=== PATIENT | male | born 1940 | race Caucasian/White ===

== ENCOUNTER → 2016-08-16 | Outpatient (CLI) | payer MEDICARE, BC | END | disposition home or self-care (01) | LOC: LABPAT 13:44 | PROVIDERS: ATTEND Surgery | DX: Z01.812 Encounter for preprocedural laboratory examination (principal) | CPT/HCPCS: 87070 ==

== ENCOUNTER 2016-12-08 15:38 | Inpatient (IN) | payer MEDICARE, BC, MEDICAID ==
[2016-12-08] MEDS ORDERED: ACETAMINOPHEN TAB 325 MG TAB PO PRN (18:05)
[2016-12-08] MEDS: LORazepam 0.5 MG TAB PO SCH ×2 (18:48→20:25)
[2016-12-08] MEDS: TOPIRAMATE 25 MG TAB PO SCH (20:24)
[2016-12-08] MEDS: MELATONIN 5 MG TABLET PO SCH (20:24)
[2016-12-08] MEDS: ATORVASTATIN 20 MG TAB PO SCH (20:24)
[2016-12-08] MEDS: amLODIPine 10 MG TAB PO SCH (20:24)
[2016-12-08] MEDS: HYDROCORTISONE 1% CREAM 30 GM TUBE TOPICAL SCH (20:24)
[2016-12-08] MEDS: POLYETHYLENE GLYCOL 3350 17 GM POWD.PACK PO SCH (20:24)
[2016-12-08] MEDS: hydrALAZINE HCL 25 MG TAB PO SCH (20:25)
[2016-12-09] MEDS: HYDROcodone/APAP 5-325MG 1 EACH TAB PO PRN ×2 (03:42→12:14)
[2016-12-09] MEDS: GABAPENTIN 100 MG CAP PO SCH (08:45)
[2016-12-09] MEDS: ESCITALOPRAM 20 MG TAB PO SCH (08:45)
[2016-12-09] MEDS: ASCORBIC ACID 500 MG TAB PO SCH (08:45)
[2016-12-09] MEDS: PANTOPRAZOLE 40 MG TABLET PO SCH (08:45)
[2016-12-09] MEDS: hydrALAZINE HCL 25 MG TAB PO SCH (08:46)
[2016-12-09] MEDS: SPIRONOLACTONE 25 MG TAB PO SCH (08:46)
[2016-12-09] MEDS: TOPIRAMATE 25 MG TAB PO SCH ×2 (08:46→20:42)
[2016-12-09] MEDS: LORazepam 0.5 MG TAB PO SCH (08:46)
[2016-12-09] MEDS: LISINOPRIL 20 MG TAB PO SCH (08:46)
[2016-12-09] MEDS: POLYETHYLENE GLYCOL 3350 17 GM POWD.PACK PO SCH ×3 (08:50→20:43)
[2016-12-09] MEDS ORDERED: buPROPion XL 300 MG TAB.ER.24H PO SCH (09:00)
[2016-12-09] MEDS ORDERED: FUROSEMIDE 20 MG TAB PO SCH (09:00)
[2016-12-09] MEDS ORDERED: LORazepam 0.5 MG TAB PO PRN (09:26)
--- NOTE | 2016-12-09 09:36 | P.HP ---
Psychiatric H&P - . History & Physical: Allergies Allergy/AdvReac Type Severity Reaction Status Date / Time No Known Allergies Allergy Unverified 12/08/16 18:37 Vital Signs Temp 97.7 F 12/09/16 03:47 Pulse 96 12/09/16 08:51 Resp 18 12/09/16 08:51 BP 174/77 12/09/16 08:51 Pulse Ox 96 12/08/16 18:26 Intake & Output 12/08/16 12/09/16 12/09/16 18:59 06:59 18:59 Weight 84 kg 12/09/16 09:27 IDENTIFYING DATA: This patient is a 76-year-old male who was admitted to the mental health unit from [facility] as he presented with suicidal ideation. HPI: The patient is well-known to my outpatient service. He has a history of major depressive disorder generalized anxiety disorder history of alcohol use disorder in remission. He states that's there was a lapse in him getting his Ativan and he was off of the medication for 2 days. He started to feel physically ill and this sent him into crisis. He reports he called 911 and was brought to [facility] for evaluation. He apparently made statements referring to suicidal ideation and was transferred to this mental health unit. The patient has been previously managed with Lexapro and Ativan. He was last seen in the office 11/29/2016. He reports feeling safe here on the mental health unit. He still feels hopeless and overwhelmed. He is reporting no symptoms of psychosis no hypomanic or manic symptoms. He feels his anxiety is controlled by medications currently being prescribed. PAST PSYCHIATRIC HISTORY: The patient has had numerous inpatient hospitalizations in the past it has been approximately 2 years since his last admission to this unit. No history of suicide attempts. Most recently he has been on Lexapro 20 mg daily Ativan 1 mg 3 times daily. We had recently tried to augment with Wellbutrin but that had him feeling more anxious and it was discontinued. We tried to utilize BuSpar at a separate time but he felt tired with it and it caused loose stools. In the past he has been on Effexor XR Librium trazodone Abilify. We did recently learned that his primary care physician was giving him Celexa on top of are Lexapro we contacted their office to discontinue the Celexa. PMH: History of congestive heart failure, migraines, hyperlipidemia, COPD ALLERGIES: NO KNOWN DRUG ALLERGIES MEDICATIONS: Refer to MAR CHEMICAL DEPENDENCY HISTORY: History of alcohol use disorder which has been in remission for several years, he was in residential treatment for chemical dependency treatment several times in the past FAMILY PSYCHIATRIC HISTORY: Unknown FAMILY CHEMICAL DEPENDENCY HISTORY: Unknown SOCIAL HISTORY: The patient is 76 years old he is he lives alone in his own rented apartment. 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 He has one child a daughter whom he sees weekly. No history of service. No legal history , no abuse history. MENTAL STATUS EXAM: The patient is an overweight male appearing his stated age. He is alert he is dressed in hospital gowns and is wearing to blankets. He reports his mood is depressed he feels hopeless and continues to have suicidal thoughts. Speech is fluent spontaneous nonpressured. No reported homicidal ideation. He is experiencing no auditory or visual hallucinations no specific delusions. No evidence of hypomanic or manic symptoms. He does have significant hearing loss and his hearing aids are not present. Insight and judgment limited. He is oriented to person place and date. He is able to name the days of the week backwards. He demonstrates no verbal or physical aggressiveness. STRENGTHS/WEAKNESSES: Strengths: Income, housing, family support weaknesses: Current symptoms of depression INTELLECTUAL FUNCTIONING: Above average IMPRESSIONS: [] 1. Major depressive disorder recurrent, generalized anxiety disorder, alcohol use disorder in remission 2. Cluster B traits 3. Congestive heart failure, COPD, hyperlipidemia, migraines, hypertension PLAN: The patient has been admitted to the mental health unit voluntarily. We reviewed medication options. We will continue his Lexapro 20 mg daily, discontinue the Wellbutrin that was restarted. Discontinue scheduled Ativan and switch to Klonopin 0.5 mg twice daily. Vital signs reviewed blood pressure is elevated he is not tachycardic. When necessary Ativan is available if needed. The patient will be seen by the product/industry consultant for routine history and physical exam. Social work will meet with the patient to complete a psychosocial assessment and begin discharge planning. We will involve family in treatment and discharge planning as he will allow area
[2016-12-09] MEDS: HYDROCORTISONE 1% CREAM 30 GM TUBE TOPICAL SCH ×2 (10:19→20:44)
[2016-12-09 11:17] LABS: Basophils % (A) 0 %; CH 33.4; Eosinophils # (A) 0.1 k/uL (0-0.7); Eosinophils % (A) 1 %; HCT 38.9 % (39.0-53.0); HDW 2.13; HGB 12.9 gm/dL (13.0-17.5); Luc # (Auto) 0.07; Luc % (Auto) 1; Lymphocytes # (A) 0.6 k/uL (1.0-4.8); Lymphocytes % (A) 9 %; MCH 33.6 pg (25.0-35.0); MCHC 33.1 g/dL (31.0-37.0); MCV 101.7 fL (80.0-100.0); Mean Platelet Volume 9.7; Monocytes # (A) 0.4 k/uL (0-1.0); Monocytes % (A) 5 %; Neutrophils # (A) 5.7 k/uL (1.3-7.7); Neutrophils % (A) 83 %; RBC 3.82 m/uL (4.30-5.90); RDW 12.3 % (11.5-15.5); WBC 6.8 k/uL (3.8-10.6); WBC (Perox) 6.64
[2016-12-09 11:38] LABS: ALT 34 U/L (21-72); AST 27 U/L (17-59); Alkaline Phosphatase 75 U/L (38-126); Anion Gap 13 mmol/L; Blood Urea Nitrogen 16 mg/dL (9-20); Calcium 9.6 mg/dL (8.4-10.2); Carbon Dioxide 17 mmol/L (22-30); Chloride 104 mmol/L (98-107); Glucose 155 mg/dL (74-99); Non-African American GFR(MDRD) >60 (>60 ml/min/1.73 sqM); Potassium 4.2 mmol/L (3.5-5.1); Sodium 134 mmol/L (137-145); Total Bilirubin 0.5 mg/dL (0.2-1.3); Total Protein 6.8 g/dL (6.3-8.2)
[2016-12-09] MEDS: MULTIVITAMINS, THERA 1 EACH TAB PO SCH (12:14)
[2016-12-09] MEDS ORDERED: FUROSEMIDE 20 MG TAB PO ONE (12:45)
[2016-12-09] MEDS: hydrALAZINE HCL 50 MG TAB PO SCH ×3 (13:31→20:42)
[2016-12-09 15:54] LABS: Appearance,Urine Cloudy (Clear); Bilirubin,Urine Negative (Negative); Glucose,Urine (UA) Negative (Negative); Ketones,Urine Negative (Negative); Leukocyte Esterase,Urine Negative (Negative); Mucus,Urine Rare /hpf; Nitrite,Urine Negative (Negative); PH, Urine 5.5 (5.0-8.0); Particle Count 4093; Protein,Urine Negative (Negative); RBC,Urine 10 /hpf (0-5); Specific Gravity,Urine 1.006 (1.001-1.035); UA Billing (MACRO vs. MICRO) MICRO; Urobilinogen,Urine <2.0 mg/dL (<2.0); WBC,Urine 3 /hpf (0-5)
[2016-12-09] MEDS: MELATONIN 5 MG TABLET PO SCH (20:42)
[2016-12-09] MEDS: ATORVASTATIN 20 MG TAB PO SCH (20:42)
[2016-12-09] MEDS: amLODIPine 10 MG TAB PO SCH (20:43)
[2016-12-09] MEDS: clonazePAM 0.5 MG TAB PO SCH (20:43)
[2016-12-09] MEDS ORDERED: HYDROcodone/APAP 5-325MG 1 EACH TAB ONE (23:57)
--- NOTE | 2016-12-10 08:36 | P.PN ---
Progress Note - Text Interval history: The patient is found in the hallway he follows me to an interview room. He reports that his mood is a little better today as he was able to sleep last night. He attended 1 group yesterday he is encouraged to attend more. He feels the Klonopin is helpful. He shares that he recently suffered the loss of a close friend just prior to this admission. He also shares that he had to give his dog up which he had just recently gotten. He states he was not able to sufficiently trained the dog and it was becoming too difficult to manage. He states "I feel like a failure". Mental status exam: The patient is alert he is dressed in hospital gowns eye contact is appropriate. He ambulates slowly but without ataxia. He is in no acute distress as he is seated in the chair. He does have exaggerated exhalation which is chronic for him. He reports his mood is a little better but states "I'm not ready to go home". He continues to struggle with grief reaction related to the stressors noted above. He is endorsing no auditory or visual hallucinations or specific delusions there is no evidence of psychosis he does not appear hypomanic or manic. He has a little spontaneous speech but mainly answers questions asked of him. He continues to be oriented to person place and date. There is no verbal or physical aggressiveness. Plan: The patient will continue on his current medications he is encouraged to participate more in the milieu. Vital signs reviewed. We will continue to monitor him for safety.
[2016-12-10] MEDS: PANTOPRAZOLE 40 MG TABLET PO SCH (08:43)
[2016-12-10] MEDS: TOPIRAMATE 25 MG TAB PO SCH ×2 (08:43→20:44)
[2016-12-10] MEDS: hydrALAZINE HCL 50 MG TAB PO SCH ×3 (08:43→20:44)
[2016-12-10] MEDS: HYDROCORTISONE 1% CREAM 30 GM TUBE TOPICAL SCH ×2 (08:43→20:45)
[2016-12-10] MEDS: ASCORBIC ACID 500 MG TAB PO SCH (08:43)
[2016-12-10] MEDS: FUROSEMIDE 40 MG TAB PO SCH (08:43)
[2016-12-10] MEDS: GABAPENTIN 100 MG CAP PO SCH (08:43)
[2016-12-10] MEDS: LISINOPRIL 20 MG TAB PO SCH (08:43)
[2016-12-10] MEDS: clonazePAM 0.5 MG TAB PO SCH ×2 (08:43→20:44)
[2016-12-10] MEDS: SPIRONOLACTONE 25 MG TAB PO SCH (08:43)
[2016-12-10] MEDS: ESCITALOPRAM 20 MG TAB PO SCH (08:43)
[2016-12-10] MEDS: POLYETHYLENE GLYCOL 3350 17 GM POWD.PACK PO SCH ×2 (08:44→20:45)
--- NOTE | 2016-12-10 10:35 | CONS ---
DATE OF CONSULTATION: He is a full code and he is a 76-year-old white male. New data: Height is 5 feet, 8 inches. Weight 84 kg. BSA 1.98 sq m. BMI 28.2 kg/sq m. Allergy is unknown. The consult is requested for underlying history and physical and medical management. The patient admitted through the emergency room by Dr. Bowers with the impression that he is a 76-year-old white male admitted with mental health presented at that time with suicide ideation at [facility]. They sent him to [place]. HISTORY OF PRESENT ILLNESS: The patient is well known to Dr. Bowers, as outpatient he is seeing him for depressive disorder and generalized anxiety disorder, history of alcohol use and he is in remission. He stated that the patient had a friend . Subsequently he quit eating and quit medication and he did not take medication for 2 to 3 days and then subsequently he started to feel more depressed. At that time he called 911 and they brought to [facility] and subsequently transferred to [place] psychiatric mental unit. The patient was in the past on Ativan and Lexapro. He stated today on interview that he has depression with worsening and he at that time called to be checked. The past history, the patient has a previous admission hospitalization and he has not been in the hospital in the last 2 years. The patient has been taking Lexapro 20 mg daily, Ativan 1 mg 3 times a day. He also tried Wellbutrin with the augmentation of the effect, more anxious. Had tried to use Buspar several times but he felt tired and caused lose bowel. He has been on Effexor, Librium, trazodone and Abilify. The patient was seen in the office. He did not elucidate on his psychiatric problem and he did not bring medication of the psychiatry with him and for the purpose of depression, patient started on Celexa as he denied that he takes any other antidepressant medication. PAST MEDICAL HISTORY: Congestive heart failure, migraine, hyperlipidemia, chronic obstructive pulmonary disease, and he has also lymphedema bilaterally. ALLERGIES: Unknown. He is very secretive and he does not reveal much about his family history. He is . 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 He has one child daughter who he sees weekly. No legal history. No history of abuse. No history of service. He had underlying history of hypertension. On review of system he denies any complaint. No chest pain, no shortness of breath. No cough, no expectoration. No gastrointestinal symptoms. No symptoms. No musculoskeletal symptoms. Rest of the review of systems was negative, 14 point. PHYSICAL EXAMINATION: At the time of the evaluation the patient is ambulatory, conscious, alert, oriented. His vital signs at the time of the admission temperature 97.7, pulse 96, respiratory rate 18, blood pressure was 174/77 with the underlying hypertension, uncontrolled. Current physical finding is today on 12/09/16 his temperature was 97.7 orally, pulse 75, respiratory rate 16, his blood pressure 145/80 and he is on room air. HEENT: Head was normocephalic and atraumatic. Pupils equal, reactive. Conjunctivae was pink. Sclerae anicteric. Extraocular muscle movement is intact. Oropharynx negative. Uvula midline. Natural teeth with caps. The hearing is very concerning with deficit and neurosensory hearing deficit. Nose, no rhinitis Neck was supple. No JVD. No thyromegaly. No lymphadenopathy. Trachea midline. The chest was clear to auscultation and percussion. HEART: PMI in the fifth intercostal space outside midclavicular line with soft murmur on the apex grade 2/6. ABDOMEN: Abdomen was soft. Positive bowel sounds. No tenderness in 4 quadrant. EXTREMITIES: No edema. Positive pulses bilateral. Neuro examination was essentially cranial nerves II through XII intact. No ataxia. No tremors. Moving 4 extremities. No lateralizing sign. His laboratory that was done on the today and white count was 6.8 with hemoglobin 12.9, hematocrit 38.9 with MCV 101.7. His platelet count is normal 207. His chemistry indicating sodium 134, potassium 4.2, chloride 104. His carbon dioxide on the lower side, 17 with the anion gap normal, 13. BUN is 16, creatinine 1.10. Estimated glomerular filtration rate more than 60 for non-. Glucose 155, which this blood is not fasting and calcium is 9.6, total bilirubin 0.5, AST 27, ALT 34, all normal and also alkaline phosphatase is normal. TSH 1.570 normal and total protein is 6.8 with albumin is 4. Currently today his blood pressure last reading 140/74 after we had mild changes on the antihypertensive medication. ASSESSMENT: Underlying depression and major depression disorder, recurrent, with generalized anxiety disorder. He has a history of alcohol use disorder, he is in remission. He has underlying chronic obstructive pulmonary disease, hyperlipidemia, migraines and hypertension in the past. Currently in the laboratories he had mild decrease in carbon dioxide which could be corrected in the hospital and with the mild acidotic, however, the anion gap is normal. His renal function is normal as well and currently no evidence of congestive heart failure. History of lymph edema in the past, which has been treated. The current adjustment of medication is the plan, otherwise no added treatment. Will be interested to see how his BMP after next week before he goes home preferably next Sunday. He may need to have CBC with differential as well as BMP. The patient currently stable general condition. No further treatment will be done. Thank you. Please let me know if you need any further questions.
[2016-12-10] MEDS: HYDROcodone/APAP 5-325MG 1 EACH TAB PO PRN (11:57)
[2016-12-10] MEDS: MULTIVITAMINS, THERA 1 EACH TAB PO SCH (11:57)
[2016-12-10] MEDS: MAGNESIUM HYDROXIDE 2,400 MG/10 ML CUP PO PRN (13:54)
[2016-12-10] MEDS: MAG HYDROX/AL HYDROX/SIMETH 30 ML CUP PO PRN (16:41)
[2016-12-10] MEDS: MELATONIN 5 MG TABLET PO SCH (20:44)
[2016-12-10] MEDS: amLODIPine 10 MG TAB PO SCH (20:44)
[2016-12-10] MEDS: ATORVASTATIN 20 MG TAB PO SCH (20:44)
[2016-12-11] MEDS: HYDROcodone/APAP 5-325MG 1 EACH TAB PO PRN ×2 (00:37→12:24)
[2016-12-11] MEDS: ESCITALOPRAM 20 MG TAB PO SCH (08:33)
[2016-12-11] MEDS: ASCORBIC ACID 500 MG TAB PO SCH (08:33)
[2016-12-11] MEDS: clonazePAM 0.5 MG TAB PO SCH ×2 (08:33→20:57)
[2016-12-11] MEDS: PANTOPRAZOLE 40 MG TABLET PO SCH (08:33)
[2016-12-11] MEDS: FUROSEMIDE 40 MG TAB PO SCH (08:33)
[2016-12-11] MEDS: SPIRONOLACTONE 25 MG TAB PO SCH (08:34)
[2016-12-11] MEDS: hydrALAZINE HCL 50 MG TAB PO SCH ×3 (08:34→20:58)
[2016-12-11] MEDS: TOPIRAMATE 25 MG TAB PO SCH ×2 (08:34→20:58)
[2016-12-11] MEDS: LISINOPRIL 20 MG TAB PO SCH (08:34)
[2016-12-11] MEDS: GABAPENTIN 100 MG CAP PO SCH (08:34)
[2016-12-11] MEDS: MULTIVITAMINS, THERA 1 EACH TAB PO SCH (08:34)
[2016-12-11] MEDS: POLYETHYLENE GLYCOL 3350 17 GM POWD.PACK PO SCH ×2 (09:53→20:58)
[2016-12-11] MEDS: HYDROCORTISONE 1% CREAM 30 GM TUBE TOPICAL SCH ×2 (09:53→20:57)
--- NOTE | 2016-12-11 10:00 | P.PN ---
Progress Note - Text Interval history: The patient is found in his room he follows me to an interview room. He reports that his mood is "bad". He states that he feels very depressed. He is sleeping adequately appetite is decreased due to some nausea. He states he continues to read in his room to distract himself from depressive thoughts. The patient has been on numerous psychotropics in the past. We reviewed options. He has been compliant with his medications. Mental status exam: The patient is a male appearing his stated age. He ambulates slowly but without ataxia. He is dressed in hospital gowns. Speech is fluent and spontaneous. He is irritable and becomes briefly agitated when he feels his needs are not being met. He endorses a depressed mood with hopelessness thinking. He reports having some suicidal thoughts with no plan of acting on it here in the hospital. He is endorsing no auditory or visual hallucinations. He endorses no specific delusions. Insight and judgment limited. He is oriented to person place and date. Plan: The patient will continue on the Lexapro and Klonopin as written. I will add Remeron 7.5 mg at bedtime. We will continue to monitor him for safety and encourage his participation in the milieu. Vital signs reviewed his blood pressure is within normal limits.
[2016-12-11] MEDS: MAGNESIUM HYDROXIDE 2,400 MG/10 ML CUP PO PRN (12:14)
[2016-12-11] MEDS: amLODIPine 10 MG TAB PO SCH (20:56)
[2016-12-11] MEDS: ATORVASTATIN 20 MG TAB PO SCH (20:57)
[2016-12-11] MEDS: MELATONIN 5 MG TABLET PO SCH (20:57)
[2016-12-11] MEDS: MIRTAZAPINE 15 MG TAB PO SCH (20:58)
[2016-12-12] MEDS ORDERED: HYDROcodone/APAP 5-325MG 1 EACH TAB ONE (04:26)
--- NOTE | 2016-12-12 09:26 | P.PN ---
Progress Note - Text Interval history: The patient is found at the front end technician he follows me to an interview room. He reports that his mood is "bad". He feels depressed he continues to have hopelessness thinking. He states he's been isolating in his room and reading. He did go down to meals. We discussed the importance of engaging in treatment and he is encouraged to attend groups. He was able to reach his daughter yesterday. He is disappointed that she did not bring more clothing up and that she stated she would likely not be able to visit tomorrow evening. The patient has no questions or concerns regarding medication. Mental status exam: The patient is alert he is dressed in his own clothing wearing pajamas. Hygiene grooming adequate. Eye contact is poor he has no spontaneous speech he answers questions briefly. He reports ongoing feelings of depression hopeless thoughts. No homicidal ideation no report or evidence of psychosis. He does not appear hypomanic or manic. Insight and judgment limited at this time. He demonstrates no verbal or physical aggressiveness. He is observed ambulating slowly without ataxia. He continues to have exaggerated exhalation as part of his COPD this appears stable with no acute exacerbation. Plan: The patient will continue on his current medication we will monitor him for safety and encourage his participation in the milieu. Vital signs reviewed. He has been evaluated by his primary care physician while on the mental health unit during this admission.
[2016-12-12] MEDS: LISINOPRIL 20 MG TAB PO SCH (09:30)
[2016-12-12] MEDS: hydrALAZINE HCL 50 MG TAB PO SCH ×3 (09:30→21:57)
[2016-12-12] MEDS: FUROSEMIDE 40 MG TAB PO SCH (09:31)
[2016-12-12] MEDS: HYDROCORTISONE 1% CREAM 30 GM TUBE TOPICAL SCH ×2 (09:31→21:57)
[2016-12-12] MEDS: ASCORBIC ACID 500 MG TAB PO SCH (09:31)
[2016-12-12] MEDS: GABAPENTIN 100 MG CAP PO SCH (09:34)
[2016-12-12] MEDS: clonazePAM 0.5 MG TAB PO SCH ×2 (09:34→20:33)
[2016-12-12] MEDS: POLYETHYLENE GLYCOL 3350 17 GM POWD.PACK PO SCH ×2 (09:34→21:58)
[2016-12-12] MEDS: ESCITALOPRAM 20 MG TAB PO SCH (09:34)
[2016-12-12] MEDS: PANTOPRAZOLE 40 MG TABLET PO SCH (09:34)
[2016-12-12] MEDS: SPIRONOLACTONE 25 MG TAB PO SCH (09:34)
[2016-12-12] MEDS: TOPIRAMATE 25 MG TAB PO SCH ×2 (09:35→20:32)
[2016-12-12 10:28] LABS: Anion Gap 14 mmol/L; Blood Urea Nitrogen 25 mg/dL (9-20); Calcium 9.4 mg/dL (8.4-10.2); Carbon Dioxide 18 mmol/L (22-30); Chloride 98 mmol/L (98-107); Glucose 139 mg/dL (74-99); Non-African American GFR(MDRD) 55 (>60 ml/min/1.73 sqM); Potassium 4.3 mmol/L (3.5-5.1); Sodium 130 mmol/L (137-145)
[2016-12-12] MEDS: MULTIVITAMINS, THERA 1 EACH TAB PO SCH (13:08)
[2016-12-12] MEDS: MAG HYDROX/AL HYDROX/SIMETH 30 ML CUP PO PRN (14:07)
[2016-12-12] MEDS: MAGNESIUM HYDROXIDE 2,400 MG/10 ML CUP PO PRN (18:34)
[2016-12-12] MEDS: ATORVASTATIN 20 MG TAB PO SCH (20:28)
[2016-12-12] MEDS: amLODIPine 10 MG TAB PO SCH (20:28)
[2016-12-12] MEDS: HYDROcodone/APAP 5-325MG 1 EACH TAB PO PRN (20:29)
[2016-12-12] MEDS: MIRTAZAPINE 15 MG TAB PO SCH (20:32)
[2016-12-12] MEDS: MELATONIN 5 MG TABLET PO SCH (21:57)
[2016-12-13 01:48] LABS: Appearance,Urine Clear (Clear); Bacteria,Urine Rare /hpf; Bilirubin,Urine Negative (Negative); Glucose,Urine (UA) Negative (Negative); Ketones,Urine Negative (Negative); Leukocyte Esterase,Urine Small (Negative); Mucus,Urine Rare /hpf; Nitrite,Urine Negative (Negative); PH, Urine 6.5 (5.0-8.0); Particle Count 984; Protein,Urine Negative (Negative); RBC,Urine 1 /hpf (0-5); Specific Gravity,Urine 1.011 (1.001-1.035); Squamous Epithelial Cell,Urine <1 /hpf (0-4); UA Billing (MACRO vs. MICRO) MICRO; Urobilinogen,Urine <2.0 mg/dL (<2.0); WBC,Urine 6 /hpf (0-5)
--- NOTE | 2016-12-13 08:48 | P.PN ---
Progress Note - Text Interval history: The patient is found in the hallway he follows me to an interview room. He reports that his mood is a little better meaning less depressed. He did sleep last night he complained of some abdominal pain but that seems to have resolved. Recent labs revealed a lower sodium and elevated BUN/creatinine creatinine with a mildly suspicious urinalysis for UTI urine culture has been ordered. We will repeat a CMP today. Vital signs reviewed they're within normal limits. Mental status exam: The patient is alert he is ambulating in the hallway slowly without ataxia. He is reporting no dizziness or pain at this time he is in no acute distress. Chronically he has exaggerated exhalation due to COPD there is no acute exacerbation. He reports his mood is a little better. He maintains a constricted affect. He has little spontaneous speech but does answer questions briefly. He seated calmly in his chair he demonstrates no verbal or physical aggressiveness. He is reporting no auditory or visual hallucinations no specific delusions. He is endorsing no acute suicidal ideation intent or plan. Insight and judgment limited. He is oriented to person place and date. Plan: The patient will continue on his current psychotropic medications. We have reordered a CMP and we will await those results. He is encouraged to hydrate himself. He is encouraged to continue participating in groups he did follow that direction yesterday. We will monitor him for safety.
[2016-12-13] MEDS: clonazePAM 0.5 MG TAB PO SCH ×2 (08:54→20:08)
[2016-12-13] MEDS: GABAPENTIN 100 MG CAP PO SCH (08:54)
[2016-12-13] MEDS: ASCORBIC ACID 500 MG TAB PO SCH (08:54)
[2016-12-13] MEDS: ESCITALOPRAM 20 MG TAB PO SCH (08:54)
[2016-12-13] MEDS: PANTOPRAZOLE 40 MG TABLET PO SCH (08:54)
[2016-12-13] MEDS: LISINOPRIL 20 MG TAB PO SCH (08:55)
[2016-12-13] MEDS: SPIRONOLACTONE 25 MG TAB PO SCH (08:55)
[2016-12-13] MEDS: FUROSEMIDE 40 MG TAB PO SCH (08:55)
[2016-12-13] MEDS: hydrALAZINE HCL 50 MG TAB PO SCH ×3 (08:55→22:05)
[2016-12-13] MEDS: POLYETHYLENE GLYCOL 3350 17 GM POWD.PACK PO SCH ×3 (08:56→20:09)
[2016-12-13] MEDS: TOPIRAMATE 25 MG TAB PO SCH ×2 (08:57→20:10)
[2016-12-13] MEDS: MAGNESIUM HYDROXIDE 2,400 MG/10 ML CUP PO PRN (08:57)
[2016-12-13] MEDS: HYDROCORTISONE 1% CREAM 30 GM TUBE TOPICAL SCH ×2 (09:00→20:08)
[2016-12-13 10:52] LABS: ALT 27 U/L (21-72); AST 23 U/L (17-59); Alkaline Phosphatase 77 U/L (38-126); Anion Gap 13 mmol/L; Blood Urea Nitrogen 31 mg/dL (9-20); Calcium 9.1 mg/dL (8.4-10.2); Carbon Dioxide 21 mmol/L (22-30); Chloride 97 mmol/L (98-107); Glucose 139 mg/dL (74-99); Non-African American GFR(MDRD) 52 (>60 ml/min/1.73 sqM); Sodium 131 mmol/L (137-145); Total Bilirubin 0.4 mg/dL (0.2-1.3); Total Protein 6.7 g/dL (6.3-8.2)
[2016-12-13] MEDS: MULTIVITAMINS, THERA 1 EACH TAB PO SCH (13:12)
[2016-12-13] MEDS: AMOXICILLIN 500 MG CAP PO SCH (16:34)
[2016-12-13] MEDS: MELATONIN 5 MG TABLET PO SCH (20:08)
[2016-12-13] MEDS: amLODIPine 10 MG TAB PO SCH (20:08)
[2016-12-13] MEDS: ATORVASTATIN 20 MG TAB PO SCH (20:08)
[2016-12-13] MEDS: MIRTAZAPINE 15 MG TAB PO SCH (20:09)
[2016-12-13] MEDS: HYDROcodone/APAP 5-325MG 1 EACH TAB PO PRN (20:12)
[2016-12-14] MEDS: MAGNESIUM HYDROXIDE 2,400 MG/10 ML CUP PO PRN ×2 (08:17→21:01)
[2016-12-14] MEDS: PANTOPRAZOLE 40 MG TABLET PO SCH (08:17)
[2016-12-14] MEDS: AMOXICILLIN 500 MG CAP PO SCH ×4 (08:17→20:58)
[2016-12-14] MEDS: ESCITALOPRAM 20 MG TAB PO SCH (09:21)
[2016-12-14] MEDS: HYDROCORTISONE 1% CREAM 30 GM TUBE TOPICAL SCH ×2 (09:21→21:10)
[2016-12-14] MEDS: SPIRONOLACTONE 25 MG TAB PO SCH (09:21)
[2016-12-14] MEDS: POLYETHYLENE GLYCOL 3350 17 GM POWD.PACK PO SCH ×2 (09:21→20:59)
[2016-12-14] MEDS: GABAPENTIN 100 MG CAP PO SCH (09:21)
[2016-12-14] MEDS: LISINOPRIL 20 MG TAB PO SCH (09:21)
[2016-12-14] MEDS: FUROSEMIDE 40 MG TAB PO SCH (09:22)
[2016-12-14] MEDS: TOPIRAMATE 25 MG TAB PO SCH ×2 (09:22→21:01)
[2016-12-14] MEDS: hydrALAZINE HCL 50 MG TAB PO SCH ×3 (09:22→20:58)
[2016-12-14] MEDS: ASCORBIC ACID 500 MG TAB PO SCH (09:23)
[2016-12-14] MEDS: clonazePAM 0.5 MG TAB PO SCH ×2 (09:23→21:01)
--- NOTE | 2016-12-14 10:57 | P.PN ---
Progress Note - Text Interval history: The patient is found in his room he refuses to follow me to an interview room and wishes to speak in his room. He reports his mood as "bad ". He states his mood is very depressed he feels hopeless. He states he cannot function at home in his current state. He has selectively been attending groups. He has been eating meals. He is diagnosed with a presumed urinary tract infection and has been placed on amoxicillin. He reports having lower abdominal discomfort due to the bladder infection. Mental status exam: The patient is alert he is lying in bed, eye contact is appropriate. Affect is blunted. He reports hopelessness thinking he reports feeling safe here in the hospital. No homicidal ideation. There is no evidence of psychosis he does not appear hypomanic or manic. He demonstrates some psychomotor slowing. He demonstrates no verbal or physical aggressiveness. Insight and judgment limited. He is oriented to person place month and year but not date or day of the week. He has a disheveled appearance hygiene is fair. Plan: The patient will continue on his current medication we will continue to monitor him for safety. He continues to have significant symptoms of depression that he feels impacts his daily function. The patient is typically higher functioning at home. The presumed urinary tract infection could be complicating his presentation at this time. We will continue the antibiotic therapy. We will monitor him for safety and encourage his participation in the milieu. He requires continued hospitalization for safety. He would reasonably be expected to decompensate if we discharged him at this time. He requires further stabilization.
[2016-12-14] MEDS: MULTIVITAMINS, THERA 1 EACH TAB PO SCH (13:01)
--- NOTE | 2016-12-14 16:39 | US ---
EXAMINATION TYPE: US abd limited kidneys/bladder DATE OF EXAM: 12/14/2016 3:09 PM COMPARISON: CT 06/26/2016 CLINICAL HISTORY: 76-year-old male with obstructive uropathy, chronic kidney disease stage. Bladder i nfection. TECHNIQUE: Multiple sonographic images of the kidneys and bladder were obtained. FINDINGS: Liver Length: 16.5 cm Gallbladder Wall: 0.3 cm CBD: 6.7 mm Right Kidney: 9.5 x 4.8 x 4.8 cm cm Left Kidney: 8.6 x 4.4 x 5.3 cm Pancreas: Obscured by bowel gas Liver: Overall homogeneous echotexture without focal lesion. Gallbladder: No abnormal gallbladder distention, wall thickening, pericholecystic fluid, or shadowin g calculi. CBD: Mildly dilated but within normal limits for patient's age. Right Kidney: No hydronephrosis. Left Kidney: No hydronephrosis. A couple cysts are present, largest measuring 1.8 cm in the upper to mid pole. Bladder: Mild to moderate circumferential wall thickening. Under distention limits the evaluation. Ne ither ureteral jet is seen during the course of the exam. IMPRESSION: 1. No hydronephrosis. 2. Circumferential bladder wall thickening could reflect cystitis or chronic bladder wall hypertrophy .
[2016-12-14] MEDS: ATORVASTATIN 20 MG TAB PO SCH (20:59)
[2016-12-14] MEDS: amLODIPine 10 MG TAB PO SCH (20:59)
[2016-12-14] MEDS: HYDROcodone/APAP 5-325MG 1 EACH TAB PO PRN (21:01)
[2016-12-14] MEDS: MIRTAZAPINE 15 MG TAB PO SCH (21:02)
[2016-12-14] MEDS: MELATONIN 5 MG TABLET PO SCH (21:37)
[2016-12-15] MEDS: AMOXICILLIN 500 MG CAP PO SCH ×3 (06:26→20:51)
[2016-12-15] MEDS: PANTOPRAZOLE 40 MG TABLET PO SCH (08:53)
[2016-12-15] MEDS: ASCORBIC ACID 500 MG TAB PO SCH (08:54)
[2016-12-15] MEDS: hydrALAZINE HCL 50 MG TAB PO SCH ×3 (08:54→20:50)
[2016-12-15] MEDS: ESCITALOPRAM 20 MG TAB PO SCH (08:54)
[2016-12-15] MEDS: GABAPENTIN 100 MG CAP PO SCH (08:54)
[2016-12-15] MEDS: FUROSEMIDE 40 MG TAB PO SCH (08:54)
[2016-12-15] MEDS: clonazePAM 0.5 MG TAB PO SCH ×2 (08:54→20:55)
[2016-12-15] MEDS: SPIRONOLACTONE 25 MG TAB PO SCH (08:55)
[2016-12-15] MEDS: LISINOPRIL 20 MG TAB PO SCH (08:55)
[2016-12-15] MEDS: HYDROCORTISONE 1% CREAM 30 GM TUBE TOPICAL SCH ×2 (08:55→21:40)
[2016-12-15] MEDS: TOPIRAMATE 25 MG TAB PO SCH ×2 (08:55→21:40)
[2016-12-15] MEDS: POLYETHYLENE GLYCOL 3350 17 GM POWD.PACK PO SCH ×2 (08:55→20:55)
[2016-12-15] MEDS: HYDROcodone/APAP 5-325MG 1 EACH TAB PO PRN ×2 (08:56→20:55)
[2016-12-15] MEDS: MAGNESIUM HYDROXIDE 2,400 MG/10 ML CUP PO PRN (08:56)
--- NOTE | 2016-12-15 09:30 | P.PN ---
Progress Note - Text Interval history: The patient is found in his room. He reports that his mood is slowly improving. He continues to complain of symptoms related to his urinary tract infection. He reports he did get up for breakfast. He states he attended some groups yesterday. He agrees to attend today. He states he slept well last evening. He remains compliant with his medication. He has no questions regarding his psychotropic medication. He has not had any further contact with his daughter and states she gets upset with him when he gets hospitalized psychiatrically. He states "she likes to think of me as whole" Mental status exam: The patient is alert he is lying in bed eye contact is good speech is fluent spontaneous nonpressured. He reports his mood is depressed but improving. He feels safe in the hospital. He reports no homicidal thoughts. No evidence or report of psychosis no evidence of hypomanic or manic symptoms. Thought process is linear he demonstrates no tangential thinking loose associations or flight of ideas. Hygiene is adequate he is dressed in hospital attire and covered with a blanket. He remains oriented to person place and date. He demonstrates no verbal or physical aggressiveness. Plan: The patient appears to be slowly improving. We will continue his psychotropic medications as written. I would anticipate he would be appropriate psychiatrically speaking for discharge as soon as Sunday if he demonstrates sufficient clinical improvement. His BUN and creatinine have elevated his sodium level remains low. We will monitor his by mouth hydration and may need to contact his ultrasound tech for further recommendations. Vital signs reviewed they're within normal limits.
[2016-12-15] MEDS: MULTIVITAMINS, THERA 1 EACH TAB PO SCH (13:54)
[2016-12-15] MEDS: amLODIPine 10 MG TAB PO SCH (20:50)
[2016-12-15] MEDS: ATORVASTATIN 20 MG TAB PO SCH (20:50)
[2016-12-15] MEDS: MELATONIN 5 MG TABLET PO SCH (20:51)
[2016-12-15] MEDS: MIRTAZAPINE 15 MG TAB PO SCH (20:54)
[2016-12-16] MEDS: HYDROcodone/APAP 5-325MG 1 EACH TAB ONE ×2 (00:55→01:07)
[2016-12-16] MEDS: AMOXICILLIN 500 MG CAP PO SCH (06:08)
[2016-12-16] MEDS: ASCORBIC ACID 500 MG TAB PO SCH (09:35)
[2016-12-16] MEDS: PANTOPRAZOLE 40 MG TABLET PO SCH (09:35)
[2016-12-16] MEDS: ESCITALOPRAM 20 MG TAB PO SCH (09:35)
[2016-12-16] MEDS: clonazePAM 0.5 MG TAB PO SCH ×2 (09:35→20:44)
[2016-12-16] MEDS: GABAPENTIN 100 MG CAP PO SCH (09:35)
[2016-12-16] MEDS: FUROSEMIDE 40 MG TAB PO SCH (09:35)
[2016-12-16] MEDS: SPIRONOLACTONE 25 MG TAB PO SCH (09:36)
[2016-12-16] MEDS: HYDROCORTISONE 1% CREAM 30 GM TUBE TOPICAL SCH ×2 (09:36→20:47)
[2016-12-16] MEDS: TOPIRAMATE 25 MG TAB PO SCH ×2 (09:36→20:46)
[2016-12-16] MEDS: hydrALAZINE HCL 50 MG TAB PO SCH ×3 (09:36→20:44)
[2016-12-16] MEDS: LISINOPRIL 20 MG TAB PO SCH (09:36)
[2016-12-16] MEDS: POLYETHYLENE GLYCOL 3350 17 GM POWD.PACK PO SCH ×2 (09:36→20:47)
[2016-12-16] MEDS: HYDROcodone/APAP 5-325MG 1 EACH TAB PO PRN ×2 (09:38→21:40)
[2016-12-16] MEDS: MAGNESIUM HYDROXIDE 2,400 MG/10 ML CUP PO PRN (11:35)
[2016-12-16] MEDS: MULTIVITAMINS, THERA 1 EACH TAB PO SCH (12:48)
--- NOTE | 2016-12-16 13:16 | P.PN ---
Subjective This dictation on the progress note date of service 12/16/2016. Dictating follow-up by Dr. Peewee Rdz [facility]. Patient seen [id number] today discussed with him the current finding and the plan. His urine analysis indicating Klebsiella pneumonia sensitive to Augmentin will be changing his amoxicillin to Augmentin prescription given for the discharge for 7 days treatment. I did discuss with him the ultrasound of the kidney bladder and ureter and advised him with the result, he had a chronic kidney disease, he had increase in thickness of the bladder, patient has been doing self customization for retention of the urine. Advised that he should see Dr. Fernando urologist which she has been following with them in the past for for further treatment and advice. On this admission found that he has a slight elevation of the creatinine, also his hyponatremia which is chronic associated with antidepressants and antipsychotic medication which is chronically he uses. Patient is ambulatory, conscious alert oriented 3 no acute infection at this time and he was treated with amoxicillin on admission. His vital sign 98.7 orally temperature pulse 92 respiratory rate 20 regular and blood pressure was fluctuating however currently 148/70. His pulse ox on room air 95%. Patient has history of COPD and he has wheezes will be starting him on DuoNeb nebulizer 4 times a day. HEENT negative neck supple and no JVD, no thyromegaly no lymphadenopathy. Next The chest occasional wheezes normal variation of the lung. Heart regular sinus rhythm Abdomen is soft positive bowel sounds next Extremities he had a trace edema. Left kidney smaller 8.6. He had [id number] circumferential thickening of the wall of the bladder. Last laboratory: Indicating on 12/13/2016 his sodium 131 potassium 4 chloride 97 carbon dioxide 21 and his creatinine 1.3 to and the BUN 31 Assessment: Hypertension with hypertensive heart disease currently controlled with multiple antihypertensive medication. #2 hyponatremia secondary to antidepressives and Lantus psychotic medication. #3 chronic kidney disease and increased thickening of the bladder with the self catheterization for urinary incontinent treated in the past by Dr. Patton patient will be following when he discharge was Dr. Vila. #4 patient complaining of could not do his ADL at home and living alone and requesting to be in the long term will communicate with the nursing staff at the mental health unit for the social work assistant and case planner arrangement. #4 will start fluid restriction mild to 1500 mL per day total with the dietitian help. #5 inhalation nebulizer with the underlying history of COPD. Plan: #1 change the antibiotic to Augmentin according to culture and sensitivity of the urine analysis which was found to be Klebsiella pneumonia urinary tract infection. #2 hyponatremia secondary to antidepressives antipsychotic medication we will be continuing that because it is essential for his well-being. #3 start mild fluid restriction 1500 mL to 1200 mL per day total. #4 will continue care at long term when he discharged with the probability of discharged on Sunday, I left a prescription for the antibiotic on the chart as well for 7 days of Augmentin 875 mg twice a day. #5 inhalation nebulizer during his presence in the hospital, he has outpatient inhaler HFA puffer he can use it as outpatient. #6 follow-up in the office after discharge, if he going to the long term we will be following up in the long term if he is in [facility] or medical [place] only. Objective - Vital Signs Vital signs: Vital Signs Temp 98.7 F 12/16/16 09:49 Pulse 92 12/16/16 09:49 Resp 20 12/16/16 09:49 BP 148/70 12/16/16 09:49 Pulse Ox 95 12/16/16 09:49 Intake & Output 12/15/16 12/16/16 12/16/16 18:59 06:59 18:59 Intake Total 712 360 476 Output Total 1225 Balance 712 360 -749 Intake: Oral 712 360 476 Output: Urine 1225 Other: # Voids 1 - Labs CBC & Chem 7: 12/09/16 10:53 12/13/16 09:32 Labs: Microbiology - Last 24 Hours (Table) 12/12/16 22:40 Urine Culture - Final Urine,Catheterized Klebsiella pneumoniae
[2016-12-16 15:02] LABS: Anion Gap 13 mmol/L; Blood Urea Nitrogen 26 mg/dL (9-20); Calcium 9.1 mg/dL (8.4-10.2); Carbon Dioxide 18 mmol/L (22-30); Chloride 96 mmol/L (98-107); Glucose 122 mg/dL (74-99); Non-African American GFR(MDRD) 58 (>60 ml/min/1.73 sqM); Potassium 4.7 mmol/L (3.5-5.1); Sodium 127 mmol/L (137-145)
--- NOTE | 2016-12-16 15:27 | P.PN ---
Progress Note - Text SUBJECTIVE: I reviewed the medical record and interviewed Mr. Tejeda. He is a 76-year-old male who presented to unit with a major depressive disorder. He complained of constipation not relieved by the milk of magnesia and MiraLAX. He feels that his depression is lifting. He welcomed Dr. Vides's recommendation for snf placement. He stated that he is unable to take care of himself anymore. He denied thoughts of or suicide. OBJECTIVE: He presented as a frail elderly male who was pleasant on approach. He made eye contact and attended to the interview. He had a depressed facial expression. He showed psychomotor retardation but no abnormal involuntary movements. His gait was slow but steady. His speech was spontaneous with decreased rate, rhythm and volume. His affect was depressed and not reactive. He denied suicidal ideation or wishes. He denied homicidal ideation. He expressed feelings of helplessness but denied worthlessness or hopelessness. He ruminated on his physical disability. He did not express ideas reference or paranoid ideation. His thinking was concrete and associations were coherent and logical. He denied hallucinations and did not appear to be responding to internal stimuli. ASSESSMENT: He reports subjective improvement in depression but continues to show signs and symptoms of depression. Constipation. PLAN: Continue inpatient hospitalization. Continue suicide precautions with 15 minute checks. Continue current psychotropic medications including clonazepam 0.5 mg twice a day, Lexapro 20 mg daily, gabapentin 100 mg daily, lorazepam 0.5 mg twice a day, melatonin 10 mg at bedtime and mirtazapine 7.5 mg at bedtime. Continue other medications as recommended by the medical records manager. Trial of Colace 100 mg daily for treatment constipation. Encourage participation in therapeutic groups and activities. Evaluate clinical status response to treatment on a daily basis.
[2016-12-16] MEDS ORDERED: IPRATROPIUM-ALBUTEROL 3 ML NEB INHALATION SCH (16:00)
[2016-12-16] MEDS: DOCUSATE 100 MG CAP PO SCH (16:39)
[2016-12-16] MEDS: MIRTAZAPINE 15 MG TAB PO SCH (20:44)
[2016-12-16] MEDS: amLODIPine 10 MG TAB PO SCH (20:44)
[2016-12-16] MEDS: ATORVASTATIN 20 MG TAB PO SCH (20:44)
[2016-12-16] MEDS: MELATONIN 5 MG TABLET PO SCH (20:44)
[2016-12-16] MEDS: AMOXIC-POT CLAV 875-125MG 1 EACH TAB PO SCH (20:46)
[2016-12-16] MEDS: MAG HYDROX/AL HYDROX/SIMETH 30 ML CUP PO PRN (21:40)
[2016-12-16] MEDS: IPRATROPIUM-ALBUTEROL 3 ML NEB INHALATION SCH (22:39)
[2016-12-17] MEDS: MAGNESIUM HYDROXIDE 2,400 MG/10 ML CUP PO PRN (03:34)
[2016-12-17] MEDS: PANTOPRAZOLE 40 MG TABLET PO SCH (09:16)
[2016-12-17] MEDS: AMOXIC-POT CLAV 875-125MG 1 EACH TAB PO SCH ×2 (09:17→21:01)
[2016-12-17] MEDS: clonazePAM 0.5 MG TAB PO SCH ×2 (09:17→20:58)
[2016-12-17] MEDS: ASCORBIC ACID 500 MG TAB PO SCH (09:17)
[2016-12-17] MEDS: ESCITALOPRAM 20 MG TAB PO SCH (09:17)
[2016-12-17] MEDS: HYDROCORTISONE 1% CREAM 30 GM TUBE TOPICAL SCH ×2 (09:18→23:30)
[2016-12-17] MEDS: hydrALAZINE HCL 50 MG TAB PO SCH ×3 (09:18→20:58)
[2016-12-17] MEDS: LISINOPRIL 20 MG TAB PO SCH (09:18)
[2016-12-17] MEDS: GABAPENTIN 100 MG CAP PO SCH (09:18)
[2016-12-17] MEDS: FUROSEMIDE 40 MG TAB PO SCH (09:18)
[2016-12-17] MEDS: MAG HYDROX/AL HYDROX/SIMETH 30 ML CUP PO PRN ×3 (09:19→18:53)
[2016-12-17] MEDS: TOPIRAMATE 25 MG TAB PO SCH ×2 (09:19→20:57)
[2016-12-17] MEDS: SPIRONOLACTONE 25 MG TAB PO SCH (09:19)
[2016-12-17] MEDS: HYDROcodone/APAP 5-325MG 1 EACH TAB PO PRN ×2 (09:21→21:44)
[2016-12-17] MEDS: DOCUSATE 100 MG CAP PO SCH (09:22)
[2016-12-17] MEDS: POLYETHYLENE GLYCOL 3350 17 GM POWD.PACK PO SCH ×2 (09:23→20:58)
[2016-12-17] MEDS: IPRATROPIUM-ALBUTEROL 3 ML NEB INHALATION SCH ×4 (09:37→21:34)
--- NOTE | 2016-12-17 10:00 | P.PN ---
Progress Note - Text SUBJECTIVE: I reviewed the medical record and interviewed Mr. Tejeda. He is a 76-year-old male who presented to unit with a major depressive disorder. He complained of abdominal cramping and diarrhea since he started Augmentin. He spoke with his daughter yesterday and she suggested a shelter resident of detention. I explained that the group homes are private pay and usually costed the range of $1400-$1500 per month. He responded that his social security would not cover that cost and his family would not be able to supplement. He asked if I could talk to the social media campaign manager about assistance with payment for the shelter. OBJECTIVE: He presented as a frail elderly male who was pleasant on approach. Happy was sitting comfortably on his out of his bed and reading a novel. He made eye contact and attended to the interview. He had a depressed facial expression. He showed psychomotor retardation but no abnormal involuntary movements. His gait was slow but steady. His speech was spontaneous with decreased rate, rhythm and volume. His affect was depressed and not reactive. He denied suicidal ideation or wishes. He denied homicidal ideation. He expressed feelings of helplessness but denied worthlessness or hopelessness. He ruminated on his physical disability. He did not express ideas reference or paranoid ideation. His thinking was concrete and associations were coherent and logical. He denied hallucinations and did not appear to be responding to internal stimuli. ASSESSMENT: He reports subjective improvement in depression but continues to show signs and symptoms of depression. The diarrhea possibly related to current antibiotic. PLAN: Continue inpatient hospitalization. Continue suicide precautions with 15 minute checks. Continue current psychotropic medications including clonazepam 0.5 mg twice a day, Lexapro 20 mg daily, gabapentin 100 mg daily, lorazepam 0.5 mg twice a day, melatonin 10 mg at bedtime and mirtazapine 7.5 mg at bedtime. Continue other medications as recommended by the medical affairs director. Hold Colace 100 mg daily until his diarrhea results. Social work to assist with placement. Encourage participation in therapeutic groups and activities. Evaluate clinical status response to treatment on a daily basis.
[2016-12-17] MEDS: MULTIVITAMINS, THERA 1 EACH TAB PO SCH (14:47)
[2016-12-17 17:05] LABS: Potassium,Urine Random 20.2 mmol/L
[2016-12-17] MEDS: MELATONIN 5 MG TABLET PO SCH (20:57)
[2016-12-17] MEDS: amLODIPine 10 MG TAB PO SCH (20:58)
[2016-12-17] MEDS: ATORVASTATIN 20 MG TAB PO SCH (20:58)
[2016-12-17] MEDS: MIRTAZAPINE 15 MG TAB PO SCH (20:58)
[2016-12-18] MEDS: ESCITALOPRAM 20 MG TAB PO SCH (09:09)
[2016-12-18] MEDS: POLYETHYLENE GLYCOL 3350 17 GM POWD.PACK PO SCH ×2 (09:09→20:11)
[2016-12-18] MEDS: hydrALAZINE HCL 50 MG TAB PO SCH ×3 (09:09→20:12)
[2016-12-18] MEDS: ASCORBIC ACID 500 MG TAB PO SCH (09:09)
[2016-12-18] MEDS: clonazePAM 0.5 MG TAB PO SCH ×2 (09:09→20:13)
[2016-12-18] MEDS: LISINOPRIL 20 MG TAB PO SCH (09:10)
[2016-12-18] MEDS: FUROSEMIDE 40 MG TAB PO SCH (09:10)
[2016-12-18] MEDS: PANTOPRAZOLE 40 MG TABLET PO SCH (09:10)
[2016-12-18] MEDS: AMOXIC-POT CLAV 875-125MG 1 EACH TAB PO SCH ×2 (09:10→20:12)
[2016-12-18] MEDS: HYDROcodone/APAP 5-325MG 1 EACH TAB PO PRN (09:11)
[2016-12-18] MEDS: GABAPENTIN 100 MG CAP PO SCH (09:11)
[2016-12-18] MEDS: TOPIRAMATE 25 MG TAB PO SCH ×2 (09:11→20:13)
[2016-12-18] MEDS: SPIRONOLACTONE 25 MG TAB PO SCH (09:11)
[2016-12-18] MEDS: MAG HYDROX/AL HYDROX/SIMETH 30 ML CUP PO PRN ×3 (09:12→17:42)
[2016-12-18] MEDS: HYDROCORTISONE 1% CREAM 30 GM TUBE TOPICAL SCH ×2 (09:13→21:15)
[2016-12-18] MEDS: IPRATROPIUM-ALBUTEROL 3 ML NEB INHALATION SCH ×4 (10:41→20:19)
[2016-12-18] MEDS: MULTIVITAMINS, THERA 1 EACH TAB PO SCH (12:42)
--- NOTE | 2016-12-18 13:52 | P.DS ---
Providers Date of admission: 12/08/16 16:12 Attending physician: Hossein Bowers Consults: 12/08/16 18:05 Consult Physician Routine Consulting Provider: Salvador Vides Consult Reason/Comments: follow up h & P Do you want consulting provider notified?: Yes Primary care physician: Stated None - Discharge Diagnosis(es) (1) Major depressive disorder, recurrent episode with anxious distress Current Visit: Yes Status: Chronic Priority: High (2) Alcohol use disorder, severe, in sustained remission Current Visit: Yes Status: Chronic Priority: Low (3) Cluster B personality disorder Current Visit: Yes Status: Chronic Priority: Medium Hospital Course: Mr. Tejeda is 76-year-old male transferred from [facility] with complaints of depression and suicidal ideation. He is well known to our outpatient service. He has history of major depressive disorder, alcohol use disorder and a unspecified personality disorder. He alleged that there was a lapse in him obtaining a prescription for Ativan he was off the medication for 2 days. He started to feel physically ill and this sentiment of a crisis. He made statements about suicidal ideation or [facility] resulted in a referral to this unit. He had no symptoms of psychosis, jovanny or hypomania. Please see admission assessment dated 12/09/2016. We admitted him to the psychiatric unit under care of Dr. Bowers. We provided a biopsychosocial assessment. The internet marketing consultant project drilling engineer completed the initial physical exam and medical history and diagnosed COPD, hyperlipidemia, migraines and hypertension. Dr. Candelario continued his preadmission dose of Lexapro and Klonopin. He added Remeron 7.5 mg at bedtime for the treatment of complaints of insomnia and depression. He had multiple somatic complaints. We reconsulted medicine the diagnosis with a urinary tract infection indicating Klebsiella pneumonia sensitive to Augmentin. In addition the internet marketing consultant diagnosed hyponatremia was likely secondary to the antidepressant or antipsychotic medicatio and recommended inhalation nebulizer during his presence in hospital. He expressed the inability to live independently and inquired referral to a group home or a [facility]cc. He is an eligible for a group home because of his level of functioning and does not have the finances to pay for a mcc. At the time of discharge he denied thoughts of or suicide. He is scheduled for continued treatment to the [facility] outpatient mental health clinic. Patient Condition at Discharge: Stable Plan - Discharge Summary New Discharge Prescriptions: Amoxic-Pot Clav 875-125Mg [Augmentin 875-125] 1 each PO Q12HR #10 tab Furosemide [Lasix] 40 mg PO DAILY #30 tab Melatonin 10 mg PO HS #30 tab Mirtazapine [Remeron] 7.5 mg PO HS #30 tab Pantoprazole [Protonix] 40 mg PO AC-BRKFST #30 tab Discharge Medication List Ascorbic Acid [Vitamin C] 500 mg PO DAILY 12/08/16 [History] Atorvastatin Calcium [Lipitor] 20 mg PO HS 12/08/16 [History] Benazepril [Lotensin] 10 mg PO BID 12/08/16 [History] Citalopram Hydrobromide [CeleXA] 20 mg PO DAILY 12/08/16 [History] Escitalopram [Lexapro] 20 mg PO DAILY 12/08/16 [History] Furosemide [Lasix] 20 mg PO DAILY 12/08/16 [History] Gabapentin [Neurontin] 100 mg PO DAILY 12/08/16 [History] LORazepam [Ativan] 1 mg PO TID 12/08/16 [History] Metoprolol Tartrate [Lopressor] 25 mg PO DAILY 12/08/16 [History] Multivitamins, Thera [Multivitamin (formulary)] 1 tab PO DAILY 12/08/16 [History ] Polyethylene Glycol 3350 [Miralax] 17 gm PO BID 12/08/16 [History] Spironolactone [Aldactone] 25 mg PO DAILY 12/08/16 [History] Topiramate [Topamax] 25 mg PO BID 12/08/16 [History] Topiramate [Topamax] 50 mg PO BID 12/08/16 [History] amLODIPine [Norvasc] 10 mg PO HS 12/08/16 [History] busPIRone HCL 5 mg PO BID 12/08/16 [History] hydrALAZINE HCL [Apresoline] 25 mg PO TID 12/08/16 [History] Amoxic-Pot Clav 875-125Mg [Augmentin 875-125] 1 each PO Q12HR #10 tab 12/18/16 [ Rx] Furosemide [Lasix] 40 mg PO DAILY #30 tab 12/18/16 [Rx] Melatonin 10 mg PO HS #30 tab 12/18/16 [Rx] Mirtazapine [Remeron] 7.5 mg PO HS #30 tab 12/18/16 [Rx] Pantoprazole [Protonix] 40 mg PO AC-BRKFST #30 tab 12/18/16 [Rx] hydrALAZINE HCL [Apresoline] 50 mg PO TID tab 12/18/16 [Rx] Follow up Appointment(s)/Referral(s): Hossein Bowers [Other] - 12/22/16 2:00 pm (Dr Bowers ) Salvador Vides MD [STAFF PHYSICIAN] - As Needed Patient Instructions/Handouts: Depression (DC), Suicide Prevention for Adults ( [place]) Discharge Disposition: HOME SELF-CARE
[2016-12-18] MEDS: amLODIPine 10 MG TAB PO SCH (20:12)
[2016-12-18] MEDS: ATORVASTATIN 20 MG TAB PO SCH (20:12)
[2016-12-18] MEDS: MIRTAZAPINE 15 MG TAB PO SCH (20:15)
[2016-12-18] MEDS: MAGNESIUM HYDROXIDE 2,400 MG/10 ML CUP PO PRN (20:21)
[2016-12-18] MEDS: MELATONIN 5 MG TABLET PO SCH (21:15)
[2016-12-19 06:53] VITALS: BP 126/60; RESP 16; TEMP 98.2
[2016-12-19] MEDS: PANTOPRAZOLE 40 MG TABLET PO SCH (08:34)
[2016-12-19] MEDS: clonazePAM 0.5 MG TAB PO SCH (08:35)
[2016-12-19] MEDS: AMOXIC-POT CLAV 875-125MG 1 EACH TAB PO SCH (08:35)
[2016-12-19] MEDS: ASCORBIC ACID 500 MG TAB PO SCH (08:35)
[2016-12-19] MEDS: ESCITALOPRAM 20 MG TAB PO SCH (08:35)
[2016-12-19] MEDS: DOCUSATE 100 MG CAP PO SCH (08:35)
[2016-12-19] MEDS: GABAPENTIN 100 MG CAP PO SCH (08:36)
[2016-12-19] MEDS: hydrALAZINE HCL 50 MG TAB PO SCH (08:36)
[2016-12-19] MEDS: FUROSEMIDE 40 MG TAB PO SCH (08:36)
[2016-12-19] MEDS: POLYETHYLENE GLYCOL 3350 17 GM POWD.PACK PO SCH (08:37)
[2016-12-19] MEDS: TOPIRAMATE 25 MG TAB PO SCH (08:37)
[2016-12-19] MEDS: SPIRONOLACTONE 25 MG TAB PO SCH (08:37)
[2016-12-19] MEDS: HYDROCORTISONE 1% CREAM 30 GM TUBE TOPICAL SCH (08:37)
[2016-12-19] MEDS: LISINOPRIL 20 MG TAB PO SCH (08:37)
[2016-12-19] MEDS: MAG HYDROX/AL HYDROX/SIMETH 30 ML CUP PO PRN (08:39)
[2016-12-19] MEDS: HYDROcodone/APAP 5-325MG 1 EACH TAB PO PRN (08:39)
[2016-12-19] MEDS: IPRATROPIUM-ALBUTEROL 3 ML NEB INHALATION SCH (08:57)
[2016-12-19 09:14] VITALS: PULSE 88
[2016-12-19] MEDS: MULTIVITAMINS, THERA 1 EACH TAB PO SCH (12:42)
== END 2016-12-19 12:55 | disposition home or self-care (01) | DRG 885 ==
LOC: 3MHU 16:12
PROVIDERS: ADMIT Psychiatry & Neurology Psychiatry; ATTEND Psychiatry & Neurology Psychiatry
DX: F33.9 Major depressive disorder, recurrent, unspecified (principal); E87.1 Hypo-osmolality and hyponatremia; I13.0 Hypertensive heart and chronic kidney disease with heart failure and stage 1 through stage 4 chronic kidney disease, or unspecified chronic kidney disease; N39.0 Urinary tract infection, site not specified; R45.851 Suicidal ideations; I50.9 Heart failure, unspecified; J44.9 Chronic obstructive pulmonary disease, unspecified; E78.5 Hyperlipidemia, unspecified; F10.21 Alcohol dependence, in remission; F41.1 Generalized anxiety disorder; F60.89 Other specific personality disorders; G43.909 Migraine, unspecified, not intractable, without status migrainosus; G47.00 Insomnia, unspecified; K59.00 Constipation, unspecified; N18.9 Chronic kidney disease, unspecified; I89.0 Lymphedema, not elsewhere classified; R19.7 Diarrhea, unspecified; E66.3 Overweight; B96.1 Klebsiella pneumoniae [K. pneumoniae] as the cause of diseases classified elsewhere; T43.205A Adverse effect of unspecified antidepressants, initial encounter; T43.505A Adverse effect of unspecified antipsychotics and neuroleptics, initial encounter; T36.95XA Adverse effect of unspecified systemic antibiotic, initial encounter; Z68.28 Body mass index [BMI] 28.0-28.9, adult; Z79.899 Other long term (current) drug therapy; Y92.9 Unspecified place or not applicable
CPT/HCPCS: 76705; 76770; 80048; 80053; 81001; 83930; 83935; 84133; 84300; 84443; 85025; 87077; 87086; 87186; 94640

== ENCOUNTER 2017-04-01 10:19 | Inpatient (IN) | payer MEDICARE, BC, MEDICAID ==
--- NOTE | 2017-04-01 11:08 | ED ---
General Adult HPI - General Chief complaint: Psychiatric Symptoms Stated complaint: Mental Health Time Seen by Provider: 04/01/17 10:42 Source: patient, RN notes reviewed Mode of arrival: EMS Limitations: no limitations - History of Present Illness Initial comments: Patient is 76-year-old male who presents emergency room today by EMS, with a chief complaint of feeling hopeless. He does admit that he believes he is addicted to Ativan. He states he ran out of his Ativan couple weeks ago. He states that today his daughter thought that maybe he could try some marijuana which would help relax him. He states he states he did try this did not like how it made him feel. He states he feels very hopeless depressed and is having thoughts of hurting himself. He denies any specific plan of suicide. Patient denies any other complaints at this time. Patient denies any recent fever, chills, shortness of breath, chest pain, back pain, abdominal pain, nausea or vomiting, numbness or tingling, dysuria or hematuria, constipation or diarrhea, headaches or visual changes, or any other complaints. - Related Data Home Medications Medication Instructions Recorded Confirmed Atorvastatin Calcium [Lipitor] 20 mg PO HS 12/08/16 04/01/17 Escitalopram [Lexapro] 20 mg PO DAILY 12/08/16 04/01/17 Gabapentin [Neurontin] 100 mg PO DAILY 12/08/16 04/01/17 Spironolactone [Aldactone] 25 mg PO DAILY 12/08/16 04/01/17 Topiramate [Topamax] 25 mg PO BID 12/08/16 04/01/17 Topiramate [Topamax] 50 mg PO BID 12/08/16 04/01/17 hydrALAZINE HCL [Apresoline] 25 mg PO TID 12/08/16 04/01/17 Benazepril [Lotensin] 10 mg PO BID 04/01/17 04/01/17 Fluticasone Nasal [place] [Flonase 2 spr EA NOSTRIL DAILY PRN 04/01/17 04/01/17 Nasal [place]] LORazepam [Ativan] 1 mg PO TID 04/01/17 04/01/17 Lactulose 10 gm PO BID PRN 04/01/17 04/01/17 Metoprolol Tartrate [Lopressor] 25 mg PO DAILY 04/01/17 04/01/17 Mirtazapine [Remeron] 15 mg PO HS 04/01/17 04/01/17 Ondansetron HCl [Zofran] 4 mg PO Q12H PRN 04/01/17 04/01/17 amLODIPine [Norvasc] 5 mg PO DAILY 04/01/17 04/01/17 Previous Rx's Medication Instructions Recorded Furosemide [Lasix] 40 mg PO DAILY #30 tab 12/18/16 Allergies Allergy/AdvReac Type Severity Reaction Status Date / Time No Known Allergies Allergy Verified 04/01/17 11:37 Review of Systems ROS Statement: Those systems with pertinent positive or pertinent negative responses have been documented in the HPI. ROS Other: All systems not noted in ROS Statement are negative. Past Medical History Past Medical History: Asthma, Hypertension Additional Past Medical History / Comment(s): Urinary blockage uses self cath History of Any Multi-Drug Resistant Organisms: None Reported Past Surgical History: No Surgical Hx Reported Smoking Status: Never smoker General Exam - General Exam Comments Initial Comments: General: The patient is awake and alert, in no distress, and does not appear acutely ill. Eye: Pupils are equal, round and reactive to light, extra-ocular movements are intact. No nystagmus. There is normal conjunctiva bilaterally. No signs of icterus. Ears, nose, mouth and throat: There are moist mucous membranes and no oral lesions. Neck: The neck is supple, there is no tenderness or JVD. Cardiovascular: There is a regular rate and rhythm. No murmur, rub or gallop is appreciated. Respiratory: Lungs are clear to auscultation, respirations are non-labored, breath sounds are equal. No wheezes, stridor, rales, or rhonchi. Gastrointestinal: Soft, non-distended, non-tender abdomen without masses or organomegaly noted. There is no rebound or guarding present. No CVA tenderness. Bowel sounds are unremarkable. Musculoskeletal: Normal ROM, no tenderness. Strength 5/5. Sensation intact. Pulses equal bilaterally 2+. Neurological: A&O x 3. CN II-XII intact, There are no obvious motor or sensory deficits. Coordination appears grossly intact. Speech is normal. Skin: Skin is warm and dry and no rashes or lesions are noted. Psychiatric: Cooperative, appropriate mood & affect, normal judgment. Limitations: no limitations Course Vital Signs 04/01/17 04/01/17 10:23 14:53 Temperature 97.9 F 98.9 F Pulse Rate 67 66 Respiratory 16 18 Rate Blood Pressure 148/83 155/70 O2 Sat by Pulse 95 99 Oximetry Medical Decision Making - Medical Decision Making Patient has been seen here by [facility]. Have recommended admission to the hospital. Patient's labs been reviewed. His urinalysis does show 21 white cells will be covered with Cipro. Culture pending. - Lab Data Result diagrams: 04/01/17 11:56 04/01/17 11:56 Lab Results 04/01/17 04/01/17 04/01/17 Range/Units 11:37 11:56 11:56 WBC 7.1 (3.8-10.6) k/uL RBC 3.95 L (4.30-5.90) m/uL Hgb 13.1 (13.0-17.5) gm/dL Hct 39.1 (39.0-53.0) % MCV 98.9 (80.0-100.0) fL MCH 33.0 (25.0-35.0) pg MCHC 33.4 (31.0-37.0) g/dL RDW 12.3 (11.5-15.5) % Plt Count 240 (150-450) k/uL Neutrophils % 81 % Lymphocytes % 11 % Monocytes % 6 % Eosinophils % 1 % Basophils % 0 % Neutrophils # 5.7 (1.3-7.7) k/uL Lymphocytes # 0.8 L (1.0-4.8) k/uL Monocytes # 0.4 (0-1.0) k/uL Eosinophils # 0.0 (0-0.7) k/uL Basophils # 0.0 (0-0.2) k/uL Sodium 133 L (137-145) mmol/L Potassium 4.5 (3.5-5.1) mmol/L Chloride 103 (98-107) mmol/L Carbon Dioxide 18 L (22-30) mmol/L Anion Gap 12 mmol/L BUN 15 (9-20) mg/dL Creatinine 1.10 (0.66-1.25) mg/dL Est GFR (MDRD) Af Amer >60 (>60 ml/min/1.73 sqM) Est GFR (MDRD) Non-Af >60 (>60 ml/min/1.73 sqM) Glucose 110 H (74-99) mg/dL Calcium 9.3 (8.4-10.2) mg/dL Total Bilirubin 0.6 (0.2-1.3) mg/dL AST 23 (17-59) U/L ALT 36 (21-72) U/L Alkaline Phosphatase 97 (38-126) U/L Total Protein 6.8 (6.3-8.2) g/dL Albumin 4.1 (3.5-5.0) g/dL TSH 0.532 (0.465-4.680) mIU/L Urine Color Yellow Urine Appearance Clear (Clear) Urine pH 6.0 (5.0-8.0) Ur Specific [place] 1.014 (1.001-1.035) Urine Protein Trace H (Negative) Urine Glucose (UA) Negative (Negative) Urine Ketones 2+ H (Negative) Urine Blood Trace H (Negative) Urine Nitrite Negative (Negative) Urine Bilirubin Negative (Negative) Urine Urobilinogen <2.0 (<2.0) mg/dL Ur Leukocyte Esterase Moderate H (Negative) Urine RBC 2 (0-5) /hpf Urine WBC 21 H (0-5) /hpf Ur Squamous Epith Cells 1 (0-4) /hpf Urine Bacteria Rare H (None) /hpf Urine Mucus Rare H (None) /hpf Urine Opiates Screen Not Detected (NotDetected) Ur Oxycodone Screen Not Detected (NotDetected) Urine Methadone Screen Not Detected (NotDetected) Ur Propoxyphene Screen Not Detected (NotDetected) Ur Barbiturates Screen Not Detected (NotDetected) U Tricyclic Antidepress Not Detected (NotDetected) Ur Phencyclidine Scrn Not Detected (NotDetected) Ur Amphetamines Screen Not Detected (NotDetected) U Methamphetamines Scrn Not Detected (NotDetected) U Benzodiazepines Scrn Detected H (NotDetected) Urine Cocaine Screen Not Detected (NotDetected) U Marijuana (THC) Screen Detected H (NotDetected) Disposition Clinical Impression: UTI (urinary tract infection), Suicidal ideation Disposition: ADMITTED IP TO THIS HOSP Condition: Stable Time of Disposition: 15:04
[2017-04-01 11:52] LABS: Appearance,Urine Clear (Clear); Bacteria,Urine Rare /hpf; Bilirubin,Urine Negative (Negative); Glucose,Urine (UA) Negative (Negative); Ketones,Urine 2+ (Negative); Leukocyte Esterase,Urine Moderate (Negative); Mucus,Urine Rare /hpf; Nitrite,Urine Negative (Negative); Particle Count 2951; Protein,Urine Trace (Negative); RBC,Urine 2 /hpf (0-5); Specific Gravity,Urine 1.014 (1.001-1.035); Squamous Epithelial Cell,Urine 1 /hpf (0-4); UA Billing (MACRO vs. MICRO) MICRO; Urobilinogen,Urine <2.0 mg/dL (<2.0); WBC,Urine 21 /hpf (0-5)
[2017-04-01 12:41] LABS: Basophils % (A) 0 %; CH 32.5; Eosinophils % (A) 1 %; HCT 39.1 % (39.0-53.0); HDW 2.23; HGB 13.1 gm/dL (13.0-17.5); Luc # (Auto) 0.11; Luc % (Auto) 2; Lymphocytes # (A) 0.8 k/uL (1.0-4.8); Lymphocytes % (A) 11 %; MCHC 33.4 g/dL (31.0-37.0); MCV 98.9 fL (80.0-100.0); Mean Platelet Volume 10.3; Monocytes # (A) 0.4 k/uL (0-1.0); Monocytes % (A) 6 %; Neutrophils # (A) 5.7 k/uL (1.3-7.7); Neutrophils % (A) 81 %; RBC 3.95 m/uL (4.30-5.90); RDW 12.3 % (11.5-15.5); WBC 7.1 k/uL (3.8-10.6); WBC (Perox) 7.46
[2017-04-01 12:45] LABS: ALT 36 U/L (21-72); AST 23 U/L (17-59); Alkaline Phosphatase 97 U/L (38-126); Anion Gap 12 mmol/L; Blood Urea Nitrogen 15 mg/dL (9-20); Calcium 9.3 mg/dL (8.4-10.2); Carbon Dioxide 18 mmol/L (22-30); Chloride 103 mmol/L (98-107); Glucose 110 mg/dL (74-99); Non-African American GFR(MDRD) >60 (>60 ml/min/1.73 sqM); Potassium 4.5 mmol/L (3.5-5.1); Sodium 133 mmol/L (137-145); Total Bilirubin 0.6 mg/dL (0.2-1.3); Total Protein 6.8 g/dL (6.3-8.2)
[2017-04-01] MEDS ORDERED: ONDANSETRON ODT 4 MG TAB PO STA (13:13)
[2017-04-01] MEDS ORDERED: MAG HYDROX/AL HYDROX/SIMETH 30 ML CUP PO PRN (16:28)
[2017-04-01] MEDS ORDERED: MAGNESIUM HYDROXIDE 2,400 MG/10 ML CUP PO PRN (16:28)
[2017-04-01] MEDS ORDERED: LORazepam 0.5 MG TAB PO STA (20:04)
[2017-04-01] MEDS: CIPROFLOXACIN HCL 500 MG TAB PO SCH (20:20)
[2017-04-01] MEDS: LORazepam 0.5 MG TAB PO SCH (20:20)
[2017-04-01] MEDS: MELATONIN 3 MG TABLET PO SCH (20:51)
[2017-04-02] MEDS: LORazepam 0.5 MG TAB PO SCH ×2 (08:38→20:06)
[2017-04-02] MEDS: CIPROFLOXACIN HCL 500 MG TAB PO SCH ×2 (08:39→20:07)
[2017-04-02 08:40] LABS: Basophils % (A) 0 %; CH 34.1; CHCM 34.7; Eosinophils # (A) 0.1 k/uL (0-0.7); Eosinophils % (A) 2 %; HCT 39.9 % (39.0-53.0); HDW 2.27; HGB 13.4 gm/dL (13.0-17.5); Luc # (Auto) 0.16; Luc % (Auto) 2; Lymphocytes # (A) 1.2 k/uL (1.0-4.8); Lymphocytes % (A) 17 %; MCH 33.3 pg (25.0-35.0); MCHC 33.7 g/dL (31.0-37.0); MCV 98.7 fL (80.0-100.0); Mean Platelet Volume 10.5; Monocytes # (A) 0.4 k/uL (0-1.0); Monocytes % (A) 7 %; Neutrophils # (A) 4.8 k/uL (1.3-7.7); Neutrophils % (A) 71 %; RBC 4.04 m/uL (4.30-5.90); RDW 12.9 % (11.5-15.5); WBC 6.8 k/uL (3.8-10.6); WBC (Perox) 6.89
[2017-04-02 08:57] LABS: ALT 39 U/L (21-72); AST 24 U/L (17-59); Alkaline Phosphatase 96 U/L (38-126); Anion Gap 12 mmol/L; Bilirubin, Delta 0.2 mg/dL (0.0-0.2); Blood Urea Nitrogen 18 mg/dL (9-20); Calcium 9.4 mg/dL (8.4-10.2); Carbon Dioxide 18 mmol/L (22-30); Chloride 103 mmol/L (98-107); Glucose 116 mg/dL (74-99); Non-African American GFR(MDRD) 59 (>60 ml/min/1.73 sqM); Potassium 4.3 mmol/L (3.5-5.1); Sodium 133 mmol/L (137-145); Total Bilirubin 0.5 mg/dL (0.2-1.3); Total Protein 6.9 g/dL (6.3-8.2)
[2017-04-02] MEDS ORDERED: ESCITALOPRAM 10 MG TAB PO SCH (10:00)
--- NOTE | 2017-04-02 15:41 | P.CONS ---
History of Present Illness - Chief Complaint Hopeless , depressed, - History of Present Illness This is dictation of medical consult to the psych floor. Patient seen and evaluated today on 04/02/2017 and discussed with the patient. Chief complaint of being forgetfulness, depressed, hopeless, and confused. History of present illness: Mr. Tejeda who is a 76 years old white male has been current visit to the emergency room at [facility] as well as to the office within the every day concentric conflicting complaint, in the last week prior to he came to the office almost every other day with different complain contradicting each other i.e. he came complaining of diarrhea getting medication for it, next day he went to the emergency room denied any nausea or vomiting or diarrhea or constipation the following day of the ER visit he called the office and requesting a visit at that time he complained of constipation subsequently as I did place him with these finding he stated that he never came in the day before he forgot completely that he was in the office and he had different complaint, subsequently I did ask him permission to talk to his family and the daughter, patient become very angry and stated that this is only once incidence and despite that has been recurrent and he refuses to give us his daughter phone number or permission to discuss it with the family. As patient admitted to the hospital psych floor, mental health nursing staff did call me because he has a problem with the urination and he is self catheterization however wasn't able to do so, the nurse stopped that if she called her family they may bring the catheters that he uses at home, his daughter stated he has pain in the neck and we are not going to approach him overdoing things for him. Her his nurse that she called me for advice, subsequently I did advise her to consult the neurology associated, with the patient's history of self-catheterization and he had an enlarged prostate. Patient seen today and evaluated and he has Leggett catheter able to be placed through and Dr. Catalan the urologist will be able to see him tonight. His urine analysis in the emergency room found that has a high leukocytosis in the urine and they started on treatment with Cipro uncontrolled the culture is available. Patient has been on different benzodiazepine and has been urine toxicology was indicating detection of marijuana which he denied that he use as well as detection of benzodiazepine diascopy. On review the laboratory his white count 6.8 with hemoglobin 13.4 normal his sodium is 133 below the normal range however patient on antidepressant therapy and antipsychotic therapy which will known to cause mild hyponatremia. Patient also has low carbon dioxide 18 which could be related to also the underlying psychiatric medication, his thyroid function is normal and the liver function is normal his albumin and protein was also normal. His temperature is 99.8 his pulse rate 66 and the blood pressure 155/70 on the right arm 144/75 saturation 99%. Physical exam: Head was normocephalic and atraumatic with normal general condition and ambulatory moving 4 extremities carrying his Leggett catheter with the bag in his hand with the good drainage. Neck was supple no JVD no thyromegaly no lymphadenopathy trachea midline Chest was clear to auscultation and percussion no wheezes no rhonchi's. Heart was regular sinus rhythm no dysrhythmia. Abdomen he had bilateral upper abdominal incisional hernia has been chronically present with week anterior abdominal wall after her current surgery. He was seen recently by Dr. Jean the gastro enterology who advised them to see Dr. Gan if he has any farther surgical treatment. Extremities he had good perfusion with good pulses 2+ bilateral and symmetrical , he has history of lower extremities edema has been resolved after referrals for lymphedema specialist who did work with him and recommended also a compression stocking , currently no edema. Patient has significant psychiatric development and I did advise him lost week when we saw see him in the office to seek psychiatric evaluation by Dr. Wade his psychiatric state and a possible adjustment of medication. There is also was questionable with the depression and dementia. Assessment #1 anxiety, depression, hopeless, forgetfulness with the possible dementia and previous computed tomography scan of the brain was negative. #2 urinary tract infection treated with Cipro empirically uncontrolled the culture result available through the ER. #3 bilateral upper abdominal incision incisional hernia. #4 today he was complaining of constipation and he is requesting medication for constipation. #5 hypertension not well controlled. #6 low-grade temperature probably associated with a UTI. #6 metabolic acidosis mild. Plan: #1 start MiraLAX 17 g dissolved in water daily. #2 Senokot-S tablet twice a day. #3 sodium bicarb 650 twice a day with a repeat of the BMP after 3 days to adjusted the dose. #4 continue the antibiotic for the UTI. #5 continue monitoring the blood pressure as well as probably using a half amlodipine 2.5 mg daily at bedtime and to be adjusted the dose according to his blood pressure. Past Medical History Past Medical History: Asthma, Hypertension Additional Past Medical History / Comment(s): Urinary blockage uses self cath History of Any Multi-Drug Resistant Organisms: None Reported Past Surgical History: No Surgical Hx Reported Smoking Status: Never smoker Medications and Allergies Home Medications Medication Instructions Recorded Confirmed Type Atorvastatin Calcium [Lipitor] 20 mg PO HS 12/08/16 04/01/17 History Escitalopram [Lexapro] 20 mg PO DAILY 12/08/16 04/01/17 History Gabapentin [Neurontin] 100 mg PO DAILY 12/08/16 04/01/17 History Spironolactone [Aldactone] 25 mg PO DAILY 12/08/16 04/01/17 History Topiramate [Topamax] 25 mg PO BID 12/08/16 04/01/17 History Topiramate [Topamax] 50 mg PO BID 12/08/16 04/01/17 History hydrALAZINE HCL [Apresoline] 25 mg PO TID 12/08/16 04/01/17 History Furosemide [Lasix] 40 mg PO DAILY #30 tab 12/18/16 04/01/17 Rx Benazepril [Lotensin] 10 mg PO BID 04/01/17 04/01/17 History Fluticasone Nasal Sol[place] [Flonase 2 spr EA NOSTRIL DAILY PRN 04/01/17 04/01/17 History Nasal Solon] LORazepam [Ativan] 1 mg PO TID 04/01/17 04/01/17 History Lactulose 10 gm PO BID PRN 04/01/17 04/01/17 History Metoprolol Tartrate [Lopressor] 25 mg PO DAILY 04/01/17 04/01/17 History Mirtazapine [Remeron] 15 mg PO HS 04/01/17 04/01/17 History Ondansetron HCl [Zofran] 4 mg PO Q12H PRN 04/01/17 04/01/17 History amLODIPine [Norvasc] 5 mg PO DAILY 04/01/17 04/01/17 History Allergies Allergy/AdvReac Type Severity Reaction Status Date / Time No Known Allergies Allergy Verified 04/01/17 16:03 Physical Exam Vitals: Vital Signs Temp Pulse Resp BP 04/02/17 06:45 67 16 144/75 04/01/17 16:32 99.8 F H 81 16 144/84 Intake and Output 04/02/17 04/02/17 04/02/17 06:59 14:59 22:59 Output Total 200 Balance -200 Output: Urine 200 Results CBC & Chem 7: 04/02/17 08:15 04/02/17 08:15 Labs: Abnormal Lab Results - Last 24 Hours (Table) 04/02/17 04/02/17 Range/Units 08:15 08:15 RBC 4.04 L (4.30-5.90) m/uL Sodium 133 L (137-145) mmol/L Carbon Dioxide 18 L (22-30) mmol/L Glucose 116 H (74-99) mg/dL Microbiology - Last 24 Hours (Table) 04/01/17 11:37 Urine Culture - Final Urine,Clean Catch
[2017-04-02] MEDS ORDERED: FLUTICASONE 50MCG/SPRAY NASAL 16GM EA NOSTRIL PRN (15:45)
--- NOTE | 2017-04-02 16:01 | HP ---
HISTORY AND PHYSICAL DATE OF SERVICE: 04/02/2017 IDENTIFYING DATA: This patient is a 76-year-old, male, who was admitted to the mental health unit through the emergency room for suicidal ideation. HISTORY OF PRESENT ILLNESS: This patient is known to my outpatient practice. He has been admitted to the mental health unit several times over the last several years. He was most recently on this mental health unit in November of this year. He presented with suicidal thoughts and hopeless thinking. He is normally prescribed Ativan on an outpatient basis. He admits that he overused it and ran out 2 weeks ago. He states that his daughter instructed him to start using marijuana to calm his anxiety. He reports he did use that for 2 to 3 days but did not find it effective. He finds himself overwhelms with recent bankruptcy proceedings. He reports he feels nauseated, he has not been eating as well, his sleep has been impaired, and he feels anxious. He is endorsing no hypomanic or manic symptoms. He is endorsing no symptoms of psychosis. PAST PSYCHIATRIC HISTORY: The patient has had numerous hospitalizations on the mental health unit. He was here in November 2016. No history of suicide attempts. As an outpatient, he had been on Lexapro 20 mg daily, Ativan 0.5 mg 3 times a day, Remeron 15 mg at bedtime. We have also tried him on Wellbutrin, Effexor XR, trazodone, Abilify, Celexa. He had also tried BuSpar but it caused intolerable GI side effect. PAST MEDICAL HISTORY: History of congestive heart failure, hypertension, migraines, hyperlipidemia, COPD. ALLERGIES: No known drug allergies. MEDICATIONS: Refer to MAR. CHEMICAL DEPENDENCY HISTORY: History of alcohol use disorder which has been in remission for several years. In the remote past he had been in residential treatment for chemical dependency several times. FAMILY HISTORY: Unknown, no suicides in the family; however family chemical dependency history unknown. SOCIAL HISTORY: The patient is 76 years old. He is . He lives alone in his own apartment. 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 He has 1 child, a daughter, whom he will see approximately weekly. No history of service. No legal history. No abuse history. MENTAL STATUS EXAM: The patient is an overweight male, appearing his stated age. He is alert. He is dressed in his own clothing. Eye contact is appropriate. Speech is fluent, spontaneous, nonpressured. He typically has some exaggerated exhalation which is noted. He reports depressed mood, with hopeless thinking and suicidal thoughts. He reports no homicidal ideation, intent or plan. He is endorsing no auditory or visual hallucinations. No specific delusions. There was no evidence of hypomanic or manic symptoms. He does have some hearing loss. Insight and judgment limited. He is oriented to person, place, and date. He is able to spell world forwards and backwards. He demonstrates no verbal or physical aggressiveness. There is no evidence of tremulous activity. STRENGTHS: Income, housing, limited support from daughter. WEAKNESSES: Recent misuse of Ativan, personality disorder traits, intellectual functioning above- average. IMPRESSION: 1. Major depressive disorder, recurrent, generalized anxiety disorder, alcohol use disorder in remission, recent overuse of Ativan. 2. Borderline personality disorder traits, other cluster B traits. 3. Recent urinary tract infection, congestive heart failure, chronic obstructive pulmonary disease, hyperlipidemia, migraines, and hypertension. PLAN: The patient has been admitted to the mental health unit voluntarily. We will restart his Lexapro at 10 mg daily and Remeron 15 mg at bedtime. Ativan has already been restarted at 0.5 mg 3 times a day, I will reduce this to twice daily. We will monitor his vitals. He will be seen by internal medicine for routine history and physical exam. He does straight catheterize himself, which is the likely source of the urinary tract infection. poultry offal worker will meet with the patient to complete a psychosocial assessment and begin discharge planning. We will involve his daughter in his treatment and discharge planning as he will allow. We will monitor him for safety and encourage participation in milieu. MMODL / IJN: [id number] /
[2017-04-02] MEDS: POLYETHYLENE GLYCOL 3350 17 GM POWD.PACK PO SCH (16:39)
[2017-04-02] MEDS: SENNOSIDES-DOCUSATE SODIUM 1 EACH TAB PO SCH (16:40)
[2017-04-02] MEDS: hydrALAZINE HCL 25 MG TAB PO SCH ×2 (16:40→21:47)
[2017-04-02] MEDS: MELATONIN 3 MG TABLET PO SCH (20:06)
[2017-04-02] MEDS: SODIUM BICARBONATE TAB 650 MG TAB PO SCH (20:07)
[2017-04-02] MEDS: MIRTAZAPINE 15 MG TAB PO SCH (20:07)
[2017-04-02] MEDS: ATORVASTATIN 20 MG TAB PO SCH (20:07)
[2017-04-03] MEDS: ESCITALOPRAM 20 MG TAB PO SCH (08:19)
[2017-04-03] MEDS: CIPROFLOXACIN HCL 500 MG TAB PO SCH (08:19)
[2017-04-03] MEDS: GABAPENTIN 100 MG CAP PO SCH (08:19)
[2017-04-03] MEDS: FUROSEMIDE 40 MG TAB PO SCH (08:19)
[2017-04-03] MEDS: METOPROLOL TARTRATE 25 MG TAB PO SCH (08:20)
[2017-04-03] MEDS: LISINOPRIL 20 MG TAB PO SCH (08:20)
[2017-04-03] MEDS: hydrALAZINE HCL 25 MG TAB PO SCH ×3 (08:20→21:16)
[2017-04-03] MEDS: SENNOSIDES-DOCUSATE SODIUM 1 EACH TAB PO SCH (08:20)
[2017-04-03] MEDS: POLYETHYLENE GLYCOL 3350 17 GM POWD.PACK PO SCH (08:20)
[2017-04-03] MEDS: LORazepam 0.5 MG TAB PO SCH ×2 (08:20→20:23)
[2017-04-03] MEDS: SODIUM BICARBONATE TAB 650 MG TAB PO SCH ×2 (08:21→20:23)
--- NOTE | 2017-04-03 09:41 | CONS ---
CONSULTATION I was asked to see Mr. Tejeda because of the catheter problems by Dr. Vides. The patient is in the Mental Health Unit with stress and anxiety. The patient is a patient of Dr. Velazco and is on chronic intermittent catheterization. Apparently, he has been having difficulty with the catheterization. The nursing staff called me and explained the situation. I recommended an indwelling catheter. I came to see the patient this afternoon but the mental staff unit must be very busy as I attempted several times to access the unit with no response. Unfortunately, I cannot see him unless I am reconsulted emergently other than leaving the catheter in which should stay in until the patient has stabilized mentally and can resume his intermittent catheterization. I have nothing further to add urologically. MMODL / IJN: [id number] /
--- NOTE | 2017-04-03 10:24 | P.PN ---
Progress Note - Text Interval history: The patient is found in the hallway he follows me to an interview room. He reports he was able to sleep better last night it is documented he slept 7 hours. His nausea is reduced he is able to tolerate food better. Subsequently he feels his mood is slightly improved. He is compliant with medications he has no questions or concerns regarding his medications. He currently has an indwelling Leggett. He did present to the hospital with a urinary tract infection that is being treated with Cipro. Mental status exam: The patient is dressed in hospital gowns and wearing a bathrobe. He is carrying his Leggett bag. Eye contact is appropriate he is wearing eyeglasses. Speech is fluent spontaneous nonpressured. He endorses a depressed mood. He does feel safe here in the hospital in terms of suicidal ideation. He reports no homicidal ideation. He endorses no auditory or visual hallucinations or any specific delusions. He does not appear hypomanic or manic. He is oriented to person place and date. He demonstrates no verbal or physical aggressiveness. Plan: The patient will continue on his current medication he has been seen by his primary care physician. Blood pressure reading is elevated we will monitor that further. We will continue to monitor for safety and encourage his full participation in the milieu. We will anticipate a discharge towards the end of the week.
[2017-04-03 16:39] VITALS: RESP 18
[2017-04-03 18:05] LABS: WBC 11.3 k/uL (3.8-10.6); WBC (Perox) 11.72
[2017-04-03 18:06] LABS: Basophils # (A) 0.1 k/uL (0-0.2); Basophils % (A) 1 %; CH 33.9; Eosinophils # (A) 0.2 k/uL (0-0.7); Eosinophils % (A) 1 %; HDW 2.25; Luc % (Auto) 3; Lymphocytes # (A) 1.6 k/uL (1.0-4.8); Lymphocytes % (A) 15 %; MCH 33.3 pg (25.0-35.0); MCHC 33.3 g/dL (31.0-37.0); Mean Platelet Volume 8.9; Monocytes # (A) 0.9 k/uL (0-1.0); Monocytes % (A) 8 %; Neutrophils # (A) 8.2 k/uL (1.3-7.7); Neutrophils % (A) 73 %; RDW 12.9 % (11.5-15.5)
[2017-04-03] MEDS: MELATONIN 3 MG TABLET PO SCH (20:22)
[2017-04-03] MEDS: ACETAMINOPHEN TAB 325 MG TAB PO PRN (20:23)
[2017-04-03] MEDS: ATORVASTATIN 20 MG TAB PO SCH (20:23)
[2017-04-03] MEDS: MIRTAZAPINE 15 MG TAB PO SCH (20:23)
[2017-04-04] MEDS: ONDANSETRON 4 MG TAB PO PRN (07:28)
[2017-04-04] MEDS: LORazepam 0.5 MG TAB PO SCH ×2 (08:10→20:26)
[2017-04-04] MEDS: GABAPENTIN 100 MG CAP PO SCH (08:10)
[2017-04-04] MEDS: SODIUM BICARBONATE TAB 650 MG TAB PO SCH ×2 (08:10→20:25)
[2017-04-04] MEDS: FUROSEMIDE 40 MG TAB PO SCH (08:10)
[2017-04-04] MEDS: ESCITALOPRAM 20 MG TAB PO SCH (08:10)
[2017-04-04] MEDS: hydrALAZINE HCL 25 MG TAB PO SCH (08:10)
[2017-04-04] MEDS: LISINOPRIL 20 MG TAB PO SCH (08:10)
[2017-04-04] MEDS: SENNOSIDES-DOCUSATE SODIUM 1 EACH TAB PO SCH (08:11)
[2017-04-04] MEDS: POLYETHYLENE GLYCOL 3350 17 GM POWD.PACK PO SCH (08:15)
[2017-04-04] MEDS: METOPROLOL TARTRATE 25 MG TAB PO SCH ×2 (08:15→20:25)
[2017-04-04] MEDS: ACETAMINOPHEN TAB 325 MG TAB PO PRN ×3 (09:08→16:46)
--- NOTE | 2017-04-04 09:50 | P.PN ---
Progress Note - Text Interval history: The patient is found in the [facility] she follows me to an interview room. He reports that his mood is slowly improving. He slept approximate 6 hours last evening appetite is stable he continues to make an effort to attend group. He feels the psychotropic medication is effective and has no questions or concerns regarding them. He is agreeable to returning back to his residence once clinically stable. We discussed having home care follow him after discharge and he is agreeable. His primary care physician continues to follow him while medically admitted. In reviewing labs the white count is increased 11.3 it appears he is no longer on an antibiotic. He continues to have an indwelling Leggett catheter. Mental status exam: The patient is alert he is ambulating slowly without ataxia. He is dressed in his own clothes and hospital attire. Eye contact is appropriate speech is fluent there is some spontaneous speech. He endorses a depressed mood but feels it is improving. He feels safe in the hospital he is endorsing no acute suicidal ideation intent or plan. No homicidal ideation intent or plan. He demonstrates no tangential thinking loose associations or flight of ideas. He does have some chronic history of memory loss. He demonstrates no verbal or physical aggressiveness. Affect is appropriately expressive including appropriate smiling. No homicidal ideation intent or plan. Plan: The patient will continue on his current psychotropic medications. The Leggett catheter will be removed prior to discharge. We anticipate discharge tomorrow. We will confer with his primary care physician regarding need for continued use of antibiotics. Vital signs reviewed. We will plan to psychiatric homecare nursing follow him after discharge.
[2017-04-04] MEDS ORDERED: IPRATROPIUM-ALBUTEROL 3 ML NEB INHALATION PRN (14:34)
--- NOTE | 2017-04-04 14:34 | P.PN ---
Subjective Dictation on progress note follow-up. Patient in the mental health unit 309 bed 1 lost name Ileana 76 years old white male admitted to the mental health unit because of his progressive psychiatric disorder with the underlying depression and anxiety and aggression verbal. Nursing staff. Also called me today to see him and follow him up with the attention that the patient will be discharged home tomorrow. On review the records Dr. Card urology team last evening to see the patient however they did not open the door for him to evaluate the patient, he still dictated the note and he stated that he continue with the Leggett catheter until seen as outpatient by . Currently patient with closed bag system with a large bag and he could not put his pants on and I did discuss it with 70 his nurse that the patient should be on leg bag when he goes home. Other problem is hypertension with agitation and still hypertensive heart disease and not completely resolved but is associated with age aggression and agitation. We addressed today increase his beta wellington metoprolol tartrate to 25 mg twice a day added to his current list of medication. He did not complain of his bowel movement today and he is not complaining of is associated symptoms. His urine analysis done in the ER showed WBC with the UTI and subsequently the patient was receiving antibiotic before the culture and the culture came back negative with the underlying still diagnoses of UTI patient was treated with Bactrim and through the emergency room and subsequently he complained of sore throat with the possibility of adverse effect. Nursing staff called me and I did advise to stop the Bactrim and start Cipro twice a day on total we have the culture results which wasn't available and the when the culture was obtained patient found to be negative and that they discontinue the Cipro. On examination today his oropharynx was negative no erythema or postnasal discharge but he had white count on 95 yesterday 2017 11.3 WBC with no anemia. Etiology of increase WBC is unknown however he had 1 elevated temperature on 09/2016. It could be from the UTI however also could be from the psychiatric medication. At this point patient not on any antibiotic and he has no physical finding and we will be waiting for the culture of the throat otherwise no treatment with the current season for ALLERGY which is ragweed. We'll be starting him on Claritin. On the On examination today: The able to ambulate and he getting his urinary bag with them which will be changed to leg bag he has no complain and he stated that he going home tomorrow. I did discuss with him the opinion of Dr. Royce Bajwa the urologist and he should see Dr. Montana as outpatient and the Leggett catheter will stay until he did see Dr. Montana as the 3 frequent straight cast has been temporary stopped on total the evaluation by the urology with the underlying large prostate with benign prostatic hypertrophy. The HEENT was negative oropharynx was normal. Neck was supple no JVD no thyromegaly no lymphadenopathy trachea midline. The The chest is clear to auscultation and percussion and no wheezes or rhonchi's however he has COPD and he felt that intermittently he gets short of breath and we will start him on the inhalation therapy as when necessary. The heart was regular sinus rhythm Abdomen is soft positive bowel sounds there is no tenderness on the upper incisional hernia. Extremities no edema. Pulses ambulatory. Assessment: #1 acute psychiatric disorder with major depression and anxiety and also questionable of dementia versus aggressive behavior. #2 urinary tract infection #3 leukocytosis unclear etiology. #4 benign prostatic hypertrophy with difficulty with the use of a straight cath currently on Leggett catheter which will be changed to leg bag with the underlying obstructive uropathy. The Plan: Patient is cleared for discharge with the Leggett catheter and leg bag. Number # 2 follow-up in the office in one week. #3 follow-up with Dr. Alanna Salinas urologist next week #4 continue psychiatric evaluation and treatment. #5 inhalation therapy with updraft on when necessary basis with a history of COPD. Objective - Vital Signs Vital signs: Vital Signs Temp 97.7 F 04/04/17 07:20 Pulse 59 L 04/04/17 07:20 Resp 18 04/04/17 07:20 BP 178/71 04/04/17 07:20 Pulse Ox 97 04/03/17 16:37 Intake & Output 04/03/17 04/04/17 04/04/17 18:59 06:59 18:59 Intake Total 1120 880 Output Total 860 1100 1675 Balance 260 -1100 -795 Intake: Oral 1120 880 Output: Urine 860 1100 1675 - Labs CBC & Chem 7: 04/03/17 17:39 04/02/17 08:15 Labs: Abnormal Lab Results - Last 24 Hours (Table) 04/03/17 Range/Units 17:39 WBC 11.3 H (3.8-10.6) k/uL RBC 4.20 L (4.30-5.90) m/uL Neutrophils # 8.2 H (1.3-7.7) k/uL Microbiology - Last 24 Hours (Table) 04/03/17 17:07 Throat Culture - Preliminary Throat 04/02/17 13:38 Urine Culture - Final Urine,Catheterized
[2017-04-04] MEDS: hydrALAZINE HCL 50 MG TAB PO SCH ×2 (16:45→21:34)
[2017-04-04] MEDS: ATORVASTATIN 20 MG TAB PO SCH (20:25)
[2017-04-04] MEDS: MIRTAZAPINE 15 MG TAB PO SCH (20:26)
[2017-04-04] MEDS: MELATONIN 3 MG TABLET PO SCH (20:26)
[2017-04-04] MEDS ORDERED: amLODIPine 5 MG TAB PO SCH (21:00)
[2017-04-05 07:01] VITALS: BP 174/81; PULSE 84; TEMP 98.2
[2017-04-05] MEDS: hydrALAZINE HCL 50 MG TAB PO SCH (07:50)
[2017-04-05] MEDS: ESCITALOPRAM 20 MG TAB PO SCH (07:50)
[2017-04-05] MEDS: METOPROLOL TARTRATE 25 MG TAB PO SCH (07:51)
[2017-04-05] MEDS: LISINOPRIL 20 MG TAB PO SCH (07:51)
[2017-04-05] MEDS: POLYETHYLENE GLYCOL 3350 17 GM POWD.PACK PO SCH ×2 (07:51→08:05)
[2017-04-05] MEDS: GABAPENTIN 100 MG CAP PO SCH (07:51)
[2017-04-05] MEDS: LORazepam 0.5 MG TAB PO SCH (07:51)
[2017-04-05] MEDS: SENNOSIDES-DOCUSATE SODIUM 1 EACH TAB PO SCH (07:51)
[2017-04-05] MEDS: SODIUM BICARBONATE TAB 650 MG TAB PO SCH (07:51)
[2017-04-05] MEDS: FUROSEMIDE 40 MG TAB PO SCH (07:51)
[2017-04-05] MEDS: ONDANSETRON 4 MG TAB PO PRN (08:03)
--- NOTE | 2017-04-05 08:58 | P.DS ---
Providers Date of admission: 04/01/17 14:58 Expected date of discharge: 04/05/17 Attending physician: Hossein Bowers Consults: 04/01/17 16:28 Consult Physician Routine Consulting Provider: Salvador Vides Consult Reason/Comments: H & P and medical care Do you want consulting provider notified?: Yes 04/02/17 10:18 Consult Physician Routine Consulting Provider: Lance Vila Consult Reason/Comments: pt. self cath's & is unable to use any of the 3 that the hospital has/BPH Do you want consulting provider notified?: Yes Primary care physician: Salvador Vides - Discharge Diagnosis(es) (1) Major depressive disorder, recurrent severe without psychotic features Current Visit: Yes Status: Acute Priority: High (2) Generalized anxiety disorder Current Visit: Yes Status: Acute Priority: Medium (3) Alcohol use disorder, mild, in sustained remission Current Visit: Yes Status: Acute Priority: Low Hospital Course: Brief summary of admission note: This patient is a 76-year-old male who was admitted to the mental health unit through the emergency room for suicidal ideation. The patient had presented feeling overwhelmed. He admitted to recently overusing his Ativan due to increased anxiety. He used marijuana for approximately 2 days at the advice of his daughter but he felt it did not provide any benefit. He is overwhelmed with bankruptcy proceedings and continues to feel lonely. He reported not eating well feeling nausea and sleep had been impaired. For full details please refer to my psychiatric evaluation note dated 04/02/2017. Summary of hospital course: The patient was admitted to the mental health unit he signed in voluntarily. We reviewed his presenting symptoms and medication options. He had gone off of his medications briefly including the Lexapro and Remeron those medications were restarted. We had a long discussion regarding the appropriate use of Ativan. The Ativan was reduced to 0.5 mg twice daily. He was seen by his permit care physician at least twice during the visit. The patient has a long-standing history of obstructive uropathy. A Leggett catheter needed to be inserted and he maintained that for the duration of the hospitalization. The patient did participate in meals and groups. He noted a progressive improvement of symptoms while here. We discussed having psychiatric homecare visit him upon discharge and he is agreeable. This will assist him in managing his medications. The patient demonstrated no agitated behavior. Mental status exam: The patient is a male appearing his stated age. He is dressed in his own clothing. He ambulates slowly without ataxia. He continues to have an indwelling Leggett catheter. Speech is fluent and spontaneous nonpressured. He reports his mood is "good" affect is congruent and appears euthymic. He denies feeling hopeless he has no suicidal or homicidal ideation intent or plan. He is endorsing no auditory or visual hallucinations or any specific delusions. There is no overt evidence of psychosis. Thought process is linear he demonstrates no tangential thinking loose associations or flight of ideas he does not appear hypomanic or manic. He demonstrates no verbal or physical aggressiveness. Hygiene and grooming are adequate. Impressions 1. Major depressive disorder recurrent severe without psychosis, generalized anxiety disorder, alcohol use disorder in remission 2. COPD, hypertension, migraines, hyperlipidemia, obstructive uropathy Plan: The patient will continue on Remeron 15 mg at bedtime Lexapro 20 mg daily Ativan 0.5 mg twice daily. We discussed that he cannot use the Ativan more than prescribed or we will discontinue that medication completely. We have tried several alternatives to reduce anxiety in the past with limited effect. The patient's daughter was contacted she is not interested in participating in a family meeting. The patient is amenable to having a psychiatric nurse visit him upon discharge. He will follow with me in the outpatient setting in approximately one week. Social work will confirm that appointment. There is no imminent safety risk is appropriate for transition outpatient care. He is aware that he may return to the hospital if any acute safety concerns. He will continue following with his primary care physician and with urology upon discharge. Patient Condition at Discharge: Stable Plan - Discharge Summary New Discharge Prescriptions: New hydrALAZINE HCL [Apresoline] 50 mg PO TID #90 tab LORazepam [Ativan] 0.5 mg PO BID #60 tab Metoprolol Tartrate [Lopressor] 25 mg PO BID #60 tab Polyethylene Glycol 3350 [Miralax] 17 gm PO DAILY #30 pack Sennosides-Docusate Sodium [Senokot-S] 1 each PO DAILY #30 tab Sodium Bicarbonate Tab 650 mg PO BID #60 tab Continue Gabapentin [Neurontin] 100 mg PO DAILY Atorvastatin Calcium [Lipitor] 20 mg PO HS Topiramate [Topamax] 25 mg PO BID Furosemide [Lasix] 40 mg PO DAILY #30 tab amLODIPine [Norvasc] 5 mg PO DAILY Ondansetron HCl [Zofran] 4 mg PO Q12H PRN PRN Reason: Nausea Fluticasone Nasal [place] [Flonase Nasal [place]] 2 spr EA NOSTRIL DAILY PRN PRN Reason: Allergy Symptoms Benazepril [Lotensin] 10 mg PO BID Escitalopram [Lexapro] 20 mg PO DAILY #30 Mirtazapine [Remeron] 15 mg PO HS #30 Discontinued Topiramate [Topamax] 50 mg PO BID Spironolactone [Aldactone] 25 mg PO DAILY hydrALAZINE HCL [Apresoline] 25 mg PO TID LORazepam [Ativan] 1 mg PO TID Metoprolol Tartrate [Lopressor] 25 mg PO DAILY Lactulose 10 gm PO BID PRN PRN Reason: Constipation Discharge Medication List Atorvastatin Calcium [Lipitor] 20 mg PO HS 12/08/16 [History] Gabapentin [Neurontin] 100 mg PO DAILY 12/08/16 [History] Topiramate [Topamax] 25 mg PO BID 12/08/16 [History] Furosemide [Lasix] 40 mg PO DAILY #30 tab 12/18/16 [Rx] Benazepril [Lotensin] 10 mg PO BID 04/01/17 [History] Fluticasone Nasal [place] [Flonase Nasal [place]] 2 spr EA NOSTRIL DAILY PRN [History] Ondansetron HCl [Zofran] 4 mg PO Q12H PRN 04/01/17 [History] amLODIPine [Norvasc] 5 mg PO DAILY 04/01/17 [History] Escitalopram [Lexapro] 20 mg PO DAILY #30 04/05/17 [Rx] LORazepam [Ativan] 0.5 mg PO BID #60 tab 04/05/17 [Rx] Metoprolol Tartrate [Lopressor] 25 mg PO BID #60 tab 04/05/17 [Rx] Mirtazapine [Remeron] 15 mg PO HS #30 04/05/17 [Rx] Polyethylene Glycol 3350 [Miralax] 17 gm PO DAILY #30 pack 04/05/17 [Rx] Sennosides-Docusate Sodium [Senokot-S] 1 each PO DAILY #30 tab 04/05/17 [Rx] Sodium Bicarbonate Tab 650 mg PO BID #60 tab 04/05/17 [Rx] hydrALAZINE HCL [Apresoline] 50 mg PO TID #90 tab 04/05/17 [Rx] Follow up Appointment(s)/Referral(s): Salvador Vides MD [Primary Care Provider] - 1-2 days Patient Instructions/Handouts: Depression (GEN), Suicide Prevention for Adults (GEN)
[2017-04-05 10:11] LABS: Anion Gap 11 mmol/L; Blood Urea Nitrogen 21 mg/dL (9-20); Carbon Dioxide 20 mmol/L (22-30); Chloride 103 mmol/L (98-107); Glucose 147 mg/dL (74-99); Non-African American GFR(MDRD) 57 (>60 ml/min/1.73 sqM); Potassium 4.5 mmol/L (3.5-5.1); Sodium 134 mmol/L (137-145)
[2017-04-05 14:45] LABS: Basophils % (A) 0 %; CHCM 33.3; Eosinophils # (A) 0.1 k/uL (0-0.7); Eosinophils % (A) 0 %; HDW 2.23; HGB 13.6 gm/dL (13.0-17.5); Luc # (Auto) 0.17; Luc % (Auto) 2; Lymphocytes % (A) 9 %; MCHC 33.2 g/dL (31.0-37.0); MCV 99.3 fL (80.0-100.0); Mean Platelet Volume 12.1; Monocytes # (A) 0.6 k/uL (0-1.0); Monocytes % (A) 6 %; Neutrophils # (A) 9.1 k/uL (1.3-7.7); Neutrophils % (A) 83 %; RBC 4.13 m/uL (4.30-5.90); RDW 12.4 % (11.5-15.5); WBC (Perox) 11.52
== END 2017-04-05 13:40 | disposition home or self-care (01) | DRG 885 ==
LOC: EC 10:19 → 3MHU 14:58
PROVIDERS: ADMIT Internal Medicine; ATTEND Psychiatry & Neurology Psychiatry
DX: F33.2 Major depressive disorder, recurrent severe without psychotic features (principal); E87.2 Acidosis; E87.1 Hypo-osmolality and hyponatremia; I50.9 Heart failure, unspecified; I11.0 Hypertensive heart disease with heart failure; J44.9 Chronic obstructive pulmonary disease, unspecified; N13.8 Other obstructive and reflux uropathy; T83.518A Infection and inflammatory reaction due to other urinary catheter, initial encounter; E78.5 Hyperlipidemia, unspecified; F41.1 Generalized anxiety disorder; F60.3 Borderline personality disorder; G43.909 Migraine, unspecified, not intractable, without status migrainosus; K43.2 Incisional hernia without obstruction or gangrene; K59.00 Constipation, unspecified; N40.1 Benign prostatic hyperplasia with lower urinary tract symptoms; F10.21 Alcohol dependence, in remission
CPT/HCPCS: 36415; 80048; 80053; 80306; 81001; 82248; 84443; 85025; 87070; 87086; 99285

== ENCOUNTER 2017-04-21 15:56 | Inpatient (IN) | payer MEDICARE, BC, MEDICAID ==
[2017-04-21] MEDS ORDERED: TOPICAL SKIN ADHESIVE 1 EACH AMP TOPICAL STA (16:23)
[2017-04-21] MEDS ORDERED: DIPH,PERTUS(ACELL)TETVAC-LF 0.5 ML VIAL IM ONE (16:23)
--- NOTE | 2017-04-21 16:26 | ED ---
General Adult HPI - General Source: patient, EMS, RN notes reviewed Mode of arrival: EMS Limitations: no limitations <Layton Bar - Last Filed: 04/21/17 17:10> <Scott Henriquez - Last Filed: 04/21/17 23:03> - General Chief complaint: Psychiatric Symptoms Stated complaint: suicidal Time Seen by Provider: 04/21/17 16:06 - History of Present Illness Initial comments: Patient is a pleasant 76-year-old male presenting to the emergency Department with depression and suicidal thoughts. Patient states he cannot handle the day today pressure. No history of previous suicide attempt. Patient admits to cutting his wrist with his pocket knife. Unclear last tetanus immunization. No homicidal thoughts. No hallucinations. No physical complaints. No alcohol or street drug use. (Layton Bar) - Related Data Home Medications Medication Instructions Recorded Confirmed Atorvastatin Calcium [Lipitor] 20 mg PO HS 12/08/16 04/21/17 Gabapentin [Neurontin] 100 mg PO DAILY 12/08/16 04/21/17 Topiramate [Topamax] 25 mg PO BID 12/08/16 04/21/17 Benazepril [Lotensin] 10 mg PO BID 04/01/17 04/21/17 Fluticasone Nasal [place] [Flonase 2 spr EA NOSTRIL DAILY PRN 04/01/17 04/21/17 Nasal [place]] Ondansetron HCl [Zofran] 4 mg PO Q12H PRN 04/01/17 04/21/17 amLODIPine [Norvasc] 5 mg PO DAILY 04/01/17 04/21/17 Sennosides-Docusate Sodium 1 tab PO DAILY 04/21/17 04/21/17 [Senokot-S] Previous Rx's Medication Instructions Recorded Furosemide [Lasix] 40 mg PO DAILY #30 tab 12/18/16 Escitalopram [Lexapro] 20 mg PO DAILY #30 04/05/17 LORazepam [Ativan] 0.5 mg PO BID #60 tab 04/05/17 Metoprolol Tartrate [Lopressor] 25 mg PO BID #60 tab 04/05/17 Mirtazapine [Remeron] 15 mg PO HS #30 04/05/17 Polyethylene Glycol 3350 [Miralax] 17 gm PO DAILY #30 pack 04/05/17 Sodium Bicarbonate Tab 650 mg PO BID #60 tab 04/05/17 hydrALAZINE HCL [Apresoline] 50 mg PO TID #90 tab 04/05/17 Allergies Allergy/AdvReac Type Severity Reaction Status Date / Time No Known Allergies Allergy Verified 04/21/17 16:17 Review of Systems ROS Other: All systems not noted in ROS Statement are negative. Constitutional: Denies: fever Eyes: Denies: eye pain ENT: Denies: ear pain Respiratory: Denies: cough Cardiovascular: Denies: chest pain Endocrine: Denies: fatigue Gastrointestinal: Denies: abdominal pain Genitourinary: Denies: dysuria Musculoskeletal: Denies: back pain Skin: Denies: rash Neurological: Denies: weakness Psychiatric: Reports: depression, suicidal thoughts <Layton Bar - Last Filed: 04/21/17 17:10> ROS Other: All systems not noted in ROS Statement are negative. <Scott Henriquez - Last Filed: 04/21/17 23:03> ROS Statement: Those systems with pertinent positive or pertinent negative responses have been documented in the HPI. Past Medical History Past Medical History: Asthma, Hypertension Additional Past Medical History / Comment(s): Urinary blockage uses self cath History of Any Multi-Drug Resistant Organisms: None Reported Past Surgical History: Hernia Repair Additional Past Surgical History / Comment(s): hernia repair 03/2017 Past Psychological History: Anxiety, Depression Smoking Status: Never smoker <Layton Bar - Last Filed: 04/21/17 17:10> General Exam Limitations: no limitations General appearance: alert, in no apparent distress Head exam: Present: atraumatic Eye exam: Present: normal appearance, PERRL ENT exam: Present: normal oropharynx Neck exam: Present: normal inspection Respiratory exam: Present: normal lung sounds bilaterally Cardiovascular Exam: Present: regular rate, normal rhythm GI/Abdominal exam: Present: soft. Absent: tenderness Extremities exam: Present: other (Bilateral wrist lacerations) Neurological exam: Present: alert. Absent: motor sensory deficit Psychiatric exam: Present: depressed Skin exam: Present: other (2 left wrist lacerations. Right laceration of the wrist 1.) <Layton Bar - Last Filed: 04/21/17 17:10> Course <Layton Bar - Last Filed: 04/21/17 17:10> <Scott Henriquez - Last Filed: 04/21/17 23:03> Vital Signs 04/21/17 04/21/17 04/21/17 16:03 19:13 22:56 Temperature 99.2 F 98.9 F 99.1 F Pulse Rate 90 70 76 Respiratory 18 16 18 Rate Blood Pressure 142/61 144/66 160/76 O2 Sat by Pulse 97 97 97 Oximetry - Reevaluation(s) Reevaluation #1: 04/21/17 17:10 Patient states urine shows possible urinary tract infection. Urine culture has been ordered. Recommend at this time to provide Bactrim twice daily for the next week pending urine culture results. Patient does not need medical admission for questionable urinary tract infection. (Layton Bar) EKG Findings - EKG Comments: EKG Findings:: Normal sinus rhythm 76. TX 178. QRS 78. QT 422. QTC 474. Left axis. Normal QRS. No acute ST change. <Layton Bar - Last Filed: 04/21/17 17:10> Procedures - Laceration Laceration #1 Consent Obtained: verbal consent Time Out Performed: Yes Indication: laceration Site: upper extremity (Left wrist, 2 lacerations) Size (cm): 6 Description: linear Depth: simple, single layer Pre-repair: wound explored, irrigated extensively Type of Sutures: other (Closed with Dermabond) Patient Tolerated Procedure: well, no complications Laceration #2 Consent Obtained: verbal consent Time Out Performed: Yes Indication: laceration Site: upper extremity (Right wrist) Size (cm): 3 Description: linear Depth: simple, single layer Pre-repair: wound explored, irrigated extensively Size of Sutures: other (Closed with Dermabond) Patient Tolerated Procedure: well, no complications <Layton Bar - Last Filed: 04/21/17 17:10> Medical Decision Making - Lab Data Result diagrams: 04/21/17 16:30 <Layton Bar - Last Filed: 04/21/17 17:10> - Lab Data Result diagrams: 04/21/17 16:30 04/21/17 16:30 <Scott Henriquez - Last Filed: 04/21/17 23:03> - Lab Data Lab Results 04/21/17 04/21/17 04/21/17 Range/Units 16:30 16:30 16:30 WBC 10.3 (3.8-10.6) k/uL RBC 3.51 L (4.30-5.90) m/uL Hgb 11.6 L (13.0-17.5) gm/dL Hct 34.9 L (39.0-53.0) % MCV 99.6 (80.0-100.0) fL MCH 33.2 (25.0-35.0) pg MCHC 33.3 (31.0-37.0) g/dL RDW 12.4 (11.5-15.5) % Plt Count 213 (150-450) k/uL Neutrophils % 76 % Lymphocytes % 14 % Monocytes % 6 % Eosinophils % 2 % Basophils % 0 % Neutrophils # 7.8 H (1.3-7.7) k/uL Lymphocytes # 1.4 (1.0-4.8) k/uL Monocytes # 0.6 (0-1.0) k/uL Eosinophils # 0.2 (0-0.7) k/uL Basophils # 0.0 (0-0.2) k/uL Sodium 129 L (137-145) mmol/L Potassium 3.8 (3.5-5.1) mmol/L Chloride 99 (98-107) mmol/L Carbon Dioxide 17 L (22-30) mmol/L Anion Gap 13 mmol/L BUN 27 H (9-20) mg/dL Creatinine 1.50 H (0.66-1.25) mg/dL Est GFR (MDRD) Af Amer 55 (>60 ml/min/1.73 sqM) Est GFR (MDRD) Non-Af 45 (>60 ml/min/1.73 sqM) Glucose 90 (74-99) mg/dL Calcium 8.4 (8.4-10.2) mg/dL Urine Color Yellow Urine Appearance Cloudy (Clear) Urine pH 5.5 (5.0-8.0) Ur Specific Miles 1.010 (1.001-1.035) Urine Protein Negative (Negative) Urine Glucose (UA) Negative (Negative) Urine Ketones 2+ H (Negative) Urine Blood Small H (Negative) Urine Nitrite Negative (Negative) Urine Bilirubin Negative (Negative) Urine Urobilinogen <2.0 (<2.0) mg/dL Ur Leukocyte Esterase Large H (Negative) Urine RBC 1 (0-5) /hpf Urine WBC 38 H (0-5) /hpf Urine WBC Clumps Few H (None) /hpf Ur Squamous Epith Cells <1 (0-4) /hpf Urine Bacteria Rare H (None) /hpf Urine Mucus Rare H (None) /hpf Urine Opiates Screen Not Detected (NotDetected) Ur Oxycodone Screen Not Detected (NotDetected) Urine Methadone Screen Not Detected (NotDetected) Ur Propoxyphene Screen Not Detected (NotDetected) Ur Barbiturates Screen Not Detected (NotDetected) U Tricyclic Antidepress Not Detected (NotDetected) Ur Phencyclidine Scrn Not Detected (NotDetected) Ur Amphetamines Screen Not Detected (NotDetected) U Methamphetamines Scrn Not Detected (NotDetected) U Benzodiazepines Scrn Detected H (NotDetected) Urine Cocaine Screen Not Detected (NotDetected) U Marijuana (THC) Screen Not Detected (NotDetected) Serum Alcohol <10 mg/dL Disposition <Layton Bar - Last Filed: 04/21/17 17:10> <Scott Henriquez - Last Filed: 04/21/17 23:03> Clinical Impression: Suicidal ideation, Mood disorder Disposition: ADMITTED IP TO THIS HOSP Condition: Fair Referrals: Charo Collado MD [Primary Care Provider] - 1-2 days
[2017-04-21 16:51] LABS: CHCM 33.2; HCT 34.9 % (39.0-53.0); HDW 2.17; HGB 11.6 gm/dL (13.0-17.5); MCH 33.2 pg (25.0-35.0); MCHC 33.3 g/dL (31.0-37.0); MCV 99.6 fL (80.0-100.0); Mean Platelet Volume 8.7; RBC 3.51 m/uL (4.30-5.90); RDW 12.4 % (11.5-15.5); WBC 10.3 k/uL (3.8-10.6); WBC (Perox) 10.75
[2017-04-21 16:52] LABS: Basophils % (A) 0 %; Eosinophils # (A) 0.2 k/uL (0-0.7); Eosinophils % (A) 2 %; Luc % (Auto) 2; Lymphocytes # (A) 1.4 k/uL (1.0-4.8); Lymphocytes % (A) 14 %; Monocytes # (A) 0.6 k/uL (0-1.0); Monocytes % (A) 6 %; Neutrophils # (A) 7.8 k/uL (1.3-7.7); Neutrophils % (A) 76 %
[2017-04-21 16:54] LABS: Appearance,Urine Cloudy (Clear); Bacteria,Urine Rare /hpf; Bilirubin,Urine Negative (Negative); Glucose,Urine (UA) Negative (Negative); Ketones,Urine 2+ (Negative); Leukocyte Esterase,Urine Large (Negative); Mucus,Urine Rare /hpf; Nitrite,Urine Negative (Negative); PH, Urine 5.5 (5.0-8.0); Particle Count 1905; Protein,Urine Negative (Negative); RBC,Urine 1 /hpf (0-5); Squamous Epithelial Cell,Urine <1 /hpf (0-4); UA Billing (MACRO vs. MICRO) MICRO; Urobilinogen,Urine <2.0 mg/dL (<2.0); WBC,Urine 38 /hpf (0-5)
[2017-04-21] MEDS ORDERED: SULFAMETHOX-TMP 800-160MG 1 EACH TAB PO STA (17:11)
[2017-04-21 17:12] LABS: Alcohol <10 mg/dL; Anion Gap 13 mmol/L; Blood Urea Nitrogen 27 mg/dL (9-20); Calcium 8.4 mg/dL (8.4-10.2); Carbon Dioxide 17 mmol/L (22-30); Chloride 99 mmol/L (98-107); Glucose 90 mg/dL (74-99); Non-African American GFR(MDRD) 45 (>60 ml/min/1.73 sqM); Potassium 3.8 mmol/L (3.5-5.1); Sodium 129 mmol/L (137-145)
[2017-04-21] MEDS ORDERED: SODIUM CHLORIDE 0.9% 500 ML IV STA (17:49)
[2017-04-21] MEDS ORDERED: SODIUM CHLORIDE 0.9% 1,000 ML IV STA (17:49)
[2017-04-21] MEDS ORDERED: SULFAMETHOX-TMP 800-160MG 1 EACH TAB PO SCH (21:00)
[2017-04-22] MEDS ORDERED: MAGNESIUM HYDROXIDE 2,400 MG/10 ML CUP PO PRN (00:41)
[2017-04-22] MEDS ORDERED: FLUTICASONE 50MCG/SPRAY NASAL 16GM EA NOSTRIL PRN (00:52)
[2017-04-22] MEDS: MIRTAZAPINE 15 MG TAB PO SCH ×2 (02:12→20:41)
[2017-04-22] MEDS: LORazepam 0.5 MG TAB PO PRN ×2 (03:18→15:54)
[2017-04-22] MEDS: POLYETHYLENE GLYCOL 3350 17 GM POWD.PACK PO SCH (08:19)
[2017-04-22] MEDS: amLODIPine 5 MG TAB PO SCH (08:20)
[2017-04-22] MEDS: hydrALAZINE HCL 50 MG TAB PO SCH ×3 (08:20→21:50)
[2017-04-22] MEDS: SENNOSIDES-DOCUSATE SODIUM 1 EACH TAB PO SCH (08:20)
[2017-04-22] MEDS: LISINOPRIL 20 MG TAB PO SCH (08:20)
[2017-04-22] MEDS: SODIUM BICARBONATE TAB 650 MG TAB PO SCH ×2 (08:20→20:41)
[2017-04-22] MEDS: GABAPENTIN 100 MG CAP PO SCH (08:20)
[2017-04-22] MEDS: SULFAMETHOX-TMP 800-160MG 1 EACH TAB PO SCH ×2 (08:20→20:41)
[2017-04-22] MEDS: FUROSEMIDE 40 MG TAB PO SCH (08:20)
[2017-04-22] MEDS: ESCITALOPRAM 20 MG TAB PO SCH (08:21)
[2017-04-22] MEDS: METOPROLOL TARTRATE 25 MG TAB PO SCH ×2 (08:21→20:41)
[2017-04-22] MEDS: TOPIRAMATE 25 MG TAB PO SCH ×2 (08:22→20:42)
[2017-04-22 10:10] LABS: Basophils % (A) 1 %; CH 33.8; CHCM 33.5; Eosinophils # (A) 0.2 k/uL (0-0.7); Eosinophils % (A) 3 %; HCT 35.6 % (39.0-53.0); HDW 2.11; HGB 11.7 gm/dL (13.0-17.5); Luc # (Auto) 0.08; Luc % (Auto) 1; Lymphocytes # (A) 0.8 k/uL (1.0-4.8); Lymphocytes % (A) 9 %; MCH 33.3 pg (25.0-35.0); MCHC 32.8 g/dL (31.0-37.0); MCV 101.4 fL (80.0-100.0); Mean Platelet Volume 9.8; Monocytes # (A) 0.7 k/uL (0-1.0); Monocytes % (A) 8 %; Neutrophils % (A) 79 %; RBC 3.51 m/uL (4.30-5.90); RDW 13.1 % (11.5-15.5); WBC 8.8 k/uL (3.8-10.6)
[2017-04-22 10:21] LABS: Calcium 8.7 mg/dL (8.4-10.2); Potassium 3.6 mmol/L (3.5-5.1); Total Bilirubin 0.5 mg/dL (0.2-1.3); Total Protein 6.1 g/dL (6.3-8.2)
--- NOTE | 2017-04-22 17:12 | P.HPIM ---
History of Present Illness H&P Date: 04/22/17 Patient is a pleasant 76-year-old male presenting to the emergency Department with depression and suicidal thoughts. Patient states he cannot handle the day today pressure. No history of previous suicide attempt. Patient admits to cutting his wrist with his pocket knife. Unclear last tetanus immunization. No homicidal thoughts. No hallucinations. He denies any alcohol or street drug use. On review of systems There is no fever or chills no headache no dizziness No chest pain no palpitation no shortness of breath no cough No nausea or vomiting no abdominal pain no diarrhea or constipation No burning was urination no frequency or urgency and no hematuria Patient states that he had inguinal hernia surgery at the [facility] recently by Dr. Gan His still has joshua in his groin, will place a consult for Dr. Gan for follow-up Past Medical History Past Medical History: Asthma, Hypertension Additional Past Medical History / Comment(s): Urinary blockage uses self cath History of Any Multi-Drug Resistant Organisms: None Reported Past Surgical History: Hernia Repair Additional Past Surgical History / Comment(s): hernia repair 03/2017 Past Psychological History: Anxiety, Depression Smoking Status: Never smoker Medications and Allergies Home Medications Medication Instructions Recorded Confirmed Type Atorvastatin Calcium [Lipitor] 20 mg PO HS 12/08/16 04/21/17 History Gabapentin [Neurontin] 100 mg PO DAILY 12/08/16 04/21/17 History Topiramate [Topamax] 25 mg PO BID 12/08/16 04/21/17 History Furosemide [Lasix] 40 mg PO DAILY #30 tab 12/18/16 04/21/17 Rx Benazepril [Lotensin] 10 mg PO BID 04/01/17 04/21/17 History Fluticasone Nasal [place] [Flonase 2 spr EA NOSTRIL DAILY PRN 04/01/17 04/21/17 History Nasal [place]] Ondansetron HCl [Zofran] 4 mg PO Q12H PRN 04/01/17 04/21/17 History amLODIPine [Norvasc] 5 mg PO DAILY 04/01/17 04/21/17 History Escitalopram [Lexapro] 20 mg PO DAILY #30 04/05/17 04/21/17 Rx LORazepam [Ativan] 0.5 mg PO BID #60 tab 04/05/17 04/21/17 Rx Metoprolol Tartrate [Lopressor] 25 mg PO BID #60 tab 04/05/17 04/21/17 Rx Mirtazapine [Remeron] 15 mg PO HS #30 04/05/17 04/21/17 Rx Polyethylene Glycol 3350 [Miralax] 17 gm PO DAILY #30 pack 04/05/17 04/21/17 Rx Sodium Bicarbonate Tab 650 mg PO BID #60 tab 04/05/17 04/21/17 Rx hydrALAZINE HCL [Apresoline] 50 mg PO TID #90 tab 04/05/17 04/21/17 Rx Sennosides-Docusate Sodium 1 tab PO DAILY 04/21/17 04/21/17 History [Senokot-S] Allergies Allergy/AdvReac Type Severity Reaction Status Date / Time No Known Allergies Allergy Verified 04/22/17 02:30 Physical Exam Vitals: Vital Signs Temp Pulse Pulse Pulse Resp BP BP 04/22/17 15:55 75 18 04/22/17 10:12 98.3 F 04/22/17 08:25 100 18 04/22/17 02:26 99.3 F 74 18 145/85 04/22/17 00:24 99.3 F 71 16 164/77 04/21/17 22:56 99.1 F 76 18 160/76 04/21/17 19:13 98.9 F 70 16 144/66 BP Pulse Ox 04/22/17 15:55 157/72 04/22/17 10:12 04/22/17 08:25 177/80 04/22/17 02:26 97 04/22/17 00:24 95 04/21/17 22:56 97 04/21/17 19:13 97 Intake and Output 04/22/17 04/22/17 04/22/17 06:59 14:59 22:59 Output Total 450 Balance -450 Output: Urine 450 Other: Weight 83.1 kg 83.4 kg Patient Weight 04/23/17 06:59 Weight 83.4 kg In general patient is alert and oriented in no apparent distress HEENT head normocephalic and atraumatic Neck is supple no JVD no goiter no lymphadenopathy Chest exam is clear to auscultation no crackles no wheezing Cardiac exam reveals regular heart sounds S1 and S2 no gallops no murmurs Abdomen is soft nontender no organomegaly with normal bowel sounds Extremity exam reveals no edema no cyanosis or clubbing Results CBC & Chem 7: 04/22/17 09:49 04/22/17 09:49 Labs: Abnormal Lab Results - Last 24 Hours (Table) 04/21/17 04/21/17 04/22/17 Range/Units 16:30 16:30 09:49 RBC 3.51 L (4.30-5.90) m/uL Hgb 11.7 L (13.0-17.5) gm/dL Hct 35.6 L (39.0-53.0) % MCV 101.4 H (80.0-100.0) fL Lymphocytes # 0.8 L (1.0-4.8) k/uL Sodium 129 L (137-145) mmol/L Carbon Dioxide 17 L (22-30) mmol/L BUN 27 H (9-20) mg/dL Creatinine 1.50 H (0.66-1.25) mg/dL Glucose (74-99) mg/dL Total Protein (6.3-8.2) g/dL Urine Ketones 2+ H (Negative) 04/22/17 Range/Units 09:49 RBC (4.30-5.90) m/uL Hgb (13.0-17.5) gm/dL Hct (39.0-53.0) % MCV (80.0-100.0) fL Lymphocytes # (1.0-4.8) k/uL Sodium 131 L (137-145) mmol/L Carbon Dioxide 20 L (22-30) mmol/L BUN 22 H (9-20) mg/dL Creatinine 1.50 H (0.66-1.25) mg/dL Glucose 153 H (74-99) mg/dL Total Protein 6.1 L (6.3-8.2) g/dL Urine Ketones (Negative) Microbiology - Last 24 Hours (Table) 04/21/17 16:30 Urine Culture - Preliminary Urine,Voided Assessment and Plan Plan: #1 depression with suicidal thoughts #2 underlying history of hypertension maintained on lisinopril hydralazine amlodipine and Lasix #3 recent inguinal hernia repair #4 underlying history of hyperlipidemia maintained on Lipitor Medication and labs were reviewed continue was current management place a consult for Dr. Gan for surgery follow-up Will follow as needed for medical management
[2017-04-22] MEDS: ATORVASTATIN 20 MG TAB PO SCH (20:41)
[2017-04-22] MEDS ORDERED: MIRTAZAPINE 15 MG TAB PO SCH (21:00)
[2017-04-23] MEDS: POLYETHYLENE GLYCOL 3350 17 GM POWD.PACK PO SCH (08:22)
[2017-04-23] MEDS: SODIUM BICARBONATE TAB 650 MG TAB PO SCH ×2 (08:23→20:29)
[2017-04-23] MEDS: hydrALAZINE HCL 50 MG TAB PO SCH ×3 (08:23→20:28)
[2017-04-23] MEDS: amLODIPine 5 MG TAB PO SCH (08:23)
[2017-04-23] MEDS: SENNOSIDES-DOCUSATE SODIUM 1 EACH TAB PO SCH (08:23)
[2017-04-23] MEDS: ESCITALOPRAM 20 MG TAB PO SCH (08:24)
[2017-04-23] MEDS: GABAPENTIN 100 MG CAP PO SCH (08:24)
[2017-04-23] MEDS: TOPIRAMATE 25 MG TAB PO SCH ×2 (08:24→20:28)
[2017-04-23] MEDS: LISINOPRIL 20 MG TAB PO SCH (08:24)
[2017-04-23] MEDS: METOPROLOL TARTRATE 25 MG TAB PO SCH ×2 (08:24→20:28)
[2017-04-23] MEDS: FUROSEMIDE 40 MG TAB PO SCH (08:24)
[2017-04-23] MEDS: SULFAMETHOX-TMP 800-160MG 1 EACH TAB PO SCH ×2 (08:24→20:28)
--- NOTE | 2017-04-23 10:29 | P.HP ---
Psychiatric H&P - . H&P Date: 04/23/17 History & Physical: Allergies Allergy/AdvReac Type Severity Reaction Status Date / Time No Known Allergies Allergy Verified 04/22/17 02:30 Vital Signs Temp 98.2 F 04/23/17 06:42 Pulse 67 04/23/17 06:42 Resp 16 04/23/17 06:42 BP 147/70 04/23/17 06:42 Pulse Ox 97 04/22/17 02:26 Intake & Output 04/22/17 04/23/17 04/23/17 18:59 06:59 18:59 Weight 83.4 kg Laboratory Last Values WBC 8.8 k/uL (3.8-10.6) 04/22/17 09:49 RBC 3.51 m/uL (4.30-5.90) L 04/22/17 09:49 Hgb 11.7 gm/dL (13.0-17.5) L 04/22/17 09:49 Hct 35.6 % (39.0-53.0) L 04/22/17 09:49 MCV 101.4 fL (80.0-100.0) H 04/22/17 09:49 MCH 33.3 pg (25.0-35.0) 04/22/17 09:49 MCHC 32.8 g/dL (31.0-37.0) 04/22/17 09:49 RDW 13.1 % (11.5-15.5) 04/22/17 09:49 Plt Count 200 k/uL (150-450) 04/22/17 09:49 Neutrophils % 79 % 04/22/17 09:49 Lymphocytes % 9 % 04/22/17 09:49 Monocytes % 8 % 04/22/17 09:49 Eosinophils % 3 % 04/22/17 09:49 Basophils % 1 % 04/22/17 09:49 Neutrophils # 7.0 k/uL (1.3-7.7) 04/22/17 09:49 Lymphocytes # 0.8 k/uL (1.0-4.8) L 04/22/17 09:49 Monocytes # 0.7 k/uL (0-1.0) 04/22/17 09:49 Eosinophils # 0.2 k/uL (0-0.7) 04/22/17 09:49 Basophils # 0.0 k/uL (0-0.2) 04/22/17 09:49 Sodium 131 mmol/L (137-145) L 04/22/17 09:49 Potassium 3.6 mmol/L (3.5-5.1) 04/22/17 09:49 Chloride 102 mmol/L (98-107) 04/22/17 09:49 Carbon Dioxide 20 mmol/L (22-30) L 04/22/17 09:49 Anion Gap 9 mmol/L 04/22/17 09:49 BUN 22 mg/dL (9-20) H 04/22/17 09:49 Creatinine 1.50 mg/dL (0.66-1.25) H 04/22/17 09:49 Est GFR (MDRD) Af Amer 55 (>60 ml/min/1.73 sqM) 04/22/17 09:49 Est GFR (MDRD) Non-Af 45 (>60 ml/min/1.73 sqM) 04/22/17 09:49 Glucose 153 mg/dL (74-99) H 04/22/17 09:49 Calcium 8.7 mg/dL (8.4-10.2) 04/22/17 09:49 Total Bilirubin 0.5 mg/dL (0.2-1.3) 04/22/17 09:49 AST 22 U/L (17-59) 04/22/17 09:49 ALT 38 U/L (21-72) 04/22/17 09:49 Alkaline Phosphatase 82 U/L (38-126) 04/22/17 09:49 Total Protein 6.1 g/dL (6.3-8.2) L 04/22/17 09:49 Albumin 3.6 g/dL (3.5-5.0) 04/22/17 09:49 TSH 0.950 mIU/L (0.465-4.680) 04/22/17 09:49 Urine Color Yellow 04/21/17 16:30 Urine Appearance Cloudy (Clear) 04/21/17 16:30 Urine pH 5.5 (5.0-8.0) 04/21/17 16:30 Ur Specific [place] 1.010 (1.001-1.035) 04/21/17 16:30 Urine Protein Negative (Negative) 04/21/17 16:30 Urine Glucose (UA) Negative (Negative) 04/21/17 16:30 Urine Ketones 2+ (Negative) H 04/21/17 16:30 Urine Blood Small (Negative) H 04/21/17 16:30 Urine Nitrite Negative (Negative) 04/21/17 16:30 Urine Bilirubin Negative (Negative) 04/21/17 16:30 Urine Urobilinogen <2.0 mg/dL (<2.0) 04/21/17 16:30 Ur Leukocyte Esterase Large (Negative) H 04/21/17 16:30 Urine RBC 1 /hpf (0-5) 04/21/17 16:30 Urine WBC 38 /hpf (0-5) H 04/21/17 16:30 Urine WBC Clumps Few /hpf (None) H 04/21/17 16:30 Ur Squamous Epith Cells <1 /hpf (0-4) 04/21/17 16:30 Urine Bacteria Rare /hpf (None) H 04/21/17 16:30 Urine Mucus Rare /hpf (None) H 04/21/17 16:30 Urine Opiates Screen Not Detected (NotDetected) 04/21/17 16:30 Ur Oxycodone Screen Not Detected (NotDetected) 04/21/17 16:30 Urine Methadone Screen Not Detected (NotDetected) 04/21/17 16:30 Ur Propoxyphene Screen Not Detected (NotDetected) 04/21/17 16:30 Ur Barbiturates Screen Not Detected (NotDetected) 04/21/17 16:30 U Tricyclic Antidepress Not Detected (NotDetected) 04/21/17 16:30 Ur Phencyclidine Scrn Not Detected (NotDetected) 04/21/17 16:30 Ur Amphetamines Screen Not Detected (NotDetected) 04/21/17 16:30 U Methamphetamines Scrn Not Detected (NotDetected) 04/21/17 16:30 U Benzodiazepines Scrn Detected (NotDetected) H 04/21/17 16:30 Urine Cocaine Screen Not Detected (NotDetected) 04/21/17 16:30 U Marijuana (THC) Screen Not Detected (NotDetected) 04/21/17 16:30 Serum Alcohol <10 mg/dL 04/21/17 16:30 04/23/17 10:11 IDENTIFYING DATA: This patient is a 76-year-old male who was admitted to the mental health unit for suicidal ideation, status post self-induced lacerations to his wrists. HPI: The patient reports that Sunday morning he cut his wrists with a pocket knife as an attempt to kill himself. He states that on the realm they stop bleeding he tried to get them to bleed more but was unsuccessful that he discontinued the attempt after that. The next day he called EMS and he was brought to the hospital. He reports feeling overwhelmed by stressors of "day to day life". Predominantly he states he feels lonely. He states "my daughter needs to understand she has to help me" he states children need to help her parents when they are older. Over the last 2 admissions his daughter has not participated in care other than responding to a phone call from social work. During his last admission we continued to address his feelings of loneliness and discussed options. He did not engage in any volunteer work. He did not seek out any companionship with neighbors. He describes himself as feeling depressed because he is lonely. He reports being compliant with his medications for depression. We did have home care visit him after his last discharge but he states they only came out once. He is endorsing no hypomanic or manic symptoms he is endorsing no symptoms of psychosis. He reports no homicidal ideation. He feels safe here in the hospital and states he would not harm himself here. He reports he would not attempt suicide again because it is "just too much mess". PAST PSYCHIATRIC HISTORY: The patient has had numerous psychiatric hospitalizations. He was here in November of this year earlier and earlier this month. This is his first suicide attempt. He does work with me as an outpatient. We have continued Remeron 15 mg at bedtime Lexapro 20 mg daily Ativan 0.5 mg up to twice a day as needed. In the past he has been on Wellbutrin Effexor XR trazodone Abilify Celexa and BuSpar. He does not work with an individual therapist by choice. PMH: Reported history of congestive heart failure, COPD, hypertension, migraines , hyperlipidemia, urinary retention. He chronically has urinary tract infections. The patient has recently had surgery to correct an inguinal hernia. ALLERGIES: NO KNOWN DRUG ALLERGIES MEDICATIONS: Refer to [facility] CHEMICAL DEPENDENCY HISTORY: The patient has a history of alcohol use disorder which has been in remission for several years. He has been in inpatient chemical dependency treatment several times in the remote past. No other use of illicit drugs. Prior to his last admission he had used marijuana at his daughter's urging but he felt it did not address any symptoms and he felt worse with it. FAMILY PSYCHIATRIC HISTORY: No detail provided, no suicides in the family FAMILY CHEMICAL DEPENDENCY HISTORY: Unknown SOCIAL HISTORY: The patient is 76 years old, he is , he lives alone in his own apartment. 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 He has a daughter whom he has infrequent contact with. No history of service, no legal history, no abuse history. He has very limited socialization other than doctor's appointments. Typically he will stay at home and read all day. MENTAL STATUS EXAM: The patient is a male appearing his stated age he ambulates slowly but without ataxia. He is dressed in hospital gowns. He is alert. He is seated calmly in his chair he complains of feeling cold. Speech is not spontaneous but he provides sufficient responses to questions asked. He endorses a depressed mood he states he feels lonely. He reports he no longer feels suicidal as he is safe here in the hospital. No report of homicidal ideation intent or plan. He endorses no racing thoughts there is no pressured speech there is no evidence of hypomanic or manic symptoms. His affect is blunted. He is oriented to person place and date. He reports no auditory or visual hallucinations he endorses no specific delusions, there is no evidence of observable psychosis. He demonstrates no psychomotor agitation there is mild psychomotor slowing. He is able to spell world forwards and backwards. STRENGTHS/WEAKNESSES: Strengths, housing, income, willingness to receive treatment weaknesses: Reluctance to change, limited socialization, strained relationship with daughter INTELLECTUAL FUNCTIONING: Above average IMPRESSIONS: [] 1. Major depressive disorder recurrent, generalized anxiety disorder, alcohol use disorder in remission 2. Cluster B traits including borderline personality disorder 3. Recent superficial self-induced lacerations to wrists, chronic history of COPD, urinary retention, congestive heart failure, hypertension, migraines, hyperlipidemia 4. Very limited support strained relationship with daughter PLAN: The patient has been admitted to the mental health unit he is here voluntarily. We reviewed his presenting symptoms and medication options. He will continue on Lexapro 20 mg daily Remeron 15 mg at bedtime Ativan 0.5 mg up to twice daily as needed. He has been seen by Dr. Brooks for routine history and physical exam. The patient is on Bactrim DS for his urinary tract infection. A consult was placed with general surgery for staple removal regarding his recent inguinal surgery. Social work will meet with the patient to complete a psychosocial assessment and begin discharge planning. At length we discussed the need for the patient to make changes to improve his support system. He is hoping his daughter will provide more support however this seems less likely due to her lack of involvement during other admissions. We will monitor him for safety and encourage his participation in the milieu. We will continue to review options regarding medication.
[2017-04-23] MEDS: ATORVASTATIN 20 MG TAB PO SCH (20:28)
[2017-04-23] MEDS: MIRTAZAPINE 15 MG TAB PO SCH (20:29)
--- NOTE | 2017-04-24 08:29 | P.CON ---
Consult Note - . Consult date: 04/24/17 Assessment/Plan:: Thank you for asking to see Mr. Tejeda. He is well-known to me. He underwent ventral incisional hernia repair almost 2 weeks ago. He had the removal of half of his joshua last week. Has no drainage since he was seen in the office last week. He is tolerating a diet. Minimal abdominal discomfort. On examination he is afebrile. His abdomen is soft. Incision looks nicely healed. No evidence of infection or any complication. Impression progressive improvement status post ventral incisional hernia repair. Recommendation. DC remaining joshua. We'll see him back in the office next week after his discharge.
[2017-04-24] MEDS: POLYETHYLENE GLYCOL 3350 17 GM POWD.PACK PO SCH (08:40)
[2017-04-24] MEDS: TOPIRAMATE 25 MG TAB PO SCH ×2 (08:40→20:09)
[2017-04-24] MEDS: SULFAMETHOX-TMP 800-160MG 1 EACH TAB PO SCH ×2 (08:40→20:08)
[2017-04-24] MEDS: SODIUM BICARBONATE TAB 650 MG TAB PO SCH ×2 (08:40→20:08)
[2017-04-24] MEDS: SENNOSIDES-DOCUSATE SODIUM 1 EACH TAB PO SCH (08:40)
[2017-04-24] MEDS: hydrALAZINE HCL 50 MG TAB PO SCH ×3 (08:40→20:09)
[2017-04-24] MEDS: FUROSEMIDE 40 MG TAB PO SCH (08:40)
[2017-04-24] MEDS: METOPROLOL TARTRATE 25 MG TAB PO SCH ×2 (08:40→20:09)
[2017-04-24] MEDS: ESCITALOPRAM 20 MG TAB PO SCH (08:40)
[2017-04-24] MEDS: GABAPENTIN 100 MG CAP PO SCH (08:40)
[2017-04-24] MEDS: LISINOPRIL 20 MG TAB PO SCH (08:41)
[2017-04-24] MEDS: amLODIPine 5 MG TAB PO SCH (08:41)
--- NOTE | 2017-04-24 09:40 | P.PN ---
Progress Note - Text Interval history: The patient is found at the associate creative director he follows me to an interview room. He reports he was able to sleep last night and he continues to find the Remeron helpful. Appetite stable. He reports feeling depressed and hopeless. He states "I can't live alone anymore". He states "where my going after this". We discussed placement options and his monthly income. We will need social work to assist further. The patient has no questions or concerns regarding his psychotropic medication. Mental status exam: The patient is alert he is a mildly disheveled appearance he is dressed in hospital attire. He is observed ambulating in the hallway slowly without ataxia. He reports his mood is depressed he feels hopeless. His affect is blunted. He initiates little spontaneous speech and mainly answers questions asked of him. He reports feeling safe in the hospital he endorses no homicidal ideation. He is reporting no auditory or visual hallucinations or specific delusions. He demonstrates no verbal or physical aggressiveness. When he has not been asked questions he sits in his chair with his arms crossed looking downward. Insight and judgment limited. He is oriented to person place and date. Plan: Major depressive disorder, generalized anxiety disorder, the patient will continue on his current antidepressant medication. We will continue to discuss medication options. Again we will discuss placement options with social work. Vital signs reviewed. We will continue to monitor him for safety. He is instructed to attend groups.
[2017-04-24] MEDS: LORazepam 0.5 MG TAB PO PRN (15:58)
[2017-04-24] MEDS: ATORVASTATIN 20 MG TAB PO SCH (20:09)
[2017-04-24] MEDS: MIRTAZAPINE 15 MG TAB PO SCH (20:09)
[2017-04-25] MEDS: LORazepam 0.5 MG TAB PO PRN ×2 (04:25→15:49)
[2017-04-25] MEDS: SODIUM BICARBONATE TAB 650 MG TAB PO SCH ×2 (08:41→20:50)
[2017-04-25] MEDS: LISINOPRIL 20 MG TAB PO SCH (08:42)
[2017-04-25] MEDS: SULFAMETHOX-TMP 800-160MG 1 EACH TAB PO SCH ×2 (08:42→20:50)
[2017-04-25] MEDS: POLYETHYLENE GLYCOL 3350 17 GM POWD.PACK PO SCH (08:42)
[2017-04-25] MEDS: METOPROLOL TARTRATE 25 MG TAB PO SCH ×2 (08:42→20:50)
[2017-04-25] MEDS: hydrALAZINE HCL 50 MG TAB PO SCH ×3 (08:42→20:52)
[2017-04-25] MEDS: SENNOSIDES-DOCUSATE SODIUM 1 EACH TAB PO SCH (08:42)
[2017-04-25] MEDS: amLODIPine 5 MG TAB PO SCH (08:43)
[2017-04-25] MEDS: FUROSEMIDE 40 MG TAB PO SCH (08:43)
[2017-04-25] MEDS: TOPIRAMATE 25 MG TAB PO SCH ×2 (08:43→20:50)
[2017-04-25] MEDS: GABAPENTIN 100 MG CAP PO SCH (08:43)
[2017-04-25] MEDS: ESCITALOPRAM 20 MG TAB PO SCH (08:43)
--- NOTE | 2017-04-25 09:49 | P.PN ---
Progress Note - Text Interval history: The patient is found in his room he follows me to an interview room. He states his mood is still hopeless. He feels overwhelmed with decisions he needs to make. He has indicated that he does not want to return back to his own apartment yesterday as he feels lonely and can't live like that any longer. Social work has been investigating appropriate placements for him. He expresses a concern of his rent exceeding his income and that is being taken into consideration. He reported having difficulty sleeping last night. He states that he has been attending groups. He reports eating breakfast this morning. Mental status exam: The patient is a male appearing his stated age he is dressed in hospital gowns. He is observed ambulating in the hallway slowly but without ataxia. He seated calmly in the chair. He reports a depressed mood with hopelessness thoughts he has a dysphoric affect but is not tearful. He demonstrates some spontaneous speech but mainly response to questions asked. He reports no homicidal ideation he endorses no auditory or visual hallucinations or specific delusions. There is no evidence of psychosis. Insight and judgment limited. He is oriented to person place and date. He demonstrates no verbal or physical aggressiveness. Plan: Major depressive disorder, generalized anxiety disorder, the patient will continue on his current psychotropic medications. Melatonin will be added at night for sleep. We will discuss his care and treatment plan during team meeting this morning. Vital signs reviewed. We will continue to monitor him for safety and encourage his full participation in the milieu.
[2017-04-25] MEDS: LORATADINE 10 MG TAB PO SCH (11:02)
[2017-04-25] MEDS: ATORVASTATIN 20 MG TAB PO SCH (20:50)
[2017-04-25] MEDS: MIRTAZAPINE 15 MG TAB PO SCH (20:50)
[2017-04-25] MEDS ORDERED: MELATONIN 3 MG TABLET PO SCH (21:00)
[2017-04-25] MEDS ORDERED: DOXEPIN 25 MG CAP PO STA (22:00)
[2017-04-26] MEDS: LORazepam 0.5 MG TAB PO PRN ×2 (06:11→15:35)
[2017-04-26] MEDS: hydrALAZINE HCL 50 MG TAB PO SCH ×3 (08:16→21:35)
[2017-04-26] MEDS: GABAPENTIN 100 MG CAP PO SCH (08:16)
[2017-04-26] MEDS: ESCITALOPRAM 20 MG TAB PO SCH (08:16)
[2017-04-26] MEDS: TOPIRAMATE 25 MG TAB PO SCH ×2 (08:16→20:26)
[2017-04-26] MEDS: POLYETHYLENE GLYCOL 3350 17 GM POWD.PACK PO SCH (08:16)
[2017-04-26] MEDS: SULFAMETHOX-TMP 800-160MG 1 EACH TAB PO SCH ×2 (08:17→20:26)
[2017-04-26] MEDS: METOPROLOL TARTRATE 25 MG TAB PO SCH ×2 (08:17→20:26)
[2017-04-26] MEDS: SENNOSIDES-DOCUSATE SODIUM 1 EACH TAB PO SCH (08:17)
[2017-04-26] MEDS: LORATADINE 10 MG TAB PO SCH (08:17)
[2017-04-26] MEDS: FUROSEMIDE 40 MG TAB PO SCH (08:17)
[2017-04-26] MEDS: amLODIPine 5 MG TAB PO SCH (08:18)
[2017-04-26] MEDS: SODIUM BICARBONATE TAB 650 MG TAB PO SCH ×2 (08:18→20:25)
[2017-04-26] MEDS: LISINOPRIL 20 MG TAB PO SCH (08:24)
--- NOTE | 2017-04-26 09:26 | P.PN ---
Progress Note - Text Interval history: The patient is found in his room reading in bed. He follows me to an interview room. We discussed his potential placement at [facility]. He is concerned about his financial situation and how he would afford it. He states he would be agreeable to going there and would look forward to socializing with peers. He has no questions regarding his medications. He did not find the melatonin effective the covering psychiatrist prescribed doxepin and he felt that was effective. He asks for the doxepin to be continued tonight. Mental status exam: The patient is a male appearing his stated age he is dressed in hospital gowns, he has bandages over his self-inflicted wrist wounds. He is wearing his eyeglasses. Eye contact is intermittent. He reports feeling overwhelmed which leads to him feeling hopeless. He is endorsing no homicidal ideation he endorses no auditory or visual hallucinations or specific delusions. There is no observed evidence of psychosis. He reports no racing thoughts he demonstrates no pressured speech. He does not appear hypomanic or manic. He has a dysphoric affect although he is not tearful today. Speech again remains mostly reactive to questions asked. He demonstrates no verbal or physical aggressiveness. He is oriented to person place and date. Plan: Major depressive disorder, generalized anxiety disorder, the patient will continue on his current psychotropic medications. Melatonin will be discontinued doxepin 10 mg at bedtime will be scheduled. We will continue the conversation with social work regarding making arrangements potentially for him moving to [facility] and looking at his income and expenses. He requests that we try to involve his daughter however she has recently expressed the preference of not participating in his care.
[2017-04-26] MEDS: ACETAMINOPHEN TAB 325 MG TAB PO PRN (16:35)
[2017-04-26] MEDS: MAG HYDROX/AL HYDROX/SIMETH 30 ML CUP PO PRN (16:35)
[2017-04-26 20:16] LABS: Basophils # (A) 0.1 k/uL (0-0.2); Basophils % (A) 1 %; CH 34.2; CHCM 33.6; Eosinophils # (A) 0.3 k/uL (0-0.7); Eosinophils % (A) 3 %; HCT 35.3 % (39.0-53.0); HGB 11.5 gm/dL (13.0-17.5); Luc # (Auto) 0.16; Luc % (Auto) 2; Lymphocytes # (A) 1.8 k/uL (1.0-4.8); Lymphocytes % (A) 19 %; MCH 33.1 pg (25.0-35.0); MCHC 32.4 g/dL (31.0-37.0); MCV 102.2 fL (80.0-100.0); Macrocytosis Slight; Monocytes # (A) 0.6 k/uL (0-1.0); Monocytes % (A) 6 %; Neutrophils # (A) 6.5 k/uL (1.3-7.7); Neutrophils % (A) 69 %; RBC 3.46 m/uL (4.30-5.90); RDW 13.1 % (11.5-15.5); WBC 9.4 k/uL (3.8-10.6); WBC (Perox) 10.04
[2017-04-26] MEDS: DOXEPIN 10 MG CAP PO SCH (20:25)
[2017-04-26] MEDS: ATORVASTATIN 20 MG TAB PO SCH (20:26)
[2017-04-26] MEDS: MIRTAZAPINE 15 MG TAB PO SCH (20:26)
[2017-04-26 20:33] LABS: Calcium 9.2 mg/dL (8.4-10.2); Potassium 3.9 mmol/L (3.5-5.1)
[2017-04-27] MEDS: LORazepam 0.5 MG TAB PO PRN (04:51)
[2017-04-27] MEDS: MAG HYDROX/AL HYDROX/SIMETH 30 ML CUP PO PRN ×3 (04:51→14:44)
[2017-04-27] MEDS: GABAPENTIN 100 MG CAP PO SCH (08:00)
[2017-04-27] MEDS: SENNOSIDES-DOCUSATE SODIUM 1 EACH TAB PO SCH (08:00)
[2017-04-27] MEDS: LORATADINE 10 MG TAB PO SCH (08:00)
[2017-04-27] MEDS: SODIUM BICARBONATE TAB 650 MG TAB PO SCH ×3 (08:00→20:14)
[2017-04-27] MEDS: FUROSEMIDE 40 MG TAB PO SCH (08:00)
[2017-04-27] MEDS: hydrALAZINE HCL 50 MG TAB PO SCH ×3 (08:00→20:15)
[2017-04-27] MEDS: SULFAMETHOX-TMP 800-160MG 1 EACH TAB PO SCH (08:00)
[2017-04-27] MEDS: TOPIRAMATE 25 MG TAB PO SCH ×2 (08:00→20:15)
[2017-04-27] MEDS: amLODIPine 5 MG TAB PO SCH (08:00)
[2017-04-27] MEDS: POLYETHYLENE GLYCOL 3350 17 GM POWD.PACK PO SCH (08:00)
[2017-04-27] MEDS: METOPROLOL TARTRATE 25 MG TAB PO SCH ×2 (08:00→20:14)
[2017-04-27] MEDS: LISINOPRIL 20 MG TAB PO SCH (08:00)
--- NOTE | 2017-04-27 09:22 | P.PN ---
Progress Note - Text Interval history: The patient is found in the hallway he follows me to an interview room. He reports having some stomach upset and had no episode of diarrhea last evening. He still has some nausea but was able to eat some of his breakfast this morning. Electrolytes were drawn his sodium level still remains low his BUN and creatinine are elevated. The Lexapro was held and we will go ahead and discontinue that in case it is contributing to hyponatremia. He was able to sleep last night. He has been attending groups and feels safe here on the mental health unit. Social work was able to reach the patient's daughter and she is scheduled to participate in a family meeting Sunday. Mental status exam: The patient is alert he is dressed in hospital gowns. He is observed ambulating slowly in the hallway but without ataxia. He is in no acute distress. Eye contact is appropriate. He reports continued feelings of depression and feeling hopeless regarding his recent circumstances. He reports feeling safe in the hospital. He endorses no thoughts of harming others. He endorses no auditory or visual hallucinations or specific delusions, there is no evidence of psychosis. He does not appear hypomanic or manic. He remains oriented to person place and date. He demonstrates no verbal or physical aggressiveness. Plan: Major depressive disorder, generalized anxiety disorder, we will discontinue the Lexapro in case it is contributing to hyponatremia. Continue Remeron and doxepin at bedtime. He is encouraged to continue participating in the milieu. We will continue monitor him for safety. He is not appropriate for discharge at this time as he would decompensate further if discharged. We anticipate a family meeting involving his daughter which is his only local possible support, on Sunday.
[2017-04-27] MEDS: ATORVASTATIN 20 MG TAB PO SCH (20:14)
[2017-04-27] MEDS: DOXEPIN 10 MG CAP PO SCH (20:15)
[2017-04-27] MEDS: MIRTAZAPINE 15 MG TAB PO SCH (20:15)
[2017-04-27] MEDS: DICYCLOMINE 10 MG CAP PO SCH (20:15)
[2017-04-28] MEDS: LORazepam 0.5 MG TAB PO PRN ×2 (03:43→22:28)
[2017-04-28] MEDS: MAG HYDROX/AL HYDROX/SIMETH 30 ML CUP PO PRN ×4 (03:46→18:24)
[2017-04-28] MEDS: LORATADINE 10 MG TAB PO SCH (08:12)
[2017-04-28] MEDS: POLYETHYLENE GLYCOL 3350 17 GM POWD.PACK PO SCH (08:12)
[2017-04-28] MEDS: GABAPENTIN 100 MG CAP PO SCH (08:12)
[2017-04-28] MEDS: TOPIRAMATE 25 MG TAB PO SCH ×2 (08:12→20:28)
[2017-04-28] MEDS: SENNOSIDES-DOCUSATE SODIUM 1 EACH TAB PO SCH (08:13)
[2017-04-28] MEDS: hydrALAZINE HCL 50 MG TAB PO SCH ×3 (08:13→20:27)
[2017-04-28] MEDS: SODIUM BICARBONATE TAB 650 MG TAB PO SCH ×4 (08:13→20:27)
[2017-04-28] MEDS: FUROSEMIDE 40 MG TAB PO SCH (08:14)
[2017-04-28] MEDS: DICYCLOMINE 10 MG CAP PO SCH ×3 (08:14→20:27)
[2017-04-28] MEDS: LISINOPRIL 20 MG TAB PO SCH (08:14)
[2017-04-28] MEDS: METOPROLOL TARTRATE 25 MG TAB PO SCH ×2 (08:14→20:27)
[2017-04-28] MEDS: amLODIPine 10 MG TAB PO SCH (08:15)
--- NOTE | 2017-04-28 14:38 | P.PN ---
Progress Note - Text Interval history: Patient seen in cross coverage today for Dr. Bowers. He reports that his mood overall is doing better but today has been a rough day. He talks about feeling very confused when they were playing a board game this morning but his thoughts have cleared now. He describes that his confusion may have been related to medication. He relates that prior to the hospitalization he had cut on himself which had been his only suicide attempt. He talks about dealing with issues of loneliness. He does relate that he has a family meeting scheduled for his daughter on Sunday. Mental status exam: He is alert and cooperative with the interview. His speech is fluent, not rapid or pressured. Thought processes organized. His mood he described overall is improved but states today is a rough day. He does not verbalize any thoughts of harm to self others no evidence of psychosis or agitation. Plan: Patient be maintained on current psychotropic medication regimen. We will monitor for any medication side effects and monitor for his ongoing response. We'll continue to monitor regarding any suicidal ideation, also monitor for any periods of confusion. We'll continue to cover for Dr. Bowers through the weekend.
[2017-04-28] MEDS: DOXEPIN 10 MG CAP PO SCH (20:27)
[2017-04-28] MEDS: ATORVASTATIN 20 MG TAB PO SCH (20:27)
[2017-04-28] MEDS: MIRTAZAPINE 15 MG TAB PO SCH (20:27)
[2017-04-29] MEDS: LORazepam 0.5 MG TAB PO PRN ×2 (03:03→21:33)
[2017-04-29] MEDS: FUROSEMIDE 40 MG TAB PO SCH (08:24)
[2017-04-29] MEDS: SODIUM BICARBONATE TAB 650 MG TAB PO SCH ×4 (08:24→21:11)
[2017-04-29] MEDS: METOPROLOL TARTRATE 25 MG TAB PO SCH ×2 (08:24→21:12)
[2017-04-29] MEDS: GABAPENTIN 100 MG CAP PO SCH (08:24)
[2017-04-29] MEDS: amLODIPine 10 MG TAB PO SCH (08:24)
[2017-04-29] MEDS: LISINOPRIL 20 MG TAB PO SCH (08:24)
[2017-04-29] MEDS: hydrALAZINE HCL 50 MG TAB PO SCH ×3 (08:24→21:11)
[2017-04-29] MEDS: DICYCLOMINE 10 MG CAP PO SCH ×3 (08:25→21:11)
[2017-04-29] MEDS: SENNOSIDES-DOCUSATE SODIUM 1 EACH TAB PO SCH (08:25)
[2017-04-29] MEDS: TOPIRAMATE 25 MG TAB PO SCH ×2 (08:25→21:12)
[2017-04-29] MEDS: LORATADINE 10 MG TAB PO SCH (08:25)
[2017-04-29] MEDS: POLYETHYLENE GLYCOL 3350 17 GM POWD.PACK PO SCH (08:26)
[2017-04-29 09:22] LABS: Basophils % (A) 1 %; CHCM 32.5; Eosinophils # (A) 0.2 k/uL (0-0.7); Eosinophils % (A) 3 %; HGB 12.2 gm/dL (13.0-17.5); Luc # (Auto) 0.19; Luc % (Auto) 3; Lymphocytes # (A) 1.1 k/uL (1.0-4.8); Lymphocytes % (A) 19 %; MCH 33.8 pg (25.0-35.0); MCHC 33.1 g/dL (31.0-37.0); Macrocytosis Slight; Monocytes # (A) 0.5 k/uL (0-1.0); Monocytes % (A) 9 %; Neutrophils # (A) 3.7 k/uL (1.3-7.7); Neutrophils % (A) 65 %; RBC 3.62 m/uL (4.30-5.90); RDW 12.5 % (11.5-15.5); WBC 5.7 k/uL (3.8-10.6); WBC (Perox) 5.79
--- NOTE | 2017-04-29 12:05 | P.PN ---
Progress Note - Text Interval history: Patient is seen in cross coverage today for Dr. Bowers. He reports that last night he slept only about 4 hours, and following his thoughts were racing. He states his mood as not bad today. He has not been experiencing any of the confusion today. He says after he ate breakfast today he did not need need to use Maalox. He does not seem to voice any adverse psychotropic medication side effects. Mental status exam: He is alert and cooperative with the interview. His speech is fluent, not rapid or pressured. His thought processes are organized. His mood is described as "not bad." He denies any thoughts of harm to self or others. No evidence of psychosis or any agitation. Plan: We'll maintain current psychotropic medication regimen we will continue to monitor his mood and monitor how he does tonight with sleep. Dr. Bowers will resume care this patient starting tomorrow.
[2017-04-29 13:23] LABS: Anion Gap 10 mmol/L; Blood Urea Nitrogen 17 mg/dL (9-20); Calcium 9.2 mg/dL (8.4-10.2); Carbon Dioxide 21 mmol/L (22-30); Chloride 96 mmol/L (98-107); Glucose 97 mg/dL (74-99); Non-African American GFR(MDRD) >60 (>60 ml/min/1.73 sqM); Potassium 4.4 mmol/L (3.5-5.1); Sodium 127 mmol/L (137-145)
--- NOTE | 2017-04-29 14:57 | P.PN ---
Subjective This is dictation on the progress note date of service 04/29/[address] LUIGI Rdz [facility] Patient seen today evaluated on the mental health unit, patient was ambulatory, conscious alert oriented 3. Patient was admitted with suicidal attempt with the laceration of the wrist bilaterally with the pocketknife. At that time he stated that he was hopeless. Patient apparently had UTI on admission in the ER and treated with Bactrim, subsequently seen by Dr. rosas. Subsequently the found out that that Dr. rosas is not his doctor and subsequently they called me to consult with the underlying abnormal laboratories and elevated blood pressure for medical management. Today on exam patient was comfortable no specific complaint except to that he could not sleep well and he discussed that with Dr. Dorado the psychiatrist. Vital sign indicating that temperature 98.1 pulse 73 respiratory rate 16 and his blood pressure was 142/68 with a mean 92 and his pulse ox 100% on room air. Laboratory finding indicating white count 5.7 hemoglobin 12.2 hematocrit 37 and MCV 102. Electrolyte indicating sodium 127 with the chloride 96 carbon dioxide 21 and despite of he taken sodium bicarb 4 times a day. His estimated glomerular filtration rate has been corrected and currently is more than 60 and his anion gap is normal 10 BUN of 17 creatinine 1.15 and his calcium is normal 9.2. The culture has been negative and the Bactrim has been discontinued yesterday no chills and no fever. On the exam patient is conscious alert oriented HEENT was negative Neck was supple no JVD no thyromegaly no lymphadenopathy trachea midline. Chest is clear to auscultation and percussion no wheezes or rhonchi's he had history of COPD stable. Heart regular sinus rhythm no dysrhythmia. Abdomen positive bowel sounds no tenderness, he stated that he has still some stitches from status post ventral hernia repair, advised that will be removed as outpatient. Extremities: No edema and positive pulses he had the pigmentation and stasis dermatitis, history of varicose veins and history of lymphedema in the past he used to wear compression stocking currently he is not using it but he is ambulatory and he elevate his legs at night. Neurology: No evidence of cranial nerve deficit and he is ambulatory moving 4 extremities. Genitourinary patient has chronic self catheterization and he is still doing it. Assessment: #1 hyponatremia chronic secondary to Remeron and Topamax. #2 history of UTI resolved with negative urine culture #3 chronic metabolic acidosis secondary to Topamax with the underlying history of chronic kidney disease currently stage II. #4 history of COPD stable no need for treatment. No wheezes nor rhonchi's on the current examination. #5 suicidal attempt and laceration of the hand on the wrest bilaterally healed treated in the emergency room on admission with glue. #6 hypertension fairly controlled with multiple medication. Plan: We will continue the current treatment however it is up to the psychiatry physicians to change his medication Topamax and the Remeron because of the underlying factors As adverse effect of the to medication hyponatremia, metabolic acidosis which occurred with more of Topamax , is provided that patient has low dose. Objective - Vital Signs Vital signs: Vital Signs Temp 98.1 F 04/29/17 03:06 Pulse 71 04/29/17 13:13 Resp 18 04/29/17 13:13 BP 146/72 04/29/17 13:13 Pulse Ox 100 04/29/17 08:36 - Labs CBC & Chem 7: 04/29/17 09:13 04/29/17 12:38 Labs: Abnormal Lab Results - Last 24 Hours (Table) 04/29/17 04/29/17 Range/Units 09:13 12:38 RBC 3.62 L (4.30-5.90) m/uL Hgb 12.2 L (13.0-17.5) gm/dL Hct 37.0 L (39.0-53.0) % MCV 102.0 H (80.0-100.0) fL Sodium 127 L (137-145) mmol/L Chloride 96 L (98-107) mmol/L Carbon Dioxide 21 L (22-30) mmol/L
[2017-04-29] MEDS: MIRTAZAPINE 15 MG TAB PO SCH (21:12)
[2017-04-29] MEDS: DOXEPIN 10 MG CAP PO SCH (21:12)
[2017-04-29] MEDS: ATORVASTATIN 20 MG TAB PO SCH (21:12)
[2017-04-29] MEDS: MAG HYDROX/AL HYDROX/SIMETH 30 ML CUP PO PRN (21:33)
[2017-04-30] MEDS: POLYETHYLENE GLYCOL 3350 17 GM POWD.PACK PO SCH (08:11)
[2017-04-30] MEDS: MAG HYDROX/AL HYDROX/SIMETH 30 ML CUP PO PRN ×2 (08:13→18:36)
[2017-04-30] MEDS: LORazepam 0.5 MG TAB PO PRN ×2 (08:13→20:50)
[2017-04-30] MEDS: LORATADINE 10 MG TAB PO SCH (08:14)
[2017-04-30] MEDS: SODIUM BICARBONATE TAB 650 MG TAB PO SCH ×4 (08:14→21:26)
[2017-04-30] MEDS: TOPIRAMATE 25 MG TAB PO SCH ×2 (08:14→20:49)
[2017-04-30] MEDS: hydrALAZINE HCL 50 MG TAB PO SCH ×3 (08:14→21:31)
[2017-04-30] MEDS: GABAPENTIN 100 MG CAP PO SCH (08:14)
[2017-04-30] MEDS: amLODIPine 10 MG TAB PO SCH (08:14)
[2017-04-30] MEDS: SENNOSIDES-DOCUSATE SODIUM 1 EACH TAB PO SCH (08:14)
[2017-04-30] MEDS: METOPROLOL TARTRATE 25 MG TAB PO SCH ×2 (08:14→20:49)
[2017-04-30] MEDS: LISINOPRIL 20 MG TAB PO SCH (08:15)
[2017-04-30] MEDS: FUROSEMIDE 40 MG TAB PO SCH (08:15)
[2017-04-30] MEDS: DICYCLOMINE 10 MG CAP PO SCH ×3 (08:15→21:26)
--- NOTE | 2017-04-30 11:02 | P.PN ---
Progress Note - Text Interval history: The patient is found in group he follows me to an interview room. He reports feeling anxious due to the family meeting scheduled today. He reports that [facility] is likely not an option due to the cost. He verbalizes a plan of having another patient on the mental health unit reside with them upon discharge. We discussed that this typically is not a good plan. This will be discussed further during the family meeting. He reports having some difficulty sleeping as he was concerned he was can be discharged today. Mental status exam: The patient is alert he is dressed in his own clothing he seated calmly in the chair. Eye contact is appropriate speech is fluent spontaneous. He reports his mood is still down. He does feel safe here in the hospital he is endorsing no homicidal ideation. He endorses no symptoms of psychosis he does not appear hypomanic or manic. Insight and judgment limited. Thought process is linear today he demonstrates no tangential thinking loose associations or flight of ideas. Plan: The patient will continue on his current medication. I have read the note from his primary care physician suggesting we stop the Remeron and Topamax due to the ongoing hyponatremia. It is not reasonable for us to discontinue all antidepressant medication. The Topamax is being used for headaches. That will be discussed further with the patient as he may be willing to discontinue Topamax. The family meeting is scheduled for this morning. We will await the outcome of that meeting in terms of discharge planning
[2017-04-30] MEDS: ACETAMINOPHEN TAB 325 MG TAB PO PRN (15:34)
[2017-04-30] MEDS: ATORVASTATIN 20 MG TAB PO SCH (20:49)
[2017-04-30] MEDS: MIRTAZAPINE 15 MG TAB PO SCH (20:49)
[2017-04-30] MEDS: DOXEPIN 10 MG CAP PO SCH (20:49)
[2017-05-01] MEDS: ACETAMINOPHEN TAB 325 MG TAB PO PRN ×2 (00:15→23:46)
[2017-05-01] MEDS: LORazepam 0.5 MG TAB PO PRN ×2 (05:30→21:29)
[2017-05-01] MEDS: POLYETHYLENE GLYCOL 3350 17 GM POWD.PACK PO SCH (08:41)
[2017-05-01] MEDS: METOPROLOL TARTRATE 25 MG TAB PO SCH ×2 (08:42→21:24)
[2017-05-01] MEDS: LISINOPRIL 20 MG TAB PO SCH (08:42)
[2017-05-01] MEDS: SENNOSIDES-DOCUSATE SODIUM 1 EACH TAB PO SCH (08:42)
[2017-05-01] MEDS: TOPIRAMATE 25 MG TAB PO SCH ×2 (08:42→21:25)
[2017-05-01] MEDS: LORATADINE 10 MG TAB PO SCH (08:42)
[2017-05-01] MEDS: FUROSEMIDE 40 MG TAB PO SCH (08:42)
[2017-05-01] MEDS: DICYCLOMINE 10 MG CAP PO SCH ×3 (08:42→21:24)
[2017-05-01] MEDS: GABAPENTIN 100 MG CAP PO SCH (08:43)
[2017-05-01] MEDS: hydrALAZINE HCL 50 MG TAB PO SCH ×3 (08:43→21:24)
[2017-05-01] MEDS: SODIUM BICARBONATE TAB 650 MG TAB PO SCH ×4 (08:43→21:23)
[2017-05-01] MEDS: amLODIPine 10 MG TAB PO SCH (08:43)
--- NOTE | 2017-05-01 10:26 | P.PN ---
Progress Note - Text Interval history: The patient is found in his room he follows me to an interview room we discussed the family meeting was held yesterday that did not go well. The patient's directs blame for the failed meaning towards his daughter. He states that she was angry and was not telling the truth. He indicates she has been more angry lately because of her weight gain and her is not home often enough. During the meeting yesterday he was dissuaded from having appear from the mental health unit reside with him after discharge. We reviewed his medications. He feels that the Remeron is helpful for depression and sleep he has been using doxepin. We discussed the importance of Topamax. He feels that he needs it to prevent migraines. He is encouraged to discuss the Topamax further with his primary care physician as it is not required for his psychiatric treatment. He reports sleeping last night he is attending meals. Mental status exam: The patient is alert he is dressed in his own clothing eye contact is appropriate. He reports his mood is better today. Affect is constricted. He is reporting no acute suicidal or homicidal ideation intent or plan. There is no report or evidence of psychosis. He does not appear hypomanic or manic. He remains oriented to person place and date. He demonstrates no verbal or physical aggressiveness. Insight and judgment slowly improving. Plan: Major depressive disorder, generalized anxiety disorder. The patient will continue on his current psychotropic medications. He is encouraged to discuss continued use of Topamax with his primary care physician as it is not psychiatrically needed. The Remeron is providing benefit. Doxepin is being used to address sleep as he has chronically reported insomnia symptoms that have been refractory to numerous other agents. His primary care physician is monitoring his hyponatremia. If the patient appears clinically stable and demonstrates continued improvement we will consider discharging him in the next 1-2 days. Vital signs reviewed.
[2017-05-01] MEDS: DOXEPIN 10 MG CAP PO SCH (21:24)
[2017-05-01] MEDS: MIRTAZAPINE 15 MG TAB PO SCH (21:24)
[2017-05-01] MEDS: ATORVASTATIN 20 MG TAB PO SCH (21:25)
[2017-05-02] MEDS: LORazepam 0.5 MG TAB PO PRN (06:32)
[2017-05-02 07:16] VITALS: TEMP 98.5
[2017-05-02] MEDS: POLYETHYLENE GLYCOL 3350 17 GM POWD.PACK PO SCH (08:31)
[2017-05-02] MEDS: LORATADINE 10 MG TAB PO SCH (08:32)
[2017-05-02] MEDS: DICYCLOMINE 10 MG CAP PO SCH (08:32)
[2017-05-02] MEDS: TOPIRAMATE 25 MG TAB PO SCH (08:32)
[2017-05-02] MEDS: FUROSEMIDE 40 MG TAB PO SCH (08:32)
[2017-05-02] MEDS: SODIUM BICARBONATE TAB 650 MG TAB PO SCH ×2 (08:32→13:07)
[2017-05-02] MEDS: SENNOSIDES-DOCUSATE SODIUM 1 EACH TAB PO SCH (08:33)
[2017-05-02] MEDS: amLODIPine 10 MG TAB PO SCH (08:33)
[2017-05-02] MEDS: GABAPENTIN 100 MG CAP PO SCH (08:33)
[2017-05-02] MEDS: METOPROLOL TARTRATE 25 MG TAB PO SCH (08:33)
[2017-05-02] MEDS: LISINOPRIL 20 MG TAB PO SCH (08:33)
[2017-05-02] MEDS: hydrALAZINE HCL 50 MG TAB PO SCH (08:33)
--- NOTE | 2017-05-02 09:34 | P.DS ---
Providers Date of admission: 04/22/17 00:14 Expected date of discharge: 05/02/17 Attending physician: Hossein Bowers Consults: 04/22/17 00:41 Consult Physician Routine Consulting Provider: Salvador Vides Consult Reason/Comments: H&P medical management Do you want consulting provider notified?: Yes, Notify in am 04/22/17 17:12 Consult Physician Routine Consulting Provider: Chauncey Gan Consult Reason/Comments: hernia surgery follow up Do you want consulting provider notified?: Yes 04/26/17 19:29 Consult Physician Routine Consulting Provider: Salvador Vides Consult Reason/Comments: consult for medical management please see in am Do you want consulting provider notified?: Yes Primary care physician: Salvador Vides - Discharge Diagnosis(es) (1) Major depressive disorder, recurrent severe without psychotic features Current Visit: No Status: Acute Priority: High (2) Generalized anxiety disorder Current Visit: No Status: Acute Priority: Medium (3) Alcohol use disorder, severe, in sustained remission Current Visit: Yes Status: Acute Priority: Low Hospital Course: This patient is a 76-year-old male who was admitted to the mental health unit again for suicidal ideation. He had inflicted superficial lacerations to his wrists prior to admission. He stated he felt overwhelmed with loneliness and did not know how to cope. He reported that his daughter needs to understand he needs help. They have not had a close relationship and there has been no regular contact. He is known to this inpatient service and he is known to my outpatient practice. He carries a diagnosis of major depressive disorder generalized anxiety disorder and alcohol use disorder in remission. For full details please refer to my psychiatric evaluation dated . Summary of hospital course: The patient was admitted to the mental health unit he signed in voluntarily. We reviewed his presenting symptoms and medication options. We continued his Remeron 15 mg at bedtime Ativan 0.5 mg twice daily. It was discovered that he has continued hyponatremia the Lexapro was discontinued. Doxepin was started at bedtime for sleep. We discussed different living arrangement specifically a sales representative church furniture from [facility] met with him and he was accepted however he decided not to go due to financial reasons. A family meeting was held with his daughter with myself and elementary school social worker present. That meeting was not productive. The patient plans on returning home. He had discussed having another patient from the mental health unit reside with him. Myself the patient elementary school social worker and his daughter discouraged that decision but he plans to proceed. The patient reports a resolution of any acute suicidal ideation he reports no hopelessness thinking. He is appropriate for transition to outpatient care. He was seen by his primary care physician while in the hospital. It was recommended that he stopped taking antidepressant medication as well as the Topamax. The patient does require antidepressant medication although again we discontinued the Lexapro. Topamax is being used for migraines I do not requires the patient a Medication and this can be discussed further with his primary care physician. Mental status exam: The patient is a male appearing his stated age. He is dressed in his own clothing hygiene grooming adequate. Eye contact is appropriate. He reports his mood is better he is reporting no hopelessness thinking or any suicidal or homicidal ideation intent or plan. He endorses no auditory or visual hallucinations or specific delusions. There is no observed evidence of psychosis. He endorses no racing thoughts he demonstrates no pressured speech. There is no evidence of hypomania or jovanny. Insight and judgment grossly intact. He is oriented to person place and date. He demonstrates no verbal or physical aggressiveness. Affect is appropriately expressive including smiling. Impressions 1. Major depressive disorder recurrent severe without psychosis, generalized anxiety disorder, alcohol use disorder severe in sustained remission 2. 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 Recent superficial lacerations to wrists, COPD, urinary retention/chronic, hypertension, migraines, hyperlipidemia, hyponatremia 4. Limited social support, strained relationship with daughter Plan: The patient will be discharged mental health unit today. He will return to his own apartment. Against our advice he is having another patient from the mental health unit reside with him. The patient will continue on Remeron 15 mg at bedtime doxepin 10 mg at bedtime Ativan 0.5 mg twice daily. He will follow with his primary care physician regarding continued use of Topamax and his hyponatremia. We will have him follow with me as an outpatient for ongoing psychiatric medication management. He is instructed to return to the hospital with any acute safety concerns. Patient Condition at Discharge: Stable Plan - Discharge Summary New Discharge Prescriptions: New amLODIPine [Norvasc] 10 mg PO DAILY #30 tab Dicyclomine [Bentyl] 10 mg PO TID cap Doxepin [SINEquan] 10 mg PO HS #30 cap Loratadine [Claritin] 5 mg PO DAILY #30 tab Continue Gabapentin [Neurontin] 100 mg PO DAILY Atorvastatin Calcium [Lipitor] 20 mg PO HS Topiramate [Topamax] 25 mg PO BID Furosemide [Lasix] 40 mg PO DAILY #30 tab Ondansetron HCl [Zofran] 4 mg PO Q12H PRN PRN Reason: Nausea Fluticasone Nasal [place] [Flonase Nasal [place]] 2 spr EA NOSTRIL DAILY PRN PRN Reason: Allergy Symptoms Benazepril [Lotensin] 10 mg PO BID hydrALAZINE HCL [Apresoline] 50 mg PO TID #90 tab Metoprolol Tartrate [Lopressor] 25 mg PO BID #60 tab Polyethylene Glycol 3350 [Miralax] 17 gm PO DAILY #30 pack Sodium Bicarbonate Tab 650 mg PO BID #60 tab Sennosides-Docusate Sodium [Senokot-S] 1 tab PO DAILY LORazepam [Ativan] 0.5 mg PO BID #60 tab Mirtazapine [Remeron] 15 mg PO HS #30 Discontinued amLODIPine [Norvasc] 5 mg PO DAILY Escitalopram [Lexapro] 20 mg PO DAILY #30 Discharge Medication List Atorvastatin Calcium [Lipitor] 20 mg PO HS 12/08/16 [History] Gabapentin [Neurontin] 100 mg PO DAILY 12/08/16 [History] Topiramate [Topamax] 25 mg PO BID 12/08/16 [History] Furosemide [Lasix] 40 mg PO DAILY #30 tab 12/18/16 [Rx] Benazepril [Lotensin] 10 mg PO BID 04/01/17 [History] Fluticasone Nasal [place] [Flonase Nasal [place]] 2 spr EA NOSTRIL DAILY PRN [History] Ondansetron HCl [Zofran] 4 mg PO Q12H PRN 04/01/17 [History] Metoprolol Tartrate [Lopressor] 25 mg PO BID #60 tab 04/05/17 [Rx] Polyethylene Glycol 3350 [Miralax] 17 gm PO DAILY #30 pack 04/05/17 [Rx] Sodium Bicarbonate Tab 650 mg PO BID #60 tab 04/05/17 [Rx] hydrALAZINE HCL [Apresoline] 50 mg PO TID #90 tab 04/05/17 [Rx] Sennosides-Docusate Sodium [Senokot-S] 1 tab PO DAILY 04/21/17 [History] Dicyclomine [Bentyl] 10 mg PO TID cap 05/02/17 [Rx] Doxepin [SINEquan] 10 mg PO HS #30 cap 05/02/17 [Rx] LORazepam [Ativan] 0.5 mg PO BID #60 tab 05/02/17 [Rx] Loratadine [Claritin] 5 mg PO DAILY #30 tab 05/02/17 [Rx] Mirtazapine [Remeron] 15 mg PO HS #30 05/02/17 [Rx] amLODIPine [Norvasc] 10 mg PO DAILY #30 tab 05/02/17 [Rx] Follow up Appointment(s)/Referral(s): Intake, Intake [Other] - 05/09/17 4:00 pm Charo Collado MD [STAFF PHYSICIAN] - 1-2 days Patient Instructions/Handouts: Depression (GEN), Suicide Prevention for Adults (GEN) Activity/Diet/Wound Care/Special Instructions: Activity and diet as tolerated. Avoid the use of street drugs and alcohol. Take all medications as prescribed. When you are in need of refills on your medications please contact your medical provider and/or outpatient psychiatrist to have this done. Please go to scheduled outpatient appointment for aftercare treatment. If symptoms return or become worse call the crisis line at [phone] and/or go to the nearest emergency room for an evaluation.
[2017-05-02 09:59] VITALS: BP 143/67; PULSE 104; RESP 18
[2017-05-02] MEDS: ACETAMINOPHEN TAB 325 MG TAB PO PRN (11:37)
[2017-05-02] MEDS: MAG HYDROX/AL HYDROX/SIMETH 30 ML CUP PO PRN (11:37)
== END 2017-05-02 14:16 | disposition home or self-care (01) | DRG 885 ==
LOC: EC 15:56 → 3MHU 04-22 00:14
PROVIDERS: ADMIT Psychiatry & Neurology Psychiatry; ATTEND Psychiatry & Neurology Psychiatry
DX: F33.2 Major depressive disorder, recurrent severe without psychotic features (principal); E87.1 Hypo-osmolality and hyponatremia; I13.0 Hypertensive heart and chronic kidney disease with heart failure and stage 1 through stage 4 chronic kidney disease, or unspecified chronic kidney disease; R45.851 Suicidal ideations; J44.9 Chronic obstructive pulmonary disease, unspecified; I50.9 Heart failure, unspecified; N39.0 Urinary tract infection, site not specified; F41.1 Generalized anxiety disorder; F10.21 Alcohol dependence, in remission; E78.5 Hyperlipidemia, unspecified; F60.3 Borderline personality disorder; G43.909 Migraine, unspecified, not intractable, without status migrainosus; N18.2 Chronic kidney disease, stage 2 (mild); I87.2 Venous insufficiency (chronic) (peripheral); S61.511A Laceration without foreign body of right wrist, initial encounter; S61.512A Laceration without foreign body of left wrist, initial encounter; X78.1XXA Intentional self-harm by knife, initial encounter; Z79.899 Other long term (current) drug therapy; Z87.19 Personal history of other diseases of the digestive system; Z91.5 Personal history of self-harm
CPT/HCPCS: 12004; 36415; 80048; 80053; 80306; 80320; 81001; 82075; 82607; 82747; 84443; 85025; 87086; 90471; 90715; 93005; 96360; 96361; 99285

== ENCOUNTER 2017-11-05 15:48 | Inpatient (IN) | payer MEDICARE, MEDICAID ==
[2017-11-05 16:19] LABS: Appearance,Urine Clear (Clear); Bilirubin,Urine Negative (Negative); Blood,Urine Negative (Negative); Color,Urine Colorless; Glucose,Urine (UA) Negative (Negative); Ketones,Urine Negative (Negative); Leukocyte Esterase,Urine Negative (Negative); Nitrite,Urine Negative (Negative); Protein,Urine Negative (Negative); Specific Gravity,Urine 1.004 (1.001-1.035); Urobilinogen,Urine <2.0 mg/dL (<2.0)
[2017-11-05 16:26] LABS: Amphetamine Screen,Urine Not Detected (NotDetected); Barbiturate Screen,Urine Not Detected (NotDetected); Benzodiazepines Screen,Urine Not Detected (NotDetected); Cocaine Screen,Urine Not Detected (NotDetected); Methadone Screen, Urine Not Detected (NotDetected); Opiate Screen,Urine Not Detected (NotDetected); Oxycodone Screen, Urine Not Detected (NotDetected); Phencyclidine Screen,Urine Not Detected (NotDetected); Tricyclic Antidepressant,Urine Not Detected (NotDetected); Urn Cannabinoid Scrn Not Detected (NotDetected)
--- NOTE | 2017-11-05 16:50 | ED ---
Psych HPI - General Chief Complaint: Psychiatric Symptoms Stated Complaint: Depressed Time Seen by Provider: 11/05/17 16:00 Source: patient, EMS, RN notes reviewed Mode of arrival: EMS - History of Present Illness Initial Comments: This is a 76-year-old male history depression and states initially very depressed last 2 days. He denies any suicidal thoughts or ideation but he does complain of profound depression in spite of taking his medication. He states he believes it was exacerbated by flu symptoms he had last week. He has a fevers chills nausea vomiting sweats or other symptoms. No says no other modifying factors. MD Complaint: feels depressed - Related Data Home Medications Medication Instructions Recorded Confirmed Atorvastatin Calcium [Lipitor] 20 mg PO HS 12/08/16 11/05/17 Benazepril [Lotensin] 10 mg PO BID 04/01/17 11/05/17 Sennosides-Docusate Sodium 1 tab PO DAILY 04/21/17 11/05/17 [Senokot-S] Loratadine [Claritin] 10 mg PO DAILY 08/21/17 11/05/17 Montelukast [Singulair] 10 mg PO HS 08/21/17 11/05/17 Polyethylene Glycol 3350 [Miralax] 17 gm PO DAILY PRN 08/21/17 11/05/17 Spironolactone [Aldactone] 12.5 mg PO QAM 08/21/17 11/05/17 Topiramate [Topamax] 50 mg PO BID 08/21/17 11/05/17 Fluticasone Nasal [place] [Flonase 1 spray EA NOSTRIL BID 11/05/17 11/05/17 Nasal [place]] LORazepam [Ativan] 0.5 mg PO BID PRN 11/05/17 11/05/17 Potassium Chloride ER [K-Dur 10] 10 meq PO DAILY 11/05/17 11/05/17 amLODIPine [Norvasc] 5 mg PO HS 11/05/17 11/05/17 Previous Rx's Medication Instructions Recorded Furosemide [Lasix] 40 mg PO DAILY #30 tab 12/18/16 hydrALAZINE HCL [Apresoline] 50 mg PO TID #90 tab 04/05/17 Doxepin [SINEquan] 20 mg PO HS #60 cap 08/29/17 Metoprolol Tartrate [Lopressor] 50 mg PO BID #60 tab 08/29/17 Mirtazapine [Remeron] 30 mg PO HS #30 tab 08/29/17 Allergies Allergy/AdvReac Type Severity Reaction Status Date / Time No Known Allergies Allergy Verified 11/05/17 16:56 Review of Systems ROS Statement: Those systems with pertinent positive or pertinent negative responses have been documented in the HPI. ROS Other: All systems not noted in ROS Statement are negative. Past Medical History Past Medical History: Asthma, Hypertension Additional Past Medical History / Comment(s): Urinary blockage uses self cath History of Any Multi-Drug Resistant Organisms: None Reported Past Surgical History: Hernia Repair Additional Past Surgical History / Comment(s): hernia repair 03/2017 Past Psychological History: Anxiety, Depression Smoking Status: Never smoker Past Alcohol Use History: Abuse Past Drug Use History: Prescription Drug Abuse General Exam - General Exam Comments Initial Comments: Physical well-developed well-nourished awake alert oriented 3 male Limitations: no limitations General appearance: alert, in no apparent distress Head exam: Present: atraumatic, normocephalic, normal inspection Eye exam: Present: normal appearance, PERRL, EOMI. Absent: scleral icterus, conjunctival injection, periorbital swelling ENT exam: Present: normal exam, mucous membranes moist Neck exam: Present: normal inspection. Absent: tenderness, meningismus, lymphadenopathy Respiratory exam: Present: normal lung sounds bilaterally. Absent: respiratory distress, wheezes, rales, rhonchi, stridor Cardiovascular Exam: Present: regular rate, normal rhythm, normal heart sounds. Absent: systolic murmur, diastolic murmur, rubs, gallop, clicks GI/Abdominal exam: Present: soft, normal bowel sounds. Absent: distended, tenderness, guarding, rebound, rigid Extremities exam: Present: normal inspection, full ROM, normal capillary refill. Absent: tenderness, pedal edema, joint swelling, calf tenderness Back exam: Present: normal inspection Neurological exam: Present: alert, oriented X3, CN II-XII intact Psychiatric exam: Present: depressed, flat affect Skin exam: Present: warm, dry, intact, normal color. Absent: rash Course Vital Signs 11/05/17 16:03 Temperature 99.2 F Pulse Rate 59 L Respiratory 18 Rate Blood Pressure 161/75 O2 Sat by Pulse 97 Oximetry Medical Decision Making - Medical Decision Making The patient was evaluated by psychiatric service and will be admitted for inpatient treatment of depression. - Lab Data Result diagrams: 11/05/17 16:38 11/05/17 16:38 Lab Results 11/05/17 11/05/17 11/05/17 Range/Units 16:03 16:38 16:38 WBC 7.5 (3.8-10.6) k/uL RBC 3.93 L (4.30-5.90) m/uL Hgb 12.4 L (13.0-17.5) gm/dL Hct 37.1 L (39.0-53.0) % MCV 94.6 (80.0-100.0) fL MCH 31.7 (25.0-35.0) pg MCHC 33.5 (31.0-37.0) g/dL RDW 13.5 (11.5-15.5) % Plt Count 170 (150-450) k/uL Neutrophils % 72 % Lymphocytes % 18 % Monocytes % 6 % Eosinophils % 3 % Basophils % 0 % Neutrophils # 5.4 (1.3-7.7) k/uL Lymphocytes # 1.3 (1.0-4.8) k/uL Monocytes # 0.5 (0-1.0) k/uL Eosinophils # 0.2 (0-0.7) k/uL Basophils # 0.0 (0-0.2) k/uL Sodium 132 L (137-145) mmol/L Potassium 3.9 (3.5-5.1) mmol/L Chloride 98 (98-107) mmol/L Carbon Dioxide 23 (22-30) mmol/L Anion Gap 11 mmol/L BUN 24 H (9-20) mg/dL Creatinine 1.36 H (0.66-1.25) mg/dL Est GFR (CKD-EPI)AfAm 57 (>60 ml/min/1.73 sqM) Est GFR (CKD-EPI)NonAf 49 (>60 ml/min/1.73 sqM) Glucose 108 H (74-99) mg/dL Calcium 8.6 (8.4-10.2) mg/dL Urine Color Colorless Urine Appearance Clear (Clear) Urine pH 7.0 (5.0-8.0) Ur Specific [place] 1.004 (1.001-1.035) Urine Protein Negative (Negative) Urine Glucose (UA) Negative (Negative) Urine Ketones Negative (Negative) Urine Blood Negative (Negative) Urine Nitrite Negative (Negative) Urine Bilirubin Negative (Negative) Urine Urobilinogen <2.0 (<2.0) mg/dL Ur Leukocyte Esterase Negative (Negative) Urine Opiates Screen Not Detected (NotDetected) Ur Oxycodone Screen Not Detected (NotDetected) Urine Methadone Screen Not Detected (NotDetected) Ur Propoxyphene Screen Not Detected (NotDetected) Ur Barbiturates Screen Not Detected (NotDetected) U Tricyclic Antidepress Not Detected (NotDetected) Ur Phencyclidine Scrn Not Detected (NotDetected) Ur Amphetamines Screen Not Detected (NotDetected) U Methamphetamines Scrn Not Detected (NotDetected) U Benzodiazepines Scrn Not Detected (NotDetected) Urine Cocaine Screen Not Detected (NotDetected) U Marijuana (THC) Screen Not Detected (NotDetected) - EKG Data -: EKG Interpreted by Me (EKG shows sinus bradycardia with a first-degree AV block the rate was 55. ) Disposition Clinical Impression: Major depressive disorder, recurrent severe without psychotic features Disposition: TRANSFER TO PSYCH HOSP/UNIT Condition: Stable Referrals: Salvador Vides MD [Primary Care Provider] - 1-2 days
[2017-11-05 16:54] LABS: Basophils % (A) 0 %; Eosinophils # (A) 0.2 k/uL (0-0.7); Eosinophils % (A) 3 %; HCT 37.1 % (39.0-53.0); HGB 12.4 gm/dL (13.0-17.5); Lymphocytes # (A) 1.3 k/uL (1.0-4.8); Lymphocytes % (A) 18 %; MCH 31.7 pg (25.0-35.0); MCHC 33.5 g/dL (31.0-37.0); MCV 94.6 fL (80.0-100.0); Mean Platelet Volume 9.1; Monocytes # (A) 0.5 k/uL (0-1.0); Monocytes % (A) 6 %; Neutrophils # (A) 5.4 k/uL (1.3-7.7); Neutrophils % (A) 72 %; Platelet Count 170 k/uL (150-450); RBC 3.93 m/uL (4.30-5.90); RDW 13.5 % (11.5-15.5); WBC 7.5 k/uL (3.8-10.6)
[2017-11-05 16:57] LABS: Calcium 8.6 mg/dL (8.4-10.2); Potassium 3.9 mmol/L (3.5-5.1)
[2017-11-05] MEDS ORDERED: MAGNESIUM HYDROXIDE 2,400 MG/10 ML CUP PO PRN (19:01)
[2017-11-05] MEDS ORDERED: ACETAMINOPHEN TAB 325 MG TAB PO PRN (19:01)
[2017-11-05] MEDS ORDERED: POLYETHYLENE GLYCOL 3350 17 GM POWD.PACK PO PRN (19:04)
[2017-11-05 20:12] VITALS: BMI 28.0
[2017-11-05] MEDS: FLUTICASONE 50MCG/SPRAY NASAL 16GM EA NOSTRIL SCH (20:59)
[2017-11-05] MEDS: DOXEPIN 10 MG CAP PO SCH (20:59)
[2017-11-05] MEDS: MONTELUKAST 10 MG TAB PO SCH (21:00)
[2017-11-05] MEDS: MIRTAZAPINE 15 MG TAB PO SCH (21:04)
[2017-11-05] MEDS: METOPROLOL TARTRATE 50 MG TAB PO SCH (21:04)
[2017-11-05] MEDS: ATORVASTATIN 20 MG TAB PO SCH (21:04)
[2017-11-05] MEDS: amLODIPine 5 MG TAB PO SCH (21:04)
[2017-11-05] MEDS: hydrALAZINE HCL 50 MG TAB PO SCH (21:05)
[2017-11-05] MEDS: TOPIRAMATE 25 MG TAB PO SCH (21:05)
--- NOTE | 2017-11-06 07:47 | P.HPIM ---
History of Present Illness The patient is a 76-year-old patient who is a patient of Dr. Vides'daquan that presented yesterday to the emergency room and was admitted to the psychiatric floor for depression. He states this has been getting worse over the last 2 days. He also had problems with flu type symptoms prior to this developing but otherwise he has been in his usual state of health. Past medical history Patient has history of hypertension and hypertensive heart disease along with BPH which is so symptomatic at times. Also hyperlipidemia. COPD and asthma. No known ALLERGIES Home medications please refer to list. Review of systems Patient denies any unusual headaches or visual disturbances. Patient denies any chest pain or unusual shortness of breath. No cough or fevers. No nausea or vomiting. Denies any new urinary or bowel symptoms. No unusual edema or leg pain. Family history Mother had uterine cancer. He has had 2 sisters in good health. His father had Parkinson disease and eventually of blood clots.. He has an older sister that has had depression. Social history Patient does not smoke. Physical examination Patient was aroused in bed. Generally alert and oriented. Vital signs reveal temperature 97.5 pulse 52 respirations 16 blood pressure 127/ 62 and he was 97% saturated on room air. Neck is supple. Head and neck exam unremarkable. Extraocular movements intact. Lungs are clear to auscultation. Heart tones were somewhat distant but regular. Abdomen was soft and nontender. No unusual edema. He is alert and oriented. Cranial nerves intact. No focal weakness noted. Laboratory White count 7.5 with a hemoglobin 12.4 and platelet count of 170. A mildly low sodium at 132 with a potassium 3.9. BUN 24 with creatinine 1.36 given him a GFR of 49. Blood sugar was 108 and calcium 8.6. Urinalysis did not show any signs of infection. Leukocyte esterase negative. Toxicology screen was negative. EKG revealed a sinus bradycardia with first-degree a block but otherwise unremarkable. No acute ischemic changes. Impressions The patient admitted with major depression. He has general medical concerns as listed above including COPD, hypertension, BPH and hyperlipidemia. These appear to be stable on his present medications. He does have some mild hyponatremia and his chronic stage III renal failure. Plans Would continue present medications. Continue to monitor her blood pressure. Dr. Vides will follow and will return this evening. Please call if any questions concerns or problems. Past Medical History Past Medical History: Asthma, Hypertension Additional Past Medical History / Comment(s): Urinary blockage uses self cath History of Any Multi-Drug Resistant Organisms: None Reported Past Surgical History: Hernia Repair Additional Past Surgical History / Comment(s): hernia repair 03/2017 Smoking Status: Never smoker Medications and Allergies Home Medications Medication Instructions Recorded Confirmed Type Atorvastatin Calcium [Lipitor] 20 mg PO HS 12/08/16 11/05/17 History Furosemide [Lasix] 40 mg PO DAILY #30 tab 12/18/16 11/05/17 Rx Benazepril [Lotensin] 10 mg PO BID 04/01/17 11/05/17 History hydrALAZINE HCL [Apresoline] 50 mg PO TID #90 tab 04/05/17 11/05/17 Rx Sennosides-Docusate Sodium 1 tab PO DAILY 04/21/17 11/05/17 History [Senokot-S] Loratadine [Claritin] 10 mg PO DAILY 08/21/17 11/05/17 History Montelukast [Singulair] 10 mg PO HS 08/21/17 11/05/17 History Polyethylene Glycol 3350 [Miralax] 17 gm PO DAILY PRN 08/21/17 11/05/17 History Spironolactone [Aldactone] 12.5 mg PO QAM 08/21/17 11/05/17 History Topiramate [Topamax] 50 mg PO BID 08/21/17 11/05/17 History Doxepin [SINEquan] 20 mg PO HS #60 cap 08/29/17 11/05/17 Rx Metoprolol Tartrate [Lopressor] 50 mg PO BID #60 tab 08/29/17 11/05/17 Rx Mirtazapine [Remeron] 30 mg PO HS #30 tab 08/29/17 11/05/17 Rx Fluticasone Nasal [place] [Flonase 1 spray EA NOSTRIL BID 11/05/17 11/05/17 History Nasal [place]] LORazepam [Ativan] 0.5 mg PO BID PRN 11/05/17 11/05/17 History Potassium Chloride ER [K-Dur 10] 10 meq PO DAILY 11/05/17 11/05/17 History amLODIPine [Norvasc] 5 mg PO HS 11/05/17 11/05/17 History Allergies Allergy/AdvReac Type Severity Reaction Status Date / Time No Known Allergies Allergy Verified 11/05/17 19:52 Physical Exam Vitals: Vital Signs Temp Pulse Pulse Resp BP BP Pulse Ox 11/06/17 06:54 97.5 F L 52 L 16 127/62 11/05/17 19:58 98.8 F 63 19 166/80 11/05/17 19:16 97.7 F 64 18 138/67 97 11/05/17 16:03 99.2 F 59 L 18 161/75 97 Intake and Output 11/05/17 11/06/17 11/06/17 22:59 06:59 14:59 Other: Weight 83.6 kg Results CBC & Chem 7: 11/05/17 16:38 11/05/17 16:38 Labs: Abnormal Lab Results - Last 24 Hours (Table) 11/05/17 11/05/17 Range/Units 16:38 16:38 RBC 3.93 L (4.30-5.90) m/uL Hgb 12.4 L (13.0-17.5) gm/dL Hct 37.1 L (39.0-53.0) % Sodium 132 L (137-145) mmol/L BUN 24 H (9-20) mg/dL Creatinine 1.36 H (0.66-1.25) mg/dL Glucose 108 H (74-99) mg/dL Thrombosis Risk Factor Assmnt - Choose All That Apply Each Factor Represents 1 point: Obesity (BMI >25) Each Risk Factor Represents 3 Points: Age 75 years or older Thrombosis Risk Factor Assessment Total Risk Factor Score: 4 Thrombosis Risk Factor Assessment Level: Moderate Risk
[2017-11-06] MEDS: SENNOSIDES-DOCUSATE SODIUM 1 EACH TAB PO SCH (08:45)
[2017-11-06] MEDS: LORATADINE 10 MG TAB PO SCH (08:45)
[2017-11-06] MEDS: hydrALAZINE HCL 50 MG TAB PO SCH ×3 (08:45→20:30)
[2017-11-06] MEDS: FLUTICASONE 50MCG/SPRAY NASAL 16GM EA NOSTRIL SCH ×2 (08:45→20:33)
[2017-11-06] MEDS: LORazepam 0.5 MG TAB PO PRN (08:45)
[2017-11-06] MEDS: POTASSIUM CHLORIDE ER 10 MEQ TAB.ER.PRT PO SCH (08:45)
[2017-11-06] MEDS: TOPIRAMATE 25 MG TAB PO SCH ×2 (08:45→20:30)
[2017-11-06] MEDS: SPIRONOLACTONE 25 MG TAB PO SCH (08:46)
[2017-11-06] MEDS: METOPROLOL TARTRATE 50 MG TAB PO SCH ×2 (08:46→20:31)
[2017-11-06] MEDS: FUROSEMIDE 40 MG TAB PO SCH (08:46)
[2017-11-06] MEDS: LISINOPRIL 20 MG TAB PO SCH (09:07)
--- NOTE | 2017-11-06 11:51 | P.HP ---
Psychiatric H&P - . History & Physical: Allergies Allergy/AdvReac Type Severity Reaction Status Date / Time No Known Allergies Allergy Verified 11/05/17 19:52 Vital Signs Temp 97.5 F L 11/06/17 06:54 Pulse 65 11/06/17 08:53 Resp 20 11/06/17 08:53 BP 182/73 11/06/17 08:53 Pulse Ox 97 11/05/17 19:16 Intake & Output 11/05/17 11/06/17 11/06/17 18:59 06:59 18:59 Weight 84.368 kg 83.6 kg Laboratory Last Values WBC 7.5 k/uL (3.8-10.6) 11/05/17 16:38 RBC 3.93 m/uL (4.30-5.90) L 11/05/17 16:38 Hgb 12.4 gm/dL (13.0-17.5) L 11/05/17 16:38 Hct 37.1 % (39.0-53.0) L 11/05/17 16:38 MCV 94.6 fL (80.0-100.0) 11/05/17 16:38 MCH 31.7 pg (25.0-35.0) 11/05/17 16:38 MCHC 33.5 g/dL (31.0-37.0) 11/05/17 16:38 RDW 13.5 % (11.5-15.5) 11/05/17 16:38 Plt Count 170 k/uL (150-450) 11/05/17 16:38 Neutrophils % 72 % 11/05/17 16:38 Lymphocytes % 18 % 11/05/17 16:38 Monocytes % 6 % 11/05/17 16:38 Eosinophils % 3 % 11/05/17 16:38 Basophils % 0 % 11/05/17 16:38 Neutrophils # 5.4 k/uL (1.3-7.7) 11/05/17 16:38 Lymphocytes # 1.3 k/uL (1.0-4.8) 11/05/17 16:38 Monocytes # 0.5 k/uL (0-1.0) 11/05/17 16:38 Eosinophils # 0.2 k/uL (0-0.7) 11/05/17 16:38 Basophils # 0.0 k/uL (0-0.2) 11/05/17 16:38 Sodium 132 mmol/L (137-145) L 11/05/17 16:38 Potassium 3.9 mmol/L (3.5-5.1) 11/05/17 16:38 Chloride 98 mmol/L (98-107) 11/05/17 16:38 Carbon Dioxide 23 mmol/L (22-30) 11/05/17 16:38 Anion Gap 11 mmol/L 11/05/17 16:38 BUN 24 mg/dL (9-20) H 11/05/17 16:38 Creatinine 1.36 mg/dL (0.66-1.25) H 11/05/17 16:38 Est GFR (CKD-EPI)AfAm 57 (>60 ml/min/1.73 sqM) 11/05/17 16:38 Est GFR (CKD-EPI)NonAf 49 (>60 ml/min/1.73 sqM) 11/05/17 16:38 Glucose 108 mg/dL (74-99) H 11/05/17 16:38 Calcium 8.6 mg/dL (8.4-10.2) 11/05/17 16:38 Urine Color Colorless 11/05/17 16:03 Urine Appearance Clear (Clear) 11/05/17 16:03 Urine pH 7.0 (5.0-8.0) 11/05/17 16:03 Ur Specific [place] 1.004 (1.001-1.035) 11/05/17 16:03 Urine Protein Negative (Negative) 11/05/17 16:03 Urine Glucose (UA) Negative (Negative) 11/05/17 16:03 Urine Ketones Negative (Negative) 11/05/17 16:03 Urine Blood Negative (Negative) 11/05/17 16:03 Urine Nitrite Negative (Negative) 11/05/17 16:03 Urine Bilirubin Negative (Negative) 11/05/17 16:03 Urine Urobilinogen <2.0 mg/dL (<2.0) 11/05/17 16:03 Ur Leukocyte Esterase Negative (Negative) 11/05/17 16:03 Urine Opiates Screen Not Detected (NotDetected) 11/05/17 16:03 Ur Oxycodone Screen Not Detected (NotDetected) 11/05/17 16:03 Urine Methadone Screen Not Detected (NotDetected) 11/05/17 16:03 Ur Propoxyphene Screen Not Detected (NotDetected) 11/05/17 16:03 Ur Barbiturates Screen Not Detected (NotDetected) 11/05/17 16:03 U Tricyclic Antidepress Not Detected (NotDetected) 11/05/17 16:03 Ur Phencyclidine Scrn Not Detected (NotDetected) 11/05/17 16:03 Ur Amphetamines Screen Not Detected (NotDetected) 11/05/17 16:03 U Methamphetamines Scrn Not Detected (NotDetected) 11/05/17 16:03 U Benzodiazepines Scrn Not Detected (NotDetected) 11/05/17 16:03 Urine Cocaine Screen Not Detected (NotDetected) 11/05/17 16:03 U Marijuana (THC) Screen Not Detected (NotDetected) 11/05/17 16:03 11/06/17 11:44 IDENTIFYING DATA: This patient is a 77-year-old male who was admitted to the mental health unit through the emergency room with reported suicidal ideation. HPI: The patient presented to the hospital stating he felt suicidal. He had felt overwhelmed with a recent upper respiratory tract infection. He states that he had suffered from acute suicidal ideation in the past and actually cut his wrists and he was worried that could happen again. He reports that he was able to sleep last night appetite is been stable. He reports no stressors involving his living arrangement. No new physical health issues. He reports compliance with his psychotropic medications. He does continue to isolate at home primarily reading. He has been encouraged to socialize outside of his apartment but he is resistant to that idea. He reports chronic symptoms of anxiety but no acute exacerbation. He is endorsing no symptoms of psychosis. No thoughts of harming others. PAST PSYCHIATRIC HISTORY: The patient has had numerous inpatient hospitalizations. He was last here in July of this year. He does have a history of 1 suicide attempt last March when he cut his wrist. He has been managed at my office with Remeron 30 mg at bedtime doxepin 20 mg at bedtime Ativan 0.5 mg up to twice daily. Previously he has tried several psychotropics including Lexapro Wellbutrin and Effexor trazodone Abilify Celexa and BuSpar. He has worked with an individual therapist in the past but chooses not to. He is known to have significant borderline personality disorder pathology. PMH: Bruising diagnosed with congestive heart failure, hypertension, migraines, hyperlipidemia, urinary retention ALLERGIES: NO KNOWN DRUG ALLERGIES MEDICATIONS: Multiple medications refer to MAR CHEMICAL DEPENDENCY HISTORY: The patient has a history of alcohol use disorder but he has been in remission for several years he has been in inpatient chemical dependency treatment in the past. He reports no use of illicit drugs. FAMILY PSYCHIATRIC HISTORY: None reported, no suicides in the family FAMILY CHEMICAL DEPENDENCY HISTORY: None reported SOCIAL HISTORY: The patient is 77 years old he is he currently lives with a male roommate in his own apartment. 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 He had previous in frequent contact with his daughter but that has stopped as of several months ago. No history of service. No legal history no abuse history. Approximate 2 admissions ago he had decided to let another patient from this mental health unit move in with him. He states that arrangement continues to work successfully. MENTAL STATUS EXAM: The patient is a male appearing his stated age. He is dressed in hospital attire. He is observed ambulating slowly down the hallway without ataxia. Speech is fluent spontaneous nonpressured. He reports a depressed and hopeless mood but reports feeling safe here in the hospital. He is reporting no thoughts of harming himself here. He is endorsing no homicidal ideation intent or plan. He reports no auditory or visual hallucinations or specific delusions there is no evidence of psychosis. He demonstrates no tangential thinking loose associations or flight of ideas. He does not appear hypomanic or manic. Insight and judgment limited. He is oriented to person place and date. He is able to spell world forwards and backwards. He demonstrates no verbal or physical aggressiveness he demonstrates no abnormal involuntary movements. Affect remains constricted throughout the interview. STRENGTHS/WEAKNESSES: Strengths: Housing, income, support from roommate weaknesses: Insufficient coping skills INTELLECTUAL FUNCTIONING: Above average IMPRESSIONS: [] 1. Major depressive disorder recurrent, generalized anxiety disorder, alcohol use disorder in sustained remission 2. Borderline personality disorder traits as well as narcissistic traits 3. Chronic medical comorbidities including COPD, CHF, urinary retention, hypertension, migraines, hyperlipidemia PLAN: The patient has been admitted to the mental health unit he is here voluntarily. We reviewed his presenting symptoms and medication options. We will continue his Remeron 30 mg at bedtime doxepin 20 mg at bedtime Ativan 0.5 mg up to twice daily as needed. He is encouraged to participate in groups we will monitor him for safety. He has already been seen by internal medicine. Social work will meet with the patient to complete a psychosocial assessment. It is likely he will return back to his own apartment upon discharge.
[2017-11-06] MEDS: DOXEPIN 10 MG CAP PO SCH (20:30)
[2017-11-06] MEDS: amLODIPine 5 MG TAB PO SCH (20:31)
[2017-11-06] MEDS: MIRTAZAPINE 15 MG TAB PO SCH (20:31)
[2017-11-06] MEDS: MONTELUKAST 10 MG TAB PO SCH (20:31)
[2017-11-06] MEDS: ATORVASTATIN 20 MG TAB PO SCH (20:31)
[2017-11-07] MEDS: SPIRONOLACTONE 25 MG TAB PO SCH (08:22)
[2017-11-07] MEDS: FUROSEMIDE 40 MG TAB PO SCH (08:22)
[2017-11-07] MEDS: POTASSIUM CHLORIDE ER 10 MEQ TAB.ER.PRT PO SCH (08:22)
[2017-11-07] MEDS: LORATADINE 10 MG TAB PO SCH (08:23)
[2017-11-07] MEDS: hydrALAZINE HCL 50 MG TAB PO SCH ×3 (08:23→20:37)
[2017-11-07] MEDS: TOPIRAMATE 25 MG TAB PO SCH ×2 (08:23→20:35)
[2017-11-07] MEDS: METOPROLOL TARTRATE 50 MG TAB PO SCH ×2 (08:23→20:35)
[2017-11-07] MEDS: FLUTICASONE 50MCG/SPRAY NASAL 16GM EA NOSTRIL SCH ×2 (08:23→20:34)
[2017-11-07] MEDS: LISINOPRIL 20 MG TAB PO SCH (08:23)
[2017-11-07] MEDS: SENNOSIDES-DOCUSATE SODIUM 1 EACH TAB PO SCH (08:23)
--- NOTE | 2017-11-07 09:51 | P.PN ---
Progress Note - Text Interval history: The patient is found in group he follows me to an interview room. He reports his mood is "bad" he reports feeling very depressed. He reports feeling hopeless. He does not indicate why the symptoms have been triggered again. He rates his mood as a 3 out of 10 with 10 being the best. He reports compliant with his medication. We discussed titrating the Remeron to 45 mg at bedtime and he is agreeable. It was recorded that he slept 6 hours last evening. He states his appetite is stable. He has been attending groups. He reports groups serve as a distraction. Mental status exam: The patient is alert he is dressed in his own clothing he has a disheveled appearance. He is wearing eyeglasses. He describes a depressed and hopeless mood. He states his mood is "bad". He reports feeling unsafe leaving the hospital as he has concerns his mood could decompensate to the point of being suicidal. He is reporting no homicidal ideation intent or plan. He is endorsing no auditory or visual hallucinations. Affect is dysphoric during this session. He demonstrates no abnormal involuntary movements. He demonstrates some psychomotor slowing. He has no spontaneous speech but provides brief answers to questions asked. He remains oriented to person place and date. Insight and judgment impaired. Plan: The patient is reporting his mood is significantly depressed and is having hopeless thinking. He is concerned this could decompensate further to suicidal ideation. He does have a recent history of lacerating his wrist as a suicide attempt. We will continue his psychotropic medications but we'll titrate the Remeron further. We will consider an augmentation strategy. Vital signs reviewed. Heart rate mildly low. Labs reviewed BUN and creatinine elevated. He is encouraged to hydrate. We will monitor him for safety and encourage his continued participation in the milieu. He requires continued psychiatric hospitalization as he would likely decompensate if discharged at this time.
--- NOTE | 2017-11-07 15:50 | P.PN ---
Subjective Progress Note Date: 11/07/17 This is a progress note follow-up on the consultation was done by Dr. Hossein Reeves in my temporary absence and he did also history and physical on the patient. We will Patient admitted with major depression and history of suicidal attempt in the past cutting his wrist has been seen by Dr. Bowers the psychiatrist, patient with deep seated depression need for further time for recovery for that purpose. He is in the hospital right now. Patient with history of hypertension with hypertensive heart disease his blood pressure today was uncontrolled with a systolic 169. With these currently is amlodipine has been increased today by myself from 5 mg to 10 mg at bedtime. Patient has history of lymphedema and he has been treated with lymphedema specialist he did very well and he is also on Lasix. Patient has history of COPD I did discuss it with him and he requested to have it again because of his occasionally having wheezing and shortness of breath. On reviewing of the system: Neuropsychiatry currently severe depression. Cardiovascular: Hypertension is not well controlled. Regular sinus rhythm the heart. The chest: He has COPD and intermittent exacerbation. Abdomen: Patient has denied constipation or diarrhea and he stated that he had a bowel movement yesterday. Meanwhile he has 3 hernia surgery in the lost 6 months first one by Dr. Gan and the second 2 which was a right inguinal and left inguinal by Dr. Adorno. Today he still feeling that he may have another hernia, patient has very weak anterior abdominal wall. Extremities no edema with a history of lymphedema has been trained to wear the stocking. And he is on Lasix as well for blood pressure and the hypertension. Neurologically he is ambulatory and no neurological deficit no lateralizing sign. Assessment: #1 recurrent major depression with acute exacerbation admitted to the psychiatric floor under care of Dr. Bowers the psychiatrist. #2 hypertension, hypertensive heart disease. #3 multiple abdominal hernia status post surgery. #4 lymphedema of the lower extremities. #5 COPD with intermittent exacerbation. Plan: Start on DuoNeb inhalation therapy every 6 hours when necessary for COPD. #2 increased the amlodipine to 10 mg for attempt controlled his blood pressure #3 continue current therapy medically, and therapy of Dr. Bowers for the mental health treatment with the major depression. #4 I will see the patient intermittently if needed, please call my office if you need any further treatment or adjustment. #5 laboratory was evaluated with a mild decrease in the glomerular filtration rate EGFR, need encouragement of drinking water no need for IV fluid. Objective - Vital Signs Vital signs: Vital Signs Temp 98.2 F 11/07/17 06:58 Pulse 71 11/07/17 08:20 Resp 18 11/07/17 08:20 BP 169/77 11/07/17 08:20 Pulse Ox 97 11/05/17 19:16 - Labs CBC & Chem 7: 11/05/17 16:38 11/05/17 16:38
[2017-11-07] MEDS: IPRATROPIUM-ALBUTEROL 3 ML NEB INHALATION PRN (17:16)
[2017-11-07] MEDS: amLODIPine 10 MG TAB PO SCH (20:34)
[2017-11-07] MEDS: ATORVASTATIN 20 MG TAB PO SCH (20:34)
[2017-11-07] MEDS: DOXEPIN 10 MG CAP PO SCH (20:34)
[2017-11-07] MEDS: MONTELUKAST 10 MG TAB PO SCH (20:35)
[2017-11-07] MEDS: MIRTAZAPINE 15 MG TAB PO SCH (20:35)
[2017-11-08] MEDS: hydrALAZINE HCL 50 MG TAB PO SCH ×3 (08:25→20:52)
[2017-11-08] MEDS: SPIRONOLACTONE 25 MG TAB PO SCH (08:25)
[2017-11-08] MEDS: SENNOSIDES-DOCUSATE SODIUM 1 EACH TAB PO SCH (08:25)
[2017-11-08] MEDS: FLUTICASONE 50MCG/SPRAY NASAL 16GM EA NOSTRIL SCH ×2 (08:25→20:51)
[2017-11-08] MEDS: METOPROLOL TARTRATE 50 MG TAB PO SCH ×2 (08:26→20:52)
[2017-11-08] MEDS: FUROSEMIDE 40 MG TAB PO SCH (08:26)
[2017-11-08] MEDS: TOPIRAMATE 25 MG TAB PO SCH ×2 (08:26→20:52)
[2017-11-08] MEDS: LORATADINE 10 MG TAB PO SCH (08:26)
[2017-11-08] MEDS: LISINOPRIL 20 MG TAB PO SCH (08:26)
[2017-11-08] MEDS: POTASSIUM CHLORIDE ER 10 MEQ TAB.ER.PRT PO SCH (08:26)
--- NOTE | 2017-11-08 08:50 | P.PN ---
Progress Note - Text Interval history: The patient is found in the library follows me to an interview room. He reports his mood is improved from yesterday. He still feels depressed but he is feeling less hopeless. Sleep remains stable staff recorded he slept 6 hours. Appetite stable. He continues to read during spare time. He is attending groups he finds the group supportive. We discussed additional coping skill development he can utilize as an outpatient. He has no questions or concerns regarding his medication and he tolerated the increased dose of Remeron last evening. Mental status exam: The patient is alert he stressors unclothing eye contact is appropriate grooming is improved hygiene is adequate. He seated calmly. He has a mild increase in spontaneous speech. He does provide answers to questions asked. He is reporting no acute suicidal ideation today he feels he can keep himself safe here in the hospital. He is reporting no homicidal ideation. There is no report or evidence of psychosis. He continues to be oriented to person place and date. He demonstrates no verbal or physical aggressiveness. He ambulates slowly without ataxia. He Plan: The patient's will continue on his current medications. We will anticipate discharging him in the next 1-2 days if clinically appropriate. He is encouraged to continue participating in the milieu. Vital signs reviewed his blood pressure is much improved today.
[2017-11-08] MEDS: IPRATROPIUM-ALBUTEROL 3 ML NEB INHALATION PRN (09:34)
[2017-11-08] MEDS: MAG HYDROX/AL HYDROX/SIMETH 30 ML CUP PO PRN (13:26)
[2017-11-08] MEDS: MIRTAZAPINE 15 MG TAB PO SCH (20:51)
[2017-11-08] MEDS: MONTELUKAST 10 MG TAB PO SCH (20:51)
[2017-11-08] MEDS: DOXEPIN 10 MG CAP PO SCH (20:52)
[2017-11-08] MEDS: ATORVASTATIN 20 MG TAB PO SCH (20:52)
[2017-11-08] MEDS: amLODIPine 10 MG TAB PO SCH (20:52)
[2017-11-08] MEDS: LORazepam 0.5 MG TAB PO PRN (22:27)
[2017-11-09 00:02] VITALS: BP 157/63; PULSE 63; RESP 16; TEMP 98.3
[2017-11-09] MEDS ORDERED: diphenhydrAMINE 25 MG CAP PO STA (00:27)
[2017-11-09] MEDS: MAG HYDROX/AL HYDROX/SIMETH 30 ML CUP PO PRN (00:37)
[2017-11-09] MEDS: LORATADINE 10 MG TAB PO SCH (08:35)
[2017-11-09] MEDS: FUROSEMIDE 40 MG TAB PO SCH (08:35)
[2017-11-09] MEDS: LORazepam 0.5 MG TAB PO PRN (08:35)
[2017-11-09] MEDS: FLUTICASONE 50MCG/SPRAY NASAL 16GM EA NOSTRIL SCH (08:35)
[2017-11-09] MEDS: SENNOSIDES-DOCUSATE SODIUM 1 EACH TAB PO SCH (08:35)
[2017-11-09] MEDS: hydrALAZINE HCL 50 MG TAB PO SCH (08:35)
[2017-11-09] MEDS: SPIRONOLACTONE 25 MG TAB PO SCH (08:35)
[2017-11-09] MEDS: LISINOPRIL 20 MG TAB PO SCH (08:36)
[2017-11-09] MEDS: POTASSIUM CHLORIDE ER 10 MEQ TAB.ER.PRT PO SCH (08:36)
[2017-11-09] MEDS: METOPROLOL TARTRATE 50 MG TAB PO SCH (08:36)
[2017-11-09] MEDS: TOPIRAMATE 25 MG TAB PO SCH (08:36)
--- NOTE | 2017-11-09 09:38 | P.DS ---
Providers Date of admission: 11/05/17 18:50 Expected date of discharge: 11/09/17 Attending physician: Hossein Bowers Consults: 11/05/17 19:01 Consult Physician Routine Consulting Provider: Salvador Vides Consult Reason/Comments: H&P for mental health admission Do you want consulting provider notified?: Yes Primary care physician: Salvador Vides - Discharge Diagnosis(es) (1) Major depressive disorder, recurrent severe without psychotic features Current Visit: Yes Status: Acute Priority: High (2) Generalized anxiety disorder Current Visit: No Status: Acute Priority: Medium Hospital Course: Brief summary of admission note: This patient is a 77-year-old male who is known to my outpatient practice was admitted to the mental health unit through the emergency room for suicidal ideation. The patient reported that he felt suicidal and was concerned he would cut his wrists again as he had done in the recent past. He felt overwhelmed with recent medical comorbidity. For full details please refer to my psychiatric evaluation dated 11/06/2017. Summary of hospital course: The patient was admitted to the mental health unit voluntarily. We reviewed his presenting symptoms and medication options. We decided to titrate his Remeron to 45 mg at bedtime. He responded to the supportive milieu and it was a progressive improvement of symptoms while here. He was seen by his internal medicine physician. His blood pressure was observed to be elevated more than baseline and his Norvasc was increased. The patient demonstrated no agitated behavior while on the mental health unit. Today he feels his symptoms have improved sufficiently allowing us to discharge him back to outpatient care. Mental status exam: The patient is alert he is dressed in his own clothing eye contact is appropriate speech is fluent spontaneous nonpressured. He reports his mood is better his affect is more euthymic and demonstrates an appropriate range. He is reporting no suicidal or homicidal ideation intent or plan. He is endorsing no auditory or visual hallucinations or any specific delusions. There is no evidence of psychosis observed. He is demonstrating no tangential thinking loose associations or flight of ideas. He demonstrates no verbal or physical aggressiveness he demonstrates no abnormal involuntary movements. Insight and judgment have improved. He remains oriented to person place and date. Impressions 1. Major depressive disorder recurrent severe without psychosis, generalized anxiety disorder, alcohol use disorder in remission 2. Borderline and narcissistic personality disorder traits 3. Chronic medical comorbidities contributing Plan: The patient will be discharged today from the mental health unit to return home. He will follow up with me in the outpatient clinic for continued care. He will continue on Remeron 45 mg at bedtime, Ativan 0.5 mg up to twice daily as needed, doxepin 20 mg at bedtime. I will provide a prescription for the Norvasc at 10 mg daily as this was titrated during the course of this hospitalization. The patient plans to follow-up with his internal medicine physician within the next week. There is no imminent safety risk the patient is appropriate for continued care as an outpatient. He is instructed to return to the hospital with any acute safety concerns. Patient Condition at Discharge: Stable Plan - Discharge Summary Discharge Rx Participant: No New Discharge Prescriptions: New amLODIPine [Norvasc] 10 mg PO HS #30 tab Mirtazapine [Remeron] 45 mg PO HS #30 tab Continue Atorvastatin Calcium [Lipitor] 20 mg PO HS Furosemide [Lasix] 40 mg PO DAILY #30 tab Benazepril [Lotensin] 10 mg PO BID hydrALAZINE HCL [Apresoline] 50 mg PO TID #90 tab Sennosides-Docusate Sodium [Senokot-S] 1 tab PO DAILY Loratadine [Claritin] 10 mg PO DAILY Polyethylene Glycol 3350 [Miralax] 17 gm PO DAILY PRN PRN Reason: Constipation Montelukast [Singulair] 10 mg PO HS Topiramate [Topamax] 50 mg PO BID Spironolactone [Aldactone] 12.5 mg PO QAM Metoprolol Tartrate [Lopressor] 50 mg PO BID #60 tab Doxepin [SINEquan] 20 mg PO HS #60 cap LORazepam [Ativan] 0.5 mg PO BID PRN PRN Reason: Anxiety Potassium Chloride ER [K-Dur 10] 10 meq PO DAILY Fluticasone Nasal [place] [Flonase Nasal [place]] 1 spray EA NOSTRIL BID Discontinued Mirtazapine [Remeron] 30 mg PO HS #30 tab amLODIPine [Norvasc] 5 mg PO HS Discharge Medication List Atorvastatin Calcium [Lipitor] 20 mg PO HS 12/08/16 [History] Furosemide [Lasix] 40 mg PO DAILY #30 tab 12/18/16 [Rx] Benazepril [Lotensin] 10 mg PO BID 04/01/17 [History] hydrALAZINE HCL [Apresoline] 50 mg PO TID #90 tab 04/05/17 [Rx] Sennosides-Docusate Sodium [Senokot-S] 1 tab PO DAILY 04/21/17 [History] Loratadine [Claritin] 10 mg PO DAILY 08/21/17 [History] Montelukast [Singulair] 10 mg PO HS 08/21/17 [History] Polyethylene Glycol 3350 [Miralax] 17 gm PO DAILY PRN 08/21/17 [History] Spironolactone [Aldactone] 12.5 mg PO QAM 08/21/17 [History] Topiramate [Topamax] 50 mg PO BID 08/21/17 [History] Doxepin [SINEquan] 20 mg PO HS #60 cap 08/29/17 [Rx] Metoprolol Tartrate [Lopressor] 50 mg PO BID #60 tab 08/29/17 [Rx] Fluticasone Nasal [place] [Flonase Nasal [place]] 1 spray EA NOSTRIL BID 11/05/17 [ History] LORazepam [Ativan] 0.5 mg PO BID PRN 11/05/17 [History] Potassium Chloride ER [K-Dur 10] 10 meq PO DAILY 11/05/17 [History] Mirtazapine [Remeron] 45 mg PO HS #30 tab 11/09/17 [Rx] amLODIPine [Norvasc] 10 mg PO HS #30 tab 11/09/17 [Rx] Follow up Appointment(s)/Referral(s): Salvador Vides MD [Primary Care Provider] - 1-2 days
[2017-11-09 09:45] LABS: Calcium 9.5 mg/dL (8.4-10.2); Potassium 4.2 mmol/L (3.5-5.1)
== END 2017-11-09 13:17 | disposition home or self-care (01) | DRG 885 ==
LOC: EC 15:48 → 3MHU 18:50
PROVIDERS: ADMIT Psychiatry & Neurology Psychiatry; ATTEND Psychiatry & Neurology Psychiatry
DX: F33.2 Major depressive disorder, recurrent severe without psychotic features (principal); E87.1 Hypo-osmolality and hyponatremia; I13.0 Hypertensive heart and chronic kidney disease with heart failure and stage 1 through stage 4 chronic kidney disease, or unspecified chronic kidney disease; E78.5 Hyperlipidemia, unspecified; F10.11 Alcohol abuse, in remission; F41.1 Generalized anxiety disorder; F60.3 Borderline personality disorder; F60.81 Narcissistic personality disorder; G43.909 Migraine, unspecified, not intractable, without status migrainosus; I50.9 Heart failure, unspecified; I89.0 Lymphedema, not elsewhere classified; J44.9 Chronic obstructive pulmonary disease, unspecified; N18.3 Chronic kidney disease, stage 3 (moderate); N40.1 Benign prostatic hyperplasia with lower urinary tract symptoms; R33.8 Other retention of urine; Z79.899 Other long term (current) drug therapy; Z81.8 Family history of other mental and behavioral disorders; Z82.0 Family history of epilepsy and other diseases of the nervous system; Z83.2 Family history of diseases of the blood and blood-forming organs and certain disorders involving the immune mechanism; Z91.5 Personal history of self-harm
CPT/HCPCS: 36415; 80048; 80306; 81003; 82075; 85025; 93005; 94640; 99285

== ENCOUNTER 2018-02-13 15:20 | Inpatient (IN) | payer MEDICARE, MEDICAID ==
--- NOTE | 2018-02-13 15:47 | ED ---
General Adult HPI - General Chief complaint: Psychiatric Symptoms Stated complaint: Mental Health/Depression Time Seen by Provider: 02/13/18 15:37 Source: patient, RN notes reviewed, old records reviewed Mode of arrival: ambulatory Limitations: no limitations - History of Present Illness Initial comments: 77-year-old male with history of depression presents with worsening depression and feelings of hopelessness. Patient states he has had previous suicide attempts in the past as well as ongoing issues with depression including multiple psychiatric admissions. Patient denies suicidal plan at this time, he is stating he is having suicidal ideation. He is currently on medication for depression with no improvement. He is regularly seen by psychiatry. No physical complaints. - Related Data Home Medications Medication Instructions Recorded Confirmed Atorvastatin Calcium [Lipitor] 20 mg PO HS 12/08/16 02/13/18 Sennosides-Docusate Sodium 1 tab PO DAILY 04/21/17 02/13/18 [Senokot-S] Loratadine [Claritin] 10 mg PO DAILY 08/21/17 02/13/18 Montelukast [Singulair] 10 mg PO HS 08/21/17 02/13/18 Polyethylene Glycol 3350 [Miralax] 17 gm PO DAILY PRN 08/21/17 02/13/18 Spironolactone [Aldactone] 12.5 mg PO QAM 08/21/17 02/13/18 Topiramate [Topamax] 50 mg PO BID 08/21/17 02/13/18 Fluticasone Nasal [place] [Flonase 1 spray EA NOSTRIL BID 11/05/17 02/13/18 Nasal [place]] LORazepam [Ativan] 0.5 mg PO BID PRN 11/05/17 02/13/18 Potassium Chloride ER [K-Dur 10] 10 meq PO DAILY 11/05/17 02/13/18 Albuterol Inhaler [Ventolin Hfa 1 puff INHALATION RT-QID PRN 02/13/18 02/13/18 Inhaler] Fluocinonide 0.05% [Fluocinonide] 1 gm TOPICAL HS 02/13/18 02/13/18 Irbesartan 300 mg PO DAILY 02/13/18 02/13/18 Previous Rx's Medication Instructions Recorded Furosemide [Lasix] 40 mg PO DAILY #30 tab 12/18/16 hydrALAZINE HCL [Apresoline] 50 mg PO TID #90 tab 04/05/17 Doxepin [SINEquan] 20 mg PO HS #60 cap 08/29/17 Metoprolol Tartrate [Lopressor] 50 mg PO BID #60 tab 08/29/17 Mirtazapine [Remeron] 45 mg PO HS #30 tab 11/09/17 amLODIPine [Norvasc] 10 mg PO HS #30 tab 11/09/17 Allergies Allergy/AdvReac Type Severity Reaction Status Date / Time Penicillins Allergy Unknown Verified 02/13/18 16:54 Review of Systems ROS Statement: Those systems with pertinent positive or pertinent negative responses have been documented in the HPI. ROS Other: All systems not noted in ROS Statement are negative. Past Medical History Past Medical History: Asthma, Hypertension Additional Past Medical History / Comment(s): Urinary blockage uses self cath, ganglian cyst in right knee History of Any Multi-Drug Resistant Organisms: None Reported Past Surgical History: Hernia Repair Additional Past Surgical History / Comment(s): hernia repair 03/2017, cyst removal in right knee Past Psychological History: Anxiety, Depression Smoking Status: Never smoker Past Alcohol Use History: None Reported Past Drug Use History: None Reported General Exam Limitations: no limitations General appearance: alert, in no apparent distress Head exam: Present: atraumatic, normocephalic Eye exam: Present: normal appearance, PERRL, EOMI ENT exam: Present: normal exam Neck exam: Present: normal inspection. Absent: tenderness, meningismus Respiratory exam: Present: normal lung sounds bilaterally. Absent: respiratory distress, wheezes Cardiovascular Exam: Present: regular rate, normal rhythm GI/Abdominal exam: Present: soft. Absent: distended, tenderness Extremities exam: Present: normal inspection, normal capillary refill. Absent: pedal edema Neurological exam: Present: alert, oriented X3 Psychiatric exam: Present: depressed, suicidal ideation Skin exam: Present: warm, dry, intact. Absent: cyanosis, diaphoretic Course Vital Signs 02/13/18 15:21 Temperature 98.3 F Pulse Rate 59 L Respiratory 18 Rate Blood Pressure 171/73 O2 Sat by Pulse 97 Oximetry Medical Decision Making - Medical Decision Making Patient evaluated by EPS, we will be admitted for further psychiatric evaluation and treatment. - Lab Data Result diagrams: 02/13/18 16:35 02/13/18 16:35 Lab Results 02/13/18 02/13/18 02/13/18 Range/Units 16:06 16:35 16:35 WBC 6.9 (3.8-10.6) k/uL RBC 3.74 L (4.30-5.90) m/uL Hgb 12.3 L (13.0-17.5) gm/dL Hct 36.6 L (39.0-53.0) % MCV 98.0 (80.0-100.0) fL MCH 33.0 (25.0-35.0) pg MCHC 33.7 (31.0-37.0) g/dL RDW 13.0 (11.5-15.5) % Plt Count 222 (150-450) k/uL Neutrophils % 74 % Lymphocytes % 16 % Monocytes % 7 % Eosinophils % 2 % Basophils % 0 % Neutrophils # 5.1 (1.3-7.7) k/uL Lymphocytes # 1.1 (1.0-4.8) k/uL Monocytes # 0.5 (0-1.0) k/uL Eosinophils # 0.1 (0-0.7) k/uL Basophils # 0.0 (0-0.2) k/uL Sodium 132 L (137-145) mmol/L Potassium 4.0 (3.5-5.1) mmol/L Chloride 100 (98-107) mmol/L Carbon Dioxide 25 (22-30) mmol/L Anion Gap 7 mmol/L BUN 23 H (9-20) mg/dL Creatinine 1.40 H (0.66-1.25) mg/dL Est GFR (CKD-EPI)AfAm 55 (>60 ml/min/1.73 sqM) Est GFR (CKD-EPI)NonAf 48 (>60 ml/min/1.73 sqM) Glucose 99 (74-99) mg/dL Calcium 9.1 (8.4-10.2) mg/dL Total Bilirubin 0.7 (0.2-1.3) mg/dL AST 22 (17-59) U/L ALT 32 (21-72) U/L Alkaline Phosphatase 88 (38-126) U/L Total Protein 6.9 (6.3-8.2) g/dL Albumin 4.3 (3.5-5.0) g/dL Urine Color Light Yellow Urine Appearance Clear (Clear) Urine pH 7.0 (5.0-8.0) Ur Specific [place] 1.004 (1.001-1.035) Urine Protein Negative (Negative) Urine Glucose (UA) Negative (Negative) Urine Ketones Negative (Negative) Urine Blood Negative (Negative) Urine Nitrite Negative (Negative) Urine Bilirubin Negative (Negative) Urine Urobilinogen <2.0 (<2.0) mg/dL Ur Leukocyte Esterase Negative (Negative) Urine Opiates Screen Not Detected (NotDetected) Ur Oxycodone Screen Not Detected (NotDetected) Urine Methadone Screen Not Detected (NotDetected) Ur Propoxyphene Screen Not Detected (NotDetected) Ur Barbiturates Screen Not Detected (NotDetected) U Tricyclic Antidepress Not Detected (NotDetected) Ur Phencyclidine Scrn Not Detected (NotDetected) Ur Amphetamines Screen Not Detected (NotDetected) U Methamphetamines Scrn Not Detected (NotDetected) U Benzodiazepines Scrn Not Detected (NotDetected) Urine Cocaine Screen Not Detected (NotDetected) U Marijuana (THC) Screen Not Detected (NotDetected) Disposition Clinical Impression: Depression, Suicidal ideation Disposition: ADMITTED IP TO THIS [facility] Condition: Stable Is patient prescribed a controlled substance at d/c from ED?: No Referrals: Salvador Vides MD [Primary Care Provider] - 1-2 days Decision to Admit Reason: Admit from EC Decision Date: 02/13/18 Decision Time: 17:30
[2018-02-13 16:23] LABS: Appearance,Urine Clear (Clear); Bilirubin,Urine Negative (Negative); Blood,Urine Negative (Negative); Color,Urine Light Yellow; Glucose,Urine (UA) Negative (Negative); Ketones,Urine Negative (Negative); Leukocyte Esterase,Urine Negative (Negative); Nitrite,Urine Negative (Negative); Protein,Urine Negative (Negative); Specific Gravity,Urine 1.004 (1.001-1.035); Urobilinogen,Urine <2.0 mg/dL (<2.0)
[2018-02-13 16:33] LABS: Amphetamine Screen,Urine Not Detected (NotDetected); Barbiturate Screen,Urine Not Detected (NotDetected); Benzodiazepines Screen,Urine Not Detected (NotDetected); Cocaine Screen,Urine Not Detected (NotDetected); Methadone Screen, Urine Not Detected (NotDetected); Opiate Screen,Urine Not Detected (NotDetected); Oxycodone Screen, Urine Not Detected (NotDetected); Phencyclidine Screen,Urine Not Detected (NotDetected); Tricyclic Antidepressant,Urine Not Detected (NotDetected); Urn Cannabinoid Scrn Not Detected (NotDetected)
[2018-02-13 17:02] LABS: Basophils % (A) 0 %; Eosinophils # (A) 0.1 k/uL (0-0.7); Eosinophils % (A) 2 %; HCT 36.6 % (39.0-53.0); HGB 12.3 gm/dL (13.0-17.5); Lymphocytes # (A) 1.1 k/uL (1.0-4.8); Lymphocytes % (A) 16 %; MCHC 33.7 g/dL (31.0-37.0); Mean Platelet Volume 8.8; Monocytes # (A) 0.5 k/uL (0-1.0); Monocytes % (A) 7 %; Neutrophils # (A) 5.1 k/uL (1.3-7.7); Neutrophils % (A) 74 %; Platelet Count 222 k/uL (150-450); RBC 3.74 m/uL (4.30-5.90); WBC 6.9 k/uL (3.8-10.6)
[2018-02-13 17:04] LABS: Albumin 4.3 g/dL (3.5-5.0); Calcium 9.1 mg/dL (8.4-10.2); Total Bilirubin 0.7 mg/dL (0.2-1.3); Total Protein 6.9 g/dL (6.3-8.2)
[2018-02-13] MEDS ORDERED: MAGNESIUM HYDROXIDE 2,400 MG/10 ML CUP PO PRN (17:56)
[2018-02-13] MEDS ORDERED: MAG HYDROX/AL HYDROX/SIMETH 30 ML CUP PO PRN (17:56)
[2018-02-13] MEDS ORDERED: POLYETHYLENE GLYCOL 3350 17 GM POWD.PACK PO PRN (17:59)
[2018-02-13] MEDS ORDERED: ALBUTEROL INHALER 60 PUFF/8 GM INHALER INHALATION PRN (17:59)
[2018-02-13] MEDS: FLUTICASONE 50MCG/SPRAY NASAL 16GM EA NOSTRIL SCH (20:52)
[2018-02-13] MEDS: amLODIPine 10 MG TAB PO SCH (20:53)
[2018-02-13] MEDS: ATORVASTATIN 20 MG TAB PO SCH (20:53)
[2018-02-13] MEDS: METOPROLOL TARTRATE 50 MG TAB PO SCH (20:54)
[2018-02-13] MEDS: MIRTAZAPINE 45 MG TABLET PO SCH (20:54)
[2018-02-13] MEDS: BETAMETHASONE DIPROPIONATE 0.05% CREAM 15 GM TUBE TOPICAL SCH (20:54)
[2018-02-13] MEDS: DOXEPIN 10 MG CAP PO SCH (20:54)
[2018-02-13] MEDS: MONTELUKAST 10 MG TAB PO SCH (20:55)
[2018-02-13] MEDS: hydrALAZINE HCL 50 MG TAB PO SCH (20:55)
[2018-02-13] MEDS: TOPIRAMATE 25 MG TAB PO SCH (20:55)
[2018-02-13] MEDS: ACETAMINOPHEN TAB 325 MG TAB PO PRN (21:05)
[2018-02-14] MEDS: FLUTICASONE 50MCG/SPRAY NASAL 16GM EA NOSTRIL SCH ×2 (08:27→18:33)
[2018-02-14] MEDS: SPIRONOLACTONE 25 MG TAB PO SCH (08:31)
[2018-02-14] MEDS: LORATADINE 10 MG TAB PO SCH (08:31)
[2018-02-14] MEDS: LOSARTAN 50 MG TAB PO SCH (08:31)
[2018-02-14] MEDS: TOPIRAMATE 25 MG TAB PO SCH ×2 (08:32→21:02)
[2018-02-14] MEDS: ACETAMINOPHEN TAB 325 MG TAB PO PRN ×2 (08:32→15:07)
[2018-02-14] MEDS: FUROSEMIDE 40 MG TAB PO SCH (08:33)
[2018-02-14] MEDS: hydrALAZINE HCL 50 MG TAB PO SCH ×3 (08:33→20:57)
[2018-02-14] MEDS: SENNOSIDES-DOCUSATE SODIUM 1 EACH TAB PO SCH (08:34)
[2018-02-14] MEDS: POTASSIUM CHLORIDE ER 10 MEQ TAB.ER.PRT PO SCH (08:34)
[2018-02-14] MEDS: METOPROLOL TARTRATE 50 MG TAB PO SCH ×2 (08:34→20:57)
--- NOTE | 2018-02-14 13:59 | P.HP ---
Psychiatric H&P - . H&P Date: 02/14/18 History & Physical: Allergies Allergy/AdvReac Type Severity Reaction Status Date / Time Penicillins Allergy Unknown Verified 02/13/18 16:54 Vital Signs Temp 97.6 F 02/14/18 06:26 Pulse 68 02/14/18 09:37 Resp 16 02/14/18 09:37 BP 136/69 02/14/18 09:37 Pulse Ox 98 02/13/18 17:54 Intake & Output 02/13/18 02/14/18 02/14/18 18:59 06:59 18:59 Weight 85.275 kg Laboratory Last Values WBC 6.9 k/uL (3.8-10.6) 02/13/18 16:35 RBC 3.74 m/uL (4.30-5.90) L 02/13/18 16:35 Hgb 12.3 gm/dL (13.0-17.5) L 02/13/18 16:35 Hct 36.6 % (39.0-53.0) L 02/13/18 16:35 MCV 98.0 fL (80.0-100.0) 02/13/18 16:35 MCH 33.0 pg (25.0-35.0) 02/13/18 16:35 MCHC 33.7 g/dL (31.0-37.0) 02/13/18 16:35 RDW 13.0 % (11.5-15.5) 02/13/18 16:35 Plt Count 222 k/uL (150-450) 02/13/18 16:35 Neutrophils % 74 % 02/13/18 16:35 Lymphocytes % 16 % 02/13/18 16:35 Monocytes % 7 % 02/13/18 16:35 Eosinophils % 2 % 02/13/18 16:35 Basophils % 0 % 02/13/18 16:35 Neutrophils # 5.1 k/uL (1.3-7.7) 02/13/18 16:35 Lymphocytes # 1.1 k/uL (1.0-4.8) 02/13/18 16:35 Monocytes # 0.5 k/uL (0-1.0) 02/13/18 16:35 Eosinophils # 0.1 k/uL (0-0.7) 02/13/18 16:35 Basophils # 0.0 k/uL (0-0.2) 02/13/18 16:35 Sodium 132 mmol/L (137-145) L 02/13/18 16:35 Potassium 4.0 mmol/L (3.5-5.1) 02/13/18 16:35 Chloride 100 mmol/L (98-107) 02/13/18 16:35 Carbon Dioxide 25 mmol/L (22-30) 02/13/18 16:35 Anion Gap 7 mmol/L 02/13/18 16:35 BUN 23 mg/dL (9-20) H 02/13/18 16:35 Creatinine 1.40 mg/dL (0.66-1.25) H 02/13/18 16:35 Est GFR (CKD-EPI)AfAm 55 (>60 ml/min/1.73 sqM) 02/13/18 16:35 Est GFR (CKD-EPI)NonAf 48 (>60 ml/min/1.73 sqM) 02/13/18 16:35 Glucose 99 mg/dL (74-99) 02/13/18 16:35 Calcium 9.1 mg/dL (8.4-10.2) 02/13/18 16:35 Total Bilirubin 0.7 mg/dL (0.2-1.3) 02/13/18 16:35 AST 22 U/L (17-59) 02/13/18 16:35 ALT 32 U/L (21-72) 02/13/18 16:35 Alkaline Phosphatase 88 U/L (38-126) 02/13/18 16:35 Total Protein 6.9 g/dL (6.3-8.2) 02/13/18 16:35 Albumin 4.3 g/dL (3.5-5.0) 02/13/18 16:35 Triglycerides 91 mg/dL (<150) 02/14/18 08:47 Cholesterol 191 mg/dL (<200) 02/14/18 08:47 LDL Cholesterol, Calc 108 mg/dL (0-99) H 02/14/18 08:47 HDL Cholesterol 65 mg/dL (40-60) H 02/14/18 08:47 TSH 3.800 mIU/L (0.465-4.680) 02/14/18 08:47 Urine Color Light Yellow 02/13/18 16:06 Urine Appearance Clear (Clear) 02/13/18 16:06 Urine pH 7.0 (5.0-8.0) 02/13/18 16:06 Ur Specific [place] 1.004 (1.001-1.035) 02/13/18 16:06 Urine Protein Negative (Negative) 02/13/18 16:06 Urine Glucose (UA) Negative (Negative) 02/13/18 16:06 Urine Ketones Negative (Negative) 02/13/18 16:06 Urine Blood Negative (Negative) 02/13/18 16:06 Urine Nitrite Negative (Negative) 02/13/18 16:06 Urine Bilirubin Negative (Negative) 02/13/18 16:06 Urine Urobilinogen <2.0 mg/dL (<2.0) 02/13/18 16:06 Ur Leukocyte Esterase Negative (Negative) 02/13/18 16:06 Urine Opiates Screen Not Detected (NotDetected) 02/13/18 16:06 Ur Oxycodone Screen Not Detected (NotDetected) 02/13/18 16:06 Urine Methadone Screen Not Detected (NotDetected) 02/13/18 16:06 Ur Propoxyphene Screen Not Detected (NotDetected) 02/13/18 16:06 Ur Barbiturates Screen Not Detected (NotDetected) 02/13/18 16:06 U Tricyclic Antidepress Not Detected (NotDetected) 02/13/18 16:06 Ur Phencyclidine Scrn Not Detected (NotDetected) 02/13/18 16:06 Ur Amphetamines Screen Not Detected (NotDetected) 02/13/18 16:06 U Methamphetamines Scrn Not Detected (NotDetected) 02/13/18 16:06 U Benzodiazepines Scrn Not Detected (NotDetected) 02/13/18 16:06 Urine Cocaine Screen Not Detected (NotDetected) 02/13/18 16:06 U Marijuana (THC) Screen Not Detected (NotDetected) 02/13/18 16:06 02/14/18 13:49 Identification: Patient is a 77-year-old male who presented to the emergency room with reports of depressed symptoms and thoughts to cut his wrist. History of Present Illness: Patient states that he sees Dr. Bowers as an outpatient and last saw him in December but did not keep his appointment in January stating that he didn't feel like going. He states that he has been compliant with all of his medications. Patient states that he became more depressed recently because he lost his last friend, someone he knew from synagogue. Patient is unable to identify any other precipitant to the change in his mood and states that he did not keep his appointment with his primary care physician in January either because he didn't feel like going. Patient states that perhaps the meds are not working as well as they had been, he states that he had suicidal thoughts to cut his wrist and presented to the emergency room. He states that he is feeling hopeless and has been sleeping and eating well at home. He states he has been going to synagogue. Patient could identify no other precipitant to his recent increase in depressive symptoms. Patient did not endorse any symptoms of psychosis, jovanny or OCD. Patient states his anxiety Patie has been fairly well controlled with the use of Ativan at did not report any acute increase in his anxiety symptoms. nt was last here in the inpatient unit in October 2017. Patient currently is taking Remeron 45 mg at bedtime, Sinequan 20 mg at bedtime and Ativan 0.5 mg twice a day as needed patient states that he takes it most days. Past Psychiatric History: Patient has a history of multiple psychiatric admissions in the past all for depression which he states has been present for most of his adult life. Patient states that he's been tried on multiple combinations of medications over the years and had ECT in the remote past. Patient's last admission was here in October 2017. patient has a history of 1 prior suicide attempt Past Medical/Surgical History: patient has a history of asthma, hypertension and hyperlipidemia, migraine headaches and is status post hernia repair Social History: Patient was born and raised in [place], his parents are both . He has 2 sisters who are alive and he states he has no contact with them. 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 He states that he was once and and has one child with whom he has no contact. Patient lives in an apartment with no assistance and continues to drive his own car. He reported no abuse history. 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 He denied any other drug use history and states that he does not use tobacco products. Legal History: patient denies Mental status: Appearance/Attitude: Patient is casually dressed, makes intermittent eye contact and is cooperative. Behavior: Patient does not exhibit any psychomotor agitation but appears slightly psychomotor retarded. Speech/Language: Patient's speech is slightly slow of normal rhythm and he is spontaneous and coherent. Thought Process: Patient is goal-directed, he is not exhibiting any loose association or flight of ideas. Patient seemed reluctant to expand on responses to questions. Thought Content: He denied any auditory or visual hallucinations and no delusions or paranoid ideation were elicited. Patient states that he has been sleeping and eating well at home. He reports that he felt better yesterday and today his mood is more depressed. He could not identify why this occurred. Suicidal/Homicidal Ideation: Patient reports no current suicidal or homicidal ideation Sensorium/Cognition: Patient is alert and oriented to person, place, and time and his recent and remote memory were grossly intact. Mood/Affect: Patient's mood is depressed and his affect is blunted Insight/Judgment: Patient's insight and judgment are intact Intellectual Functioning: patient's intellectual functioning appears average Strength/Weakness: patient has housing, financial support, compliance with medication/limited coping skills Assessment: patient presented to the emergency room reporting suicidal ideation and increase in his depression recently and had not kept his last appointment with his outpatient psychiatrist, Dr. Bowers in January nor his appointment with his previous EPS in January due to not feeling like going. He reports that he lost his last friend recently that he had from synagogue and states that most of his family and friends are now . Patient could identify no other precipitant to an increase in his symptoms. He reported that he is been compliant with his medications but that does not think that they are working as well. He states that he had a plan to cut his wrist prior to coming to the hospital. He reported that he been sleeping and eating well at home. Admission Diagnosis: major depressive disorder, recurrent, moderate severity Plan: Patient was admitted on a voluntary basis, placed on routine observation in group and activity therapy were ordered. Patient also had routine laboratory studies and a medical consultation was obtained. The patient was maintained on his prior medications for his medical problems and was maintained on his Remeron 45 mg at bedtime, Sinequan 20 mg at at bedtime as well as Ativan 0.5 mg twice a day as needed. Patient was encouraged to attend groups and activities. Patient requires hospitalization to further stabilize his mood. 02/14/18 13:53
[2018-02-14] MEDS: LORazepam 0.5 MG TAB PO PRN (17:51)
[2018-02-14] MEDS: NAPROXEN 250 MG TAB PO PRN (18:34)
[2018-02-14 19:47] LABS: Hemoglobin A1C 5.2 % (4.0-6.0)
--- NOTE | 2018-02-14 20:43 | CONS ---
CONSULTATION DATE OF SERVICE: 02/14/2018 REASON FOR CONSULTATION: Medical management with the underlying other medical problems. HISTORY AND CHIEF COMPLAINT: Mr. Anthony Tejeda is 77 years old. He is FULL CODE. His height is 5 feet 8 inches, weight 85.275 kg. BSA 1.99 m2. BMI 28.6 kg/m2. ALLERGY: PENICILLIN. The patient presented to the emergency room with underlying suicidal ideation and depressed disorder and thoughts about cutting his wrists. The patient has been seen by Dr. Bowers on an outpatient basis. He saw him in December, but he was not able to keep his appointment in January because he felt depressed. He stated that he has been compliant with his medication. His last appointment in my office as primary care was in January as well. He stated that he had suicidal thoughts to cut his wrists. Subsequently he presented to the ER with feeling hopeless, has been sleeping and eating and he was going to jehovah's witness. The patient was recently in October 2017 in the psychiatric floor and he has been on Remeron 45 mg at bedtime, Sinequan 20 mg at bedtime, Ativan 0.5 mg twice a day. Patient has history of multiple psychiatric admissions in the past. He had multiple combinations of medicines as well by the history and His has a history of prior suicidal attempts. PAST MEDICAL HISTORY: 1. History of COPD and asthma. He uses inhalation therapy. 2. History of hypertension. 3. Hyperlipidemia. 4. Hernia repair x2. 5. History of migraine and headache. 6. Pain in his right arm and shoulder. He was taking injections from Dr. Ryan Putnam, the orthopedic surgeon; however, he felt that was not helping, but he will follow with him when he gets out of the hospital. He is requesting Naprosyn to be given as well as inhalation updraft with the history of the COPD. SOCIAL HISTORY: He was born and raised in [place]. His parents are . He has 2 sisters alive. He has no contact with them. 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 He states he was once and and he has one child, with whom he has no contact. The patient lives in an apartment with no assistance and continues to drive his own car. No drug abuse history. Regarding substance abuse, the patient stated in the note by Psychiatry that he was sober for 30 years. Prior to that he was a heavy drinker. He does not use tobacco. PHYSICAL EXAMINATION: Patient was at the time seen on the mental health unit. Temperature 97.6, pulse rate 53 with bradycardia; however, not symptomatic. His respiratory rate is 16, blood pressure 136/61 with mean 86 on room air. LABORATORY: Hemoglobin 12.3 and hematocrit 36.6. However, the patient prior to that, the ER record indicates that on May 26, 2017 his hemoglobin was 11.7, hematocrit was 34.4, and white count was 6. The current result is indicating improvement in the hemoglobin and hematocrit. Currently his chemistry indicates sodium 132, chloride 4, carbon dioxide 25, BUN 23, anion gap 7, creatinine 1.4 with estimated glomerular filtration rate for non- 48, which indicates chronic kidney disease, stage IIIA. His blood sugar is normal at 99. His liver enzymes were normal with the AST 22, ALT 32, alkaline phosphatase 88. His total protein is 6.9 and albumin 4.3. His lipid profile indicates LDL of 108 and HDL 65 and triglycerides 91, total cholesterol 191. His TSH is 3.08. His urinalysis was negative and also drug screen was negative. On the physical exam, the patient is conscious, alert, oriented x3. Pleasant, not angry. HEENT was negative. Neck was supple. No lymphadenopathy. AXILLAE: No lymphadenopathy. SUPRACLAVICULAR: No lymphadenopathy. The chest had increased anteroposterior diameter. History of asthma. However, no wheezes. No rhonchi. HEART: PMI in the fifth intercostal space. Normal S1, S2 and no gallop. His blood pressure was 144/68 and 136/69, stable with the current medication. His abdomen is soft, nontender. Positive bowel sounds. EXTREMITIES: He had chronic lymphedema and he wears compression stockings. He was seen by Yee, the lymphedema specialist at [facility] and lymph specialists, which has been teaching him how to avoid the edema that he had in the past. He had multiple ultrasounds that were negative. CURRENT MEDICATION: 1. Atorvastatin 20 mg once a day. Will continue. That is for the hyperlipidemia. 2. Lasix 40 mg daily for lower extremity edema. 3. Inhalation therapy q.i.d. p.r.n.; however, we will start him on the updraft. 4. Amlodipine for blood pressure, hypertension, 10 mg at bedtime. 5. Nasal spray with the history of stuffiness. 6. For blood pressure he is on hydralazine 50 mg t.i.d. 7. Losartan 100 mg once a day. 8. Metoprolol tartrate 50 mg b.i.d. 9. Montelukast 10 mg once a day for his asthma. 10.For chronic constipation he is using Senokot S as well as polyethylene glycol. 11.Spironolactone 12.5 mg daily. That is to also help with diuresis. 12.Topiramate twice a day per Psychiatry. 13.Remeron 45 mg at bedtime. 14.Lorazepam 0.5 mg twice a day. 15.Loratadine for allergy. 16.Doxepin or Sinequan 20 mg at bedtime. ASSESSMENT: 1. Underlying suicidal ideation and depression. 2. Underlying history of multiple medical problems with the underlying history of lymphedema and peripheral edema. 3. Hyperlipidemia. He is on atorvastatin. 4. Lower extremity edema. 5. Chronic obstructive pulmonary disease. He needs inhalation therapy and he is requesting Naprosyn. However, he has a history of chronic kidney disease, stage III, and supposedly we are avoiding the Naprosyn. However, we will start him on Aleve 220 mg twice a day to avoid the large doses of Naprosyn and will check in one week his renal function. On discharge he will follow with Dr. Ryan Putnam for his arthritis and pain. We will order also the inhalation therapy with albuterol inhalation 4 times a day p.r.n. Patient will be followed by Dr. Dangelo Beatty in my temporary absence. I will be away from tomorrow until Sunday. Dr. Beatty is carbon paper coating supervisor and will follow the patient if needed through this period. MMODL / IJN: [id number] /
[2018-02-14] MEDS: amLODIPine 10 MG TAB PO SCH (20:56)
[2018-02-14] MEDS: MIRTAZAPINE 45 MG TABLET PO SCH (20:56)
[2018-02-14] MEDS: DOXEPIN 10 MG CAP PO SCH (20:57)
[2018-02-14] MEDS: MONTELUKAST 10 MG TAB PO SCH (20:57)
[2018-02-14] MEDS: ATORVASTATIN 20 MG TAB PO SCH (20:57)
[2018-02-14] MEDS: BETAMETHASONE DIPROPIONATE 0.05% CREAM 15 GM TUBE TOPICAL SCH (21:03)
[2018-02-15] MEDS: FLUTICASONE 50MCG/SPRAY NASAL 16GM EA NOSTRIL SCH ×2 (08:48→20:50)
[2018-02-15] MEDS: FUROSEMIDE 40 MG TAB PO SCH (08:48)
[2018-02-15] MEDS: LORATADINE 10 MG TAB PO SCH (08:48)
[2018-02-15] MEDS: hydrALAZINE HCL 50 MG TAB PO SCH ×3 (08:48→20:49)
[2018-02-15] MEDS: POTASSIUM CHLORIDE ER 10 MEQ TAB.ER.PRT PO SCH (08:49)
[2018-02-15] MEDS: METOPROLOL TARTRATE 50 MG TAB PO SCH ×2 (08:49→20:49)
[2018-02-15] MEDS: SENNOSIDES-DOCUSATE SODIUM 1 EACH TAB PO SCH (08:49)
[2018-02-15] MEDS: LOSARTAN 50 MG TAB PO SCH (08:49)
[2018-02-15] MEDS: SPIRONOLACTONE 25 MG TAB PO SCH (08:49)
[2018-02-15] MEDS: TOPIRAMATE 25 MG TAB PO SCH ×2 (08:50→20:50)
[2018-02-15] MEDS: NAPROXEN 250 MG TAB PO PRN ×2 (11:57→20:53)
[2018-02-15] MEDS: MONTELUKAST 10 MG TAB PO SCH (20:49)
[2018-02-15] MEDS: amLODIPine 10 MG TAB PO SCH (20:49)
[2018-02-15] MEDS: DOXEPIN 10 MG CAP PO SCH (20:49)
[2018-02-15] MEDS: ATORVASTATIN 20 MG TAB PO SCH (20:49)
[2018-02-15] MEDS: BETAMETHASONE DIPROPIONATE 0.05% CREAM 15 GM TUBE TOPICAL SCH (20:50)
[2018-02-15] MEDS: MIRTAZAPINE 45 MG TABLET PO SCH (20:50)
[2018-02-16] MEDS: LORazepam 0.5 MG TAB PO PRN ×3 (00:21→20:47)
[2018-02-16] MEDS: TOPIRAMATE 25 MG TAB PO SCH ×2 (08:38→20:42)
[2018-02-16] MEDS: hydrALAZINE HCL 50 MG TAB PO SCH ×3 (08:38→20:43)
[2018-02-16] MEDS: FLUTICASONE 50MCG/SPRAY NASAL 16GM EA NOSTRIL SCH ×2 (08:38→20:41)
[2018-02-16] MEDS: SENNOSIDES-DOCUSATE SODIUM 1 EACH TAB PO SCH (08:38)
[2018-02-16] MEDS: SPIRONOLACTONE 25 MG TAB PO SCH (08:38)
[2018-02-16] MEDS: LOSARTAN 50 MG TAB PO SCH (08:39)
[2018-02-16] MEDS: LORATADINE 10 MG TAB PO SCH (08:39)
[2018-02-16] MEDS: POTASSIUM CHLORIDE ER 10 MEQ TAB.ER.PRT PO SCH (08:39)
[2018-02-16] MEDS: FUROSEMIDE 40 MG TAB PO SCH (08:39)
[2018-02-16] MEDS: METOPROLOL TARTRATE 50 MG TAB PO SCH (08:39)
[2018-02-16] MEDS: NAPROXEN 250 MG TAB PO PRN ×2 (08:42→20:46)
--- NOTE | 2018-02-16 09:35 | P.PN ---
Progress Note - Text Interval history the patient is found in his room he follows me to an interview room. He describes his mood as depressed and "not doing so good". He continues to have hopeless thoughts but feels safe here in the hospital. He has been compliant with his medication. He expresses some frustration that the Ativan is written as needed and we discussed the importance of only using that medication when it is truly needed for acute anxiety. We discussed the safety risks of taking the Ativan. He reports full compliance with groups. Mental status exam: The patient is a male appearing his stated age. His horner is grown longer hygiene is adequate he is dressed in his own clothing wearing sweatpants and a sweatshirt. Eye contact is appropriate. He does have spontaneous speech. He endorses a depressed mood with hopelessness thinking, no homicidal ideation. He is endorsing no auditory or visual hallucinations or any specific delusions. There is no observed evidence of psychosis. Thought process is linear he demonstrates no tangential thinking loose associations or flight of ideas. He does not appear hypomanic or manic. He is oriented to person place month and year. He names the date as the . Plan: The patient will continue on his current medications. We discussed during team meeting having social work look into assisted living type facilities for him. We will continue to monitor him for safety. Vital signs reviewed.
[2018-02-16] MEDS: MIRTAZAPINE 45 MG TABLET PO SCH (20:41)
[2018-02-16] MEDS: DOXEPIN 10 MG CAP PO SCH (20:42)
[2018-02-16] MEDS: amLODIPine 10 MG TAB PO SCH (20:43)
[2018-02-16] MEDS: MONTELUKAST 10 MG TAB PO SCH (20:43)
[2018-02-16] MEDS: ATORVASTATIN 20 MG TAB PO SCH (20:44)
[2018-02-16] MEDS: ALBUTEROL NEBULIZED 2.5 MG/3 ML INHALATION PRN (21:22)
[2018-02-17] MEDS: METOPROLOL TARTRATE 50 MG TAB PO SCH ×3 (00:37→20:57)
[2018-02-17] MEDS: BETAMETHASONE DIPROPIONATE 0.05% CREAM 15 GM TUBE TOPICAL SCH ×3 (00:38→20:56)
[2018-02-17] MEDS: SPIRONOLACTONE 25 MG TAB PO SCH (08:27)
[2018-02-17] MEDS: TOPIRAMATE 25 MG TAB PO SCH ×2 (08:28→20:59)
[2018-02-17] MEDS: hydrALAZINE HCL 50 MG TAB PO SCH ×3 (08:29→20:58)
[2018-02-17] MEDS: FLUTICASONE 50MCG/SPRAY NASAL 16GM EA NOSTRIL SCH ×2 (08:29→20:56)
[2018-02-17] MEDS: LOSARTAN 50 MG TAB PO SCH (08:29)
[2018-02-17] MEDS: LORATADINE 10 MG TAB PO SCH (08:29)
[2018-02-17] MEDS: FUROSEMIDE 40 MG TAB PO SCH (08:29)
[2018-02-17] MEDS: POTASSIUM CHLORIDE ER 10 MEQ TAB.ER.PRT PO SCH (08:30)
[2018-02-17] MEDS: SENNOSIDES-DOCUSATE SODIUM 1 EACH TAB PO SCH (08:30)
[2018-02-17] MEDS: NAPROXEN 250 MG TAB PO PRN ×2 (08:31→21:01)
[2018-02-17] MEDS: LORazepam 0.5 MG TAB PO PRN ×2 (08:33→21:01)
[2018-02-17] MEDS: ALBUTEROL NEBULIZED 2.5 MG/3 ML INHALATION PRN ×2 (09:05→21:22)
--- NOTE | 2018-02-17 09:45 | P.PN ---
Progress Note - Text Interval history: The patient is found in his room he follows me to an interview room. He reports his mood continues to be depressed he continues to have some hopelessness thinking. Sleep and appetite have been stable. He has been making an effort to attend groups. He his hopeful that he will be able to relocate so he is able to increase his socialization. He is concerned about his finances however. Mental status exam: The patient is alert he is dressed in his own clothing hygiene adequate. He is wearing eyeglasses eye contact is appropriate. Speech is fluent spontaneous nonpressured. He endorses a depressed mood with hopelessness thinking. He feels safe in the hospital. He is reporting no homicidal ideation intent or plan. There is no report or evidence of psychosis hypomania or jovanny. Insight and judgment limited. He demonstrates no verbal or physical aggressiveness. Plan: The patient will continue on his current medication we will monitor him for safety. Social work will explore any other assisted living type placement available to him. Vital signs reviewed.
[2018-02-17] MEDS: DOXEPIN 10 MG CAP PO SCH (20:56)
[2018-02-17] MEDS: MIRTAZAPINE 45 MG TABLET PO SCH (20:57)
[2018-02-17] MEDS: ATORVASTATIN 20 MG TAB PO SCH (20:57)
[2018-02-17] MEDS: MONTELUKAST 10 MG TAB PO SCH (20:59)
[2018-02-17] MEDS: amLODIPine 10 MG TAB PO SCH (21:05)
[2018-02-18] MEDS: FLUTICASONE 50MCG/SPRAY NASAL 16GM EA NOSTRIL SCH ×2 (09:29→21:41)
[2018-02-18] MEDS: LORATADINE 10 MG TAB PO SCH (09:30)
[2018-02-18] MEDS: TOPIRAMATE 25 MG TAB PO SCH ×2 (09:30→21:42)
[2018-02-18] MEDS: LOSARTAN 50 MG TAB PO SCH (09:30)
[2018-02-18] MEDS: LORazepam 0.5 MG TAB PO PRN ×2 (09:30→21:44)
[2018-02-18] MEDS: METOPROLOL TARTRATE 50 MG TAB PO SCH ×2 (09:30→21:42)
[2018-02-18] MEDS: POTASSIUM CHLORIDE ER 10 MEQ TAB.ER.PRT PO SCH (09:30)
[2018-02-18] MEDS: hydrALAZINE HCL 50 MG TAB PO SCH ×3 (09:31→21:42)
[2018-02-18] MEDS: SENNOSIDES-DOCUSATE SODIUM 1 EACH TAB PO SCH (09:31)
[2018-02-18] MEDS: FUROSEMIDE 40 MG TAB PO SCH (09:31)
[2018-02-18] MEDS: SPIRONOLACTONE 25 MG TAB PO SCH (09:32)
[2018-02-18] MEDS: NAPROXEN 250 MG TAB PO PRN ×2 (09:34→21:44)
[2018-02-18] MEDS: ALBUTEROL NEBULIZED 2.5 MG/3 ML INHALATION PRN ×2 (09:37→21:08)
--- NOTE | 2018-02-18 09:42 | P.PN ---
Progress Note - Text Interval history: The patient is found in his room he follows me to an interview room. He reports he was admitted due to severe symptoms of depression. He had thoughts of killing himself via cutting his wrists. He states that approximate one month ago he lost contact with his only close friend. He states he feels overwhelmed with loneliness and now feels he needs to change residences. Mental status exam: The patient is a male appearing his stated age she has a disheveled appearance he is dressed in hospital attire. He describes a depressed mood with hopelessness thinking and suicidal thoughts. He is endorsing no homicidal ideation. He endorses no symptoms of psychosis he does not appear hypomanic or manic. Insight and judgment limited. He is oriented to person place month and year. He demonstrates no verbal or physical aggressiveness. He demonstrates in a dysphoric affect. Plan: The patient will continue on his current psychotropic medications we will monitor him for safety he is encouraged participate in the milieu. Vital signs reviewed.
--- NOTE | 2018-02-18 09:45 | P.PN ---
Progress Note - Text Interval history: The patient is found at the medication window he follows me to an interview room. He states his mood is "severely depressed". He states he did not sleep well last night he feels nauseated. He describes feeling hopeless and doesn't think his life will get better. When he feels this way he will have thoughts of cutting his wrist but feels that he can keep himself safe here in the hospital. He has been attending group. Mental status exam: The patient is a disheveled male appearing his stated age. He is dressed in the same clothing as the past 2 days. Eye contact is intermittent. He is less spontaneous speech today but does briefly answer questions asked. He endorses a depressed mood with hopelessness thinking with suicidal ideation. He continues to describe a plan of cutting his wrists. He is reporting no homicidal ideation. He is endorsing no symptoms of psychosis there is no observed evidence of psychosis. He demonstrates no verbal or physical aggressiveness. He does demonstrate some psychomotor slowing today. His affect is flat. Plan: The patient will continue on his current medications we will consider adjustment to those. We are encouraging full engagement in the milieu. We will ask social work to meet with him to explore any placement options for him. Vital signs reviewed we will continue to monitor him for safety.
[2018-02-18] MEDS: amLODIPine 10 MG TAB PO SCH (21:41)
[2018-02-18] MEDS: MONTELUKAST 10 MG TAB PO SCH (21:41)
[2018-02-18] MEDS: MIRTAZAPINE 45 MG TABLET PO SCH (21:41)
[2018-02-18] MEDS: ATORVASTATIN 20 MG TAB PO SCH (21:41)
[2018-02-18] MEDS: DOXEPIN 10 MG CAP PO SCH (21:42)
[2018-02-18] MEDS: BETAMETHASONE DIPROPIONATE 0.05% CREAM 15 GM TUBE TOPICAL SCH (21:48)
[2018-02-19] MEDS: FUROSEMIDE 40 MG TAB PO SCH (08:40)
[2018-02-19] MEDS: hydrALAZINE HCL 50 MG TAB PO SCH ×3 (08:40→21:10)
[2018-02-19] MEDS: SENNOSIDES-DOCUSATE SODIUM 1 EACH TAB PO SCH (08:41)
[2018-02-19] MEDS: POTASSIUM CHLORIDE ER 10 MEQ TAB.ER.PRT PO SCH (08:41)
[2018-02-19] MEDS: LOSARTAN 50 MG TAB PO SCH (08:44)
[2018-02-19] MEDS: LORATADINE 10 MG TAB PO SCH (08:44)
[2018-02-19] MEDS: METOPROLOL TARTRATE 50 MG TAB PO SCH ×2 (08:44→21:13)
[2018-02-19] MEDS: SPIRONOLACTONE 25 MG TAB PO SCH (08:46)
[2018-02-19] MEDS: TOPIRAMATE 25 MG TAB PO SCH ×2 (08:47→21:13)
[2018-02-19] MEDS: FLUTICASONE 50MCG/SPRAY NASAL 16GM EA NOSTRIL SCH ×2 (08:49→21:13)
[2018-02-19] MEDS: LORazepam 0.5 MG TAB PO PRN ×2 (08:49→21:15)
[2018-02-19] MEDS: NAPROXEN 250 MG TAB PO PRN (08:50)
--- NOTE | 2018-02-19 09:17 | P.PN ---
Progress Note - Text Interval history: The patient is found at the front office java developer he follows me to an interview room. He reports his mood is still very depressed he reports having hopeless feelings. The career representative from the [facility] home did meet with him. He states he has interest in residing at the [facility] home but would like to see it first. He reports having some difficulty sleeping last night. Appetite stable. He has been making an effort to attend groups. Mental status exam: The patient is alert he is dressed in the same clothing as the last several days. Eye contact is appropriate. He has little spontaneous speech is affect is dysphoric. He reports a depressed mood with hopelessness thinking. He reports when he has suicidal thoughts it is of cutting his wrist. He is reporting no homicidal ideation intent or plan. There is no evidence or report of psychosis. He does not appear hypomanic or manic. He is oriented to person place and date. Plan: We will add melatonin 3 mg at bedtime to assist him with sleep. We will consider titrating his antidepressant medication further however he does have a chronic history of hyponatremia which may be affected by the antidepressants. We continue to focus on coping skill development. The patient appreciates the support of the milieu and he is encouraged to continue attending groups. Vital signs reviewed. We will discuss [facility] home placement with social work during treatment team today.
[2018-02-19] MEDS: DOXEPIN 10 MG CAP PO SCH (21:10)
[2018-02-19] MEDS: MIRTAZAPINE 45 MG TABLET PO SCH (21:10)
[2018-02-19] MEDS: amLODIPine 10 MG TAB PO SCH (21:10)
[2018-02-19] MEDS: MELATONIN 3 MG TABLET PO SCH (21:11)
[2018-02-19] MEDS: ATORVASTATIN 20 MG TAB PO SCH (21:11)
[2018-02-19] MEDS: MONTELUKAST 10 MG TAB PO SCH (21:13)
[2018-02-19] MEDS: BETAMETHASONE DIPROPIONATE 0.05% CREAM 15 GM TUBE TOPICAL SCH (21:52)
[2018-02-19] MEDS: ALBUTEROL NEBULIZED 2.5 MG/3 ML INHALATION PRN (22:04)
[2018-02-20] MEDS: POTASSIUM CHLORIDE ER 10 MEQ TAB.ER.PRT PO SCH (08:26)
[2018-02-20] MEDS: FLUTICASONE 50MCG/SPRAY NASAL 16GM EA NOSTRIL SCH ×2 (08:26→20:59)
[2018-02-20] MEDS: hydrALAZINE HCL 50 MG TAB PO SCH ×3 (08:26→21:00)
[2018-02-20] MEDS: FUROSEMIDE 40 MG TAB PO SCH (08:26)
[2018-02-20] MEDS: SENNOSIDES-DOCUSATE SODIUM 1 EACH TAB PO SCH (08:26)
[2018-02-20] MEDS: SPIRONOLACTONE 25 MG TAB PO SCH (08:29)
[2018-02-20] MEDS: TOPIRAMATE 25 MG TAB PO SCH ×2 (08:30→21:00)
[2018-02-20] MEDS: LORATADINE 10 MG TAB PO SCH (08:30)
[2018-02-20] MEDS: METOPROLOL TARTRATE 50 MG TAB PO SCH ×2 (08:30→20:59)
[2018-02-20] MEDS: NAPROXEN 250 MG TAB PO PRN ×2 (08:31→21:03)
[2018-02-20] MEDS: LORazepam 0.5 MG TAB PO PRN ×2 (08:31→21:03)
--- NOTE | 2018-02-20 09:26 | P.PN ---
Progress Note - Text Interval history: The patient is found in the hallway he follows me to an interview room. He reports that his mood is improving. He feels a little less hopeless. We discussed his medication regimen and augmentation strategies. He feels call for with his current medications and doesn't feel any changes are necessary. He did review photographs of the [facility] home we were referring him to. He feels that it is not going to be a good fit and is refusing that placement. We discussed having him participate in a partial hospital program and he feels he may be willing to do this and will give this further consideration. I will have social work meet with the patient today to discuss this further as we could try to arrange his start there this week. Mental status exam: The patient is alert he is dressed in his own clothing hygiene is adequate he's mildly disheveled. Eye contact is appropriate. He reports his mood is improving he feels less hopeless. He feels safe in the hospital. He is reporting no homicidal ideation intent or plan. He is endorsing no auditory or visual hallucinations or specific delusions. He demonstrates no tangential thinking loose associations or flight of ideas. He demonstrates no verbal or physical aggressiveness. Insight and judgment improving. Plan: After discussing his medications in detail he is electing to continue them as written. We did discuss augmentation strategies such as Abilify or Seroquel. He is possibly amenable to attending the partial hospital program at [facility]. Social work will meet with him today to discuss this further and possibly make arrangements. We will continue to monitor the patient for safety. Vital signs reviewed. We will anticipate a discharge tomorrow.
[2018-02-20] MEDS: LOSARTAN 50 MG TAB PO SCH (09:29)
[2018-02-20] MEDS: ALBUTEROL NEBULIZED 2.5 MG/3 ML INHALATION PRN (20:40)
[2018-02-20] MEDS: BETAMETHASONE DIPROPIONATE 0.05% CREAM 15 GM TUBE TOPICAL SCH (20:58)
[2018-02-20] MEDS: MONTELUKAST 10 MG TAB PO SCH (21:00)
[2018-02-20] MEDS: DOXEPIN 10 MG CAP PO SCH (21:00)
[2018-02-20] MEDS: ATORVASTATIN 20 MG TAB PO SCH (21:00)
[2018-02-20] MEDS: amLODIPine 10 MG TAB PO SCH (21:00)
[2018-02-20] MEDS: MELATONIN 3 MG TABLET PO SCH (21:00)
[2018-02-20] MEDS: MIRTAZAPINE 45 MG TABLET PO SCH (21:00)
[2018-02-21 07:05] VITALS: TEMP 97.9
[2018-02-21] MEDS: FLUTICASONE 50MCG/SPRAY NASAL 16GM EA NOSTRIL SCH (08:34)
[2018-02-21] MEDS: LORATADINE 10 MG TAB PO SCH (08:35)
[2018-02-21] MEDS: LOSARTAN 50 MG TAB PO SCH (08:35)
[2018-02-21] MEDS: hydrALAZINE HCL 50 MG TAB PO SCH (08:35)
[2018-02-21] MEDS: METOPROLOL TARTRATE 50 MG TAB PO SCH (08:35)
[2018-02-21] MEDS: SENNOSIDES-DOCUSATE SODIUM 1 EACH TAB PO SCH (08:35)
[2018-02-21] MEDS: TOPIRAMATE 25 MG TAB PO SCH (08:36)
[2018-02-21] MEDS: FUROSEMIDE 40 MG TAB PO SCH (08:36)
[2018-02-21] MEDS: POTASSIUM CHLORIDE ER 10 MEQ TAB.ER.PRT PO SCH (08:36)
[2018-02-21] MEDS: NAPROXEN 250 MG TAB PO PRN (08:36)
[2018-02-21] MEDS: SPIRONOLACTONE 25 MG TAB PO SCH (08:36)
[2018-02-21] MEDS: LORazepam 0.5 MG TAB PO PRN (08:36)
[2018-02-21 08:40] VITALS: BP 157/71; RESP 20
[2018-02-21] MEDS: ALBUTEROL NEBULIZED 2.5 MG/3 ML INHALATION PRN (08:49)
[2018-02-21 08:51] VITALS: PULSE 88
--- NOTE | 2018-02-21 09:52 | P.DS ---
Providers Date of admission: 02/13/18 17:31 Expected date of discharge: 02/21/18 Attending physician: Hossein Bowers Consults: 02/13/18 17:56 Consult Physician Routine Consulting Provider: Salvador Vides Consult Reason/Comments: Follow Up H & P Do you want consulting provider notified?: Yes 02/15/18 08:42 Consult Physician Routine Consulting Provider: Dangelo Beatty Consult Reason/Comments: follw up pt in my abscence start in am Do you want consulting provider notified?: Yes Primary care physician: Salvador Vides - Discharge Diagnosis(es) (1) Major depressive disorder Current Visit: Yes Status: Acute Priority: High (2) Generalized anxiety disorder Current Visit: No Status: Acute Priority: High (3) Alcohol use disorder, severe, in sustained remission Current Visit: No Status: Acute Priority: Low Hospital Course: Brief summary of admission note: The patient is a 77-year-old single male who was admitted to the mental health unit through the emergency room with acute suicidal ideation. He presented to the hospital stating he had thoughts of wanting to cut his wrist. He is known to me from outpatient clinic for several years. He reported feeling more depressed as he recently lost a friend , someone he knew from restorationism. He continues to endorse feelings of loneliness. Energy and motivation are decreased and he was feeling hopeless. The patient chronically describes generalized anxiety symptoms. For full details please refer to the psychiatric evaluation dated 02/14/2018. Summary of hospital course: The patient was admitted to the mental health unit he signed in voluntarily. He was continued on his Remeron and doxepin and Ativan as needed. The patient did participate in groups. He was seen by his permit care physician for routine history and physical exam. We did add melatonin at bedtime for sleep. The patient reported a progressive improvement of symptoms while here in the hospital. He did want us to explore other placement options for him. We were able to identify inappropriate [facility] home setting that was financially feasible for him. Ultimately he found it to be unacceptable and decided to no longer pursue that course. He demonstrated no verbal or physical aggressiveness. Mental status exam: The patient is a male appearing his stated age. Hygiene and grooming are adequate. He is wearing his eyeglasses. He is observed ambulating in the hallway without ataxia. He endorses a mood that is improved he is feeling less depressed he is reporting no hopelessness thinking. He is reporting no suicidal ideation intent or plan. He is reporting no homicidal ideation intent or plan. He describes no auditory or visual hallucinations or any specific delusions. There is no observed evidence of psychosis. He does not appear hypomanic or manic. He remains oriented to person place and date. He demonstrates no verbal or physical aggressiveness. Affect is appropriately expressive. Impressions 1. Major depressive disorder recurrent, generalized anxiety disorder, alcohol use disorder in sustained remission 2. Borderline and narcissistic personality disorder traits Plan: The patient will be discharged mental health unit today to return to his own residence. He is encouraged to consider placement at another [facility] home or assisted living setting. He is encouraged to continue participating in social activity and he identifies his restorationism as the primary source. He will continue on Remeron 45 mg at bedtime doxepin 20 mg at bedtime melatonin 3 mg at bedtime if needed and Ativan 0.5 mg up to twice daily. He will follow up with his individual therapist Flash and will follow up with myself for outpatient medication management. He is instructed to return to the hospitals any acute safety concerns. Patient Condition at Discharge: Stable Plan - Discharge Summary New Discharge Prescriptions: New Melatonin 3 mg PO HS #30 tablet Mirtazapine [Remeron] 45 mg PO HS #30 tablet Continue Atorvastatin Calcium [Lipitor] 20 mg PO HS Furosemide [Lasix] 40 mg PO DAILY #30 tab hydrALAZINE HCL [Apresoline] 50 mg PO TID #90 tab Sennosides-Docusate Sodium [Senokot-S] 1 tab PO DAILY Loratadine [Claritin] 10 mg PO DAILY Polyethylene Glycol 3350 [Miralax] 17 gm PO DAILY PRN PRN Reason: Constipation Montelukast [Singulair] 10 mg PO HS Topiramate [Topamax] 50 mg PO BID Spironolactone [Aldactone] 12.5 mg PO QAM Metoprolol Tartrate [Lopressor] 50 mg PO BID #60 tab Potassium Chloride ER [K-Dur 10] 10 meq PO DAILY Fluticasone Nasal [place] [Flonase Nasal [place]] 1 spray EA NOSTRIL BID amLODIPine [Norvasc] 10 mg PO HS #30 tab Irbesartan 300 mg PO DAILY Fluocinonide 0.05% [Lidex 0.05% cream] 1 gm TOPICAL HS Albuterol Inhaler [Ventolin Hfa Inhaler] 1 puff INHALATION RT-QID PRN PRN Reason: Shortness Of Breath Doxepin [SINEquan] 20 mg PO HS #60 cap LORazepam [Ativan] 0.5 mg PO BID PRN #60 tab PRN Reason: Anxiety Discontinued Mirtazapine [Remeron] 45 mg PO HS #30 tab Discharge Medication List Atorvastatin Calcium [Lipitor] 20 mg PO HS 12/08/16 [History] Furosemide [Lasix] 40 mg PO DAILY #30 tab 12/18/16 [Rx] hydrALAZINE HCL [Apresoline] 50 mg PO TID #90 tab 04/05/17 [Rx] Sennosides-Docusate Sodium [Senokot-S] 1 tab PO DAILY 04/21/17 [History] Loratadine [Claritin] 10 mg PO DAILY 08/21/17 [History] Montelukast [Singulair] 10 mg PO HS 08/21/17 [History] Polyethylene Glycol 3350 [Miralax] 17 gm PO DAILY PRN 08/21/17 [History] Spironolactone [Aldactone] 12.5 mg PO QAM 08/21/17 [History] Topiramate [Topamax] 50 mg PO BID 08/21/17 [History] Metoprolol Tartrate [Lopressor] 50 mg PO BID #60 tab 08/29/17 [Rx] Fluticasone Nasal [place] [Flonase Nasal [place]] 1 spray EA NOSTRIL BID 11/05/17 [ History] Potassium Chloride ER [K-Dur 10] 10 meq PO DAILY 11/05/17 [History] amLODIPine [Norvasc] 10 mg PO HS #30 tab 11/09/17 [Rx] Albuterol Inhaler [Ventolin Hfa Inhaler] 1 puff INHALATION RT-QID PRN 02/13/18 [ History] Fluocinonide 0.05% [Lidex 0.05% cream] 1 gm TOPICAL HS 02/13/18 [History] Irbesartan 300 mg PO DAILY 02/13/18 [History] Doxepin [SINEquan] 20 mg PO HS #60 cap 02/21/18 [Rx] LORazepam [Ativan] 0.5 mg PO BID PRN #60 tab 02/21/18 [Rx] Melatonin 3 mg PO HS #30 tablet 02/21/18 [Rx] Mirtazapine [Remeron] 45 mg PO HS #30 tablet 02/21/18 [Rx] Follow up Appointment(s)/Referral(s): Intake, Intake [Other] - 02/22/18 10:00 am (Walk In for assessment on Sunday, February 22, 2018 at 10:00) Salvador Vides MD [Primary Care Provider] - 1-2 days Activity/Diet/Wound Care/Special Instructions: Per Dr. Vides, have renal function checked in approximately one week, on February 21.
== END 2018-02-21 14:26 | disposition home or self-care (01) | DRG 885 ==
LOC: EC 15:20 → 3MHU 17:31
PROVIDERS: ADMIT Psychiatry & Neurology Psychiatry; ATTEND Psychiatry & Neurology Psychiatry
DX: F33.1 Major depressive disorder, recurrent, moderate (principal); R45.851 Suicidal ideations; E87.1 Hypo-osmolality and hyponatremia; E78.5 Hyperlipidemia, unspecified; F41.1 Generalized anxiety disorder; F60.81 Narcissistic personality disorder; I12.9 Hypertensive chronic kidney disease with stage 1 through stage 4 chronic kidney disease, or unspecified chronic kidney disease; J44.9 Chronic obstructive pulmonary disease, unspecified; M19.90 Unspecified osteoarthritis, unspecified site; N18.3 Chronic kidney disease, stage 3 (moderate); G43.909 Migraine, unspecified, not intractable, without status migrainosus; M25.511 Pain in right shoulder; M79.601 Pain in right arm; R60.0 Localized edema; F10.21 Alcohol dependence, in remission; Z91.5 Personal history of self-harm; Z79.899 Other long term (current) drug therapy; Z88.0 Allergy status to penicillin
CPT/HCPCS: 36415; 80053; 80061; 80306; 81003; 82075; 83036; 84443; 85025; 94640; 99285

== ENCOUNTER 2018-06-04 19:57 | Inpatient (IN) | payer MEDICAID, MEDICARE ==
--- NOTE | 2018-06-04 21:33 | ED ---
Psych HPI - General Chief Complaint: Psychiatric Symptoms Stated Complaint: Transfer from [facility] Time Seen by Provider: 06/04/18 20:00 Source: patient, RN/MD, EMS, RN notes reviewed Mode of arrival: EMS - History of Present Illness Initial Comments: This is a 76-year-old male with a history depression who was seen at [facility] today he was taken therefore evaluation for depression who is found to be depressed but. He is transferred to this facility for admission. He denies any suicidal thought or ideation he states he is not been doing very well unable to care for himself. He denies any headache dizziness fevers chills nausea vomiting sweats or other symptoms MD Complaint: feels depressed, other - Related Data Home Medications Medication Instructions Recorded Confirmed Atorvastatin Calcium [Lipitor] 20 mg PO HS 12/08/16 02/13/18 Sennosides-Docusate Sodium 1 tab PO DAILY 04/21/17 02/13/18 [Senokot-S] Loratadine [Claritin] 10 mg PO DAILY 08/21/17 02/13/18 Montelukast [Singulair] 10 mg PO HS 08/21/17 02/13/18 Polyethylene Glycol 3350 [Miralax] 17 gm PO DAILY PRN 08/21/17 02/13/18 Spironolactone [Aldactone] 12.5 mg PO QAM 08/21/17 02/13/18 Topiramate [Topamax] 50 mg PO BID 08/21/17 02/13/18 Fluticasone Nasal [place] [Flonase 1 spray EA NOSTRIL BID 11/05/17 02/13/18 Nasal [place]] Potassium Chloride ER [K-Dur 10] 10 meq PO DAILY 11/05/17 02/13/18 Albuterol Inhaler [Ventolin Hfa 1 puff INHALATION RT-QID PRN 02/13/18 02/13/18 Inhaler] Fluocinonide 0.05% [Lidex 0.05% 1 gm TOPICAL HS 02/13/18 02/13/18 cream] Irbesartan 300 mg PO DAILY 02/13/18 02/13/18 Previous Rx's Medication Instructions Recorded Furosemide [Lasix] 40 mg PO DAILY #30 tab 12/18/16 hydrALAZINE HCL [Apresoline] 50 mg PO TID #90 tab 04/05/17 Metoprolol Tartrate [Lopressor] 50 mg PO BID #60 tab 08/29/17 amLODIPine [Norvasc] 10 mg PO HS #30 tab 11/09/17 Doxepin [SINEquan] 20 mg PO HS #60 cap 02/21/18 LORazepam [Ativan] 0.5 mg PO BID PRN #60 tab 02/21/18 Melatonin 3 mg PO HS #30 tablet 02/21/18 Mirtazapine [Remeron] 45 mg PO HS #30 tablet 02/21/18 Allergies Allergy/AdvReac Type Severity Reaction Status Date / Time Penicillins Allergy Unknown Verified 02/13/18 16:54 Review of Systems ROS Statement: Those systems with pertinent positive or pertinent negative responses have been documented in the HPI. ROS Other: All systems not noted in ROS Statement are negative. Past Medical History Past Medical History: Asthma, Hypertension Additional Past Medical History / Comment(s): Urinary blockage uses self cath, ganglian cyst in right knee History of Any Multi-Drug Resistant Organisms: None Reported Past Surgical History: Hernia Repair Additional Past Surgical History / Comment(s): hernia repair 03/2017, cyst removal in right knee Past Psychological History: Anxiety, Depression Smoking Status: Never smoker Past Alcohol Use History: None Reported Past Drug Use History: None Reported General Exam - General Exam Comments Initial Comments: This is a well-developed well-nourished awake alert oriented times female Limitations: no limitations General appearance: alert Head exam: Present: atraumatic, normocephalic, normal inspection Eye exam: Present: normal appearance, PERRL, EOMI. Absent: scleral icterus, conjunctival injection, periorbital swelling ENT exam: Present: mucous membranes dry Neck exam: Present: normal inspection. Absent: tenderness, meningismus, lymphadenopathy Respiratory exam: Present: normal lung sounds bilaterally. Absent: respiratory distress, wheezes, rales, rhonchi, stridor Cardiovascular Exam: Present: regular rate, normal rhythm, normal heart sounds. Absent: systolic murmur, diastolic murmur, rubs, gallop, clicks GI/Abdominal exam: Present: soft, normal bowel sounds. Absent: distended, tenderness, guarding, rebound, rigid Extremities exam: Present: normal inspection, full ROM, normal capillary refill. Absent: tenderness, pedal edema, joint swelling, calf tenderness Back exam: Present: normal inspection Neurological exam: Present: alert, oriented X3, CN II-XII intact Psychiatric exam: Present: depressed, flat affect Skin exam: Present: warm, dry, intact, normal color. Absent: rash Course Vital Signs 06/04/18 06/04/18 19:59 21:36 Temperature 98.9 F Pulse Rate 63 66 Respiratory 16 16 Rate Blood Pressure 134/70 137/73 O2 Sat by Pulse 97 97 Oximetry - Reevaluation(s) Reevaluation #1: 06/04/18 21:43 I did review the materials presented from the other facility he does demonstrate hyponatremia with a sodium 123. Medical Decision Making - Medical Decision Making The patient will be admitted for treatment of hyponatremia and evaluation by psychiatry. Disposition Clinical Impression: Hyponatremia syndrome, Failure to thrive, Depression Disposition: ADMITTED IP TO THIS [facility] Condition: Stable Referrals: None,Stated [Primary Care Provider] - 1-2 days
[2018-06-04] MEDS ORDERED: NALOXONE 0.4 MG/ML 1 ML VIAL IV PRN (21:44)
[2018-06-04] MEDS ORDERED: POLYETHYLENE GLYCOL 3350 17 GM POWD.PACK PO PRN (21:48)
[2018-06-04 23:10] LABS: Appearance,Urine Clear (Clear); Bilirubin,Urine Negative (Negative); Blood,Urine Negative (Negative); Color,Urine Light Yellow; Glucose,Urine (UA) Negative (Negative); Ketones,Urine 1+ (Negative); Leukocyte Esterase,Urine Small (Negative); Nitrite,Urine Negative (Negative); Protein,Urine Negative (Negative); RBC,Urine 1 /hpf (0-5); Specific Gravity,Urine 1.003 (1.001-1.035); Squamous Epithelial Cell,Urine <1 /hpf (0-4); Urobilinogen,Urine <2.0 mg/dL (<2.0); WBC,Urine 1 /hpf (0-5)
[2018-06-04 23:26] LABS: Amphetamine Screen,Urine Not Detected (NotDetected); Barbiturate Screen,Urine Not Detected (NotDetected); Benzodiazepines Screen,Urine Not Detected (NotDetected); Cocaine Screen,Urine Not Detected (NotDetected); Methadone Screen, Urine Not Detected (NotDetected); Opiate Screen,Urine Not Detected (NotDetected); Oxycodone Screen, Urine Not Detected (NotDetected); Phencyclidine Screen,Urine Not Detected (NotDetected); Tricyclic Antidepressant,Urine Not Detected (NotDetected); Urn Cannabinoid Scrn Not Detected (NotDetected)
[2018-06-04 23:46] VITALS: BMI 27.3
[2018-06-04 23:50] LABS: Albumin 3.7 g/dL (3.5-5.0); Calcium 9.4 mg/dL (8.4-10.2); Potassium 4.2 mmol/L (3.5-5.1); Total Bilirubin 0.7 mg/dL (0.2-1.3); Total Protein 6.7 g/dL (6.3-8.2)
[2018-06-05] MEDS: SODIUM CHLORIDE 0.9% 1,000 ML IV SCH ×3 (00:10→21:48)
[2018-06-05] MEDS: POTASSIUM CHLORIDE ER 10 MEQ TAB.ER.PRT PO SCH (09:46)
[2018-06-05] MEDS: METOPROLOL TARTRATE 50 MG TAB PO SCH ×2 (09:46→21:44)
[2018-06-05] MEDS: SENNOSIDES-DOCUSATE SODIUM 1 EACH TAB PO SCH (09:47)
[2018-06-05] MEDS: SPIRONOLACTONE 25 MG TAB PO SCH (09:47)
[2018-06-05] MEDS: TOPIRAMATE 25 MG TAB PO SCH ×2 (09:49→21:45)
--- NOTE | 2018-06-05 11:17 | P.CN ---
Psychiatric Consult - . Consult date: 06/05/18 Consult:: 06/05/18 09:20 depression Assessment and Plan Assessment: This is a 76-year-old male with a history depression who was seen at [facility] today he was taken therefore evaluation for depression who is found to be depressed but. He is transferred to this facility for admission. He denies any suicidal thought or ideation he states he is not been doing very well unable to care for himself. He denies any headache dizziness fevers chills nausea vomiting sweats or other symptoms MD Complaint: feels depressed Home Medications Medication Instructions Recorded Confirmed Atorvastatin Calcium [Lipitor] 20 mg PO HS 12/08/16 02/13/18 Sennosides-Docusate Sodium 1 tab PO DAILY 04/21/17 02/13/18 [Senokot-S] Loratadine [Claritin] 10 mg PO DAILY 08/21/17 02/13/18 Montelukast [Singulair] 10 mg PO HS 08/21/17 02/13/18 Polyethylene Glycol 3350 [Miralax] 17 gm PO DAILY PRN 08/21/17 02/13/18 Spironolactone [Aldactone] 12.5 mg PO QAM 08/21/17 02/13/18 Topiramate [Topamax] 50 mg PO BID 08/21/17 02/13/18 Fluticasone Nasal [place] [Flonase 1 spray EA NOSTRIL BID 11/05/17 02/13/18 Nasal [place]] Potassium Chloride ER [K-Dur 10] 10 meq PO DAILY 11/05/17 02/13/18 Albuterol Inhaler [Ventolin Hfa 1 puff INHALATION RT-QID PRN 02/13/18 02/13/18 Inhaler] Fluocinonide 0.05% [Lidex 0.05% 1 gm TOPICAL HS 02/13/18 02/13/18 cream] Irbesartan 300 mg PO DAILY 02/13/18 02/13/18 Previous Rx's Medication Instructions Recorded Furosemide [Lasix] 40 mg PO DAILY #30 tab 12/18/16 hydrALAZINE HCL [Apresoline] 50 mg PO TID #90 tab 04/05/17 Metoprolol Tartrate [Lopressor] 50 mg PO BID #60 tab 08/29/17 amLODIPine [Norvasc] 10 mg PO HS #30 tab 11/09/17 Doxepin [SINEquan] 20 mg PO HS #60 cap 02/21/18 LORazepam [Ativan] 0.5 mg PO BID PRN #60 tab 02/21/18 Melatonin 3 mg PO HS #30 tablet 02/21/18 Mirtazapine [Remeron] 45 mg PO HS #30 tablet 02/21/18 Allergies Allergy/AdvReac Type Severity Reaction Status Date / Time Penicillins Allergy Unknown Verified 02/13/18 16:54 Past Medical History Past Medical History: Asthma, Hypertension Additional Past Medical History / Comment(s): Urinary blockage uses self cath, ganglian cyst in right knee History of Any Multi-Drug Resistant Organisms: None Reported Past Surgical History: Hernia Repair Additional Past Surgical History / Comment(s): hernia repair 03/2017, cyst removal in right knee Past Psychological History: Anxiety, Depression Smoking Status: Never smoker Past Alcohol Use History: None Reported Past Drug Use History: None Reported Mental Status Examination - General Appearance: [well groomed, casual, appears stated age Speech/Language: [spontaneous, slow,, soft] Attitude/Behavior: [cooperative, Mood: [depressed, irritable, angry Affect: [full range Orientation: [time, person, place situation] Thought Content: [wnl Risk Factors: [He is not suicidal (ideations, plan), and/or Homicidal (ideations , plan), other] Perception: [wnl Thought Processes: [goal-oriented Concentration/Attention Span: [wnl [Per observation and interview with the patient] Recent Memory: [wnl, ] [ 3 out of 3 in 3 minutes] Remote Memory: [wnl] [past events, as related history] Intelligence: [ above average] [based on history, based on vocabulary, syntax, grammar, and content] Judgement: [good] [per patient's behavior/history of present illness] Insight: [good] [understanding severity of illness/history of present illness] Psychiatric evaluation diagnoses: Chronic history of depression and has a outpatient Dr. Bowers and should make an appointment for follow-up. He is not suicidal nor homicidal thus does not need a sitter. Psychiatric recommendations: Outpatient appointment with Dr. Bowers who is his psychiatrist and I just conversed with Dr. Bowers and he'll make an appointment available. Thank you for the consult Geovani Maurer D.O. PhD (1) Depression Current Visit: Yes Status: Acute Code(s): F32.9 - MAJOR DEPRESSIVE DISORDER , SINGLE EPISODE, UNSPECIFIED SNOMED Code(s): 40269618 Time with Patient: Less than 30
[2018-06-05] MEDS ORDERED: LORazepam 0.5 MG TAB PO PRN (11:33)
[2018-06-05] MEDS ORDERED: ACETAMINOPHEN TAB 325 MG TAB PO PRN (11:44)
--- NOTE | 2018-06-05 14:15 | HP ---
HISTORY AND PHYSICAL DATA: He is a FULL CODE. His height is 5 feet 8 inches, weight 71.5 kg and, BSA 1.85 m2, BMI is 24 kg/m2. Allergy to PENICILLIN. Patient seen and evaluated today [id number] and also discussed with him the current problem. CHIEF COMPLAINT: Patient was having severe major depression and he felt that he could not take care of himself anymore and he was not eating and he was ignoring, neglecting himself and his hygienic measure as well and he felt that he needs to be admitted to the hospital because of his severe depression. HISTORY OF PRESENT ILLNESS: Mr. Tejeda who is a 77-year-old, has previous significant episodic admission to the psychiatric floor and mental health with the history of suicidal and slashing his wrists. And also history of admission recurrent to the mental health because of the bipolar and the depression. Patient went to the [facility] emergency room and at that time found that he has hyponatremia. However, patient needed a psychiatric evaluation, especially he was not taking his medication and he admitted to that. They found hyponatremia which is chronic with the patient and when he stop eating, added to his psychotic medication causing him to have chronic hyponatremia with low sold secondary to the psychiatric medication, which he has been back and forth for at least 3 years. 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 Patient subsequently in the [facility] ER did talk to me and with the deficiency in [facility] of the psychiatric service and none of the Psychiatry goes to [facility], patient transferred to the [place] ER for evaluation and treatment. Subsequently, in the ER has been seen by Dr. Tucker and he admitted the patient to the hospital as the patient requesting to be admitted to the group home and for further care as he stated that he could not take care of himself. Meanwhile, patient was admitted to [facility] recently, 2 weeks ago and he did not stay there and discharged and he went back to his apartment and supposedly to see me after the discharge. He was not compliant and he was planning to see me later in the office. He did not see his psychiatrist as well, . PAST MEDICAL HISTORY: Patient had history of hyponatremia. He has a history of a major depression and bipolar. He has history of chronic kidney disease stage III. He has a history of benign prostatic hypertrophy. He has a history of asthma and occasional exacerbation. He has a history of hypertension and hypertensive heart disease and intermittently dehydration. On the reviewing history also of lymphedema of the lower extremities, which was treated with the lymphedema specialist at [facility]. On reviewing allergy to PENICILLIN. He has a family history, his daughters do not communicate with him. He has apparently 2 daughters. He and he his job in the past. He was low or retired. REVIEW OF SYSTEM: Neuropsychiatry is the major problem with when he is depressed he neglects everything else and neglect himself, neglect the care for himself and he is living alone with the underlying depression and the cardiovascular, he is stable and no palpitation. No chest pain. RESPIRATORY: He has history of underlying asthma, but he has not wheezing and no complaining no cough, no expectoration. The abdomen is and GI is no diarrhea or constipation. : No dysuria. However, he had a self catheterization with the urinary retention and we had before problem with finding the catheter that similar catheter that he used for straight catheterization for himself. MUSCULOSKELETAL: He was ambulatory, but he stated that he is weak at this time. No neurological deficit. No history of stroke in the past. PHYSICAL EXAMINATION: On admission to the ER, his temperature was 98.4, his heart rate 55 per minute and respiratory rate 16, blood pressure 120/56, and mean 77. He has a saturation was 99. At the time seen today, his temperature 97.6 and pulse 66 and respiratory rate 17. Blood pressure 135/63, and mean arterial pressure was 87, pulse ox in room air 95. On the examination, he is conscious, alert. He is oriented. He stated that he was severely depressed and that is why he came to the hospital because he could not take care of himself, because of his severe depression. On the examination. Pupils equal, reactive. Ear, he has hearing aides bilaterally with neurosensory deficit. OROPHARYNX: Natural teeth and neck was supple. No JVD. No thyromegaly. No lymphadenopathy. Trachea midline. Chest was clear to auscultation and percussion and no wheezes, no rhonchi. HEART: PMI in the fifth intercostal space. Normal S1, S2. No gallop. The abdomen is soft, positive bowel sounds and no tenderness in the four quadrants. He had previous history of surgery for hernia repair by several surgeon Dr. Gan and Dr. Hendrickson and he had a hernia repair as well by Dr. Hendrickson in the left inguinal hernia. The extremities, he has a history of lymphedema, which is not present at this time and he has supposedly that wearing the compression stockings. He has good pulses in the dorsalis pedis and posterior tibial with good perfusion of the lower extremities and he had a mild degenerative arthritis of the spine as well as the joints. Neurological examination grossly intact. Psychiatric examination is major depression with the bipolar disorder. We consulted the psychiatry and to see the patient and evaluate and possible admission to the psychiatric floor. LABORATORY: Indicating at the time of the admission is sodium 129, and his potassium 4.2, chloride was 95, and carbon dioxide is 20, and his BUN of 22, creatinine 1.66 with the underlying chronic kidney disease stage III, and his estimated glomerular filtration rate for non- is 39. His glucose 144, which is not fasting. His calcium is 9.4 and total bilirubin 0.7, AST 27, ALT of 30 and alkaline phosphatase 108 and total protein 6.7, and albumin 3.7. On examination of the urine, he had 1+ ketone with a small is trace and drug screen was negative and white cells was 1 with nondiagnostic for UTI. ASSESSMENT: 1. Severe depression, major depression, with the underlying bipolar disorder. 2. Neglecting his care for himself and he is currently seeking placement in group home. 3. Underlying hyponatremia which is chronic with mild acute exacerbation associated with dehydration and possible to his underlying medication drug effect. PLAN: Patient admitted to the hospital and plan for consultation with the Psychiatry and the New note. As the patient started on IV fluids for the plan and Psychiatry, Dr. Geovani Maurer did see the patient and he stated in his note that patient in regard of psychiatry evaluation and diagnosis, Dr. Maurer felt that the patient has chronic history of depression and has outpatient Dr. Bowers and should make an appointment for followup with Dr. Bowers and he is not suicidal nor homicidal, thus does not need a sitter. And the recommendation that he see Dr. Bowers as outpatient, who is a psychiatrist and he talked to Dr. Bowers and he will make appointment. However, accordingly he did not spill out completely that he does not need to be admitted in spite of patient complained that he has severe depression and he is neglecting himself due to that depression and resulted in admission to the hospital. With this information, we will be continuing hydration and monitoring the sodium and meanwhile we will continue his current medication and consideration for the mattress spring encaser as well as discharge planning for the underlying placement or group home to care for the patient and continue follow up with Dr. Bowers as outpatient as recommended by the psychiatrist, Dr. Maurer. ANITAL / LUZ ELENA: [id number] /
[2018-06-05] MEDS: ALBUTEROL NEBULIZED 2.5 MG/3 ML INHALATION PRN ×2 (15:09→19:14)
[2018-06-05] MEDS ORDERED: ACETAMINOPHEN 1300 MG PO SCH (16:00)
[2018-06-05] MEDS ORDERED: MELATONIN 3 MG TABLET PO SCH (21:00)
[2018-06-05] MEDS: amLODIPine 10 MG TAB PO SCH (21:43)
[2018-06-05] MEDS: MONTELUKAST 10 MG TAB PO SCH (21:44)
[2018-06-05] MEDS: MIRTAZAPINE 45 MG TABLET PO SCH (21:44)
[2018-06-05] MEDS: ATORVASTATIN 20 MG TAB PO SCH (21:44)
[2018-06-05] MEDS: busPIRone HCl 5 MG TAB PO SCH (21:45)
[2018-06-05] MEDS: MELATONIN 3 MG TABLET PO SCH (21:46)
[2018-06-05] MEDS: FLUTICASONE 50MCG/SPRAY NASAL 16GM EA NOSTRIL SCH (21:48)
[2018-06-05] MEDS: traZODone HCL 100 MG TAB PO SCH (23:57)
[2018-06-06 07:55] LABS: Calcium 8.9 mg/dL (8.4-10.2)
[2018-06-06 07:59] LABS: Potassium 4.2 mmol/L (3.5-5.1)
[2018-06-06 08:09] LABS: Basophils % (A) 0 %; Eosinophils # (A) 0.2 k/uL (0-0.7); Eosinophils % (A) 3 %; HCT 36.3 % (39.0-53.0); HGB 12.2 gm/dL (13.0-17.5); Lymphocytes # (A) 1.5 k/uL (1.0-4.8); Lymphocytes % (A) 28 %; MCH 32.9 pg (25.0-35.0); MCHC 33.7 g/dL (31.0-37.0); MCV 97.6 fL (80.0-100.0); Mean Platelet Volume 10.5; Monocytes # (A) 0.6 k/uL (0-1.0); Monocytes % (A) 11 %; Neutrophils # (A) 2.9 k/uL (1.3-7.7); Neutrophils % (A) 55 %; Platelet Count 178 k/uL (150-450); RBC 3.72 m/uL (4.30-5.90); RDW 12.8 % (11.5-15.5); WBC 5.2 k/uL (3.8-10.6)
[2018-06-06] MEDS: TOPIRAMATE 25 MG TAB PO SCH ×2 (08:19→21:00)
[2018-06-06] MEDS: busPIRone HCl 5 MG TAB PO SCH ×2 (08:20→20:57)
[2018-06-06] MEDS: LOSARTAN 50 MG TAB PO SCH (08:20)
[2018-06-06] MEDS: POTASSIUM CHLORIDE ER 10 MEQ TAB.ER.PRT PO SCH (08:20)
[2018-06-06] MEDS: METOPROLOL TARTRATE 50 MG TAB PO SCH ×2 (08:20→20:58)
[2018-06-06] MEDS: SPIRONOLACTONE 25 MG TAB PO SCH (08:20)
[2018-06-06] MEDS: FLUoxetine HCL 20 MG CAP PO SCH (08:20)
[2018-06-06] MEDS: SENNOSIDES-DOCUSATE SODIUM 1 EACH TAB PO SCH (08:20)
[2018-06-06] MEDS: FUROSEMIDE 20 MG TAB PO SCH (08:20)
[2018-06-06] MEDS: LORATADINE 10 MG TAB PO SCH (08:20)
[2018-06-06] MEDS: SODIUM CHLORIDE 0.9% 1,000 ML IV SCH ×2 (08:21→09:30)
--- NOTE | 2018-06-06 09:05 | P.PN ---
Subjective Progress Note Date: 06/06/18 Principal diagnosis: Hyponatremia Major depression Neglecting himself with the stop of medication and eating secondary to the major depression. Dehydration corrected and sodium 139 normal. Bipolar disorder. Dictation on progress note by Dr. Hortencia Rdz FACP. Patient seen today evaluated and also discussed with the patient case coordinator Erica. Patient electrolyte is normalized with the sodium 139, Exam: Head was normocephalic and atraumatic, oropharynx no change in normal and he is able to eat. Hearing with bilateral hearing aid with the neurosensory loss. Chest is clear no wheezes no rhonchi's. Heart regular sinus rhythm compensated. Abdomen soft positive bowel sounds no nausea no vomiting. Extremities no edema positive pulses. Neurologically stable. Psychiatry consultation with Dr. Maurer the psychiatrist, he indicated that the patient to be treated as outpatient and apparently he does not agree with admission to the psych floor because of his major depression, which is provoked him to the hospital in the first place. He indicated that patient can be treated as outpatient. Assessment and plan: The laboratory assessed today normal white count normal sodium, patient feel very good and he has also rehabilitation. The plan they are discussing it now with his insurance and [facility] for acceptance tests patient could not take care of himself or his ADL. Patient planning for transfer to [facility] and rehab. Discussed with the cyber intel planner ERICA Objective - Vital Signs Vital signs: Vital Signs Temp 97.8 F 06/06/18 05:00 Pulse 53 L 06/06/18 05:00 Resp 16 06/06/18 05:00 BP 119/72 06/06/18 05:00 Pulse Ox 97 06/06/18 05:00 Intake & Output 06/05/18 06/06/18 06/06/18 18:59 06:59 18:59 Weight 71.5 kg Other: Voiding Method Self-Catheterization Self-Catheterization # Voids 2 1 - Labs CBC & Chem 7: 06/06/18 07:14 06/06/18 07:14 Labs: Abnormal Lab Results - Last 24 Hours (Table) 06/06/18 06/06/18 Range/Units 07:14 07:14 RBC 3.72 L (4.30-5.90) m/uL Hgb 12.2 L (13.0-17.5) gm/dL Hct 36.3 L (39.0-53.0) % Chloride 113 H (98-107) mmol/L Carbon Dioxide 20 L (22-30) mmol/L Creatinine 1.51 H (0.66-1.25) mg/dL Glucose 101 H (74-99) mg/dL
[2018-06-06] MEDS: FLUTICASONE 50MCG/SPRAY NASAL 16GM EA NOSTRIL SCH ×2 (14:02→21:02)
[2018-06-06] MEDS: ATORVASTATIN 20 MG TAB PO SCH (20:57)
[2018-06-06] MEDS: amLODIPine 10 MG TAB PO SCH (20:57)
[2018-06-06] MEDS: MELATONIN 3 MG TABLET PO SCH (20:58)
[2018-06-06] MEDS: MONTELUKAST 10 MG TAB PO SCH (21:02)
[2018-06-06] MEDS: MIRTAZAPINE 45 MG TABLET PO SCH (21:02)
[2018-06-06] MEDS: traZODone HCL 100 MG TAB PO SCH (21:04)
[2018-06-07] MEDS: LOSARTAN 50 MG TAB PO SCH (08:10)
[2018-06-07] MEDS: SENNOSIDES-DOCUSATE SODIUM 1 EACH TAB PO SCH (08:10)
[2018-06-07] MEDS: SODIUM CHLORIDE 0.9% 1,000 ML IV SCH (08:10)
[2018-06-07] MEDS: FUROSEMIDE 20 MG TAB PO SCH (08:10)
[2018-06-07] MEDS: FLUoxetine HCL 20 MG CAP PO SCH (08:10)
[2018-06-07] MEDS: POTASSIUM CHLORIDE ER 10 MEQ TAB.ER.PRT PO SCH (08:10)
[2018-06-07] MEDS: LORATADINE 10 MG TAB PO SCH (08:10)
[2018-06-07] MEDS: METOPROLOL TARTRATE 50 MG TAB PO SCH (08:10)
[2018-06-07] MEDS: FLUTICASONE 50MCG/SPRAY NASAL 16GM EA NOSTRIL SCH (08:10)
[2018-06-07] MEDS: TOPIRAMATE 25 MG TAB PO SCH (08:11)
[2018-06-07] MEDS: SPIRONOLACTONE 25 MG TAB PO SCH (08:12)
[2018-06-07] MEDS: busPIRone HCl 5 MG TAB PO SCH (08:18)
--- NOTE | 2018-06-07 09:08 | P.DS ---
Providers Date of admission: 06/04/18 21:44 Expected date of discharge: 06/07/18 Attending physician: Salvador Vides Consults: 06/04/18 21:46 Consult Physician Routine Consulting Provider: Geovani Maurer Consult Reason/Comments: Depression Do you want consulting provider notified?: Yes, Notify in am Primary care physician: Stated None There is a dictation by Dr. COLIN M[facility] discharge note date of service . Diagnoses on discharge: #1 hyponatremia resolved/corrected sodium 139. #2 major depression seen by the psychiatrist Dr. Maurer recommended follow-up as outpatient with Dr. Bowers. #3 bipolar disorder. #4 hypertension controlled. #5 chronic kidney disease stage III. #6 lymphedema currently resolved but recurrent without wearing her compression stocking. #7 venous insufficiency. #8 failure to thrive alone at home, inability to take care of himself and has ADL daily. #9 dehydration resolved. 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 Hospital presentation: Patient initially presented to the emergency room at [facility], on table to take care of himself with history of hypo-natremia. Due to no psychiatrist in [facility] patient transferred to the ER at [facility]. Hospital course: Patient hydrated with the IV fluid, and restarted on his psychiatric medication. And consultation with the psychiatry Dr. Maurer and he recommended outpatient treatment. Patient verbalizes that he could not take care of himself with the depression that mainly brought him to the hospital. Patient is eating and drinking IV will be discontinued and the arrangement for tomorrow [facility] and rehab. And an with the rehabilitation as well as continuing medication patient will do well, he need to continue seeing his psychiatry Dr. Bowers. Other secondary medical problem was stable. Plan: Discharge today, stable general condition. Vital sign normal stable, electrolytes is normal with a normalized the sodium, no white count elevation. On exam: Conscious alert oriented 3. HEENT was negative he had natural teeth. Neck was supple no JVD no thyromegaly no lymphadenopathy trachea midline. Chest mild increase in anteroposterior diameter no wheezes no rhonchi's but he is receiving the nebulizers. The heart regular sinus rhythm compensated. Abdomen soft positive bowel sounds no organ enlargement currently no nausea no vomiting. Extremities no edema positive pulses however patient should have his compression stocking with a history of lymphedema and venous insufficiency. Neurologically no lateralizing sign and stable. Psychiatry patient seen by Dr. Maurer psychiatrist in the hospital, he recommended outpatient treatment follow-up with Dr. Bowers. Continue current medication for underlying major depression and bipolar. Patient discharged to tomorrow [facility] and rehab today Patient Condition at Discharge: Stable Plan - Discharge Summary New Discharge Prescriptions: New Albuterol Nebulized [Ventolin Nebulized] 2.5 mg INHALATION RT-QID PRN nebu PRN Reason: Shortness Of Breath Continue Atorvastatin Calcium [Lipitor] 20 mg PO HS hydrALAZINE HCL [Apresoline] 50 mg PO TID #90 tab Sennosides-Docusate Sodium [Senokot-S] 1 tab PO DAILY Loratadine [Claritin] 10 mg PO DAILY Polyethylene Glycol 3350 [Miralax] 17 gm PO DAILY PRN PRN Reason: Constipation Montelukast [Singulair] 10 mg PO HS Topiramate [Topamax] 50 mg PO BID Spironolactone [Aldactone] 12.5 mg PO QAM Metoprolol Tartrate [Lopressor] 50 mg PO BID #60 tab Fluticasone Nasal [place] [Flonase Nasal [place]] 1 spray EA NOSTRIL BID amLODIPine [Norvasc] 10 mg PO HS #30 tab Irbesartan 300 mg PO DAILY Acetaminophen [Tylenol 8 Hour] 1,300 mg PO TID busPIRone HCL 7.5 mg PO BID FLUoxetine HCL [PROzac] 20 mg PO DAILY hydrOXYzine HCL [Atarax] 10 mg PO HS Melatonin 6 mg PO HS Ondansetron [Zofran] 4 mg PO Q8H PRN PRN Reason: Nausea traZODone HCL [Desyrel] 100 mg PO HS Furosemide [Lasix] 20 mg PO DAILY Discontinued LORazepam [Ativan] 0.5 mg PO BID PRN #60 tab PRN Reason: Anxiety Discharge Medication List Atorvastatin Calcium [Lipitor] 20 mg PO HS 12/08/16 [History] hydrALAZINE HCL [Apresoline] 50 mg PO TID #90 tab 04/05/17 [Rx] Sennosides-Docusate Sodium [Senokot-S] 1 tab PO DAILY 04/21/17 [History] Loratadine [Claritin] 10 mg PO DAILY 08/21/17 [History] Montelukast [Singulair] 10 mg PO HS 08/21/17 [History] Polyethylene Glycol 3350 [Miralax] 17 gm PO DAILY PRN 08/21/17 [History] Spironolactone [Aldactone] 12.5 mg PO QAM 08/21/17 [History] Topiramate [Topamax] 50 mg PO BID 08/21/17 [History] Metoprolol Tartrate [Lopressor] 50 mg PO BID #60 tab 08/29/17 [Rx] Fluticasone Nasal [place] [Flonase Nasal [place]] 1 spray EA NOSTRIL BID 11/05/17 [ History] amLODIPine [Norvasc] 10 mg PO HS #30 tab 11/09/17 [Rx] Irbesartan 300 mg PO DAILY 02/13/18 [History] Acetaminophen [Tylenol 8 Hour] 1,300 mg PO TID 06/05/18 [History] FLUoxetine HCL [PROzac] 20 mg PO DAILY 06/05/18 [History] Furosemide [Lasix] 20 mg PO DAILY 06/05/18 [History] Melatonin 6 mg PO HS 06/05/18 [History] Ondansetron [Zofran] 4 mg PO Q8H PRN 06/05/18 [History] busPIRone HCL 7.5 mg PO BID 06/05/18 [History] hydrOXYzine HCL [Atarax] 10 mg PO HS 06/05/18 [History] traZODone HCL [Desyrel] 100 mg PO HS 06/05/18 [History] Albuterol Nebulized [Ventolin Nebulized] 2.5 mg INHALATION RT-QID PRN nebu 04/16 [Rx] Follow up Appointment(s)/Referral(s): None,Stated [Primary Care Provider] - 1-2 days
[2018-06-07 12:10] VITALS: BP 122/71; PULSE 59; RESP 17; TEMP 97.9
== END 2018-06-07 16:55 | disposition home health service (06) | DRG 641 ==
LOC: EC 19:57 → 3NMEDONC 21:44
PROVIDERS: ADMIT Internal Medicine; ATTEND Internal Medicine
DX: E87.1 Hypo-osmolality and hyponatremia (principal); F32.2 Major depressive disorder, single episode, severe without psychotic features; E86.0 Dehydration; J44.9 Chronic obstructive pulmonary disease, unspecified; I13.10 Hypertensive heart and chronic kidney disease without heart failure, with stage 1 through stage 4 chronic kidney disease, or unspecified chronic kidney disease; N18.3 Chronic kidney disease, stage 3 (moderate); R62.7 Adult failure to thrive; N40.1 Benign prostatic hyperplasia with lower urinary tract symptoms; R33.8 Other retention of urine; F41.9 Anxiety disorder, unspecified; I89.0 Lymphedema, not elsewhere classified; I87.2 Venous insufficiency (chronic) (peripheral); M47.9 Spondylosis, unspecified; M19.91 Primary osteoarthritis, unspecified site; T50.906A Underdosing of unspecified drugs, medicaments and biological substances, initial encounter; Z91.128 Patient's intentional underdosing of medication regimen for other reason; Z79.899 Other long term (current) drug therapy; Z88.0 Allergy status to penicillin
CPT/HCPCS: 80048; 80053; 80306; 81001; 85025; 94640; 99285

== ENCOUNTER 2018-06-21 18:12 | Inpatient (IN) | payer MEDICARE ==
[2018-06-21] MEDS ORDERED: SODIUM CHLORIDE 0.9% 1,000 ML IV ONE ×2 (18:36→20:57)
--- NOTE | 2018-06-21 18:42 | ED ---
General Adult HPI - General Chief complaint: Altered Mental Status Stated complaint: altered mental status Source: EMS Mode of arrival: EMS Limitations: altered mental status - History of Present Illness Initial comments: Dictation was produced using [employer] dictation software. please excuse any grammatical, word or spelling errors. Chief Complaint: 77-year-old male with past medical history of asthma and hypertension presents with altered mental status. History of Present Illness: According to EMS patient's neighbors heard a loud thud that occurred approximately 2-3 hours prior to arrival. The also realizes that they did not hear any more sounds. Did not come his door and he did not answer his door. Cardiac department was called and patient was found to be writhing around on the floor of his home. EMS did not notice any blood or abnormalities second concussive symptoms in the household. They report that he was having stable vital signs however is not speaking. He would respond to stimulation however. Patient is uncooperative and does not want to speak. Unable to obtain ROS secondary to mental status - Related Data Home Medications Medication Instructions Recorded Confirmed Atorvastatin Calcium [Lipitor] 20 mg PO HS 12/08/16 06/21/18 Sennosides-Docusate Sodium 1 tab PO DAILY 04/21/17 06/21/18 [Senokot-S] Loratadine [Claritin] 10 mg PO DAILY 08/21/17 06/21/18 Montelukast [Singulair] 10 mg PO HS 08/21/17 06/21/18 Polyethylene Glycol 3350 [Miralax] 17 gm PO DAILY PRN 08/21/17 06/21/18 Spironolactone [Aldactone] 12.5 mg PO QAM 08/21/17 06/21/18 Topiramate [Topamax] 50 mg PO BID 08/21/17 06/21/18 Fluticasone Nasal [place] [Flonase 1 spray EA NOSTRIL BID 11/05/17 06/21/18 Nasal [place]] Irbesartan 300 mg PO DAILY 02/13/18 06/21/18 Acetaminophen [Tylenol 8 Hour] 1,300 mg PO TID 06/05/18 06/21/18 FLUoxetine HCL [PROzac] 20 mg PO DAILY 06/05/18 06/21/18 Furosemide [Lasix] 20 mg PO DAILY 06/05/18 06/21/18 Melatonin 6 mg PO HS 06/05/18 06/21/18 Ondansetron [Zofran] 4 mg PO Q8H PRN 06/05/18 06/21/18 busPIRone HCL 7.5 mg PO BID 06/05/18 06/21/18 hydrOXYzine HCL [Atarax] 10 mg PO HS 06/05/18 06/21/18 traZODone HCL [Desyrel] 100 mg PO HS 06/05/18 06/21/18 Previous Rx's Medication Instructions Recorded hydrALAZINE HCL [Apresoline] 50 mg PO TID #90 tab 04/05/17 Metoprolol Tartrate [Lopressor] 50 mg PO BID #60 tab 08/29/17 amLODIPine [Norvasc] 10 mg PO HS #30 tab 11/09/17 Albuterol Nebulized [Ventolin 2.5 mg INHALATION RT-QID PRN nebu 06/07/18 Nebulized] Allergies Allergy/AdvReac Type Severity Reaction Status Date / Time Penicillins Allergy Unknown Verified 06/21/18 19:18 Review of Systems ROS Statement: Those systems with pertinent positive or pertinent negative responses have been documented in the HPI. ROS Other: All systems not noted in ROS Statement are negative. Past Medical History Past Medical History: Asthma, Hypertension Additional Past Medical History / Comment(s): Urinary blockage uses self cath, ganglian cyst in right knee History of Any Multi-Drug Resistant Organisms: None Reported Past Surgical History: Hernia Repair Additional Past Surgical History / Comment(s): hernia repair 03/2017, cyst removal in right knee Past Psychological History: Anxiety, Depression Smoking Status: Never smoker Past Alcohol Use History: None Reported Past Drug Use History: None Reported - Past Family History Father Family Medical History: Hypertension Mother Family Medical History: Hypertension General Exam - General Exam Comments Initial Comments: PHYSICAL EXAM: General Impression: Alert, no acute distress, uncooperative HEENT: Normocephalic atraumatic, extra-ocular movements intact, pupils equal and reactive to light bilaterally, dry mucous membranes, blood around the mouth Cardiovascular: Heart regular rate and rhythm, S1&S2 audible, no murmurs, rubs or gallops Chest: Lungs clear to auscultation bilaterally, no rhonchi, no wheeze, no rales Abdomen: Bowel sounds present, abdomen soft, non-tender, non-distended, no organomegaly Musculoskeletal: Pulses present and equal in all extremities, no peripheral edema Motor: Moves all extremities grossly Neurological: Responds to noxious stimuli Skin: Intact with no visualized rashes Limitations: altered mental status Course Vital Signs 06/21/18 06/21/18 06/21/18 18:20 18:30 18:45 Temperature 98.0 F Pulse Rate 79 75 93 Pulse Rate [ Pulse Oximetery ] Respiratory 24 15 32 H Rate Blood Pressure 130/81 130/81 130/81 Blood Pressure [Right Arm Supine] O2 Sat by Pulse 100 99 Oximetry 06/21/18 06/21/18 06/21/18 19:00 19:15 19:30 Temperature Pulse Rate 78 77 Pulse Rate [ Pulse Oximetery ] Respiratory 17 21 20 Rate Blood Pressure 130/81 130/81 130/81 Blood Pressure [Right Arm Supine] O2 Sat by Pulse Oximetry 06/21/18 06/21/18 06/21/18 19:45 20:00 20:04 Temperature Pulse Rate 69 78 Pulse Rate [ Pulse Oximetery ] Respiratory 9 L 18 Rate Blood Pressure 130/81 130/81 93/68 Blood Pressure [Right Arm Supine] O2 Sat by Pulse 100 Oximetry 06/21/18 06/21/18 06/21/18 20:15 20:45 21:00 Temperature Pulse Rate 93 83 73 Pulse Rate [ Pulse Oximetery ] Respiratory 17 21 21 Rate Blood Pressure 93/68 101/85 135/91 Blood Pressure [Right Arm Supine] O2 Sat by Pulse 100 100 Oximetry 06/21/18 06/21/18 06/21/18 21:15 21:30 21:45 Temperature Pulse Rate 71 79 73 Pulse Rate [ Pulse Oximetery ] Respiratory 20 21 18 Rate Blood Pressure 139/93 148/91 138/69 Blood Pressure [Right Arm Supine] O2 Sat by Pulse 100 100 100 Oximetry 06/21/18 06/21/18 06/21/18 21:59 22:00 22:15 Temperature 97.7 F Pulse Rate 75 78 Pulse Rate [ 75 Pulse Oximetery ] Respiratory 20 17 12 Rate Blood Pressure 123/84 117/72 Blood Pressure 117/72 [Right Arm Supine] O2 Sat by Pulse 100 100 100 Oximetry 06/21/18 06/21/18 06/21/18 22:30 22:45 22:59 Temperature Pulse Rate 75 76 71 Pulse Rate [ Pulse Oximetery ] Respiratory 18 17 16 Rate Blood Pressure 128/96 128/88 126/82 Blood Pressure [Right Arm Supine] O2 Sat by Pulse 99 100 98 Oximetry 06/21/18 06/21/18 06/21/18 23:00 23:15 23:30 Temperature Pulse Rate 70 68 69 Pulse Rate [ Pulse Oximetery ] Respiratory 18 14 18 Rate Blood Pressure 126/82 121/85 116/77 Blood Pressure [Right Arm Supine] O2 Sat by Pulse 100 100 100 Oximetry 06/21/18 06/22/18 06/22/18 23:45 00:00 00:15 Temperature Pulse Rate 67 69 70 Pulse Rate [ Pulse Oximetery ] Respiratory 18 14 18 Rate Blood Pressure 105/77 103/71 103/66 Blood Pressure [Right Arm Supine] O2 Sat by Pulse 100 100 100 Oximetry 06/22/18 06/22/18 06/22/18 00:30 00:45 01:35 Temperature 98 F Pulse Rate 71 90 78 Pulse Rate [ Pulse Oximetery ] Respiratory 11 L 21 18 Rate Blood Pressure 107/57 110/78 123/76 Blood Pressure [Right Arm Supine] O2 Sat by Pulse 100 100 100 Oximetry 06/22/18 01:49 Temperature 98 F Pulse Rate Pulse Rate [ Pulse Oximetery ] Respiratory Rate Blood Pressure Blood Pressure [Right Arm Supine] O2 Sat by Pulse Oximetry Medical Decision Making - Medical Decision Making ED course: 77-year-old male with chief complaint of altered mental status. Vital signs upon arrival are within acceptable limits. Chart review shows that patient was admitted to the hospital earlier this month for severe major depression. Chart review shows that patient was admitted for failure to thrive and neglect. He was admitted.Patient is uncooperative however he is protecting his airway and breathing spontaneously. Patient is not in any respiratory distress. Laboratory evaluation obtained. Leukocytosis 16.6. Platelets of 140. Coag panel is unremarkable. Blood gas shows pH of 7.36, sodium 113. There is positive Acidosis. Creatinine of 1.45. Glucose 113. Creatinine kinase of 2000. Troponin 0.180. Given patient's mental status and critical low sodium patient given 100 mils of 3% hypertonic saline. Discussed patient case with intensive care unit physician who will be willing to accept admission. Patient to be admitted to [facility]. Computed tomography scan of the head and C-spine was obtained showing no acute processes. Chest x-ray shows no acute processes. EKG interpretation: Ventricular rate 71, sinus rhythm, QS 84, QTC 471. No FL prolongation, no QTC prolongation, no ST or T-wave changes noted. Patient was discussed with mobile crane operator and admitting physician. At this point was unable to discussed patient case with nephrology. Patient given hypertonic saline. Patient is signed out to oncoming physician for follow-up of sodium levels. There is ICU hold for this patient. He will be under the care of oncoming ER doc. - Lab Data Result diagrams: 06/29/18 08:00 06/28/18 05:26 Lab Results 06/21/18 06/21/18 06/21/18 Range/Units 19:00 19:00 19:00 WBC 16.6 H (3.8-10.6) k/uL RBC 4.24 L (4.30-5.90) m/uL Hgb 14.0 (13.0-17.5) gm/dL Hct 39.9 (39.0-53.0) % MCV 93.9 (80.0-100.0) fL MCH 33.0 (25.0-35.0) pg MCHC 35.2 (31.0-37.0) g/dL RDW 12.7 (11.5-15.5) % Plt Count 148 L (150-450) k/uL Neutrophils % 91 % Lymphocytes % 4 % Monocytes % 4 % Eosinophils % 0 % Basophils % 0 % Neutrophils # 15.1 H (1.3-7.7) k/uL Lymphocytes # 0.7 L (1.0-4.8) k/uL Monocytes # 0.7 (0-1.0) k/uL Eosinophils # 0.0 (0-0.7) k/uL Basophils # 0.0 (0-0.2) k/uL Manual Slide Review Performed PT (9.0-12.0) sec INR (<1.2) APTT (22.0-30.0) sec VBG pH (7.31-7.41) VBG pCO2 (37-51) mmHg VBG HCO3 (24-28) mmol/L Sodium 113 L* (137-145) mmol/L Potassium 4.7 (3.5-5.1) mmol/L Chloride 76 L (98-107) mmol/L Carbon Dioxide 14 L (22-30) mmol/L Anion Gap 23 mmol/L BUN 16 (9-20) mg/dL Creatinine 1.45 H (0.66-1.25) mg/dL Est GFR (CKD-EPI)AfAm 53 (>60 ml/min/1.73 sqM) Est GFR (CKD-EPI)NonAf 46 (>60 ml/min/1.73 sqM) Glucose 113 H (74-99) mg/dL Plasma Lactic Acid French (0.7-2.0) mmol/L Calcium 9.1 (8.4-10.2) mg/dL Total Bilirubin 1.4 H (0.2-1.3) mg/dL AST 74 H (17-59) U/L ALT 27 (21-72) U/L Alkaline Phosphatase 86 (38-126) U/L Ammonia (<30) umol/L Total Creatine Kinase 2254 H* (55-170) U/L CK-MB (CK-2) 11.2 H (0.0-2.4) ng/mL CK-MB (CK-2) Rel Index Troponin I 0.180 H* (0.000-0.034) ng/mL Total Protein 7.5 (6.3-8.2) g/dL Albumin 4.2 (3.5-5.0) g/dL 06/21/18 06/21/18 06/21/18 Range/Units 19:00 20:20 20:20 WBC (3.8-10.6) k/uL RBC (4.30-5.90) m/uL Hgb (13.0-17.5) gm/dL Hct (39.0-53.0) % MCV (80.0-100.0) fL MCH (25.0-35.0) pg MCHC (31.0-37.0) g/dL RDW (11.5-15.5) % Plt Count (150-450) k/uL Neutrophils % % Lymphocytes % % Monocytes % % Eosinophils % % Basophils % % Neutrophils # (1.3-7.7) k/uL Lymphocytes # (1.0-4.8) k/uL Monocytes # (0-1.0) k/uL Eosinophils # (0-0.7) k/uL Basophils # (0-0.2) k/uL Manual Slide Review PT 11.0 (9.0-12.0) sec INR 1.1 (<1.2) APTT 18.5 L (22.0-30.0) sec VBG pH 7.36 (7.31-7.41) VBG pCO2 32 L (37-51) mmHg VBG HCO3 17 L (24-28) mmol/L Sodium (137-145) mmol/L Potassium (3.5-5.1) mmol/L Chloride (98-107) mmol/L Carbon Dioxide (22-30) mmol/L Anion Gap mmol/L BUN (9-20) mg/dL Creatinine (0.66-1.25) mg/dL Est GFR (CKD-EPI)AfAm (>60 ml/min/1.73 sqM) Est GFR (CKD-EPI)NonAf (>60 ml/min/1.73 sqM) Glucose (74-99) mg/dL Plasma Lactic Acid French (0.7-2.0) mmol/L Calcium (8.4-10.2) mg/dL Total Bilirubin (0.2-1.3) mg/dL AST (17-59) U/L ALT (21-72) U/L Alkaline Phosphatase (38-126) U/L Ammonia <9 (<30) umol/L Total Creatine Kinase (55-170) U/L CK-MB (CK-2) (0.0-2.4) ng/mL CK-MB (CK-2) Rel Index Troponin I (0.000-0.034) ng/mL Total Protein (6.3-8.2) g/dL Albumin (3.5-5.0) g/dL 06/21/18 Range/Units 20:20 WBC (3.8-10.6) k/uL RBC (4.30-5.90) m/uL Hgb (13.0-17.5) gm/dL Hct (39.0-53.0) % MCV (80.0-100.0) fL MCH (25.0-35.0) pg MCHC (31.0-37.0) g/dL RDW (11.5-15.5) % Plt Count (150-450) k/uL Neutrophils % % Lymphocytes % % Monocytes % % Eosinophils % % Basophils % % Neutrophils # (1.3-7.7) k/uL Lymphocytes # (1.0-4.8) k/uL Monocytes # (0-1.0) k/uL Eosinophils # (0-0.7) k/uL Basophils # (0-0.2) k/uL Manual Slide Review PT (9.0-12.0) sec INR (<1.2) APTT (22.0-30.0) sec VBG pH (7.31-7.41) VBG pCO2 (37-51) mmHg VBG HCO3 (24-28) mmol/L Sodium (137-145) mmol/L Potassium (3.5-5.1) mmol/L Chloride (98-107) mmol/L Carbon Dioxide (22-30) mmol/L Anion Gap mmol/L BUN (9-20) mg/dL Creatinine (0.66-1.25) mg/dL Est GFR (CKD-EPI)AfAm (>60 ml/min/1.73 sqM) Est GFR (CKD-EPI)NonAf (>60 ml/min/1.73 sqM) Glucose (74-99) mg/dL Plasma Lactic Acid French 2.8 H* (0.7-2.0) mmol/L Calcium (8.4-10.2) mg/dL Total Bilirubin (0.2-1.3) mg/dL AST (17-59) U/L ALT (21-72) U/L Alkaline Phosphatase (38-126) U/L Ammonia (<30) umol/L Total Creatine Kinase (55-170) U/L CK-MB (CK-2) (0.0-2.4) ng/mL CK-MB (CK-2) Rel Index Troponin I (0.000-0.034) ng/mL Total Protein (6.3-8.2) g/dL Albumin (3.5-5.0) g/dL Disposition Clinical Impression: Delirium due to general medical condition Disposition: ADMITTED IP TO THIS HOSP Decision Time: 11:05
[2018-06-21 19:33] LABS: Albumin 4.2 g/dL (3.5-5.0); Calcium 9.1 mg/dL (8.4-10.2); Potassium 4.7 mmol/L (3.5-5.1); Total Bilirubin 1.4 mg/dL (0.2-1.3); Total Protein 7.5 g/dL (6.3-8.2)
[2018-06-21 19:39] LABS: INR 1.1 (<1.2)
[2018-06-21 19:57] LABS: Creatine Kinase MB 11.2 ng/mL (0.0-2.4)
[2018-06-21 20:00] LABS: Troponin I 0.18 ng/mL (0.000-0.034)
--- NOTE | 2018-06-21 20:01 | CT ---
EXAMINATION TYPE: CT brain cspine wo con DATE OF EXAM: 06/21/2018 COMPARISON: Outside head CT June 04, 2018 HISTORY: Fall, AMS, neck pain. CT DLP: 1401.8 mGycm. Automated Exposure Control for Dose Reduction was Utilized. TECHNIQUE: CT scan of the head and cervical spine are performed without contrast. FINDINGS: There is no acute intracranial hemorrhage or midline shift identified. There is ventricul ar and sulcal prominence consistent with diffuse cerebral atrophy. There is low attenuation in the de ep and periventricular white matter redemonstrated. Findings presumed product of chronic small vessel ischemic change. The globes are intact and the visualized sinuses are clear. Vascular consultation d istal internal carotid arteries bilaterally is redemonstrated. Patchy soft tissue density consistent with cerumen is seen in bilateral external auditory canals. Cervical spine is visualized in its entirety from C1 through upper thoracic levels and demonstrates S shaped scoliosis without evidence of acute fracture or dislocation. There is grade 1 retrolisthesis of C4 on C5. Prevertebral soft tissue appears within normal limits. The C1-C2 articulation is withi n normal limits on the coronal images. Vertebral body heights are maintained. There is moderate to a dvanced disc space narrowing C4-C5 level. There is moderate disc space narrowing at C5-C6 level. Revi ew of axial images shows multilevel uncovertebral facet degenerative changes for reference left C3-C4 and bilateral C4-C5 levels contributing to bilateral neural foraminal narrowing. Thyroid gland is no rmal in size. Lung apices are clear. IMPRESSION: 1. There is no acute fracture or dislocation evident in the cervical spine. 2. No acute intracranial hemorrhage or midline shift is seen. There is stable mild to moderate diffus e cerebral atrophy and chronic small vessel ischemic change noted.
[2018-06-21 20:04] LABS: Basophils % (A) 0 %; Eosinophils % (A) 0 %; HCT 39.9 % (39.0-53.0); Lymphocytes # (A) 0.7 k/uL (1.0-4.8); Lymphocytes % (A) 4 %; MCHC 35.2 g/dL (31.0-37.0); MCV 93.9 fL (80.0-100.0); Mean Platelet Volume 11.9; Monocytes # (A) 0.7 k/uL (0-1.0); Monocytes % (A) 4 %; Neutrophils # (A) 15.1 k/uL (1.3-7.7); Neutrophils % (A) 91 %; Platelet Count 148 k/uL (150-450); RBC 4.24 m/uL (4.30-5.90); RDW 12.7 % (11.5-15.5); WBC 16.6 k/uL (3.8-10.6)
[2018-06-21 20:15] LABS: Partial Thromboplastin Time 18.5 sec (22.0-30.0)
[2018-06-21 20:31] LABS: VBG PH 7.36 (7.31-7.41)
--- NOTE | 2018-06-21 20:59 | XR ---
EXAMINATION TYPE: XR chest 1V portable DATE OF EXAM: 06/21/2018 COMPARISON: Chest x-ray August 21, 2017. HISTORY: Unresponsive after fall injury. Altered mental status. TECHNIQUE: Single frontal view of the chest is obtained. FINDINGS: Eventration of right hemidiaphragm is present. There is no focal air space opacity, pleural effusion, or pneumothorax seen. The cardiac silhouette size is upper limits of normal with atherosc lerotic change in aortic knob. The osseous structures are demineralized. Advanced degenerative man ge right glenohumeral joint is noted. IMPRESSION: Chronic changes without acute pulmonary process.
[2018-06-21] MEDS ORDERED: PANTOPRAZOLE 40 MG/10 ML VIAL IVP ONE (21:13)
[2018-06-21] MEDS ORDERED: NALOXONE 0.4 MG/ML 1 ML VIAL IV PRN (21:20)
[2018-06-21] MEDS ORDERED: ACETAMINOPHEN SUPPOSITORY 650 MG SUPP RECTAL PRN (21:26)
[2018-06-21] MEDS ORDERED: SODIUM CHLORIDE 3% IV SCH (21:30)
[2018-06-21] MEDS ORDERED: [UNRECOGNIZED DRUG - OTHER] IV SCH (21:30)
[2018-06-21 21:59] LABS: Appearance,Urine Clear (Clear); Bacteria,Urine Few /hpf; Bilirubin,Urine Negative (Negative); Blood,Urine Moderate (Negative); Calcium Oxalate Crystals,Urine Occasional /hpf; Color,Urine Light Yellow; Glucose,Urine (UA) Negative (Negative); Ketones,Urine 2+ (Negative); Leukocyte Esterase,Urine Negative (Negative); Mucus,Urine Rare /hpf; Nitrite,Urine Positive (Negative); PH, Urine 5.5 (5.0-8.0); Protein,Urine 1+ (Negative); RBC,Urine 1 /hpf (0-5); Specific Gravity,Urine 1.006 (1.001-1.035); Squamous Epithelial Cell,Urine <1 /hpf (0-4); Urobilinogen,Urine <2.0 mg/dL (<2.0); WBC,Urine 1 /hpf (0-5)
[2018-06-21] MEDS ORDERED: SODIUM CHLORIDE 0.9% 1,000 ML IV SCH ×2 (22:00→23:00)
[2018-06-21 22:03] LABS: Amphetamine Screen,Urine Not Detected (NotDetected); Barbiturate Screen,Urine Not Detected (NotDetected); Benzodiazepines Screen,Urine Not Detected (NotDetected); Cocaine Screen,Urine Not Detected (NotDetected); Methadone Screen, Urine Not Detected (NotDetected); Opiate Screen,Urine Not Detected (NotDetected); Oxycodone Screen, Urine Not Detected (NotDetected); Phencyclidine Screen,Urine Not Detected (NotDetected); Tricyclic Antidepressant,Urine Not Detected (NotDetected); Urn Cannabinoid Scrn Not Detected (NotDetected)
[2018-06-21 23:04] LABS: Glucose,Whole Blood 86 mg/dL (75-99)
[2018-06-22] MEDS: SODIUM CHLORIDE 0.9% 1,000 ML IV SCH ×2 (01:42→19:42)
[2018-06-22] MEDS: HEPARIN SODIUM,PORCINE 5,000 UNIT/ML 1 ML VIAL SQ SCH ×3 (01:42→17:35)
[2018-06-22 02:06] LABS: Glucose,Whole Blood 85 mg/dL (75-99)
[2018-06-22 05:22] LABS: Basophils % (A) 0 %; Eosinophils # (A) 0.1 k/uL (0-0.7); Eosinophils % (A) 1 %; HCT 35.3 % (39.0-53.0); Lymphocytes # (A) 0.8 k/uL (1.0-4.8); Lymphocytes % (A) 5 %; MCH 32.3 pg (25.0-35.0); Mean Platelet Volume 11.2; Monocytes # (A) 0.9 k/uL (0-1.0); Monocytes % (A) 6 %; Neutrophils # (A) 13.3 k/uL (1.3-7.7); Neutrophils % (A) 87 %; Platelet Count 103 k/uL (150-450); RBC 3.71 m/uL (4.30-5.90); RDW 13.1 % (11.5-15.5); WBC 15.4 k/uL (3.8-10.6)
[2018-06-22 05:36] LABS: Albumin 3.1 g/dL (3.5-5.0); Calcium 8.4 mg/dL (8.4-10.2); Magnesium 1.8 mg/dL (1.6-2.3); Phosphorus 1.9 mg/dL (2.5-4.5); Total Bilirubin 0.8 mg/dL (0.2-1.3); Total Protein 5.9 g/dL (6.3-8.2)
[2018-06-22 05:38] LABS: Potassium 3.7 mmol/L (3.5-5.1)
[2018-06-22] MEDS ORDERED: Phosphorus Replacement Protoco 1 EACH MISC MISCELLANE PRN (06:17)
[2018-06-22] MEDS ORDERED: Magnesium Replacement Protocol 1 EACH MISC MISCELLANE PRN ×2 (06:17→06:18)
[2018-06-22] MEDS: MAGNESIUM SULFATE-D5W PMX 1 GM in DEXTROSE/WATER 1 100ML.BAG IVPB SCH ×2 (06:33→08:27)
[2018-06-22] MEDS: ONDANSETRON 4 MG/2 ML VIAL IVP PRN ×2 (06:36→14:54)
--- NOTE | 2018-06-22 06:44 | P.HPIM ---
History of Present Illness Chief complaint Altered mental status. History of present illness The patient is a 77-year-old gentleman who apparently is a patient of Dr. Vides for whom I am covering. Patient is apparently brought to the hospital by EMS. Apparently neighbors had found him writhing on the floor at his apartment. And apparently EMS found that his vital signs were stable and he was responding to stimulation but otherwise was not responding. He was found to be markedly hyponatremic. Patient still unable to give history. Past medical history Apparently patient does have a history of hyponatremia. Question of SIADH has been entertained in the past. He has also had a history of major depression and bipolar. Apparently this year he was hospitalized on the psychiatric unit. Chronic kidney disease stage III BPH History of asthma History of hypertension and hypertensive heart disease Parent history of lymphedema of the lower extremities. ALLERGIES to penicillin Home medications per list: Trazodone 100 mg at at bedtime Atarax 10 mg at at bedtime Hydralazine 50 mg 3 times a day Buspirone 7.5 mg twice a day Amlodipine 10 mg at at bedtime Topamax 50 mg twice a day Senokot 1 tablet daily MiraLAX 17 g when necessary Zofran 4 mg every 8 hours when necessary nausea Singular 10 mg at at bedtime Metoprolol tartrate 50 mg twice a day Melatonin 6 mg at at bedtime Claritin 10 mg daily Irbesartan 300 mg daily Lasix 20 mg daily Flonase one spray in each nostril twice a day Prozac 20 mg daily Atorvastatin 20 mg at at bedtime Albuterol nebulized 2.5 mg 4 times a day Acetaminophen 3 times a day. Review of systems Unable to obtain at this time. Social history Apparently he lives alone. Otherwise unable to obtain. According to records no history of smoking. No history of alcohol usage or drug history. Family history Apparently mother and father had hypertension and that is all that is documented. Physical examination Patient to in the ICU. Not responding to questioning. Moving about in bed. Does not appear to be in any acute distress. Pulse of 71 respirations 24. Blood pressure 131/100 and he is 98% saturated on 2 L nasal cannula. Last temperature was 98.5 Patient appears to be stockily built. Neck is not stiff. Unknown trauma to the head. Extraocular movements intact. Lungs were clear to auscultation. Heart tones were regular without murmurs or rubs appreciated Abdomen revealed positive bowel sounds. No tenderness or masses elicited. Scrotal and rectal exam deferred. Extremities reveal some mild bilateral edema. Grade 1-2. Skin is dry. Neurologically as mentioned he does not appear to be in any distress. No definite cranial nerve deficits noted. During the exam he did move both arms and legs without apparent weakness noted. Laboratory White count is 15.4 with a hemoglobin 12 and a platelet count of 103. Initial sodium is 113 but this has improved to 120. Potassium now was 3.7. CO2 content is 12. His BUN was 16 with creatinine 1.3 for given him a GFR of 50. Blood sugar was 74. Magnesium 1.8 with phosphorus slightly low at 1.9. Albumin was low at 3.1. Toxicology screen was negative. Urinalysis was negative for leukocyte esterase and only 1 white cell present. Initial lactic acid level was 2.8. Creatinine was 2254. Troponin was 0.180. Chest x-ray showed no acute changes. CT of the head and C-spine showed no fracture of the cervical spine. No intracranial hemorrhage or shift noted. Diffuse atrophy and chronic small vessel changes were noted. Impressions 1. Hyponatremia. Severe. Associated with mental status changes. Possible seizure related to hyponatremia. 2. Rhabdomyolysis 3. Previous history of hyponatremia. 4. History of depression and bipolar disorder. 5. History of chronic kidney disease 6. History of hypertension and hypertensive heart disease 7. History of lymphedema lower extremities 8. History of asthma 9. History of BPH Plans Patient has been admitted to the intensive care unit. [facility] [employer] has been consulted. Continue with low sodium and IV fluid replacement therapy. Oral medications being held at this time until mental status improves. Follow-up CPK and renal function studies along with sodium. Prognosis still presently guarded in light of the extreme hyponatremia on presentation. Associated with rhabdomyolysis. Past Medical History Past Medical History: Asthma, Hypertension Additional Past Medical History / Comment(s): Urinary blockage uses self cath, ganglian cyst in right knee History of Any Multi-Drug Resistant Organisms: None Reported Past Surgical History: Hernia Repair Additional Past Surgical History / Comment(s): hernia repair 03/2017, cyst removal in right knee Past Psychological History: Anxiety, Depression Smoking Status: Never smoker Past Alcohol Use History: None Reported Past Drug Use History: None Reported - Past Family History Father Family Medical History: Hypertension Mother Family Medical History: Hypertension Medications and Allergies Home Medications Medication Instructions Recorded Confirmed Type Atorvastatin Calcium [Lipitor] 20 mg PO HS 12/08/16 06/21/18 History hydrALAZINE HCL [Apresoline] 50 mg PO TID #90 tab 04/05/17 06/21/18 Rx Sennosides-Docusate Sodium 1 tab PO DAILY 04/21/17 06/21/18 History [Senokot-S] Loratadine [Claritin] 10 mg PO DAILY 08/21/17 06/21/18 History Montelukast [Singulair] 10 mg PO HS 08/21/17 06/21/18 History Polyethylene Glycol 3350 [Miralax] 17 gm PO DAILY PRN 08/21/17 06/21/18 History Spironolactone [Aldactone] 12.5 mg PO QAM 08/21/17 06/21/18 History Topiramate [Topamax] 50 mg PO BID 08/21/17 06/21/18 History Metoprolol Tartrate [Lopressor] 50 mg PO BID #60 tab 08/29/17 06/21/18 Rx Fluticasone Nasal [place] [Flonase 1 spray EA NOSTRIL BID 11/05/17 06/21/18 History Nasal [place]] amLODIPine [Norvasc] 10 mg PO HS #30 tab 11/09/17 06/21/18 Rx Irbesartan 300 mg PO DAILY 02/13/18 06/21/18 History Acetaminophen [Tylenol 8 Hour] 1,300 mg PO TID 06/05/18 06/21/18 History FLUoxetine HCL [PROzac] 20 mg PO DAILY 06/05/18 06/21/18 History Furosemide [Lasix] 20 mg PO DAILY 06/05/18 06/21/18 History Melatonin 6 mg PO HS 06/05/18 06/21/18 History Ondansetron [Zofran] 4 mg PO Q8H PRN 06/05/18 06/21/18 History busPIRone HCL 7.5 mg PO BID 06/05/18 06/21/18 History hydrOXYzine HCL [Atarax] 10 mg PO HS 06/05/18 06/21/18 History traZODone HCL [Desyrel] 100 mg PO HS 06/05/18 06/21/18 History Albuterol Nebulized [Ventolin 2.5 mg INHALATION RT-QID PRN nebu 06/07/18 Rx Nebulized] Allergies Allergy/AdvReac Type Severity Reaction Status Date / Time Penicillins Allergy Unknown Verified 06/21/18 19:18 Physical Exam Vitals: Vital Signs Temp Pulse Pulse Resp BP BP BP 06/22/18 06:00 71 24 131/100 06/22/18 05:30 69 15 134/70 06/22/18 05:03 64 9 L 134/70 06/22/18 05:01 65 18 134/70 06/22/18 04:00 69 12 134/77 06/22/18 02:55 98.5 F 67 12 132/75 06/22/18 01:49 98 F 06/22/18 01:35 98 F 78 18 123/76 06/22/18 00:45 90 21 110/78 06/22/18 00:30 71 11 L 107/57 06/22/18 00:15 70 18 103/66 06/22/18 00:00 69 14 103/71 06/21/18 23:45 67 18 105/77 06/21/18 23:30 69 18 116/77 06/21/18 23:15 68 14 121/85 06/21/18 23:00 70 18 126/82 06/21/18 22:59 71 16 126/82 06/21/18 22:45 76 17 128/88 06/21/18 22:30 75 18 128/96 06/21/18 22:15 78 12 117/72 06/21/18 22:00 75 17 123/84 06/21/18 21:59 97.7 F 75 20 117/72 06/21/18 21:45 73 18 138/69 06/21/18 21:30 79 21 148/91 06/21/18 21:15 71 20 139/93 06/21/18 21:00 73 21 135/91 06/21/18 20:45 83 21 101/85 06/21/18 20:15 93 17 93/68 06/21/18 20:04 78 18 93/68 06/21/18 20:00 69 9 L 130/81 06/21/18 19:45 130/81 06/21/18 19:30 77 20 130/81 06/21/18 19:15 78 21 130/81 06/21/18 19:00 17 130/81 06/21/18 18:45 93 32 H 130/81 06/21/18 18:30 75 15 130/81 06/21/18 18:20 98.0 F 79 24 130/81 Pulse Ox 06/22/18 06:00 98 06/22/18 05:30 100 06/22/18 05:03 99 06/22/18 05:01 99 06/22/18 04:00 06/22/18 02:55 06/22/18 01:49 06/22/18 01:35 100 06/22/18 00:45 100 06/22/18 00:30 100 06/22/18 00:15 100 06/22/18 00:00 100 06/21/18 23:45 100 06/21/18 23:30 100 06/21/18 23:15 100 06/21/18 23:00 100 06/21/18 22:59 98 06/21/18 22:45 100 06/21/18 22:30 99 06/21/18 22:15 100 06/21/18 22:00 100 06/21/18 21:59 100 06/21/18 21:45 100 06/21/18 21:30 100 06/21/18 21:15 100 06/21/18 21:00 100 06/21/18 20:45 100 06/21/18 20:15 06/21/18 20:04 100 06/21/18 20:00 06/21/18 19:45 06/21/18 19:30 06/21/18 19:15 06/21/18 19:00 06/21/18 18:45 06/21/18 18:30 99 06/21/18 18:20 100 Intake and Output 06/21/18 06/21/18 06/22/18 14:59 22:59 06:59 Intake Total 2150 350 Output Total 415 585 Balance 1735 -235 Intake: IV 200 Sodium Chloride 0.9% 1, 200 000 ml @ 50 mls/hr IV . Q20H [facility] Rx#:[id number] Intake, IV Titration 2150 150 Amount Sodium Chloride 0.9% 1, 150 000 ml @ 75 mls/hr IV . [id number] [facility] Rx#:[id number] Sodium Chloride 0.9% 1, 1000 000 ml @ 999 mls/hr IV . Q1H1M [facility] Rx#:[id number] Sodium Chloride 0.9% 1, 1000 000 ml @ 999 mls/hr IV . Q1H1M [facility] Rx#:[id number] Sodium Chloride 3%( 150 Hypertonic) 150 ml @ 450 mls/hr IV .Q20M [facility] Rx#: [id number] Output: Urine 415 585 Uretheral ([place]) 15 15 Other: Weight 77.564 kg Results CBC & Chem 7: 06/22/18 04:42 06/22/18 04:42 Labs: Abnormal Lab Results - Last 24 Hours (Table) 06/21/18 06/21/18 06/21/18 Range/Units 19:00 19:00 19:00 WBC 16.6 H (3.8-10.6) k/uL RBC 4.24 L (4.30-5.90) m/uL Hgb (13.0-17.5) gm/dL Hct (39.0-53.0) % Plt Count 148 L (150-450) k/uL Neutrophils # 15.1 H (1.3-7.7) k/uL Lymphocytes # 0.7 L (1.0-4.8) k/uL APTT (22.0-30.0) sec VBG pCO2 (37-51) mmHg VBG HCO3 (24-28) mmol/L Sodium 113 L* (137-145) mmol/L Chloride 76 L (98-107) mmol/L Carbon Dioxide 14 L (22-30) mmol/L Creatinine 1.45 H (0.66-1.25) mg/dL Glucose 113 H (74-99) mg/dL Plasma Lactic Acid French (0.7-2.0) mmol/L Phosphorus (2.5-4.5) mg/dL Total Bilirubin 1.4 H (0.2-1.3) mg/dL AST 74 H (17-59) U/L Total Creatine Kinase 2254 H* (55-170) U/L CK-MB (CK-2) 11.2 H (0.0-2.4) ng/mL Troponin I 0.180 H* (0.000-0.034) ng/mL Total Protein (6.3-8.2) g/dL Albumin (3.5-5.0) g/dL Urine Protein (Negative) Urine Ketones (Negative) Urine Blood (Negative) Calcium Oxalate Crystal (None) /hpf Urine Bacteria (None) /hpf Urine Mucus (None) /hpf 06/21/18 06/21/18 06/21/18 Range/Units 19:00 20:20 20:20 WBC (3.8-10.6) k/uL RBC (4.30-5.90) m/uL Hgb (13.0-17.5) gm/dL Hct (39.0-53.0) % Plt Count (150-450) k/uL Neutrophils # (1.3-7.7) k/uL Lymphocytes # (1.0-4.8) k/uL APTT 18.5 L (22.0-30.0) sec VBG pCO2 32 L (37-51) mmHg VBG HCO3 17 L (24-28) mmol/L Sodium (137-145) mmol/L Chloride (98-107) mmol/L Carbon Dioxide (22-30) mmol/L Creatinine (0.66-1.25) mg/dL Glucose (74-99) mg/dL Plasma Lactic Acid French 2.8 H* (0.7-2.0) mmol/L Phosphorus (2.5-4.5) mg/dL Total Bilirubin (0.2-1.3) mg/dL AST (17-59) U/L Total Creatine Kinase (55-170) U/L CK-MB (CK-2) (0.0-2.4) ng/mL Troponin I (0.000-0.034) ng/mL Total Protein (6.3-8.2) g/dL Albumin (3.5-5.0) g/dL Urine Protein (Negative) Urine Ketones (Negative) Urine Blood (Negative) Calcium Oxalate Crystal (None) /hpf Urine Bacteria (None) /hpf Urine Mucus (None) /hpf 06/21/18 06/21/18 06/21/18 Range/Units 21:33 22:09 23:36 WBC (3.8-10.6) k/uL RBC (4.30-5.90) m/uL Hgb (13.0-17.5) gm/dL Hct (39.0-53.0) % Plt Count (150-450) k/uL Neutrophils # (1.3-7.7) k/uL Lymphocytes # (1.0-4.8) k/uL APTT (22.0-30.0) sec VBG pCO2 (37-51) mmHg VBG HCO3 (24-28) mmol/L Sodium 116 L* (137-145) mmol/L Chloride (98-107) mmol/L Carbon Dioxide (22-30) mmol/L Creatinine (0.66-1.25) mg/dL Glucose (74-99) mg/dL Plasma Lactic Acid French 2.6 H* (0.7-2.0) mmol/L Phosphorus (2.5-4.5) mg/dL Total Bilirubin (0.2-1.3) mg/dL AST (17-59) U/L Total Creatine Kinase (55-170) U/L CK-MB (CK-2) (0.0-2.4) ng/mL Troponin I (0.000-0.034) ng/mL Total Protein (6.3-8.2) g/dL Albumin (3.5-5.0) g/dL Urine Protein 1+ H (Negative) Urine Ketones 2+ H (Negative) Urine Blood Moderate H (Negative) Calcium Oxalate Crystal Occasional H (None) /hpf Urine Bacteria Few H (None) /hpf Urine Mucus Rare H (None) /hpf 06/22/18 06/22/18 06/22/18 Range/Units 00:36 04:42 04:42 WBC 15.4 H (3.8-10.6) k/uL RBC 3.71 L (4.30-5.90) m/uL Hgb 12.0 L (13.0-17.5) gm/dL Hct 35.3 L (39.0-53.0) % Plt Count 103 L (150-450) k/uL Neutrophils # 13.3 H (1.3-7.7) k/uL Lymphocytes # 0.8 L (1.0-4.8) k/uL APTT (22.0-30.0) sec VBG pCO2 (37-51) mmHg VBG HCO3 (24-28) mmol/L Sodium 118 L* 120 L (137-145) mmol/L Chloride 90 L (98-107) mmol/L Carbon Dioxide 12 L (22-30) mmol/L Creatinine 1.34 H (0.66-1.25) mg/dL Glucose (74-99) mg/dL Plasma Lactic Acid French (0.7-2.0) mmol/L Phosphorus 1.9 L (2.5-4.5) mg/dL Total Bilirubin (0.2-1.3) mg/dL AST 65 H (17-59) U/L Total Creatine Kinase (55-170) U/L CK-MB (CK-2) (0.0-2.4) ng/mL Troponin I (0.000-0.034) ng/mL Total Protein 5.9 L (6.3-8.2) g/dL Albumin 3.1 L (3.5-5.0) g/dL Urine Protein (Negative) Urine Ketones (Negative) Urine Blood (Negative) Calcium Oxalate Crystal (None) /hpf Urine Bacteria (None) /hpf Urine Mucus (None) /hpf Microbiology - Last 24 Hours (Table) 06/21/18 21:33 Urine Culture - Preliminary Urine,Catheterized
--- NOTE | 2018-06-22 08:19 | XR ---
EXAMINATION TYPE: XR chest 1V portable DATE OF EXAM: 06/22/2018 CLINICAL HISTORY: Difficulty breathing progress study. TECHNIQUE: Single AP portable upright view of the chest is obtained. COMPARISON: Chest x-ray from one day earlier FINDINGS: Lungs remain clear without pleural effusion or pneumothorax seen bilaterally. Cardiac silh ouette size is stable and within normal limits with atherosclerotic thoracic aorta. Osseous structure s are demineralized. Degenerative change bilateral glenohumeral joints is redemonstrated. IMPRESSION: Overall stable findings, no suspicious acute pulmonary process is evident.
[2018-06-22] MEDS: POTASSIUM PHOSPHATE 10 MMOL in SODIUM CHLORIDE 0.9% 250 ML IV SCH ×2 (08:25→12:08)
[2018-06-22] MEDS: PANTOPRAZOLE 40 MG/10 ML VIAL IV SCH (08:28)
--- NOTE | 2018-06-22 12:48 | P.CNPUL ---
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 And that is including trazodone, and Prozac. Patient is also known to have history of major depression, chronic kidney disease stage III, mild intermittent asthma, hypertension, and chronic lymphedema of lower extremities. Patient was found by neighbor confused, and EMS was apparently called. Upon arrival to the ER, ration was noted to be markedly hyponatremic. His initial sodium was 113, patient received hypertonic saline, placed on 0.9 normal saline at 75 mL per hour, and he was transferred to the ICU. I saw him this morning, and his sodium seems to be correcting nicely, he is up to 122 this morning. Hence his main IV fluid was cut down to 50 mL per hour, and the patient seems to be in no form of distress. Patient is not cooperative, asking me to be left alone and he would like to sleep. At any rate after looking at his labs this morning, I felt that the patient could be transferred to a regular medical floor, and I recommended nephrology to evaluate for his recurrent hyponatremia. Patient is an extremely poor historian , and unwilling to cooperate or answer any questions. Review of Systems ROS unobtainable: due to mental status Past Medical History Past Medical History: Asthma, Hypertension Additional Past Medical History / Comment(s): Urinary blockage uses self cath, ganglian cyst in right knee History of Any Multi-Drug Resistant Organisms: None Reported Past Surgical History: Hernia Repair Additional Past Surgical History / Comment(s): hernia repair 03/2017, cyst removal in right knee Past Psychological History: Anxiety, Depression Smoking Status: Never smoker Past Alcohol Use History: None Reported Past Drug Use History: None Reported - Past Family History Father Family Medical History: Hypertension Mother Family Medical History: Hypertension Medications and Allergies Home Medications Medication Instructions Recorded Confirmed Type Atorvastatin Calcium [Lipitor] 20 mg PO HS 12/08/16 06/21/18 History hydrALAZINE HCL [Apresoline] 50 mg PO TID #90 tab 04/05/17 06/21/18 Rx Sennosides-Docusate Sodium 1 tab PO DAILY 04/21/17 06/21/18 History [Senokot-S] Loratadine [Claritin] 10 mg PO DAILY 08/21/17 06/21/18 History Montelukast [Singulair] 10 mg PO HS 08/21/17 06/21/18 History Polyethylene Glycol 3350 [Miralax] 17 gm PO DAILY PRN 08/21/17 06/21/18 History Spironolactone [Aldactone] 12.5 mg PO QAM 08/21/17 06/21/18 History Topiramate [Topamax] 50 mg PO BID 08/21/17 06/21/18 History Metoprolol Tartrate [Lopressor] 50 mg PO BID #60 tab 08/29/17 06/21/18 Rx Fluticasone Nasal [place] [Flonase 1 spray EA NOSTRIL BID 11/05/17 06/21/18 History Nasal [place]] amLODIPine [Norvasc] 10 mg PO HS #30 tab 11/09/17 06/21/18 Rx Irbesartan 300 mg PO DAILY 02/13/18 06/21/18 History Acetaminophen [Tylenol 8 Hour] 1,300 mg PO TID 06/05/18 06/21/18 History FLUoxetine HCL [PROzac] 20 mg PO DAILY 06/05/18 06/21/18 History Furosemide [Lasix] 20 mg PO DAILY 06/05/18 06/21/18 History Melatonin 6 mg PO HS 06/05/18 06/21/18 History Ondansetron [Zofran] 4 mg PO Q8H PRN 06/05/18 06/21/18 History busPIRone HCL 7.5 mg PO BID 06/05/18 06/21/18 History hydrOXYzine HCL [Atarax] 10 mg PO HS 06/05/18 06/21/18 History traZODone HCL [Desyrel] 100 mg PO HS 06/05/18 06/21/18 History Albuterol Nebulized [Ventolin 2.5 mg INHALATION RT-QID PRN nebu 06/07/18 Rx Nebulized] Allergies Allergy/AdvReac Type Severity Reaction Status Date / Time Penicillins Allergy Unknown Verified 06/21/18 19:18 Physical Exam Vitals: Vital Signs Temp Pulse Pulse Resp BP BP BP 06/22/18 08:30 81 14 132/73 06/22/18 08:00 99.9 F H 81 69 14 143/80 06/22/18 07:30 83 18 127/91 06/22/18 07:00 89 15 139/82 06/22/18 06:30 80 12 149/100 06/22/18 06:00 71 24 131/100 06/22/18 05:30 69 15 134/70 06/22/18 05:03 64 9 L 134/70 06/22/18 05:01 65 18 134/70 06/22/18 04:00 69 12 134/77 06/22/18 03:00 69 06/22/18 02:55 98.5 F 67 12 132/75 06/22/18 01:49 98 F 06/22/18 01:35 98 F 78 18 123/76 06/22/18 00:45 90 21 110/78 06/22/18 00:30 71 11 L 107/57 06/22/18 00:15 70 18 103/66 06/22/18 00:00 69 14 103/71 06/21/18 23:45 67 18 105/77 06/21/18 23:30 69 18 116/77 06/21/18 23:15 68 14 121/85 06/21/18 23:00 70 18 126/82 06/21/18 22:59 71 16 126/82 06/21/18 22:45 76 17 128/88 06/21/18 22:30 75 18 128/96 06/21/18 22:15 78 12 117/72 06/21/18 22:00 75 17 123/84 06/21/18 21:59 97.7 F 75 20 117/72 06/21/18 21:45 73 18 138/69 06/21/18 21:30 79 21 148/91 06/21/18 21:15 71 20 139/93 06/21/18 21:00 73 21 135/91 06/21/18 20:45 83 21 101/85 06/21/18 20:15 93 17 93/68 06/21/18 20:04 78 18 93/68 06/21/18 20:00 69 9 L 130/81 06/21/18 19:45 130/81 06/21/18 19:30 77 20 130/81 06/21/18 19:15 78 21 130/81 06/21/18 19:00 17 130/81 06/21/18 18:45 93 32 H 130/81 06/21/18 18:30 75 15 130/81 06/21/18 18:20 98.0 F 79 24 130/81 Pulse Ox 06/22/18 08:30 96 06/22/18 08:00 98 06/22/18 07:30 98 06/22/18 07:00 98 06/22/18 06:30 98 06/22/18 06:00 98 06/22/18 05:30 100 06/22/18 05:03 99 06/22/18 05:01 99 06/22/18 04:00 06/22/18 03:00 06/22/18 02:55 06/22/18 01:49 06/22/18 01:35 100 06/22/18 00:45 100 06/22/18 00:30 100 06/22/18 00:15 100 06/22/18 00:00 100 06/21/18 23:45 100 06/21/18 23:30 100 06/21/18 23:15 100 06/21/18 23:00 100 06/21/18 22:59 98 06/21/18 22:45 100 06/21/18 22:30 99 06/21/18 22:15 100 06/21/18 22:00 100 06/21/18 21:59 100 06/21/18 21:45 100 06/21/18 21:30 100 06/21/18 21:15 100 06/21/18 21:00 100 06/21/18 20:45 100 06/21/18 20:15 06/21/18 20:04 100 06/21/18 20:00 06/21/18 19:45 06/21/18 19:30 06/21/18 19:15 06/21/18 19:00 06/21/18 18:45 06/21/18 18:30 99 06/21/18 18:20 100 Intake and Output 06/21/18 06/22/18 06/22/18 22:59 06:59 14:59 Intake Total 2150 350 250 Output Total 415 585 185 Balance 1735 -235 65 Intake: IV 200 250 Magnesium Sulfate-D5w Pmx 200 1 gm In Dextrose/Water 1 100ml.bag @ 100 mls/hr IVPB Q1H [facility] Rx#: [id number] Sodium Chloride 0.9% 1, 200 50 000 ml @ 50 mls/hr IV . Q20H [facility] Rx#:[id number] Intake, IV Titration 2150 150 Amount Sodium Chloride 0.9% 1, 150 000 ml @ 75 mls/hr IV . [id number] [facility] Rx#:[id number] Sodium Chloride 0.9% 1, 1000 000 ml @ 999 mls/hr IV . Q1H1M [facility] Rx#:[id number] Sodium Chloride 0.9% 1, 1000 000 ml @ 999 mls/hr IV . Q1H1M [facility] Rx#:[id number] Sodium Chloride 3%( 150 Hypertonic) 150 ml @ 450 mls/hr IV .Q20M [facility] Rx#: [id number] Output: Urine 415 585 185 Uretheral (Leggett) 15 15 15 Other: Voiding Method Indwelling Catheter Indwelling Catheter Weight 77.564 kg 77.564 kg 77.564 kg Physical Exam: Revealed a 77-year-old white male in no distress. Head: Atraumatic, normocephalic. HEENT:[Neck is supple.] [No neck masses.] [No thyromegaly.] [No JVD.] Dry mucous membranes noted. Chest: [Clear throughout, no crackles, no rhonchi, no wheezes.] Cardiac Exam: [Normal S1 and S2, no S3 gallop, no murmur.] Abdomen: [Soft, nontender, no megaly, no rebound, no guarding, normal bowel sounds.] Extremities: [No clubbing, 2+ bipedal edema, no cyanosis.] Neurological Exam: Patient is alert oriented 3, but and willing to cooperate or answer many questions. Psychiatric: Depressed mood, blunt affect, cannot assess mental status. Skin: No rashes. Results - Laboratory Findings CBC and BMP: 06/22/18 04:42 06/22/18 11:54 PT/INR, D-dimer PT 11.0 sec (9.0-12.0) 06/21/18 19:00 INR 1.1 (<1.2) 06/21/18 19:00 Abnormal lab findings: Abnormal Labs 06/21/18 06/21/18 06/21/18 19:00 19:00 19:00 WBC 16.6 H RBC 4.24 L Hgb Hct Plt Count 148 L Neutrophils # 15.1 H Lymphocytes # 0.7 L APTT VBG pCO2 VBG HCO3 Sodium 113 L* Chloride 76 L Carbon Dioxide 14 L Creatinine 1.45 H Glucose 113 H Plasma Lactic Acid French Phosphorus Total Bilirubin 1.4 H AST 74 H Total Creatine Kinase 2254 H* CK-MB (CK-2) 11.2 H Troponin I 0.180 H* Total Protein Albumin Urine Protein Urine Ketones Urine Blood Calcium Oxalate Crystal Urine Bacteria Urine Mucus 06/21/18 06/21/18 06/21/18 19:00 20:20 20:20 WBC RBC Hgb Hct Plt Count Neutrophils # Lymphocytes # APTT 18.5 L VBG pCO2 32 L VBG HCO3 17 L Sodium Chloride Carbon Dioxide Creatinine Glucose Plasma Lactic Acid French 2.8 H* Phosphorus Total Bilirubin AST Total Creatine Kinase CK-MB (CK-2) Troponin I Total Protein Albumin Urine Protein Urine Ketones Urine Blood Calcium Oxalate Crystal Urine Bacteria Urine Mucus 06/21/18 06/21/18 06/21/18 21:33 22:09 23:36 WBC RBC Hgb Hct Plt Count Neutrophils # Lymphocytes # APTT VBG pCO2 VBG HCO3 Sodium 116 L* Chloride Carbon Dioxide Creatinine Glucose Plasma Lactic Acid French 2.6 H* Phosphorus Total Bilirubin AST Total Creatine Kinase CK-MB (CK-2) Troponin I Total Protein Albumin Urine Protein 1+ H Urine Ketones 2+ H Urine Blood Moderate H Calcium Oxalate Crystal Occasional H Urine Bacteria Few H Urine Mucus Rare H 06/22/18 06/22/18 06/22/18 00:36 04:42 04:42 WBC 15.4 H RBC 3.71 L Hgb 12.0 L Hct 35.3 L Plt Count 103 L Neutrophils # 13.3 H Lymphocytes # 0.8 L APTT VBG pCO2 VBG HCO3 Sodium 118 L* 120 L Chloride 90 L Carbon Dioxide 12 L Creatinine 1.34 H Glucose Plasma Lactic Acid French Phosphorus 1.9 L Total Bilirubin AST 65 H Total Creatine Kinase CK-MB (CK-2) Troponin I Total Protein 5.9 L Albumin 3.1 L Urine Protein Urine Ketones Urine Blood Calcium Oxalate Crystal Urine Bacteria Urine Mucus 06/22/18 11:54 WBC RBC Hgb Hct Plt Count Neutrophils # Lymphocytes # APTT VBG pCO2 VBG HCO3 Sodium 122 L Chloride Carbon Dioxide Creatinine Glucose Plasma Lactic Acid French Phosphorus Total Bilirubin AST Total Creatine Kinase CK-MB (CK-2) Troponin I Total Protein Albumin Urine Protein Urine Ketones Urine Blood Calcium Oxalate Crystal Urine Bacteria Urine Mucus - Diagnostic Findings Chest x-ray: image reviewed (No evidence of active disease noted on the chest x- ray) Assessment and Plan Assessment: Impression: Recurrent hyponatremia, most likely secondary to SIADH, most likely medications induced, I would recommend holding trazodone and Prozac at this point. His hyponatremia could be also related to diuretics that he takes at home. Possible seizure at home related to hyponatremia, induced by hyponatremia. Acute rhabdomyolysis possibly related to falling and seizures. Multiple comorbidities including benign essential hypertension, mild intermittent asthma, major depressive disorder, benign prostatic hypertrophy, chronic kidney disease, stage III. Recommendation: Continue present treatment plan, slowly and cautiously correct his hyponatremia with 0.9 normal saline, hold all medications that could potentially cause hyponatremia including diuretics, clinically, I believe the patient is dehydrated, hence fluid restriction at this point will be of no value. Again I would recommend holding medications that cause SIADH, and cautious hydration. Plan to correct hypernatremia at the rate of less than 0.5 mEq per hour. In the meantime the patient could be transferred out of the ICU, since his sodium is up to 122 at this point. Will follow on when necessary basis, nephrology was consulted. Time with Patient: Greater than 30
--- NOTE | 2018-06-22 15:44 | P.NPCON ---
History of Present Illness - Reason for Consult Consult date: 06/22/18 hyponatremia - Chief Complaint Altered mental status - History of Present Illness 77-year-old gentleman was found on the floor by the EMS. Apparently neighbors found him on the floor and called EMS. He was last seen by the neighbors 2 days ago. Currently confused and unable to get any history for him. When he came to the hospital his serum sodium was 113. He was given 2 L of normal saline bolus and currently on 50 ML's of an hour of normal saline. Repeat sodium now is 121. He has hyponatremia with a baseline sodium of 129-134. Leggett was placed and urine output was minimal. Baseline creatinine is 1.3 MG per DL. He was also on antipsychotic medications and Lasix at home. Currently he is in A. fib and RVR and going to the cardiac floor Review of Systems ROS unobtainable: due to mental status Past Medical History Past Medical History: Asthma, Hypertension Additional Past Medical History / Comment(s): Urinary blockage uses self cath, ganglian cyst in right knee History of Any Multi-Drug Resistant Organisms: None Reported Past Surgical History: Hernia Repair Additional Past Surgical History / Comment(s): hernia repair 03/2017, cyst removal in right knee Past Psychological History: Anxiety, Depression Smoking Status: Never smoker Past Alcohol Use History: None Reported Past Drug Use History: None Reported - Past Family History Father Family Medical History: Hypertension Mother Family Medical History: Hypertension Medications and Allergies Home Medications Medication Instructions Recorded Confirmed Type Atorvastatin Calcium [Lipitor] 20 mg PO HS 12/08/16 06/21/18 History hydrALAZINE HCL [Apresoline] 50 mg PO TID #90 tab 04/05/17 06/21/18 Rx Sennosides-Docusate Sodium 1 tab PO DAILY 04/21/17 06/21/18 History [Senokot-S] Loratadine [Claritin] 10 mg PO DAILY 08/21/17 06/21/18 History Montelukast [Singulair] 10 mg PO HS 08/21/17 06/21/18 History Polyethylene Glycol 3350 [Miralax] 17 gm PO DAILY PRN 08/21/17 06/21/18 History Spironolactone [Aldactone] 12.5 mg PO QAM 08/21/17 06/21/18 History Topiramate [Topamax] 50 mg PO BID 08/21/17 06/21/18 History Metoprolol Tartrate [Lopressor] 50 mg PO BID #60 tab 08/29/17 06/21/18 Rx Fluticasone Nasal [place] [Flonase 1 spray EA NOSTRIL BID 11/05/17 06/21/18 History Nasal [place]] amLODIPine [Norvasc] 10 mg PO HS #30 tab 11/09/17 06/21/18 Rx Irbesartan 300 mg PO DAILY 02/13/18 06/21/18 History Acetaminophen [Tylenol 8 Hour] 1,300 mg PO TID 06/05/18 06/21/18 History FLUoxetine HCL [PROzac] 20 mg PO DAILY 06/05/18 06/21/18 History Furosemide [Lasix] 20 mg PO DAILY 06/05/18 06/21/18 History Melatonin 6 mg PO HS 06/05/18 06/21/18 History Ondansetron [Zofran] 4 mg PO Q8H PRN 06/05/18 06/21/18 History busPIRone HCL 7.5 mg PO BID 06/05/18 06/21/18 History hydrOXYzine HCL [Atarax] 10 mg PO HS 06/05/18 06/21/18 History traZODone HCL [Desyrel] 100 mg PO HS 06/05/18 06/21/18 History Albuterol Nebulized [Ventolin 2.5 mg INHALATION RT-QID PRN nebu 06/07/18 Rx Nebulized] Allergies Allergy/AdvReac Type Severity Reaction Status Date / Time Penicillins Allergy Unknown Verified 06/21/18 19:18 Physical Exam Vitals: Vital Signs Temp Pulse Pulse Resp BP BP BP 06/22/18 14:56 102.8 F H 140 H 34 H 101/57 06/22/18 10:30 98.2 F 87 20 119/59 06/22/18 08:30 81 14 132/73 06/22/18 08:00 99.9 F H 81 69 14 143/80 06/22/18 07:30 83 18 127/91 06/22/18 07:00 89 15 139/82 06/22/18 06:30 80 12 149/100 06/22/18 06:00 71 24 131/100 06/22/18 05:30 69 15 134/70 06/22/18 05:03 64 9 L 134/70 06/22/18 05:01 65 18 134/70 06/22/18 04:00 69 12 134/77 06/22/18 03:00 69 06/22/18 02:55 98.5 F 67 12 132/75 06/22/18 01:49 98 F 06/22/18 01:35 98 F 78 18 123/76 06/22/18 00:45 90 21 110/78 06/22/18 00:30 71 11 L 107/57 06/22/18 00:15 70 18 103/66 06/22/18 00:00 69 14 103/71 06/21/18 23:45 67 18 105/77 06/21/18 23:30 69 18 116/77 06/21/18 23:15 68 14 121/85 06/21/18 23:00 70 18 126/82 06/21/18 22:59 71 16 126/82 06/21/18 22:45 76 17 128/88 06/21/18 22:30 75 18 128/96 06/21/18 22:15 78 12 117/72 06/21/18 22:00 75 17 123/84 06/21/18 21:59 97.7 F 75 20 117/72 06/21/18 21:45 73 18 138/69 06/21/18 21:30 79 21 148/91 06/21/18 21:15 71 20 139/93 06/21/18 21:00 73 21 135/91 06/21/18 20:45 83 21 101/85 06/21/18 20:15 93 17 93/68 06/21/18 20:04 78 18 93/68 06/21/18 20:00 69 9 L 130/81 06/21/18 19:45 130/81 06/21/18 19:30 77 20 130/81 06/21/18 19:15 78 21 130/81 06/21/18 19:00 17 130/81 06/21/18 18:45 93 32 H 130/81 06/21/18 18:30 75 15 130/81 06/21/18 18:20 98.0 F 79 24 130/81 Pulse Ox 06/22/18 14:56 96 06/22/18 10:30 97 06/22/18 08:30 96 06/22/18 08:00 98 06/22/18 07:30 98 06/22/18 07:00 98 06/22/18 06:30 98 06/22/18 06:00 98 06/22/18 05:30 100 06/22/18 05:03 99 06/22/18 05:01 99 06/22/18 04:00 06/22/18 03:00 06/22/18 02:55 06/22/18 01:49 06/22/18 01:35 100 06/22/18 00:45 100 06/22/18 00:30 100 06/22/18 00:15 100 06/22/18 00:00 100 06/21/18 23:45 100 06/21/18 23:30 100 06/21/18 23:15 100 06/21/18 23:00 100 06/21/18 22:59 98 06/21/18 22:45 100 06/21/18 22:30 99 06/21/18 22:15 100 06/21/18 22:00 100 06/21/18 21:59 100 06/21/18 21:45 100 06/21/18 21:30 100 06/21/18 21:15 100 06/21/18 21:00 100 06/21/18 20:45 100 06/21/18 20:15 06/21/18 20:04 100 06/21/18 20:00 06/21/18 19:45 06/21/18 19:30 06/21/18 19:15 06/21/18 19:00 06/21/18 18:45 06/21/18 18:30 99 06/21/18 18:20 100 Intake and Output 06/22/18 06/22/18 06/22/18 06:59 14:59 22:59 Intake Total 350 250 Output Total 585 585 Balance -235 -335 Intake: IV 200 250 Magnesium Sulfate-D5w Pmx 200 1 gm In Dextrose/Water 1 100ml.bag @ 100 mls/hr IVPB Q1H [facility] Rx#: [id number] Sodium Chloride 0.9% 1, 200 50 000 ml @ 50 mls/hr IV . Q20H [facility] Rx#:[id number] Intake, IV Titration 150 Amount Sodium Chloride 0.9% 1, 150 000 ml @ 75 mls/hr IV . [id number] [facility] Rx#:[id number] Output: Urine 585 585 Uretheral (Leggett) 15 15 Other: Voiding Method Indwelling Catheter Indwelling Catheter Weight 77.564 kg 77.564 kg No acute distress S1-S2 heard Lungs clear Abdomen tender Leggett catheter in place Edema Results - Lab Results Most recent lab results Calcium 8.4 mg/dL (8.4-10.2) 06/22/18 04:42 Phosphorus 1.9 mg/dL (2.5-4.5) L 06/22/18 04:42 Magnesium 1.8 mg/dL (1.6-2.3) 06/22/18 04:42 06/22/18 04:42 06/22/18 13:22 Assessment and Plan Assessment: #1 acute on chronic hyponatremia suspect hypovolemic. #2 fever with lactic acidosis. #3 chronic kidney disease stage III baseline creatinine is 1.3 MG per DL. #4 BPH #5 hypertension with chronic kidney disease #6 bipolar disorder Plan: #1 sodium improved by 8. goal is 6-9 in 24 hours. #2 check urine osmolality and urine electrolytes. Also check serum osmolality and TSH and uric acid. #3 hold Lasix for now #4 continue with normal saline at 50 ML's an hour #5 check serum sodium every 4 hourly. If overcorrects stop normal saline and change to D5 water at 75 ML's an hour.
[2018-06-22 15:51] LABS: Basophils % (A) 0 %; Calcium 8.6 mg/dL (8.4-10.2); Eosinophils # (A) 0.1 k/uL (0-0.7); Eosinophils % (A) 2 %; HCT 36.4 % (39.0-53.0); HGB 12.5 gm/dL (13.0-17.5); Lymphocytes # (A) 0.1 k/uL (1.0-4.8); Lymphocytes % (A) 2 %; MCH 32.2 pg (25.0-35.0); MCHC 34.2 g/dL (31.0-37.0); MCV 94.3 fL (80.0-100.0); Mean Platelet Volume 11.2; Monocytes # (A) 0.1 k/uL (0-1.0); Monocytes % (A) 1 %; Neutrophils # (A) 5.8 k/uL (1.3-7.7); Neutrophils % (A) 95 %; Platelet Count 135 k/uL (150-450); Potassium 3.4 mmol/L (3.5-5.1); RBC 3.87 m/uL (4.30-5.90); RDW 13.3 % (11.5-15.5); WBC 6.1 k/uL (3.8-10.6)
[2018-06-22 16:04] LABS: Large Platelets Present; Poikilocytosis (M) Present
[2018-06-22] MEDS ORDERED: METOPROLOL TARTRATE 25 MG TAB PO STA (18:57)
[2018-06-22 19:56] LABS: Uric Acid 8.2 mg/dL (3.5-8.5)
[2018-06-23] MEDS: HEPARIN SODIUM,PORCINE 5,000 UNIT/ML 1 ML VIAL SQ SCH ×3 (01:17→16:45)
[2018-06-23 06:49] LABS: HCT 31.7 % (39.0-53.0); HGB 10.6 gm/dL (13.0-17.5); MCH 32.5 pg (25.0-35.0); MCHC 33.4 g/dL (31.0-37.0); MCV 97.4 fL (80.0-100.0); Mean Platelet Volume 11.6; Platelet Count 121 k/uL (150-450); RBC 3.26 m/uL (4.30-5.90); RDW 13.5 % (11.5-15.5); WBC 18.3 k/uL (3.8-10.6)
[2018-06-23 07:15] LABS: Calcium 7.9 mg/dL (8.4-10.2); Magnesium 2.1 mg/dL (1.6-2.3); Potassium 3.7 mmol/L (3.5-5.1)
[2018-06-23 07:20] LABS: Band Neutrophils % 7 %; Lymphocytes # (M) 0.55 k/uL (1.0-4.8); Neutrophils % (M) 90 %; Nucleated Red Blood Cells 0 /100 WBC (0-0); Total Cells Counted 100
--- NOTE | 2018-06-23 09:03 | P.CRDCN ---
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 Presented via EMS after falling at home. EMS was called by neighbors. Upon arrival to the emergency department, patient was found to be markedly hyponatremic with a sodium of 113 and rhabdomyolysis. He was given hypertonic saline and was initially placed on 0.9 normal saline at 75 mL an hour which is currently at 50 mL an hour. Patient was initially uncooperative however is quite pleasant this morning. We were asked to see the patient in consultation for episode of atrial fibrillation with rapid ventricular response while on MedSurg unit. Rapid response was called and patient was transferred to telemetry unit. Upon review of the EKG, no evidence of atrial fibrillation, EKG shows sinus tachycardia. His vital signs are stable. Laboratory values this morning showed white blood cell count 18,000, hemoglobin 10.6, sodium up to 123, potassium 3.7, BUN of 22 and creatinine of 2.18 which is up from admission. Upon examination, patient is resting comfortably in bed. He denies any complaints of palpitations, difficulty breathing, chest discomfort, dizziness or lightheadedness. He does not recall the events surrounding his admission. Past Medical History Past Medical History: Asthma, Hypertension Additional Past Medical History / Comment(s): Urinary blockage uses self cath, ganglian cyst in right knee History of Any Multi-Drug Resistant Organisms: None Reported Past Surgical History: Hernia Repair Additional Past Surgical History / Comment(s): hernia repair 03/2017, cyst removal in right knee Past Psychological History: Anxiety, Depression Smoking Status: Never smoker Past Alcohol Use History: None Reported Past Drug Use History: None Reported - Past Family History Father Family Medical History: Hypertension Mother Family Medical History: Hypertension Medications and Allergies Home Medications Medication Instructions Recorded Confirmed Type Atorvastatin Calcium [Lipitor] 20 mg PO HS 12/08/16 06/21/18 History hydrALAZINE HCL [Apresoline] 50 mg PO TID #90 tab 04/05/17 06/21/18 Rx Sennosides-Docusate Sodium 1 tab PO DAILY 04/21/17 06/21/18 History [Senokot-S] Loratadine [Claritin] 10 mg PO DAILY 08/21/17 06/21/18 History Montelukast [Singulair] 10 mg PO HS 08/21/17 06/21/18 History Polyethylene Glycol 3350 [Miralax] 17 gm PO DAILY PRN 08/21/17 06/21/18 History Spironolactone [Aldactone] 12.5 mg PO QAM 08/21/17 06/21/18 History Topiramate [Topamax] 50 mg PO BID 08/21/17 06/21/18 History Metoprolol Tartrate [Lopressor] 50 mg PO BID #60 tab 08/29/17 06/21/18 Rx Fluticasone Nasal [place] [Flonase 1 spray EA NOSTRIL BID 11/05/17 06/21/18 History Nasal Hume] amLODIPine [Norvasc] 10 mg PO HS #30 tab 11/09/17 06/21/18 Rx Irbesartan 300 mg PO DAILY 02/13/18 06/21/18 History Acetaminophen [Tylenol 8 Hour] 1,300 mg PO TID 06/05/18 06/21/18 History FLUoxetine HCL [PROzac] 20 mg PO DAILY 06/05/18 06/21/18 History Furosemide [Lasix] 20 mg PO DAILY 06/05/18 06/21/18 History Melatonin 6 mg PO HS 06/05/18 06/21/18 History Ondansetron [Zofran] 4 mg PO Q8H PRN 06/05/18 06/21/18 History busPIRone HCL 7.5 mg PO BID 06/05/18 06/21/18 History hydrOXYzine HCL [Atarax] 10 mg PO HS 06/05/18 06/21/18 History traZODone HCL [Desyrel] 100 mg PO HS 06/05/18 06/21/18 History Albuterol Nebulized [Ventolin 2.5 mg INHALATION RT-QID PRN nebu 06/07/18 Rx Nebulized] Allergies Allergy/AdvReac Type Severity Reaction Status Date / Time Penicillins Allergy Unknown Verified 06/21/18 19:18 Physical Exam Vitals: Vital Signs Temp Pulse Resp BP Pulse Ox 06/23/18 04:00 98.9 F 82 18 117/58 95 06/23/18 00:00 98.0 F 93 18 120/85 98 06/22/18 19:46 95 18 06/22/18 19:43 98.6 F 95 18 97/58 100 06/22/18 16:00 98.5 F 113 H 20 123/65 96 06/22/18 14:56 102.8 F H 140 H 34 H 101/57 96 06/22/18 10:30 98.2 F 87 20 119/59 97 Intake and Output 06/22/18 06/23/18 06/23/18 22:59 06:59 14:59 Intake Total 50 400 Balance 50 400 Intake: IV 50 400 Sodium Chloride 0.9% 1, 50 400 000 ml @ 50 mls/hr IV . Q20H [facility] Rx#:[id number] Other: Voiding Method Indwelling Catheter Indwelling Catheter Weight 78.1 kg PHYSICAL EXAMINATION: HEENT: Head is atraumatic, normocephalic. Pupils equal, round. Neck is supple. There is no elevated jugular venous pressure. HEART EXAMINATION: Heart sounds regular, S1 and S2 with a systolic murmur. CHEST EXAMINATION: Lungs reveal coarse expiratory wheezing throughout. No chest wall tenderness is noted on palpation or with deep breathing. ABDOMEN: Soft, nontender. Bowel sounds are heard. No organomegaly noted. EXTREMITIES: 2+ peripheral pulses with evidence of mild peripheral edema and no calf tenderness noted. NEUROLOGIC patient is awake, alert and oriented x2. . Results 06/23/18 06:21 06/23/18 06:21 Cardiac Enzymes 06/22/18 06/23/18 Range/Units 15:14 06:21 CK-MB (CK-2) 4.1 H (0.0-2.4) ng/mL Troponin I 0.152 H* (0.000-0.034) ng/mL CBC 06/22/18 06/23/18 Range/Units 15:14 06:21 WBC 6.1 18.3 H (3.8-10.6) k/uL RBC 3.87 L 3.26 L (4.30-5.90) m/uL Hgb 12.5 L 10.6 L (13.0-17.5) gm/dL Hct 36.4 L 31.7 L (39.0-53.0) % Plt Count 135 L 121 L (150-450) k/uL Comprehensive Metabolic Panel 06/22/18 06/22/18 06/22/18 Range/Units 11:54 13:22 15:14 Sodium 122 L 121 L 122 L (137-145) mmol/L Potassium 3.4 L (3.5-5.1) mmol/L Chloride 93 L (98-107) mmol/L Carbon Dioxide 12 L (22-30) mmol/L BUN 16 (9-20) mg/dL Creatinine 1.50 H (0.66-1.25) mg/dL Glucose 71 L (74-99) mg/dL Calcium 8.6 (8.4-10.2) mg/dL 06/22/18 06/22/18 06/23/18 Range/Units 17:40 22:11 06:21 Sodium 121 L 120 L 123 L (137-145) mmol/L Potassium 3.7 (3.5-5.1) mmol/L Chloride 95 L (98-107) mmol/L Carbon Dioxide 13 L (22-30) mmol/L BUN 22 H (9-20) mg/dL Creatinine 2.18 H (0.66-1.25) mg/dL Glucose 62 L (74-99) mg/dL Calcium 7.9 L (8.4-10.2) mg/dL Current Medications Generic Name Dose Route Start Last Admin Trade Name Freq PRN Reason Stop Dose Admin Acetaminophen 650 mg 06/21/18 21:26 06/22/18 14:55 Tylenol Suppository RECTAL 650 mg Q4HR PRN Administration Fever And/ Or Mild Pain Heparin Sodium (Porcine) 5,000 unit 06/22/18 00:00 06/23/18 01:17 Heparin SQ 5,000 unit Q8HR [facility] Administration Sodium Chloride 1,000 mls @ 50 mls/hr 06/22/18 01:45 06/22/18 19:42 Saline 0.9% IV 50 mls/hr .Q20H [facility] Administration Miscellaneous Information 1 each 06/22/18 06:18 Magnesium Per Protocol MISCELLANE DAILY PRN Per Protocol Protocol Miscellaneous Information 1 each 06/22/18 06:17 Phosphorus Per Protocol MISCELLANE DAILY PRN Per Protocol Protocol Naloxone HCl 0.2 mg 06/21/18 21:20 Narcan IV Q2M PRN Opioid Reversal Ondansetron HCl 4 mg 06/22/18 05:31 06/22/18 14:54 Zofran IVP 4 mg Q8HR PRN Administration Nausea And Vomiting Pantoprazole Sodium 40 mg 06/22/18 09:00 06/22/18 08:28 Protonix IV 40 mg DAILY QUINT[facility] Administration Intake and Output 06/22/18 06/23/18 06/23/18 22:59 06:59 14:59 Intake Total 50 400 Balance 50 400 Intake: IV 50 400 Sodium Chloride 0.9% 1, 50 400 000 ml @ 50 mls/hr IV . Q20H [facility] Rx#:[id number] Other: Voiding Method Indwelling Catheter Indwelling Catheter Weight 78.1 kg 06/23/18 06:21 06/23/18 06:21 Assessment and Plan Assessment: #1 acute and chronic hyponatremia #2 fever with lactic acidosis #3 cardiology consultation for A. fib with RVR, no evidence of atrial fibrillation #4 acute kidney injury with chronic kidney disease #5 hypertension Plan: From cardiac standpoint, no evidence of atrial fibrillation. Patient appears to be having episodes of sinus tachycardia . We'll obtain 2-D echo with Doppler. Further recommendations to follow depending on clinical status and echo results. 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 Patient was seen and examined.
[2018-06-23] MEDS ORDERED: LEVOFLOXACIN 500MG-D5W PMX 500 MG in DEXTROSE/WATER 1 100ML.BAG IVPB STA (09:09)
--- NOTE | 2018-06-23 10:19 | P.PN ---
Progress Note - Text The patient is a 77-year-old gentleman who presented with altered mental status and found to be severely hyponatremic with a serum sodium of 113. Patient was very obtunded. Not responding appropriately. Patient has a history of hyponatremia. He also has history of major depression and bipolar disorder for which she is on medications. He also has history of BPH along with asthma and hypertension. Chronic lymphedema of the lower extremities. Patient was initially transferred to a medical floor but developed tachycardia and a temperature of 102. It was felt that he was in atrophia according to the staff in consultation was obtained with pulmonary medicine and cardiology. A subsequent EKG though did not didn't demonstrate definitive atrial fibrillation. Temperatures sensitive also remained stable although his urinary tract culture is growing out gram-negative organisms. This morning though he is sitting up at the side of the bed. Complains he does not feel good because he is depressed. He denies any chest pain or shortness of breath and is conversing much better and is in the process of eating his breakfast this morning. He states he is hungry. No nausea or vomiting or abdominal pain at this time. Vital signs reveal temperature 98.9 with a pulse of 82 and respirations 18. Blood pressure 117/58 and he is 95% saturated on 2 L nasal cannula. Lung and heart examination is clear. Heart is regular. Rate is controlled. Abdomen is nontender. He does have a grade 2 edema which appears to be more chronic. He is moving all extremities. He is more alert. No definite focal neurological deficits noted. Laboratory White count this morning though is elevated at 18.3 with elevated neutrophils. Hemoglobin 10.6 and platelets 121. Sodium this morning is increased to 123. Potassium 3.7. CO2 content is still 13. Anion gap is 15. BUN of 22 with a creatinine of 2.18 given him a GFR of 28. Stage IV. Glucose was 62. Calcium 7.9 CK is still elevated from yesterday but did improve from initial values. TSH is normal at 0.958. Urine cultures are growing 50,000-100,000 gram-negative bacilli. Final identification pending. Blood cultures also have grown out gram-negative rods. Impressions and plans Most likely we are also dealing with gram-negative sepsis from urinary source resulting in metabolic encephalopathy related to sepsis along with the patient' s hyponatremia that was present on admission. Pending cultures Levaquin 1 has been started today. Cardiology, nephrology, and pulmonary medicine notes were regarded. Dr. Vides to resume care tomorrow. Continue to hold antidepressants in light of the hyponatremia. Continue IV sodium replacement. And follow-up blood testing in the morning. Prognosis still guarded.
[2018-06-23] MEDS: PANTOPRAZOLE 40 MG/10 ML VIAL IV SCH (11:10)
--- NOTE | 2018-06-23 15:29 | P.PN ---
Subjective Progress Note Date: 06/23/18 Seen and examined for the follow-up of hyponatremia. Transfer to the cardiac floor for atrial fibrillation. Confusion is better. No nausea vomiting diarrhea. Urine appears dark. Still on normal saline at 50 ML's an hour sodium improved to 123 this morning. He has history of chronic hyponatremia with a baseline sodium of 127-134. Objective - Vital Signs Vital signs: Vital Signs Temp 98.9 F 06/23/18 04:00 Pulse 77 06/23/18 12:00 Resp 16 06/23/18 12:00 BP 118/66 06/23/18 12:00 Pulse Ox 95 06/23/18 12:00 Intake & Output 06/22/18 06/23/18 06/23/18 18:59 06:59 18:59 Intake Total 250 450 240 Output Total 585 325 Balance -335 450 -85 Weight 77.564 kg 78.1 kg Intake: IV 250 450 Magnesium Sulfate-D5w Pmx 200 1 gm In Dextrose/Water 1 100ml.bag @ 100 mls/hr IVPB Q1H [facility] Rx#: [id number] Sodium Chloride 0.9% 1, 50 450 000 ml @ 50 mls/hr IV . Q20H [facility] Rx#:[id number] Oral 240 Output: Urine 585 325 Uretheral (Leggett) 15 Other: Voiding Method Indwelling Catheter Indwelling Catheter Indwelling Catheter - Exam No acute distress lying comfortable in bed S1-S2 heard Lungs clear Leggett catheter dark urine Trace edema - Labs CBC & Chem 7: 06/23/18 06:21 06/23/18 06:21 Labs: Abnormal Lab Results - Last 24 Hours (Table) 06/22/18 06/22/18 06/22/18 Range/Units 15:14 15:14 15:14 WBC (3.8-10.6) k/uL RBC 3.87 L (4.30-5.90) m/uL Hgb 12.5 L (13.0-17.5) gm/dL Hct 36.4 L (39.0-53.0) % Plt Count 135 L (150-450) k/uL Neutrophils # (Manual) (1.3-7.7) k/uL Lymphocytes # 0.1 L (1.0-4.8) k/uL Lymphocytes # (Manual) (1.0-4.8) k/uL Sodium 122 L (137-145) mmol/L Potassium 3.4 L (3.5-5.1) mmol/L Chloride 93 L (98-107) mmol/L Carbon Dioxide 12 L (22-30) mmol/L BUN (9-20) mg/dL Creatinine 1.50 H (0.66-1.25) mg/dL Glucose 71 L (74-99) mg/dL Osmolality (280-301) mosm/kg Plasma Lactic Acid French 2.8 H* (0.7-2.0) mmol/L Calcium (8.4-10.2) mg/dL Creatine Kinase 1554 H* (55-170) U/L CK-MB (CK-2) (0.0-2.4) ng/mL Troponin I (0.000-0.034) ng/mL 06/22/18 06/22/18 06/22/18 Range/Units 15:14 17:40 17:40 WBC (3.8-10.6) k/uL RBC (4.30-5.90) m/uL Hgb (13.0-17.5) gm/dL Hct (39.0-53.0) % Plt Count (150-450) k/uL Neutrophils # (Manual) (1.3-7.7) k/uL Lymphocytes # (1.0-4.8) k/uL Lymphocytes # (Manual) (1.0-4.8) k/uL Sodium 121 L (137-145) mmol/L Potassium (3.5-5.1) mmol/L Chloride (98-107) mmol/L Carbon Dioxide (22-30) mmol/L BUN (9-20) mg/dL Creatinine (0.66-1.25) mg/dL Glucose (74-99) mg/dL Osmolality 255 L (280-301) mosm/kg Plasma Lactic Acid French (0.7-2.0) mmol/L Calcium (8.4-10.2) mg/dL Creatine Kinase (55-170) U/L CK-MB (CK-2) (0.0-2.4) ng/mL Troponin I 0.152 H* (0.000-0.034) ng/mL 06/22/18 06/23/18 06/23/18 Range/Units 22:11 06:21 06:21 WBC 18.3 H (3.8-10.6) k/uL RBC 3.26 L (4.30-5.90) m/uL Hgb 10.6 L (13.0-17.5) gm/dL Hct 31.7 L (39.0-53.0) % Plt Count 121 L (150-450) k/uL Neutrophils # (Manual) 17.70 H (1.3-7.7) k/uL Lymphocytes # (1.0-4.8) k/uL Lymphocytes # (Manual) 0.55 L (1.0-4.8) k/uL Sodium 120 L 123 L (137-145) mmol/L Potassium (3.5-5.1) mmol/L Chloride 95 L (98-107) mmol/L Carbon Dioxide 13 L (22-30) mmol/L BUN 22 H (9-20) mg/dL Creatinine 2.18 H (0.66-1.25) mg/dL Glucose 62 L (74-99) mg/dL Osmolality (280-301) mosm/kg Plasma Lactic Acid French (0.7-2.0) mmol/L Calcium 7.9 L (8.4-10.2) mg/dL Creatine Kinase (55-170) U/L CK-MB (CK-2) (0.0-2.4) ng/mL Troponin I (0.000-0.034) ng/mL 06/23/18 Range/Units 06:21 WBC (3.8-10.6) k/uL RBC (4.30-5.90) m/uL Hgb (13.0-17.5) gm/dL Hct (39.0-53.0) % Plt Count (150-450) k/uL Neutrophils # (Manual) (1.3-7.7) k/uL Lymphocytes # (1.0-4.8) k/uL Lymphocytes # (Manual) (1.0-4.8) k/uL Sodium (137-145) mmol/L Potassium (3.5-5.1) mmol/L Chloride (98-107) mmol/L Carbon Dioxide (22-30) mmol/L BUN (9-20) mg/dL Creatinine (0.66-1.25) mg/dL Glucose (74-99) mg/dL Osmolality (280-301) mosm/kg Plasma Lactic Acid French (0.7-2.0) mmol/L Calcium (8.4-10.2) mg/dL Creatine Kinase (55-170) U/L CK-MB (CK-2) 4.1 H (0.0-2.4) ng/mL Troponin I (0.000-0.034) ng/mL Microbiology - Last 24 Hours (Table) 06/22/18 15:14 Blood Culture Gram Stain - Preliminary Blood 06/22/18 15:14 Blood Culture - Final Blood 06/21/18 23:36 Blood Culture - Preliminary Blood No Growth after 24 hours 06/21/18 21:33 Urine Culture - Preliminary Urine,Catheterized Gram Neg Bacilli Assessment and Plan Assessment: #1 acute on chronic hypotonic hyponatremia suspect hypovolemic. #2 fever with lactic acidosis. #3 chronic kidney disease stage III baseline creatinine is 1.3 MG per DL. #4 BPH #5 hypertension with chronic kidney disease #6 bipolar disorder Plan: #1 sodium improving. Continue with normal saline at 50 ML's an hour. #2 high uric acid is suspicious of hypovolemic hyponatremia. #3 Continue to hold Lasix for now #4 repeat labs in the morning.
[2018-06-23] MEDS: SODIUM CHLORIDE 0.9% 1,000 ML IV SCH (16:46)
[2018-06-23] MEDS: ONDANSETRON 4 MG/2 ML VIAL IVP PRN (19:50)
[2018-06-23] MEDS: METOPROLOL TARTRATE 50 MG TAB PO SCH (20:58)
[2018-06-24 00:23] LABS: Glucose,Whole Blood 49 mg/dL (75-99)
[2018-06-24] MEDS ORDERED: MEROPENEM 500 MG in SODIUM CHLORIDE 0.9% 50 ML IVPB SCH (01:00)
[2018-06-24] MEDS ORDERED: DEXTROSE 5%-0.45% NACL 1,000 ML IV SCH ×2 (01:00→02:00)
[2018-06-24] MEDS ORDERED: PIPERACILLIN-TAZOBACTAM 3.375 GM in SODIUM CHLORIDE 0.9% 100 ML IVPB SCH (01:00)
[2018-06-24 01:02] LABS: Glucose,Whole Blood 103 mg/dL (75-99)
[2018-06-24 01:10] LABS: Calcium 6.8 mg/dL (8.4-10.2); Magnesium 1.8 mg/dL (1.6-2.3); Phosphorus 1.6 mg/dL (2.5-4.5)
[2018-06-24] MEDS ORDERED: SODIUM CHLORIDE 0.9% 1,000 ML IV ONE ×3 (01:20→16:42)
[2018-06-24] MEDS ORDERED: POTASSIUM CHLORIDE 20 MEQ in WATER FOR INJECTION 2 100ML.BAG IVPB STA (01:28)
[2018-06-24] MEDS: MEROPENEM 1 GM in SODIUM CHLORIDE 0.9% 100 ML IVPB SCH ×2 (01:33→13:45)
[2018-06-24] MEDS ORDERED: POTASSIUM CHLORIDE 20 MEQ in WATER FOR INJECTION 1 100ML.BAG IVPB ONE (01:45)
[2018-06-24] MEDS: SODIUM CHLORIDE 0.9% 1,000 ML IV SCH ×3 (02:00→13:43)
[2018-06-24 02:15] LABS: Glucose,Whole Blood 114 mg/dL (75-99)
[2018-06-24] MEDS: HEPARIN SODIUM,PORCINE 5,000 UNIT/ML 1 ML VIAL SQ SCH ×3 (02:25→16:48)
[2018-06-24] MEDS ORDERED: SODIUM CHLORIDE 0.9% 99 ML with VASOPRESSIN 20 UNIT IV SCH ×2 (03:30)
[2018-06-24] MEDS ORDERED: HYDROCORTISONE SUCCINATE 100 MG/2 ML VIAL IV STA (03:48)
[2018-06-24] MEDS: ACETAMINOPHEN TAB 325 MG TAB PO PRN (04:08)
[2018-06-24] MEDS: ONDANSETRON 4 MG/2 ML VIAL IVP PRN (04:09)
[2018-06-24 05:04] LABS: HCT 38.3 % (39.0-53.0); HGB 12.3 gm/dL (13.0-17.5); MCH 32.3 pg (25.0-35.0); MCHC 32.1 g/dL (31.0-37.0); MCV 100.7 fL (80.0-100.0); Macrocytosis Slight; Mean Platelet Volume 12.6; Platelet Count 100 k/uL (150-450); RDW 13.9 % (11.5-15.5); WBC 26.1 k/uL (3.8-10.6)
[2018-06-24 05:15] LABS: Calcium 7.3 mg/dL (8.4-10.2); Phosphorus 3.2 mg/dL (2.5-4.5); Potassium 4.2 mmol/L (3.5-5.1)
[2018-06-24] MEDS: NOREPINEPHRINE 4 MG in SODIUM CHLORIDE 0.9% 250 ML IV SCH ×5 (05:20→15:17)
[2018-06-24 05:48] LABS: Band Neutrophils % 18 %; Lymphocytes # (M) 1.04 k/uL (1.0-4.8); Monocytes # (M) 2.35 k/uL (0-1.0); Neutrophils % (M) 69 %; Nucleated Red Blood Cells 0 /100 WBC (0-0); Total Cells Counted 200
[2018-06-24 05:49] LABS: Crenated RBC Present; Toxic Vacuolation Present
[2018-06-24] MEDS ORDERED: SODIUM BICARB 8.4% 50 ML SYR (1 MEQ/ML) IV ONE (06:42)
--- NOTE | 2018-06-24 07:24 | XR ---
EXAMINATION TYPE: XR chest 1V DATE OF EXAM: 06/24/2018 COMPARISON: 06/22/2018 HISTORY: Shortness of breath. TECHNIQUE: Single frontal view of the chest is obtained. FINDINGS: Persistent chronic right hemidiaphragm elevation is unchanged. There is new right infrahil ar atelectasis. There is no focal air space opacity, pleural effusion, or pneumothorax seen. Promine nt skinfold is seen on the right with lung markings beyond. The cardiac silhouette size is within nor mal limits. The osseous structures are intact. Degenerative changes of the glenohumeral joints are again seen. IMPRESSION: New right infrahilar atelectasis. Otherwise no acute cardiopulmonary process.
[2018-06-24 07:56] LABS: ABG HCO3 11 mmol/L (21-25); ABG PCO2 23 mmHg (35-45); ABG PH 7.31 (7.35-7.45); ABG PO2 243 mmHg (83-108); ABG TCO2 12 mmol/L (19-24)
--- NOTE | 2018-06-24 08:07 | PCN ---
PROCEDURE NOTE Operative report is placement of right femoral triple-lumen catheter. PREOPERATIVE DIAGNOSIS: Acute septic shock. POSTOPERATIVE DIAGNOSIS: Acute septic shock. ANESTHESIA USED: 2 mL of 1% lidocaine. PROCEDURE: The patient was placed in a supine position. The area of the right groin was prepared in a sterile fashion and drapes were applied. The right femoral vein was easily cannulated, and a guidewire was placed. The area was dilated with a dilator, then a triple-lumen catheter was assisted over the guidewire, and the guidewire was removed. Good blood flow was noted in the 3 different ports of the triple-lumen catheter. Line was secured using 3.0 silk sutures. No evidence of any immediate complications. MMODL / IJN: [id number] /
--- NOTE | 2018-06-24 08:10 | P.PN ---
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 And that is including trazodone, and Prozac. Patient is also known to have history of major depression, chronic kidney disease stage III, mild intermittent asthma, hypertension, and chronic lymphedema of lower extremities. Patient was found by neighbor confused, and EMS was apparently called. Upon arrival to the ER, ration was noted to be markedly hyponatremic. His initial sodium was 113, patient received hypertonic saline, placed on 0.9 normal saline at 75 mL per hour, and he was transferred to the ICU. I saw him this morning, and his sodium seems to be correcting nicely, he is up to 122 this morning. Hence his main IV fluid was cut down to 50 mL per hour, and the patient seems to be in no form of distress. Patient is not cooperative, asking me to be left alone and he would like to sleep. At any rate after looking at his labs this morning, I felt that the patient could be transferred to a regular medical floor, and I recommended nephrology to evaluate for his recurrent hyponatremia. Patient is an extremely poor historian , and unwilling to cooperate or answer any questions. 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 Apparently the patient was not seen by us over the last 2 days, I have basically signed off when I transferred the patient out of the ICU and his hyponatremia was being managed by his primary care physician and by nephrology whom I consulted once the patient was transferred out of the ICU. Apparently this morning, the patient was transferred back to the ICU with hypotension, some shortness of breath, and profound metabolic acidosis. When I was notified about the patient, I recommended more fluids to be given because his lactic acid was elevated, patient was hypotensive requiring norepinephrine and vasopressin. Initially he was on a very high-dose of norepinephrine, however when vasopressin was added, and more fluids were given, we were able to come down to 10 g of norepinephrine, and he is now on vasopressin at 0.02 units. His blood pressure is 103/70, patient is not in any distress, slightly tachypneic, but very comfortable. Denies being short of breath. Considering the patient is on a relatively high dose of pressors, I came in around 6:30 AM, and I placed lines and the patient including a right femoral triple-lumen catheter for pressors infusion, I also placed a left brachial arterial line for hemodynamic monitoring. Reviewed the patient's labs, his sodium is 124 this morning, bicarb is 8, anion gap 17 BUN is 30 creatinine is 3.24 WBC count is 26.1 hemoglobin is 12.3. Lactic acid this morning went from 5.4 last night to 10.0 this morning. Reviewed the patient's cultures and apparently patient has positive urine cultures for Klebsiella pneumoniae, sensitive to most antibiotics except ampicillin. And his blood cultures were also positive for Klebsiella pneumonia. Patient has been on Levaquin which was given to him yesterday by his primary care physician, and he is now on Merrem which I have recommended earlier. Obviously the patient has urinary tract infection with septic shock requiring significant amount of fluids given he was already bolused with 4 L of fluids mostly D5 45 because of the concern of rapidly correcting his hyponatremia and potentially causing CPM. His sodium this morning is 124. It has been in the low 20s yesterday. More bicarb was given, and I have recommended a sodium bicarb drip with 3 A in 1 L of D5W running at 100 mL/h. Earlier today when I was notified about the patient, I recommended intubation, however the patient apparently declined to be intubated and he seems to be very mentally competent. Apparently had previously expressed and the written documentation that he would not want to be on life support machine no matter what. I brought up the issue again when I saw him this morning, and he wants to be DO NOT RESUSCITATE CODE STATUS. Explained to him that he is quite ill, and may need to be on life support. Patient again declined to be on life support tomorrow what. He stated to me he would rather be left alone at that point. In the meantime he was agreeable to put central line and arterial line, and both were placed uneventfully. Chest x-ray was reviewed from this morning, no evidence of pulmonary edema, however he has a right infra-hilar atelectasis at the right base. Repeat ABG this morning after lines were placed , showed a pO2 of 243 pCO2 of 23 pH of 7.305. I reviewed the notes from different consultants who saw the patient actually yesterday, obviously there was no concern about sepsis and septic shock during that evaluation. Objective - Vital Signs Vital signs: Vital Signs Temp 99 F 06/23/18 20:00 Pulse 100 06/23/18 22:16 Resp 24 06/23/18 20:00 BP 74/44 06/23/18 22:55 Pulse Ox 96 06/23/18 20:00 Intake & Output 06/23/18 06/24/18 06/24/18 18:59 06:59 18:59 Intake Total 1043 3039.375 Output Total 325 1645 Balance 718 1394.375 Intake: IV 500 2750 Dextrose 5%-0.45% NaCl 1, 400 000 ml @ 150 mls/hr IV . Q6H40M [facility] Rx#:[id number] Meropenem 1 gm In Sodium 100 Chloride 0.9% 100 ml @ 200 mls/hr IVPB Q12H [facility] Rx#:[id number] Potassium Chloride 20 meq 100 In Water For Injection 1 100ml.bag @ 50 mls/hr IVPB ONCE ONE Rx#: [id number] Sodium Chloride 0.9% 1, 500 2150 000 ml @ 50 mls/hr IV . Q20H [facility] Rx#:[id number] Intake, IV Titration 100 289.375 Amount Levofloxacin 500Mg-D5w 100 Pmx 500 mg In Dextrose/ Water 1 100ml.bag @ 100 mls/hr IVPB ONCE STA Rx#: [id number] Norepinephrine 4 mg In 289.375 Sodium Chloride 0.9% 250 ml @ Titrate IV .Q0M [facility] Rx#:[id number] Oral 440 Blood Product 3 Output: Urine 325 1645 Other: Voiding Method Indwelling Catheter Indwelling Catheter # Voids 3 - Exam Physical Exam: Revealed a 77-year-old male, looks chronically ill, in no form of respiratory distress. Head: Atraumatic, normocephalic. HEENT:[Neck is supple.] [No neck masses.] [No thyromegaly.] [No JVD.] Dry mucous membranes, Chest: [Diminished breath sounds at the bases, no rhonchi no wheezes, symmetrical chest expansion noted..] Cardiac Exam: [Normal S1 and S2, no S3 gallop, no murmur.] Abdomen: [Soft, nontender, no megaly, no rebound, no guarding, normal bowel sounds.] Surgical scar is noted in lower abdomen from previous surgeries Extremities: [No clubbing, no edema, no cyanosis.] Neurological Exam: Alert, oriented 3, no gross focal neurologic deficit. Psychiatric: Normal mood, blunt affect, normal mental status examination. Skin: No rashes. - Labs CBC & Chem 7: 06/24/18 04:50 06/24/18 04:50 Labs: Abnormal Lab Results - Last 24 Hours (Table) 06/24/18 06/24/18 06/24/18 Range/Units 00:03 00:39 00:41 WBC (3.8-10.6) k/uL RBC (4.30-5.90) m/uL Hgb (13.0-17.5) gm/dL Hct (39.0-53.0) % MCV (80.0-100.0) fL Plt Count (150-450) k/uL Neutrophils # (Manual) (1.3-7.7) k/uL Monocytes # (Manual) (0-1.0) k/uL Sodium 113 L* (137-145) mmol/L Potassium 3.0 L (3.5-5.1) mmol/L Chloride 88 L (98-107) mmol/L Carbon Dioxide 10 L (22-30) mmol/L BUN 30 H (9-20) mg/dL Creatinine 2.94 H (0.66-1.25) mg/dL Glucose 493 H (74-99) mg/dL POC Glucose (mg/dL) 49 L 103 H (75-99) mg/dL Plasma Lactic Acid French (0.7-2.0) mmol/L Calcium 6.8 L (8.4-10.2) mg/dL Phosphorus 1.6 L (2.5-4.5) mg/dL 06/24/18 06/24/18 06/24/18 Range/Units 00:41 02:05 04:50 WBC (3.8-10.6) k/uL RBC (4.30-5.90) m/uL Hgb (13.0-17.5) gm/dL Hct (39.0-53.0) % MCV (80.0-100.0) fL Plt Count (150-450) k/uL Neutrophils # (Manual) (1.3-7.7) k/uL Monocytes # (Manual) (0-1.0) k/uL Sodium 124 L (137-145) mmol/L Potassium (3.5-5.1) mmol/L Chloride (98-107) mmol/L Carbon Dioxide 8 L* (22-30) mmol/L BUN 30 H (9-20) mg/dL Creatinine 3.24 H (0.66-1.25) mg/dL Glucose (74-99) mg/dL POC Glucose (mg/dL) 114 H (75-99) mg/dL Plasma Lactic Acid French 5.4 H* (0.7-2.0) mmol/L Calcium 7.3 L (8.4-10.2) mg/dL Phosphorus (2.5-4.5) mg/dL 06/24/18 06/24/18 Range/Units 04:50 04:50 WBC 26.1 H (3.8-10.6) k/uL RBC 3.80 L (4.30-5.90) m/uL Hgb 12.3 L (13.0-17.5) gm/dL Hct 38.3 L (39.0-53.0) % MCV 100.7 H (80.0-100.0) fL Plt Count 100 L (150-450) k/uL Neutrophils # (Manual) 22.70 H (1.3-7.7) k/uL Monocytes # (Manual) 2.35 H (0-1.0) k/uL Sodium (137-145) mmol/L Potassium (3.5-5.1) mmol/L Chloride (98-107) mmol/L Carbon Dioxide (22-30) mmol/L BUN (9-20) mg/dL Creatinine (0.66-1.25) mg/dL Glucose (74-99) mg/dL POC Glucose (mg/dL) (75-99) mg/dL Plasma Lactic Acid French 10.0 H* (0.7-2.0) mmol/L Calcium (8.4-10.2) mg/dL Phosphorus (2.5-4.5) mg/dL Microbiology - Last 24 Hours (Table) 06/21/18 23:36 Blood Culture - Preliminary Blood No Growth after 48 hours 06/21/18 21:33 Urine Culture - Final Urine,Catheterized Klebsiella pneumoniae 06/22/18 15:14 Blood Culture Gram Stain - Preliminary Blood Blood Culture - Preliminary Klebsiella pneumoniae 06/22/18 15:14 Blood Culture - Final Blood Assessment and Plan Assessment: Impression: Acute septic shock secondary to Klebsiella pneumonia secondary to urinary tract infection secondary to chronic self-catheterization of the bladder. Recurrent episodes of hyponatremia most likely secondary to SIADH, probably medications induced, plus there is a significant component of dehydration, patient has been on Lasix prior to admission. Possible seizure at home related to hyponatremia, induced by hyponatremia. Acute rhabdomyolysis possibly related to falling and seizures. Multiple comorbidities including benign essential hypertension, mild intermittent asthma, major depressive disorder, benign prostatic hypertrophy, chronic kidney disease, stage III. Chronic urinary tract infection from self- catheterization. Recommendation: Patient is not in the ICU, lines were placed including a right femoral triple-lumen catheter, left brachial arterial line was placed, patient is now on norepinephrine at 10 mcg/m, he is also at 0.02 units of vasopressin. Patient clearly requested to be DO NOT RESUSCITATE CODE STATUS, he does not want to be intubated and does not want to be on life-support machinery. This was confirmed by different nurses who saw the patient earlier today. Including his nurse was taking care of him earlier. Patient was placed on Levaquin and Merrem, given multiple amps of sodium bicarb, placed on sodium bicarb drip, fluid boluses were given, he received about 4 L of fluid boluses upon arrival to the ICU. Overall prognostic picture is guarded, patient is quite critically ill, we will continue to follow. Critical care time is 40 minutes not including the time spent on procedures/triple-lumen catheter and brachial arterial line. Time with Patient: Greater than 30
--- NOTE | 2018-06-24 08:13 | PCN ---
PROCEDURE NOTE Operative report is placement of the left brachial arterial line. PREOPERATIVE DIAGNOSIS: Acute septic shock and hypotension. POSTOPERATIVE DIAGNOSIS: Acute septic shock and hypotension. ANESTHESIA USED: None deployed. PROCEDURE: The patient was placed in a supine position, the left brachial region was prepared in a sterile fashion and drapes were applied. The left femoral artery was palpated, cannulated easily and a guidewire was placed. A Cook catheter was inserted over the guidewire, and the guidewire was removed. Good blood flow and good waveform were noted. No evidence of any immediate complications. Line was secured using 3.0 silk sutures. MMODL / IJN: [id number] /
[2018-06-24] MEDS: DEXTROSE 5% IN WATER 1,000 ML with SODIUM BICARB (1 MEQ/ML) 150 ML IV SCH ×3 (09:26→22:42)
--- NOTE | 2018-06-24 09:51 | P.PN ---
Subjective Patient is seen in follow for acute kidney injury on chronic kidney disease. Patient has chronic kidney disease stage III with baseline creatinine in the range of 1.1-1.3 secondary to nephrosclerosis. Patient also noted to be hyponatremic. Sodium level was improving with IV fluids but it dropped down to 113 last night and patient was also hypotensive and subsequently transferred to the intensive care unit. Patient received 3 L of normal saline bolus and is currently maintained on bicarb drip at 1 50 mL an hour as well as normal saline at 1 50 mL an hour. Sodium level is up to 124. Patient's noted to have blood and urine culture positive for Klebsiella. He is on 8 mics of Levophed. Vital signs are stable. Currently on Levophed. General: The patient appeared well nourished and normally developed. HEENT: Head exam is unremarkable. Neck is without jugular venous distension. LUNGS: Breath sounds decreased. HEART: Rate and Rhythm are regular. First and second heart sounds normal. No murmurs, rubs or gallops. ABDOMEN: Abdominal exam reveals normal bowel sounds. Non-tender and non- distended. No evidence of peritonitis. EXTREMITITES: No clubbing, cyanosis, or edema. Objective - Vital Signs Vital signs: Vital Signs Temp 97.5 F L 06/24/18 04:00 Pulse 73 06/24/18 08:15 Resp 27 H 06/24/18 08:15 BP 96/67 06/24/18 07:45 Pulse Ox 98 06/24/18 08:15 Intake & Output 06/23/18 06/24/18 06/24/18 18:59 06:59 18:59 Intake Total 1043 4389.375 830.625 Output Total 325 1705 115 Balance 718 2684.375 715.625 Intake: IV 500 4100 620 AMPs D50w 50 AMPs sodium bicarbonate 150 Dextrose 5%-0.45% NaCl 1, 400 300 000 ml @ 150 mls/hr IV . Q6H40M [facility] Rx#:[id number] Meropenem 1 gm In Sodium 100 Chloride 0.9% 100 ml @ 200 mls/hr IVPB Q12H [facility] Rx#:[id number] Potassium Chloride 20 meq 100 In Water For Injection 1 100ml.bag @ 50 mls/hr IVPB ONCE ONE Rx#: [id number] Sodium Chloride 0.9% 1, 500 3450 170 000 ml @ 50 mls/hr IV . Q20H [facility] Rx#:[id number] Intake, IV Titration 100 289.375 210.625 Amount Levofloxacin 500Mg-D5w 100 Pmx 500 mg In Dextrose/ Water 1 100ml.bag @ 100 mls/hr IVPB ONCE STA Rx#: [id number] Norepinephrine 4 mg In 289.375 210.625 Sodium Chloride 0.9% 250 ml @ Titrate IV .Q0M [facility] Rx#:[id number] Oral 440 Blood Product 3 Output: Urine 325 1705 115 Other: Voiding Method Indwelling Catheter Indwelling Catheter # Voids 3 ABP, PAP, CO, CI - Last Documented Arterial Blood Pressure 126/68 - Labs CBC & Chem 7: 06/24/18 04:50 06/24/18 04:50 Labs: Abnormal Lab Results - Last 24 Hours (Table) 06/24/18 06/24/18 06/24/18 Range/Units 00:03 00:39 00:41 WBC (3.8-10.6) k/uL RBC (4.30-5.90) m/uL Hgb (13.0-17.5) gm/dL Hct (39.0-53.0) % MCV (80.0-100.0) fL Plt Count (150-450) k/uL Neutrophils # (Manual) (1.3-7.7) k/uL Monocytes # (Manual) (0-1.0) k/uL ABG pH (7.35-7.45) ABG pCO2 (35-45) mmHg ABG pO2 (83-108) mmHg ABG HCO3 (21-25) mmol/L ABG Total CO2 (19-24) mmol/L ABG O2 Saturation (94-97) % Sodium 113 L* (137-145) mmol/L Potassium 3.0 L (3.5-5.1) mmol/L Chloride 88 L (98-107) mmol/L Carbon Dioxide 10 L (22-30) mmol/L BUN 30 H (9-20) mg/dL Creatinine 2.94 H (0.66-1.25) mg/dL Glucose 493 H (74-99) mg/dL POC Glucose (mg/dL) 49 L 103 H (75-99) mg/dL Plasma Lactic Acid French (0.7-2.0) mmol/L Calcium 6.8 L (8.4-10.2) mg/dL Phosphorus 1.6 L (2.5-4.5) mg/dL 06/24/18 06/24/18 06/24/18 Range/Units 00:41 02:05 04:50 WBC (3.8-10.6) k/uL RBC (4.30-5.90) m/uL Hgb (13.0-17.5) gm/dL Hct (39.0-53.0) % MCV (80.0-100.0) fL Plt Count (150-450) k/uL Neutrophils # (Manual) (1.3-7.7) k/uL Monocytes # (Manual) (0-1.0) k/uL ABG pH (7.35-7.45) ABG pCO2 (35-45) mmHg ABG pO2 (83-108) mmHg ABG HCO3 (21-25) mmol/L ABG Total CO2 (19-24) mmol/L ABG O2 Saturation (94-97) % Sodium 124 L (137-145) mmol/L Potassium (3.5-5.1) mmol/L Chloride (98-107) mmol/L Carbon Dioxide 8 L* (22-30) mmol/L BUN 30 H (9-20) mg/dL Creatinine 3.24 H (0.66-1.25) mg/dL Glucose (74-99) mg/dL POC Glucose (mg/dL) 114 H (75-99) mg/dL Plasma Lactic Acid French 5.4 H* (0.7-2.0) mmol/L Calcium 7.3 L (8.4-10.2) mg/dL Phosphorus (2.5-4.5) mg/dL 06/24/18 06/24/18 06/24/18 Range/Units 04:50 04:50 07:46 WBC 26.1 H (3.8-10.6) k/uL RBC 3.80 L (4.30-5.90) m/uL Hgb 12.3 L (13.0-17.5) gm/dL Hct 38.3 L (39.0-53.0) % MCV 100.7 H (80.0-100.0) fL Plt Count 100 L (150-450) k/uL Neutrophils # (Manual) 22.70 H (1.3-7.7) k/uL Monocytes # (Manual) 2.35 H (0-1.0) k/uL ABG pH 7.31 L (7.35-7.45) ABG pCO2 23 L (35-45) mmHg ABG pO2 243 H (83-108) mmHg ABG HCO3 11 L (21-25) mmol/L ABG Total CO2 12 L (19-24) mmol/L ABG O2 Saturation 100.0 H (94-97) % Sodium (137-145) mmol/L Potassium (3.5-5.1) mmol/L Chloride (98-107) mmol/L Carbon Dioxide (22-30) mmol/L BUN (9-20) mg/dL Creatinine (0.66-1.25) mg/dL Glucose (74-99) mg/dL POC Glucose (mg/dL) (75-99) mg/dL Plasma Lactic Acid French 10.0 H* (0.7-2.0) mmol/L Calcium (8.4-10.2) mg/dL Phosphorus (2.5-4.5) mg/dL Microbiology - Last 24 Hours (Table) 06/21/18 23:36 Blood Culture - Preliminary Blood No Growth after 48 hours 06/21/18 21:33 Urine Culture - Final Urine,Catheterized Klebsiella pneumoniae 06/22/18 15:14 Blood Culture Gram Stain - Preliminary Blood Blood Culture - Preliminary Klebsiella pneumoniae Assessment and Plan Plan: Assessment: 1. Acute kidney injury secondary to ATN secondary to hypotension as well as sepsis. Also component of rhabdomyolysis. Creatinine 3.74 today. 2. Septic shock secondary to Klebsiella bacteremia and UTI maintained on antibiotics. 3. Hypotension maintained on 8 mics of Levophed and vasopressin. 4. Severe metabolic acidosis secondary to acute kidney injury and lactic acidosis. 5. Hypovolemic hyponatremia improved with IV hydration. 6. Chronic kidney disease stage III with baseline creatinine in the range of 1.1-1.3 secondary to nephrosclerosis. Plan: Discontinue normal saline. Maintain bicarb drip at 150 mL an hour. Repeat CK level. Repeat sodium level this afternoon. Wean Levophed. Continue to monitor renal function and urine output closely. No urgent need for renal replacement therapy at this time.
[2018-06-24 09:53] LABS: Glucose,Whole Blood 79 mg/dL (75-99)
--- NOTE | 2018-06-24 10:20 | ECHOF ---
Referral Reason:tachycardia MEASUREMENTS -------- HEIGHT: 180.3 cm WEIGHT: 78.0 kg BP: 114/55 RVIDd: 3.3 cm (< 3.3) IVSd: 0.9 cm (0.6 - 1.1) LVIDd: 4.2 cm (3.9 - 5.3) LVPWd: 1.0 cm (0.6 - 1.1) IVSs: 1.6 cm LVIDs: 3.3 cm LVPWs: 1.2 cm Ao Diam: 3.5 cm (2.0 - 3.7) AV Cusp: 0.9 cm (1.5 - 2.6) LA Diam: 3.8 cm (2.7 - 3.8) MV EXCURSION: 12.495 mm (> 18.000) MV EF SLOPE: 104 mm/s (70 - 150) EPSS: 0.5 cm MV E Sagar: 0.87 m/s MV DecT: 214 ms MV A Sagar: 0.80 m/s MV E/A Ratio: 1.09 AV maxP.60 mmHg AV meanP.42 mmHg AR PHT: 192 ms RAP: 20.00 mmHg RVSP: 47.70 mmHg FINDINGS -------- Sinus rhythm. This was a technically adequate study. The left ventricular size is normal. Left ventricular wall thickness is normal. Overall left vent ricular systolic function is mildly impaired with, an EF between 45 - 50 %. The right ventricle is mildly enlarged. The right ventricular systolic function is mildly impaired. The left atrium is normal in size. The right atrium is normal in size. Aortic valve is trileaflet and is moderately thickened. Trace amount of aortic regurgitation. Th ere is mild aortic stenosis present. Peak/mean gradient across the Aortic Valve is 20.60mmHg / 8.42 mmHg. Moderate mitral annular calcification present. [id number] mitral regurgitation is present. Moderate tricuspid regurgitation present. There is mild to moderate pulmonary hypertension. The r ight ventricular systolic pressure, as measured by Doppler, is 47.70mmHg. There is no pulmonic regurgitation present. The aortic root size is normal. The inferior vena cava is dilated with no significant inspiratory collapse which is consistent estima philip right atrial pressure of >20 mmHg. There is no pericardial effusion. CONCLUSIONS -------- 1. Sinus rhythm. 2. This was a technically adequate study. 3. The left ventricular size is normal. 4. Left ventricular wall thickness is normal. 5. Overall left ventricular systolic function is mildly impaired with, an EF between 45 - 50 %. 6. The right ventricle is mildly enlarged. 7. The left atrium is normal in size. 8. Aortic valve is trileaflet and is moderately thickened. 9. Trace amount of aortic regurgitation. 10. There is mild aortic stenosis present. 11. Peak/mean gradient across the Aortic Valve is 20.60mmHg / 8.42mmHg. 12. Moderate mitral annular calcification present. 13. [id number] mitral regurgitation is present. 14. Moderate tricuspid regurgitation present. 15. There is mild to moderate pulmonary hypertension. 16. There is no pulmonic regurgitation present. 17. The aortic root size is normal. 18. The inferior vena cava is dilated with no significant inspiratory collapse which is consistent es timated right atrial pressure of >20 mmHg. 19. There is no pericardial effusion. CABLE SPLICER ASSISTANT: Erica Dorado RDCS
[2018-06-24] MEDS: LEVOFLOXACIN 250 MG TAB PO SCH (10:25)
[2018-06-24] MEDS: METOPROLOL TARTRATE 50 MG TAB PO SCH ×2 (10:26→22:00)
--- NOTE | 2018-06-24 10:38 | P.PN ---
Subjective Progress Note Date: 06/24/18 This is a 77-year-old gentleman with history of chronic leg edema, chronic renal failure was admitted to the hospital with evidence of hyponatremia and also rhabdomyolysis. Patient also developed renal failure and his creatinine is going up. Patient is sleepy but arousable. Complaints of being short of breath. Denies any chest pain. A chest x-ray showed some right-sided atelectasis. No Sigmund JVD. Mild edema of the legs. His maintaining sinus rhythm. Patient is hypotensive and is on Levophed. From cardiac standpoint. We'll continue current medical therapy. His echocardiogram showed an ejection fraction of 45-50%. Objective - Vital Signs Vital signs: Vital Signs Temp 97.6 F 06/24/18 08:30 Pulse 73 06/24/18 10:15 Resp 26 H 06/24/18 10:15 BP 96/67 06/24/18 10:15 Pulse Ox 100 06/24/18 10:15 Intake & Output 06/23/18 06/24/18 06/24/18 18:59 06:59 18:59 Intake Total 1043 4389.375 1062.125 Output Total 325 1705 125 Balance 718 2684.375 937.125 Intake: IV 500 4100 790 AMPs D50w 50 AMPs sodium bicarbonate 150 Dextrose 5%-0.45% NaCl 1, 400 450 000 ml @ 150 mls/hr IV . Q6H40M [facility] Rx#:[id number] Meropenem 1 gm In Sodium 100 Chloride 0.9% 100 ml @ 200 mls/hr IVPB Q12H [facility] Rx#:[id number] Potassium Chloride 20 meq 100 In Water For Injection 1 100ml.bag @ 50 mls/hr IVPB ONCE ONE Rx#: [id number] Sodium Chloride 0.9% 1, 500 3450 190 000 ml @ 20 mls/hr IV . Q24H [facility] Rx#:[id number] Intake, IV Titration 100 289.375 272.125 Amount Levofloxacin 500Mg-D5w 100 Pmx 500 mg In Dextrose/ Water 1 100ml.bag @ 100 mls/hr IVPB ONCE STA Rx#: [id number] Norepinephrine 4 mg In 289.375 272.125 Sodium Chloride 0.9% 250 ml @ Titrate IV .Q0M [facility] Rx#:[id number] Oral 440 Blood Product 3 Output: Urine 325 1705 125 Other: Voiding Method Indwelling Catheter Indwelling Catheter Indwelling Catheter # Voids 3 ABP, PAP, CO, CI - Last Documented Arterial Blood Pressure 221/213 - Exam GENERAL EXAM: Patient is alert and oriented and doesn't appear to be in any acute distress, appears to be frail and sleepy HEENT: Normocephalic. Normal reaction of pupils, equal size, normal range of extraocular motion. No erythema or exudates in the throat. NECK: No masses, no nuchal rigidity. CHEST: No chest wall deformity. LUNGS: Equal air entry with no crackles or wheeze. HEART: S1 and S2 normal with no audible mumurs or gallops. Regular rhythm, femorals equal on both sides.. ABDOMEN: No hepatosplenomegaly, normal bowel sounds, no guarding or rigidity. SKIN: No rashes CENTRAL NERVOUS SYSTEM: No focal deficits. EXTREMITIES: Bilateral edema - Labs CBC & Chem 7: 06/24/18 04:50 06/24/18 04:50 Labs: Abnormal Lab Results - Last 24 Hours (Table) 06/24/18 06/24/18 06/24/18 Range/Units 00:03 00:39 00:41 WBC (3.8-10.6) k/uL RBC (4.30-5.90) m/uL Hgb (13.0-17.5) gm/dL Hct (39.0-53.0) % MCV (80.0-100.0) fL Plt Count (150-450) k/uL Neutrophils # (Manual) (1.3-7.7) k/uL Monocytes # (Manual) (0-1.0) k/uL ABG pH (7.35-7.45) ABG pCO2 (35-45) mmHg ABG pO2 (83-108) mmHg ABG HCO3 (21-25) mmol/L ABG Total CO2 (19-24) mmol/L ABG O2 Saturation (94-97) % Sodium 113 L* (137-145) mmol/L Potassium 3.0 L (3.5-5.1) mmol/L Chloride 88 L (98-107) mmol/L Carbon Dioxide 10 L (22-30) mmol/L BUN 30 H (9-20) mg/dL Creatinine 2.94 H (0.66-1.25) mg/dL Glucose 493 H (74-99) mg/dL POC Glucose (mg/dL) 49 L 103 H (75-99) mg/dL Plasma Lactic Acid French (0.7-2.0) mmol/L Calcium 6.8 L (8.4-10.2) mg/dL Phosphorus 1.6 L (2.5-4.5) mg/dL Creatine Kinase (55-170) U/L 06/24/18 06/24/18 06/24/18 Range/Units 00:41 02:05 04:50 WBC (3.8-10.6) k/uL RBC (4.30-5.90) m/uL Hgb (13.0-17.5) gm/dL Hct (39.0-53.0) % MCV (80.0-100.0) fL Plt Count (150-450) k/uL Neutrophils # (Manual) (1.3-7.7) k/uL Monocytes # (Manual) (0-1.0) k/uL ABG pH (7.35-7.45) ABG pCO2 (35-45) mmHg ABG pO2 (83-108) mmHg ABG HCO3 (21-25) mmol/L ABG Total CO2 (19-24) mmol/L ABG O2 Saturation (94-97) % Sodium 124 L (137-145) mmol/L Potassium (3.5-5.1) mmol/L Chloride (98-107) mmol/L Carbon Dioxide 8 L* (22-30) mmol/L BUN 30 H (9-20) mg/dL Creatinine 3.24 H (0.66-1.25) mg/dL Glucose (74-99) mg/dL POC Glucose (mg/dL) 114 H (75-99) mg/dL Plasma Lactic Acid French 5.4 H* (0.7-2.0) mmol/L Calcium 7.3 L (8.4-10.2) mg/dL Phosphorus (2.5-4.5) mg/dL Creatine Kinase (55-170) U/L 06/24/18 06/24/18 06/24/18 Range/Units 04:50 04:50 04:50 WBC 26.1 H (3.8-10.6) k/uL RBC 3.80 L (4.30-5.90) m/uL Hgb 12.3 L (13.0-17.5) gm/dL Hct 38.3 L (39.0-53.0) % MCV 100.7 H (80.0-100.0) fL Plt Count 100 L (150-450) k/uL Neutrophils # (Manual) 22.70 H (1.3-7.7) k/uL Monocytes # (Manual) 2.35 H (0-1.0) k/uL ABG pH (7.35-7.45) ABG pCO2 (35-45) mmHg ABG pO2 (83-108) mmHg ABG HCO3 (21-25) mmol/L ABG Total CO2 (19-24) mmol/L ABG O2 Saturation (94-97) % Sodium (137-145) mmol/L Potassium (3.5-5.1) mmol/L Chloride (98-107) mmol/L Carbon Dioxide (22-30) mmol/L BUN (9-20) mg/dL Creatinine (0.66-1.25) mg/dL Glucose (74-99) mg/dL POC Glucose (mg/dL) (75-99) mg/dL Plasma Lactic Acid French 10.0 H* (0.7-2.0) mmol/L Calcium (8.4-10.2) mg/dL Phosphorus (2.5-4.5) mg/dL Creatine Kinase 1087 H* (55-170) U/L 06/24/18 Range/Units 07:46 WBC (3.8-10.6) k/uL RBC (4.30-5.90) m/uL Hgb (13.0-17.5) gm/dL Hct (39.0-53.0) % MCV (80.0-100.0) fL Plt Count (150-450) k/uL Neutrophils # (Manual) (1.3-7.7) k/uL Monocytes # (Manual) (0-1.0) k/uL ABG pH 7.31 L (7.35-7.45) ABG pCO2 23 L (35-45) mmHg ABG pO2 243 H (83-108) mmHg ABG HCO3 11 L (21-25) mmol/L ABG Total CO2 12 L (19-24) mmol/L ABG O2 Saturation 100.0 H (94-97) % Sodium (137-145) mmol/L Potassium (3.5-5.1) mmol/L Chloride (98-107) mmol/L Carbon Dioxide (22-30) mmol/L BUN (9-20) mg/dL Creatinine (0.66-1.25) mg/dL Glucose (74-99) mg/dL POC Glucose (mg/dL) (75-99) mg/dL Plasma Lactic Acid French (0.7-2.0) mmol/L Calcium (8.4-10.2) mg/dL Phosphorus (2.5-4.5) mg/dL Creatine Kinase (55-170) U/L Microbiology - Last 24 Hours (Table) 06/21/18 23:36 Blood Culture - Preliminary Blood No Growth after 48 hours 06/21/18 21:33 Urine Culture - Final Urine,Catheterized Klebsiella pneumoniae 06/22/18 15:14 Blood Culture Gram Stain - Preliminary Blood Blood Culture - Preliminary Klebsiella pneumoniae Assessment and Plan (1) Rhabdomyolysis Current Visit: Yes Status: Acute Code(s): M62.82 - RHABDOMYOLYSIS SNOMED Code(s): 859728604 (2) Hyponatremia Current Visit: Yes Status: Acute Code(s): E87.1 - HYPO-OSMOLALITY AND HYPONATREMIA SNOMED Code(s): 04727219 (3) Anemia Current Visit: No Status: Acute Code(s): D64.9 - ANEMIA, UNSPECIFIED SNOMED Code(s): 487575702 (4) Renal failure, acute Current Visit: Yes Status: Acute Code(s): N17.9 - ACUTE KIDNEY FAILURE, UNSPECIFIED SNOMED Code(s): 39957100 Plan: Continue current supportive therapy. Echo showed an ejection fraction 45-50%. Further recommendations will depend upon the clinical course.
[2018-06-24 11:43] LABS: Glucose,Whole Blood 98 mg/dL (75-99)
--- NOTE | 2018-06-24 13:17 | P.PN ---
Subjective Progress Note Date: 06/24/18 Principal diagnosis: Hyponatremia, septic shock, sepsis with Klebsiella pneumonia bacteremia and had a urine. Bipolar disorder, major depression., Mild ischemic cardiomyopathy with the ejection fraction 40% to 50 Pulmonary hypertension. Aortic stenosis. Urinary retention with self-catheterization. Dehydration Neglect his own care due to severe major depression with [facility] failed because of insurance coverage. Care management in the hospital. 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 Psychotic therapy also causing hyponatremia. Lower extremity chronic lymphedema. Metabolic encephalopathy. COPD. Sinus tachycardia. This is a progress note date of service 06/24/[address] Peewee Rdz [facility] Patient admitted during the weekend by Dr. Cueva6 initially at the ICU subsequently transferred to surveillance monitor because of atrial fibrillation, Dr. Chou and did see the patient and advised this is sinus tachycardia, with a blood pressure 89/57. Patient transferred to the ICU room 263. [facility] service for me. I'll review the records Patient seen by Dr. Yarbrough pulmonary and critical and his impression acute septic shock secondary to Klebsiella pneumonia secondary to UTI with the underlying infection secondary to chronic self catheterization of the bladder. Hyponatremia secondary to SIADH medically induced by medication component of dehydration., Acute rhabdomyolysis, essential hypertension mild intermittent asthma major depressive disorder benign prostatic hypertrophy chronic kidney disease stage III and chronic urinary tract infection self-catheterization as patient started on medication and patient requested no CPR patient started on norepinephrine. He had also started on bicarb drip Patient seen by Dr. Adan nephrology with the impression #1 acute kidney injury secondary to ATN secondary to hypotension as well as sepsis also component of rhabdomyolysis and a creatinine 3.74 #2 septic shock secondary to Klebsiella bacteremia and UTI maintained on antibiotic #3 hypotension maintained on 8 mics of Levophed and vasopressin number for severe metabolic acidosis secondary to acute kidney injury and lactic acidosis. #5 [id number] , hyponatremic improving with IV hydration. #6 chronic kidney disease stage III with a baseline creatinine 1.1-1.3 secondary to nephrosclerosis. Cardiology and DrGabriella cardiology Dr. Torres impression rhabdomyolysis #1 #2 hyponatremia #3 anemia #4 renal failure acute with the ejection fraction 45-50%. Patient seen today in ICU Discussed with LJ Mcarthur his nurse. Patient is awake on response normal. Hypotensive. HEENT was negative, neck was supple no JVD no thyromegaly no lymphadenopathy. Chest radiated with normal breath sound bilaterally. Heart regular sinus. Abdomen there is a severe tenderness on the left lower quadrant with the possible rebound associated with increased lactic acid and septic shock. We'll plan for a computed tomography scan and abdomen and pelvis without contrast. Extremities: No edema. Bladder Leggett catheter in place. It appears to me the patient also has central line. Assessment: Guarded condition. Septic shock with hypotension. Etiology associated with Klebsiella pneumonia bacteremia as well as urinary tract infection, however I could not excessive fluid with the tenderness and rebound in the abdomen although pathology in the abdomen. He has also leukocytosis and a with a metabolic encephalopathy. Plan we'll obtain computed tomography scan of the abdomen and pelvis without contrast. Continue ICU care. Objective - Vital Signs Vital signs: Vital Signs Temp 97.7 F 06/24/18 12:00 Pulse 71 06/24/18 12:15 Resp 16 06/24/18 12:15 BP 96/67 06/24/18 10:15 Pulse Ox 100 06/24/18 12:15 Intake & Output 06/23/18 06/24/18 06/24/18 18:59 06:59 18:59 Intake Total 1043 4389.375 1502.125 Output Total 325 1705 145 Balance 718 2684.375 1357.125 Intake: IV 500 4100 1130 AMPs D50w 50 AMPs sodium bicarbonate 150 Dextrose 5%-0.45% NaCl 1, 400 750 000 ml @ 150 mls/hr IV . Q6H40M [facility] Rx#:[id number] Meropenem 1 gm In Sodium 100 Chloride 0.9% 100 ml @ 200 mls/hr IVPB Q12H [facility] Rx#:[id number] Potassium Chloride 20 meq 100 In Water For Injection 1 100ml.bag @ 50 mls/hr IVPB ONCE ONE Rx#: [id number] Sodium Chloride 0.9% 1, 500 3450 230 000 ml @ 20 mls/hr IV . Q24H [facility] Rx#:[id number] Intake, IV Titration 100 289.375 272.125 Amount Levofloxacin 500Mg-D5w 100 Pmx 500 mg In Dextrose/ Water 1 100ml.bag @ 100 mls/hr IVPB ONCE STA Rx#: [id number] Norepinephrine 4 mg In 289.375 272.125 Sodium Chloride 0.9% 250 ml @ Titrate IV .Q0M [facility] Rx#:[id number] Oral 440 100 Blood Product 3 Output: Urine 325 1705 145 Other: Voiding Method Indwelling Catheter Indwelling Catheter Indwelling Catheter # Voids 3 ABP, PAP, CO, CI - Last Documented Arterial Blood Pressure 108/69 - Labs CBC & Chem 7: 06/24/18 04:50 06/24/18 04:50 Labs: Abnormal Lab Results - Last 24 Hours (Table) 06/24/18 06/24/18 06/24/18 Range/Units 00:03 00:39 00:41 WBC (3.8-10.6) k/uL RBC (4.30-5.90) m/uL Hgb (13.0-17.5) gm/dL Hct (39.0-53.0) % MCV (80.0-100.0) fL Plt Count (150-450) k/uL Neutrophils # (Manual) (1.3-7.7) k/uL Monocytes # (Manual) (0-1.0) k/uL ABG pH (7.35-7.45) ABG pCO2 (35-45) mmHg ABG pO2 (83-108) mmHg ABG HCO3 (21-25) mmol/L ABG Total CO2 (19-24) mmol/L ABG O2 Saturation (94-97) % Sodium 113 L* (137-145) mmol/L Potassium 3.0 L (3.5-5.1) mmol/L Chloride 88 L (98-107) mmol/L Carbon Dioxide 10 L (22-30) mmol/L BUN 30 H (9-20) mg/dL Creatinine 2.94 H (0.66-1.25) mg/dL Glucose 493 H (74-99) mg/dL POC Glucose (mg/dL) 49 L 103 H (75-99) mg/dL Plasma Lactic Acid French (0.7-2.0) mmol/L Calcium 6.8 L (8.4-10.2) mg/dL Phosphorus 1.6 L (2.5-4.5) mg/dL Creatine Kinase (55-170) U/L 06/24/18 06/24/18 06/24/18 Range/Units 00:41 02:05 04:50 WBC (3.8-10.6) k/uL RBC (4.30-5.90) m/uL Hgb (13.0-17.5) gm/dL Hct (39.0-53.0) % MCV (80.0-100.0) fL Plt Count (150-450) k/uL Neutrophils # (Manual) (1.3-7.7) k/uL Monocytes # (Manual) (0-1.0) k/uL ABG pH (7.35-7.45) ABG pCO2 (35-45) mmHg ABG pO2 (83-108) mmHg ABG HCO3 (21-25) mmol/L ABG Total CO2 (19-24) mmol/L ABG O2 Saturation (94-97) % Sodium 124 L (137-145) mmol/L Potassium (3.5-5.1) mmol/L Chloride (98-107) mmol/L Carbon Dioxide 8 L* (22-30) mmol/L BUN 30 H (9-20) mg/dL Creatinine 3.24 H (0.66-1.25) mg/dL Glucose (74-99) mg/dL POC Glucose (mg/dL) 114 H (75-99) mg/dL Plasma Lactic Acid French 5.4 H* (0.7-2.0) mmol/L Calcium 7.3 L (8.4-10.2) mg/dL Phosphorus (2.5-4.5) mg/dL Creatine Kinase (55-170) U/L 06/24/18 06/24/18 06/24/18 Range/Units 04:50 04:50 04:50 WBC 26.1 H (3.8-10.6) k/uL RBC 3.80 L (4.30-5.90) m/uL Hgb 12.3 L (13.0-17.5) gm/dL Hct 38.3 L (39.0-53.0) % MCV 100.7 H (80.0-100.0) fL Plt Count 100 L (150-450) k/uL Neutrophils # (Manual) 22.70 H (1.3-7.7) k/uL Monocytes # (Manual) 2.35 H (0-1.0) k/uL ABG pH (7.35-7.45) ABG pCO2 (35-45) mmHg ABG pO2 (83-108) mmHg ABG HCO3 (21-25) mmol/L ABG Total CO2 (19-24) mmol/L ABG O2 Saturation (94-97) % Sodium (137-145) mmol/L Potassium (3.5-5.1) mmol/L Chloride (98-107) mmol/L Carbon Dioxide (22-30) mmol/L BUN (9-20) mg/dL Creatinine (0.66-1.25) mg/dL Glucose (74-99) mg/dL POC Glucose (mg/dL) (75-99) mg/dL Plasma Lactic Acid French 10.0 H* (0.7-2.0) mmol/L Calcium (8.4-10.2) mg/dL Phosphorus (2.5-4.5) mg/dL Creatine Kinase 1087 H* (55-170) U/L 06/24/18 Range/Units 07:46 WBC (3.8-10.6) k/uL RBC (4.30-5.90) m/uL Hgb (13.0-17.5) gm/dL Hct (39.0-53.0) % MCV (80.0-100.0) fL Plt Count (150-450) k/uL Neutrophils # (Manual) (1.3-7.7) k/uL Monocytes # (Manual) (0-1.0) k/uL ABG pH 7.31 L (7.35-7.45) ABG pCO2 23 L (35-45) mmHg ABG pO2 243 H (83-108) mmHg ABG HCO3 11 L (21-25) mmol/L ABG Total CO2 12 L (19-24) mmol/L ABG O2 Saturation 100.0 H (94-97) % Sodium (137-145) mmol/L Potassium (3.5-5.1) mmol/L Chloride (98-107) mmol/L Carbon Dioxide (22-30) mmol/L BUN (9-20) mg/dL Creatinine (0.66-1.25) mg/dL Glucose (74-99) mg/dL POC Glucose (mg/dL) (75-99) mg/dL Plasma Lactic Acid French (0.7-2.0) mmol/L Calcium (8.4-10.2) mg/dL Phosphorus (2.5-4.5) mg/dL Creatine Kinase (55-170) U/L Microbiology - Last 24 Hours (Table) 06/21/18 23:36 Blood Culture - Preliminary Blood No Growth after 48 hours 06/21/18 21:33 Urine Culture - Final Urine,Catheterized Klebsiella pneumoniae 06/22/18 15:14 Blood Culture Gram Stain - Preliminary Blood Blood Culture - Preliminary Klebsiella pneumoniae
--- NOTE | 2018-06-24 14:08 | P.CN ---
Psychiatric Consult - . Consult date: 06/24/18 Consult:: 06/24/18 13:22 Depression? Assessment and Plan Assessment: The patient is a 77-year-old gentleman who apparently is a patient of Dr. Vides. Patient is apparently brought to the hospital by EMS. Apparently neighbors had found him writhing on the floor at his apartment. And apparently EMS found that his vital signs were stable and he was responding to stimulation but otherwise was not responding. He was found to be markedly hyponatremic. Patient still unable to give history. Past medical history Apparently patient does have a history of hyponatremia. Question of SIADH has been entertained in the past. He has also had a history of major depression and bipolar. Apparently this year he was hospitalized on the psychiatric unit. Chronic kidney disease stage III BPH History of asthma History of hypertension and hypertensive heart disease Parent history of lymphedema of the lower extremities. Home Medications Medication Instructions Recorded Confirmed Type Atorvastatin Calcium [Lipitor] 20 mg PO HS 12/08/16 06/21/18 History hydrALAZINE HCL [Apresoline] 50 mg PO TID #90 tab 04/05/17 06/21/18 Rx Sennosides-Docusate Sodium 1 tab PO DAILY 04/21/17 06/21/18 History [Senokot-S] Loratadine [Claritin] 10 mg PO DAILY 08/21/17 06/21/18 History Montelukast [Singulair] 10 mg PO HS 08/21/17 06/21/18 History Polyethylene Glycol 3350 [Miralax] 17 gm PO DAILY PRN 08/21/17 06/21/18 History Spironolactone [Aldactone] 12.5 mg PO QAM 08/21/17 06/21/18 History Topiramate [Topamax] 50 mg PO BID 08/21/17 06/21/18 History Metoprolol Tartrate [Lopressor] 50 mg PO BID #60 tab 08/29/17 06/21/18 Rx Fluticasone Nasal Century [Flonase 1 spray EA NOSTRIL BID 11/05/17 06/21/18 History Nasal Century] amLODIPine [Norvasc] 10 mg PO HS #30 tab 11/09/17 06/21/18 Rx Irbesartan 300 mg PO DAILY 02/13/18 06/21/18 History Acetaminophen [Tylenol 8 Hour] 1,300 mg PO TID 06/05/18 06/21/18 History FLUoxetine HCL [PROzac] 20 mg PO DAILY 06/05/18 06/21/18 History Furosemide [Lasix] 20 mg PO DAILY 06/05/18 06/21/18 History Melatonin 6 mg PO HS 06/05/18 06/21/18 History Ondansetron [Zofran] 4 mg PO Q8H PRN 06/05/18 06/21/18 History busPIRone HCL 7.5 mg PO BID 06/05/18 06/21/18 History hydrOXYzine HCL [Atarax] 10 mg PO HS 06/05/18 06/21/18 History traZODone HCL [Desyrel] 100 mg PO HS 06/05/18 06/21/18 History Albuterol Nebulized [Ventolin 2.5 mg INHALATION RT-QID PRN nebu 06/07/18 Rx Nebulized] Last psych admission: History of Present Illness: Patient states that he sees Dr. Bowers as an outpatient and last saw him in December but did not keep his appointment in January stating that he didn't feel like going. He states that he has been compliant with all of his medications. Patient states that he became more depressed recently because he lost his last friend, someone he knew from [employer]ism. Patient is unable to identify any other precipitant to the change in his mood and states that he did not keep his appointment with his primary care physician in January either because he didn't feel like going. Patient states that perhaps the meds are not working as well as they had been, he states that he had suicidal thoughts to cut his wrist and presented to the emergency room. He states that he is feeling hopeless and has been sleeping and eating well at home. He states he has been going to [employer]. Patient could identify no other precipitant to his recent increase in depressive symptoms. Patient did not endorse any symptoms of psychosis, jovanny or OCD. Patient states his anxiety Patie has been fairly well controlled with the use of Ativan at did not report any acute increase in his anxiety symptoms. nt was last here in the inpatient unit in October 2017. Patient currently is taking Remeron 45 mg at bedtime, Sinequan 20 mg at bedtime and Ativan 0.5 mg twice a day as needed patient states that he takes it most days. Past Psychiatric History: Patient has a history of multiple psychiatric admissions in the past all for depression which he states has been present for most of his adult life. Patient states that he's been tried on multiple combinations of medications over the years and had ECT in the remote past. Patient's last admission was here in October 2017. patient has a history of 1 prior suicide attempt Past Medical/Surgical History: patient has a history of asthma, hypertension and hyperlipidemia, migraine headaches and is status post hernia repair Social History: Patient was born and raised in [place], his parents are both . He has 2 sisters who are alive and he states he has no contact with them. 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 He states that he was once and and has one child with whom he has no contact. Patient lives in an apartment with no assistance and continues to drive his own car. He reported no abuse history. 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 He denied any other drug use history and states that he does not use tobacco products. Legal History: patient denies Mental Status Examination - General Appearance: [This is a 77-year-old male who was not able to participate in any the mental status for a cannot open his eyes nor can he respond to any questions. Impressions 1. Major depressive disorder recurrent, generalized anxiety disorder, alcohol use disorder in sustained remission 2. Borderline and narcissistic personality disorder traits Psychiatric recommendations: Continue psychiatric meds as written Thank you for the consult Geovani Maurer D.O. PhD (1) Depression Current Visit: No Status: Acute Code(s): F32.9 - MAJOR DEPRESSIVE DISORDER, SINGLE EPISODE, UNSPECIFIED SNOMED Code(s): 46651076 Time with Patient: Less than 30
--- NOTE | 2018-06-24 15:20 | CT ---
EXAMINATION TYPE: CT abdomen pelvis wo con DATE OF EXAM: 06/24/2018 COMPARISON: 06/26/2016 HISTORY: Tenderness, rebound, sepsis shock, left lower abdominal pain. CT DLP: 596.3 mGycm Automated exposure control for dose reduction was used. TECHNIQUE: Helical acquisition of images was performed from the lung bases through the pelvis. FINDINGS: The exam is limited due to lack of intravenous contrast and patient motion. Coronal and sag ittals are particularly suboptimal. LUNG BASES: There is a trace left and small right pleural effusion partially visualized with associat ed compressive atelectasis. Heart is mildly enlarged. LIVER/GB: Hepatic parenchyma is diffusely hypoattenuated in comparison to that of the spleen, most co mmonly seen in hepatic steatosis. This finding limits evaluation for hepatic masses. No gross evidenc e of hepatic mass is seen. No intrahepatic biliary ductal dilatation. Gallbladder appears elongated m easuring approximately 9.2 cm. PANCREAS: Suboptimally evaluated. SPLEEN: No significant abnormality is seen. ADRENALS: Adrenal glands are poorly defined but display diffuse thickening although adreniform shape is maintained suggestive of underlying adrenal gland hyperplasia. KIDNEYS: No nephrolithiasis. The right kidney is slightly larger than the left kidney. No surrounding perinephric fluid collection to suggest abscess. FREE AIR: No free air is visualized URINARY BLADDER: There is present within the urinary bladder with circumferential wall thickening an d Ho catheter placement. Therefore air could be related to the recent instrumentation. ADENOPATHY: Evaluation of adenopathy is extremely limited, however no gross evidence of adenopathy i s seen within the abdomen or pelvis. OSSEOUS STRUCTURES: There is an S-shaped scoliotic curvature of the visualized thoracolumbar spine, grade 1 anterolisthesis of L4 on L5, and moderate multilevel degenerative changes of the thoracolumba r spine. BOWEL: There is circumferential rectal wall thickening measuring up to 8 mm in thickness. Presacral edema and small volume free fluid are present in addition to diffuse anasarca and mesenteric congesti on. No dilated large or small bowel are seen. Evaluation of surrounding inflammatory fat stranding is limited by mesenteric edema and patient motion. Lack of oral contrast limits evaluation of the bowel . Small bowel feces sign indicates increased transit time/ileus. OTHER: Moderate atherosclerosis is seen of the abdominal aorta and its branches. Abdominal aorta appe ars normal course and caliber. Right lateral mesenteric fat containing abdominal wall hernia is seen on image 95 with a narrow neck. Foci of air are seen within the right inguinal subcutaneous soft tissues and venous system as well as a right femoral central venous catheter. Foci of subcutaneous emphysema are likely on the basis of r ecent venipuncture. IMPRESSION: 1. EXAM IS LIMITED BY PATIENT MOTION, ANASARCA, MESENTERIC EDEMA, ASCITES AND LACK OF CONTRAST. 2. DIFFUSE URINARY BLADDER WALL THICKENING AND AIR MAY BE POSTPROCEDURAL FROM PLACEMENT OF A HO CA THETER AND DECOMPRESSION OR RELATED TO CYSTITIS. CORRELATE WITH URINALYSIS. ADDITIONALLY THE RIGHT KI DNEY IS SLIGHTLY ENLARGED THAT CAN BE SEEN IN ACUTE PYELONEPHRITIS OR OBSTRUCTION. 3. PROMINENT SIZE OF THE GALLBLADDER. CORRELATE WITH SERUM LABORATORY VALUES TO DETERMINE THE NEED FO R RIGHT UPPER QUADRANT ULTRASOUND. 4. SMALL BOWEL FECES SIGN INDICATING ILEUS WITHOUT EVIDENCE OF OBSTRUCTION. 5. PARTIAL VISUALIZATION OF SMALL RIGHT AND TRACE LEFT PLEURAL EFFUSIONS. 6. HEPATIC STEATOSIS.
[2018-06-24 15:54] LABS: Calcium 6.5 mg/dL (8.4-10.2); Potassium 4.1 mmol/L (3.5-5.1)
[2018-06-24 18:20] LABS: Glucose,Whole Blood 132 mg/dL (75-99)
[2018-06-24 20:40] LABS: Glucose,Whole Blood 134 mg/dL (75-99)
[2018-06-25] MEDS: HEPARIN SODIUM,PORCINE 5,000 UNIT/ML 1 ML VIAL SQ SCH ×3 (00:21→16:56)
[2018-06-25] MEDS: MEROPENEM 1 GM in SODIUM CHLORIDE 0.9% 100 ML IVPB SCH (01:04)
[2018-06-25 04:50] LABS: Magnesium 1.7 mg/dL (1.6-2.3); Phosphorus 2.4 mg/dL (2.5-4.5); Potassium 3.3 mmol/L (3.5-5.1)
[2018-06-25 05:04] LABS: Calcium 6.2 mg/dL (8.4-10.2)
[2018-06-25 05:39] LABS: Basophils % (A) 0 %; Eosinophils # (A) 0.1 k/uL (0-0.7); Eosinophils % (A) 0 %; HCT 23.5 % (39.0-53.0); Lymphocytes # (A) 0.4 k/uL (1.0-4.8); Lymphocytes % (A) 3 %; MCH 33.2 pg (25.0-35.0); MCHC 34.4 g/dL (31.0-37.0); MCV 96.5 fL (80.0-100.0); Mean Platelet Volume 13.7; Monocytes # (A) 0.4 k/uL (0-1.0); Monocytes % (A) 2 %; Neutrophils # (A) 15.1 k/uL (1.3-7.7); Neutrophils % (A) 94 %; RBC 2.44 m/uL (4.30-5.90); RDW 14.2 % (11.5-15.5)
[2018-06-25 05:40] LABS: HGB 8.1 gm/dL (13.0-17.5)
[2018-06-25] MEDS ORDERED: MAGNESIUM SULFATE-D5W PMX 1 GM in DEXTROSE/WATER 1 100ML.BAG IVPB ONE (05:43)
[2018-06-25] MEDS ORDERED: CALCIUM CHLORIDE 1,000 MG in SODIUM CHLORIDE 0.9% 100 ML IVPB STA (05:43)
[2018-06-25] MEDS: POTASSIUM CHLORIDE 20 MEQ in WATER FOR INJECTION 1 100ML.BAG IVPB SCH ×2 (06:12→08:25)
[2018-06-25] MEDS: DEXTROSE 5% IN WATER 1,000 ML with SODIUM BICARB (1 MEQ/ML) 150 ML IV SCH ×3 (06:19→16:55)
[2018-06-25 06:38] LABS: Platelet Count 47 k/uL (150-450)
[2018-06-25 06:52] LABS: Glucose,Whole Blood 144 mg/dL (75-99)
[2018-06-25] MEDS: INSULIN ASPART 100 UNIT/ML 1 ML 10 ML VIAL SQ SCH ×4 (07:01→22:04)
[2018-06-25] MEDS: METOPROLOL TARTRATE 50 MG TAB PO SCH (08:25)
[2018-06-25] MEDS: LEVOFLOXACIN 250 MG TAB PO SCH (08:27)
--- NOTE | 2018-06-25 09:03 | XR ---
EXAMINATION TYPE: XR chest 1V DATE OF EXAM: 06/25/2018 COMPARISON: 06/24/2018 INDICATION: Short of breath TECHNIQUE: Single frontal view of the chest is obtained. FINDINGS: The heart size is normal. The pulmonary vasculature is normal. Mild increased lung markings in the right infrahilar region are stable. There is elevation of the right diaphragm is chronic. Degenerative changes are noted at the right britt ulder. IMPRESSION: 1. Mild right infrahilar atelectasis, stable from comparison.
--- NOTE | 2018-06-25 09:06 | P.PN ---
Subjective Progress Note Date: 06/25/18 This is a 77-year-old gentleman with history of chronic leg edema, chronic renal failure was admitted to the hospital with evidence of hyponatremia and also rhabdomyolysis. Patient also developed renal failure and his creatinine is going up. Patient is sleepy but arousable. Complaints of being short of breath. Denies any chest pain. A chest x-ray showed some right-sided atelectasis. No Sigmund JVD. Mild edema of the legs. His maintaining sinus rhythm. Patient is hypotensive and is on Levophed. From cardiac standpoint. We'll continue current medical therapy. His echocardiogram showed an ejection fraction of 45-50%. 06/25/2018: This 77-year-old gentleman is admitted with UTI and bacteremia. Patient also has evidence of rhabdomyolysis and acute renal failure. Patient seemed to be more alert. Denies any chest pain or shortness of breath. No evidence of JVD. Lungs appeared to be clear. Heart is regular. No evidence of any cardiac arrhythmias. We'll continue current medical therapy. We'll follow him as needed. Objective - Vital Signs Vital signs: Vital Signs Temp 98.1 F 06/25/18 08:00 Pulse 62 06/25/18 08:00 Resp 12 06/25/18 08:00 BP 98/59 06/25/18 08:00 Pulse Ox 96 06/25/18 08:00 Intake & Output 06/24/18 06/25/18 06/25/18 18:59 06:59 18:59 Intake Total 3865.187 2178.875 340 Output Total 205 142 20 Balance 3660.187 2036.875 320 Weight 94.075 [place]: [place] [address] 340 AMPs sodium bicarbonate 150 Dextrose 5% in Water 1, 150 000 ml @ 150 mls/hr IV . Q7H40M [facility] with Sodium Bicarb (1 Meq/ml) 150 ml Rx#:[id number] Dextrose 5%-0.45% NaCl 1, 1450 1800 150 000 ml @ 150 mls/hr IV . Q6H40M [facility] Rx#:[id number] Meropenem 1 gm In Sodium 100 Chloride 0.9% 100 ml @ 200 mls/hr IVPB Q12H [facility] Rx#:[id number] Sodium Chloride 0.9% 1, 350 240 40 000 ml @ 20 mls/hr IV . Q24H [facility] Rx#:[id number] Intake, IV Titration 1495.187 88.875 Amount Norepinephrine 4 mg In 495.187 88.875 Sodium Chloride 0.9% 250 ml @ Titrate IV .Q0M [facility] Rx#:[id number] Sodium Chloride 0.9% 1, 1000 000 ml @ 999 mls/hr IV . Q1H1M [facility] Rx#:[id number] Oral 320 50 Output: Urine 205 142 20 Other: Voiding Method Indwelling Catheter Indwelling Catheter Indwelling Catheter ABP, PAP, CO, CI - Last Documented Arterial Blood Pressure 95/55 - Exam GENERAL EXAM: Patient is alert and oriented and doesn't appear to be in any acute distress, appears to be frail and sleepy HEENT: Normocephalic. Normal reaction of pupils, equal size, normal range of extraocular motion. No erythema or exudates in the throat. NECK: No masses, no nuchal rigidity. CHEST: No chest wall deformity. LUNGS: Equal air entry with no crackles or wheeze. HEART: S1 and S2 normal with no audible mumurs or gallops. Regular rhythm, femorals equal on both sides.. ABDOMEN: No hepatosplenomegaly, normal bowel sounds, no guarding or rigidity. SKIN: No rashes CENTRAL NERVOUS SYSTEM: No focal deficits. EXTREMITIES: Bilateral edema - Labs CBC & Chem 7: 06/25/18 05:30 06/25/18 04:28 Labs: Abnormal Lab Results - Last 24 Hours (Table) 06/24/18 06/24/18 06/24/18 Range/Units 04:50 15:25 15:25 WBC (3.8-10.6) k/uL RBC (4.30-5.90) m/uL Hgb (13.0-17.5) gm/dL Hct (39.0-53.0) % Plt Count (150-450) k/uL Neutrophils # (1.3-7.7) k/uL Lymphocytes # (1.0-4.8) k/uL ABG Lactic Acid 6.9 H* (0.5-1.6) mmol/L Sodium 125 L (137-145) mmol/L Potassium (3.5-5.1) mmol/L Chloride 97 L (98-107) mmol/L Carbon Dioxide 15 L (22-30) mmol/L BUN 36 H (9-20) mg/dL Creatinine 3.27 H (0.66-1.25) mg/dL Glucose 122 H (74-99) mg/dL POC Glucose (mg/dL) (75-99) mg/dL Plasma Lactic Acid French (0.7-2.0) mmol/L Calcium 6.5 L (8.4-10.2) mg/dL Phosphorus (2.5-4.5) mg/dL Creatine Kinase 1087 H* (55-170) U/L 06/24/18 06/24/18 06/24/18 Range/Units 16:10 18:08 20:28 WBC (3.8-10.6) k/uL RBC (4.30-5.90) m/uL Hgb (13.0-17.5) gm/dL Hct (39.0-53.0) % Plt Count (150-450) k/uL Neutrophils # (1.3-7.7) k/uL Lymphocytes # (1.0-4.8) k/uL ABG Lactic Acid (0.5-1.6) mmol/L Sodium (137-145) mmol/L Potassium (3.5-5.1) mmol/L Chloride (98-107) mmol/L Carbon Dioxide (22-30) mmol/L BUN (9-20) mg/dL Creatinine (0.66-1.25) mg/dL Glucose (74-99) mg/dL POC Glucose (mg/dL) 132 H 134 H (75-99) mg/dL Plasma Lactic Acid French 7.2 H* (0.7-2.0) mmol/L Calcium (8.4-10.2) mg/dL Phosphorus (2.5-4.5) mg/dL Creatine Kinase (55-170) U/L 06/24/18 06/24/18 06/25/18 Range/Units 20:56 21:23 00:48 WBC (3.8-10.6) k/uL RBC (4.30-5.90) m/uL Hgb (13.0-17.5) gm/dL Hct (39.0-53.0) % Plt Count (150-450) k/uL Neutrophils # (1.3-7.7) k/uL Lymphocytes # (1.0-4.8) k/uL ABG Lactic Acid 5.6 H* (0.5-1.6) mmol/L Sodium 125 L 125 L (137-145) mmol/L Potassium (3.5-5.1) mmol/L Chloride (98-107) mmol/L Carbon Dioxide (22-30) mmol/L BUN (9-20) mg/dL Creatinine (0.66-1.25) mg/dL Glucose (74-99) mg/dL POC Glucose (mg/dL) (75-99) mg/dL Plasma Lactic Acid French (0.7-2.0) mmol/L Calcium (8.4-10.2) mg/dL Phosphorus (2.5-4.5) mg/dL Creatine Kinase (55-170) U/L 06/25/18 06/25/18 06/25/18 Range/Units 04:28 04:28 05:30 WBC 16.0 H (3.8-10.6) k/uL RBC 2.44 L (4.30-5.90) m/uL Hgb 8.1 L D (13.0-17.5) gm/dL Hct 23.5 L (39.0-53.0) % Plt Count 47 L D (150-450) k/uL Neutrophils # 15.1 H (1.3-7.7) k/uL Lymphocytes # 0.4 L (1.0-4.8) k/uL ABG Lactic Acid 4.1 H* (0.5-1.6) mmol/L Sodium 125 L (137-145) mmol/L Potassium 3.3 L (3.5-5.1) mmol/L Chloride 94 L (98-107) mmol/L Carbon Dioxide (22-30) mmol/L BUN 42 H (9-20) mg/dL Creatinine 3.54 H (0.66-1.25) mg/dL Glucose 131 H (74-99) mg/dL POC Glucose (mg/dL) (75-99) mg/dL Plasma Lactic Acid French (0.7-2.0) mmol/L Calcium 6.2 L* (8.4-10.2) mg/dL Phosphorus 2.4 L (2.5-4.5) mg/dL Creatine Kinase 1175 H* (55-170) U/L 06/25/18 Range/Units 06:41 WBC (3.8-10.6) k/uL RBC (4.30-5.90) m/uL Hgb (13.0-17.5) gm/dL Hct (39.0-53.0) % Plt Count (150-450) k/uL Neutrophils # (1.3-7.7) k/uL Lymphocytes # (1.0-4.8) k/uL ABG Lactic Acid (0.5-1.6) mmol/L Sodium (137-145) mmol/L Potassium (3.5-5.1) mmol/L Chloride (98-107) mmol/L Carbon Dioxide (22-30) mmol/L BUN (9-20) mg/dL Creatinine (0.66-1.25) mg/dL Glucose (74-99) mg/dL POC Glucose (mg/dL) 144 H (75-99) mg/dL Plasma Lactic Acid French (0.7-2.0) mmol/L Calcium (8.4-10.2) mg/dL Phosphorus (2.5-4.5) mg/dL Creatine Kinase (55-170) U/L Microbiology - Last 24 Hours (Table) 06/21/18 23:36 Blood Culture - Preliminary Blood No Growth after 72 hours 06/22/18 15:14 Blood Culture Gram Stain - Final Blood Blood Culture - Final Klebsiella pneumoniae Assessment and Plan (1) Rhabdomyolysis Current Visit: Yes Status: Acute Code(s): M62.82 - RHABDOMYOLYSIS SNOMED Code(s): 877225308 (2) Hyponatremia Current Visit: Yes Status: Acute Code(s): E87.1 - HYPO-OSMOLALITY AND HYPONATREMIA SNOMED Code(s): 36689960 (3) Anemia Current Visit: No Status: Acute Code(s): D64.9 - ANEMIA, UNSPECIFIED SNOMED Code(s): 084648261 (4) Renal failure, acute Current Visit: Yes Status: Acute Code(s): N17.9 - ACUTE KIDNEY FAILURE, UNSPECIFIED SNOMED Code(s): 98962589 Plan: Patient appears to be due to more stable. No Cardec arrhythmias. We'll follow him as needed
--- NOTE | 2018-06-25 10:11 | P.PN ---
Subjective Progress Note Date: 06/25/18 Principal diagnosis: Hyponatremia, sepsis, hypotension Progress note dated 06/25/2018 77-year-old male seen initially by my partner for the possibility of acute septic secondary to Klebsiella pneumoniae both in the urine and blood. The patient was initially on both Merrem and Levaquin. I believe we can stop the Merrem at this time. The patient also had episodes of hyponatremia, likely secondary to SIADH and history of seizure disorder also secondary to hyponatremia. In addition, the patient had acute rhabdomyolysis secondary to falls as well as a history of benign essential hypertension, asthma, major depression, BPH, chronic kidney disease, stage III and chronic urinary tract infections with self-catheterization. Yesterday, early in the morning, my partner came in and did a right femoral vein triple lumen catheter and left brachial art line placement. Patient's not requiring any supplemental oxygen today. His IV fluids are dextrose with 3 amps of sodium bicarbonate at 150 an hour and .9 IV at KVO. Norepinephrine has been turned off. This morning he was on both Levaquin and Merrem and I think we can stop the Merrem at this time. The patient has a bit and has a very flat affect. Does not feel like eating this morning. He certainly is much more stable today than he was yesterday. Objective - Vital Signs Vital signs: Vital Signs Temp 98.1 F 06/25/18 08:00 Pulse 62 06/25/18 08:00 Resp 12 06/25/18 08:00 BP 98/59 06/25/18 08:00 Pulse Ox 96 06/25/18 08:00 Intake & Output 06/24/18 06/25/18 06/25/18 18:59 06:59 18:59 Intake Total 3865.187 2178.875 340 Output Total 205 142 20 Balance 3660.187 2036.875 320 Weight 94.075 kg Intake: IV 2049 2039 340 AMPs sodium bicarbonate 150 Dextrose 5% in Water 1, 150 000 ml @ 150 mls/hr IV . Q7H40M [facility] with Sodium Bicarb (1 Meq/ml) 150 ml Rx#:[id number] Dextrose 5%-0.45% NaCl 1, 1450 1800 150 000 ml @ 150 mls/hr IV . Q6H40M [facility] Rx#:[id number] Meropenem 1 gm In Sodium 100 Chloride 0.9% 100 ml @ 200 mls/hr IVPB Q12H [facility] Rx#:[id number] Sodium Chloride 0.9% 1, 350 240 40 000 ml @ 20 mls/hr IV . Q24H [facility] Rx#:[id number] Intake, IV Titration 1495.187 88.875 Amount Norepinephrine 4 mg In 495.187 88.875 Sodium Chloride 0.9% 250 ml @ Titrate IV .Q0M [facility] Rx#:[id number] Sodium Chloride 0.9% 1, 1000 000 ml @ 999 mls/hr IV . Q1H1M [facility] Rx#:[id number] Oral 320 50 Output: Urine 205 142 20 Other: Voiding Method Indwelling Catheter Indwelling Catheter Indwelling Catheter ABP, PAP, CO, CI - Last Documented Arterial Blood Pressure 95/55 - Exam No acute distress, oriented 3. No supplemental oxygen noted. The patient does have a very flat affect. HEENT examination is grossly unremarkable. Mucous membranes are moist. No oral lesions. Neck supple. Full range of motion. No adenopathy thyromegaly or neck vein distention. Cardiovascular examination reveals regular rhythm rate. S1-S2 normal. No S3 or S4. No discernible murmur noted. Heart sounds are distant. Lungs reveal clear breath sounds. Her sounds are equal bilaterally. No adventitious lung sounds including wheezes rhonchi or crackles. Abdomen soft and bowel sounds are heard. No masses or tenderness. Extremities are intact. No cyanosis clubbing or edema. Skin is without rash or lesion. Neurologic examination is brief but nonfocal. - Labs CBC & Chem 7: 06/25/18 05:30 06/25/18 04:28 Labs: Abnormal Lab Results - Last 24 Hours (Table) 06/24/18 06/24/18 06/24/18 Range/Units 04:50 15:25 15:25 WBC (3.8-10.6) k/uL RBC (4.30-5.90) m/uL Hgb (13.0-17.5) gm/dL Hct (39.0-53.0) % Plt Count (150-450) k/uL Neutrophils # (1.3-7.7) k/uL Lymphocytes # (1.0-4.8) k/uL ABG Lactic Acid 6.9 H* (0.5-1.6) mmol/L Sodium 125 L (137-145) mmol/L Potassium (3.5-5.1) mmol/L Chloride 97 L (98-107) mmol/L Carbon Dioxide 15 L (22-30) mmol/L BUN 36 H (9-20) mg/dL Creatinine 3.27 H (0.66-1.25) mg/dL Glucose 122 H (74-99) mg/dL POC Glucose (mg/dL) (75-99) mg/dL Plasma Lactic Acid French (0.7-2.0) mmol/L Calcium 6.5 L (8.4-10.2) mg/dL Phosphorus (2.5-4.5) mg/dL Creatine Kinase 1087 H* (55-170) U/L 06/24/18 06/24/18 06/24/18 Range/Units 16:10 18:08 20:28 WBC (3.8-10.6) k/uL RBC (4.30-5.90) m/uL Hgb (13.0-17.5) gm/dL Hct (39.0-53.0) % Plt Count (150-450) k/uL Neutrophils # (1.3-7.7) k/uL Lymphocytes # (1.0-4.8) k/uL ABG Lactic Acid (0.5-1.6) mmol/L Sodium (137-145) mmol/L Potassium (3.5-5.1) mmol/L Chloride (98-107) mmol/L Carbon Dioxide (22-30) mmol/L BUN (9-20) mg/dL Creatinine (0.66-1.25) mg/dL Glucose (74-99) mg/dL POC Glucose (mg/dL) 132 H 134 H (75-99) mg/dL Plasma Lactic Acid French 7.2 H* (0.7-2.0) mmol/L Calcium (8.4-10.2) mg/dL Phosphorus (2.5-4.5) mg/dL Creatine Kinase (55-170) U/L 06/24/18 06/24/18 06/25/18 Range/Units 20:56 21:23 00:48 WBC (3.8-10.6) k/uL RBC (4.30-5.90) m/uL Hgb (13.0-17.5) gm/dL Hct (39.0-53.0) % Plt Count (150-450) k/uL Neutrophils # (1.3-7.7) k/uL Lymphocytes # (1.0-4.8) k/uL ABG Lactic Acid 5.6 H* (0.5-1.6) mmol/L Sodium 125 L 125 L (137-145) mmol/L Potassium (3.5-5.1) mmol/L Chloride (98-107) mmol/L Carbon Dioxide (22-30) mmol/L BUN (9-20) mg/dL Creatinine (0.66-1.25) mg/dL Glucose (74-99) mg/dL POC Glucose (mg/dL) (75-99) mg/dL Plasma Lactic Acid French (0.7-2.0) mmol/L Calcium (8.4-10.2) mg/dL Phosphorus (2.5-4.5) mg/dL Creatine Kinase (55-170) U/L 06/25/18 06/25/18 06/25/18 Range/Units 04:28 04:28 05:30 WBC 16.0 H (3.8-10.6) k/uL RBC 2.44 L (4.30-5.90) m/uL Hgb 8.1 L D (13.0-17.5) gm/dL Hct 23.5 L (39.0-53.0) % Plt Count 47 L D (150-450) k/uL Neutrophils # 15.1 H (1.3-7.7) k/uL Lymphocytes # 0.4 L (1.0-4.8) k/uL ABG Lactic Acid 4.1 H* (0.5-1.6) mmol/L Sodium 125 L (137-145) mmol/L Potassium 3.3 L (3.5-5.1) mmol/L Chloride 94 L (98-107) mmol/L Carbon Dioxide (22-30) mmol/L BUN 42 H (9-20) mg/dL Creatinine 3.54 H (0.66-1.25) mg/dL Glucose 131 H (74-99) mg/dL POC Glucose (mg/dL) (75-99) mg/dL Plasma Lactic Acid French (0.7-2.0) mmol/L Calcium 6.2 L* (8.4-10.2) mg/dL Phosphorus 2.4 L (2.5-4.5) mg/dL Creatine Kinase 1175 H* (55-170) U/L 06/25/18 Range/Units 06:41 WBC (3.8-10.6) k/uL RBC (4.30-5.90) m/uL Hgb (13.0-17.5) gm/dL Hct (39.0-53.0) % Plt Count (150-450) k/uL Neutrophils # (1.3-7.7) k/uL Lymphocytes # (1.0-4.8) k/uL ABG Lactic Acid (0.5-1.6) mmol/L Sodium (137-145) mmol/L Potassium (3.5-5.1) mmol/L Chloride (98-107) mmol/L Carbon Dioxide (22-30) mmol/L BUN (9-20) mg/dL Creatinine (0.66-1.25) mg/dL Glucose (74-99) mg/dL POC Glucose (mg/dL) 144 H (75-99) mg/dL Plasma Lactic Acid French (0.7-2.0) mmol/L Calcium (8.4-10.2) mg/dL Phosphorus (2.5-4.5) mg/dL Creatine Kinase (55-170) U/L Microbiology - Last 24 Hours (Table) 06/21/18 23:36 Blood Culture - Preliminary Blood No Growth after 72 hours 06/22/18 15:14 Blood Culture Gram Stain - Final Blood Blood Culture - Final Klebsiella pneumoniae Assessment and Plan Assessment: Assessment Acute septic shock with hypotension, secondary to Klebsiella pneumoniae urinary tract infection and bacteremia 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 Chest x-ray, labs and medications are all reviewed. Chest x-ray show some minimal atelectasis. White count is 16 ,000, hemoglobin 8.1, hematocrit 23.5 and platelet count 47,000. Sodium 125, potassium 3.3, chlorides 96 and carbon dioxide 22. BUN was 42 with a creatinine of 3.54. The creatine kinases come down to 1175. The rest of the labs are reviewed. We will continue to follow along with this patient and make additional recommendations were appropriate. From the critical care standpoint , the patient is much more stable. The patient's norepinephrine has been weaned off. Additional recommendations and suggestions are forthcoming. Again , medications labs and x-rays are all reviewed. Critical care time 34 minutes Time with Patient: Greater than 30
[2018-06-25 11:48] LABS: Glucose,Whole Blood 129 mg/dL (75-99)
[2018-06-25] MEDS ORDERED: FUROSEMIDE 10 MG/ML 10 ML VIAL IV STA (12:00)
[2018-06-25] MEDS: SODIUM CHLORIDE 0.9% 1,000 ML IV SCH (12:13)
--- NOTE | 2018-06-25 12:19 | P.PN ---
Subjective Patient is seen in follow for acute kidney injury on chronic kidney disease. Patient has chronic kidney disease stage III with baseline creatinine in the range of 1.1-1.3 secondary to nephrosclerosis. Patient also noted to be hyponatremic. Sodium level improved with IV fluids and stable at 125 this morning. Patient's noted to have blood and urine culture positive for Klebsiella. He is off Levophed. Urine output remains low at 5-10 mL an hour. He is maintained on bicarb drip at 1 50 mL an hour and bicarb level is up to 22 today. Vital signs are stable. Currently off Levophed. General: The patient appeared well nourished and normally developed. HEENT: Head exam is unremarkable. Neck is without jugular venous distension. LUNGS: Breath sounds decreased. HEART: Rate and Rhythm are regular. First and second heart sounds normal. No murmurs, rubs or gallops. ABDOMEN: Abdominal exam reveals normal bowel sounds. Non-tender and non- distended. No evidence of peritonitis. EXTREMITITES: No clubbing, cyanosis, or edema. Objective - Vital Signs Vital signs: Vital Signs Temp 98.1 F 06/25/18 08:00 Pulse 63 06/25/18 10:00 Resp 18 06/25/18 10:00 BP 96/59 06/25/18 10:00 Pulse Ox 97 06/25/18 10:00 Intake & Output 06/24/18 06/25/18 06/25/18 18:59 06:59 18:59 Intake Total 3865.187 2178.875 640 Output Total 205 142 35 Balance 3660.187 2036.875 605 Weight 94.075 kg Intake: IV 2049 2039 640 AMPs sodium bicarbonate 150 Dextrose 5% in Water 1, 450 000 ml @ 150 mls/hr IV . Q7H40M [facility] with Sodium Bicarb (1 Meq/ml) 150 ml Rx#:[id number] Dextrose 5%-0.45% NaCl 1, 1450 1800 150 000 ml @ 150 mls/hr IV . Q6H40M [facility] Rx#:[id number] Meropenem 1 gm In Sodium 100 Chloride 0.9% 100 ml @ 200 mls/hr IVPB Q12H [facility] Rx#:[id number] Sodium Chloride 0.9% 1, 350 240 40 000 ml @ 20 mls/hr IV . Q24H [facility] Rx#:[id number] Intake, IV Titration 1495.187 88.875 Amount Norepinephrine 4 mg In 495.187 88.875 Sodium Chloride 0.9% 250 ml @ Titrate IV .Q0M [facility] Rx#:[id number] Sodium Chloride 0.9% 1, 1000 000 ml @ 999 mls/hr IV . Q1H1M ONE Rx#:[id number] Oral 320 50 Output: Urine 205 142 35 Other: Voiding Method Indwelling Catheter Indwelling Catheter Indwelling Catheter ABP, PAP, CO, CI - Last Documented Arterial Blood Pressure 119/105 - Labs CBC & Chem 7: 06/25/18 05:30 06/25/18 04:28 Labs: Abnormal Lab Results - Last 24 Hours (Table) 06/24/18 06/24/18 06/24/18 Range/Units 15:25 15:25 16:10 WBC (3.8-10.6) k/uL RBC (4.30-5.90) m/uL Hgb (13.0-17.5) gm/dL Hct (39.0-53.0) % Plt Count (150-450) k/uL Neutrophils # (1.3-7.7) k/uL Lymphocytes # (1.0-4.8) k/uL ABG Lactic Acid 6.9 H* (0.5-1.6) mmol/L Sodium 125 L (137-145) mmol/L Potassium (3.5-5.1) mmol/L Chloride 97 L (98-107) mmol/L Carbon Dioxide 15 L (22-30) mmol/L BUN 36 H (9-20) mg/dL Creatinine 3.27 H (0.66-1.25) mg/dL Glucose 122 H (74-99) mg/dL POC Glucose (mg/dL) (75-99) mg/dL Plasma Lactic Acid French 7.2 H* (0.7-2.0) mmol/L Calcium 6.5 L (8.4-10.2) mg/dL Phosphorus (2.5-4.5) mg/dL Creatine Kinase (55-170) U/L 06/24/18 06/24/18 06/24/18 Range/Units 18:08 20:28 20:56 WBC (3.8-10.6) k/uL RBC (4.30-5.90) m/uL Hgb (13.0-17.5) gm/dL Hct (39.0-53.0) % Plt Count (150-450) k/uL Neutrophils # (1.3-7.7) k/uL Lymphocytes # (1.0-4.8) k/uL ABG Lactic Acid (0.5-1.6) mmol/L Sodium 125 L (137-145) mmol/L Potassium (3.5-5.1) mmol/L Chloride (98-107) mmol/L Carbon Dioxide (22-30) mmol/L BUN (9-20) mg/dL Creatinine (0.66-1.25) mg/dL Glucose (74-99) mg/dL POC Glucose (mg/dL) 132 H 134 H (75-99) mg/dL Plasma Lactic Acid French (0.7-2.0) mmol/L Calcium (8.4-10.2) mg/dL Phosphorus (2.5-4.5) mg/dL Creatine Kinase (55-170) U/L 06/24/18 06/25/18 06/25/18 Range/Units 21:23 00:48 04:28 WBC (3.8-10.6) k/uL RBC (4.30-5.90) m/uL Hgb (13.0-17.5) gm/dL Hct (39.0-53.0) % Plt Count (150-450) k/uL Neutrophils # (1.3-7.7) k/uL Lymphocytes # (1.0-4.8) k/uL ABG Lactic Acid 5.6 H* (0.5-1.6) mmol/L Sodium 125 L 125 L (137-145) mmol/L Potassium 3.3 L (3.5-5.1) mmol/L Chloride 94 L (98-107) mmol/L Carbon Dioxide (22-30) mmol/L BUN 42 H (9-20) mg/dL Creatinine 3.54 H (0.66-1.25) mg/dL Glucose 131 H (74-99) mg/dL POC Glucose (mg/dL) (75-99) mg/dL Plasma Lactic Acid French (0.7-2.0) mmol/L Calcium 6.2 L* (8.4-10.2) mg/dL Phosphorus 2.4 L (2.5-4.5) mg/dL Creatine Kinase 1175 H* (55-170) U/L 06/25/18 06/25/18 06/25/18 Range/Units 04:28 05:30 06:41 WBC 16.0 H (3.8-10.6) k/uL RBC 2.44 L (4.30-5.90) m/uL Hgb 8.1 L D (13.0-17.5) gm/dL Hct 23.5 L (39.0-53.0) % Plt Count 47 L D (150-450) k/uL Neutrophils # 15.1 H (1.3-7.7) k/uL Lymphocytes # 0.4 L (1.0-4.8) k/uL ABG Lactic Acid 4.1 H* (0.5-1.6) mmol/L Sodium (137-145) mmol/L Potassium (3.5-5.1) mmol/L Chloride (98-107) mmol/L Carbon Dioxide (22-30) mmol/L BUN (9-20) mg/dL Creatinine (0.66-1.25) mg/dL Glucose (74-99) mg/dL POC Glucose (mg/dL) 144 H (75-99) mg/dL Plasma Lactic Acid French (0.7-2.0) mmol/L Calcium (8.4-10.2) mg/dL Phosphorus (2.5-4.5) mg/dL Creatine Kinase (55-170) U/L 06/25/18 Range/Units 11:37 WBC (3.8-10.6) k/uL RBC (4.30-5.90) m/uL Hgb (13.0-17.5) gm/dL Hct (39.0-53.0) % Plt Count (150-450) k/uL Neutrophils # (1.3-7.7) k/uL Lymphocytes # (1.0-4.8) k/uL ABG Lactic Acid (0.5-1.6) mmol/L Sodium (137-145) mmol/L Potassium (3.5-5.1) mmol/L Chloride (98-107) mmol/L Carbon Dioxide (22-30) mmol/L BUN (9-20) mg/dL Creatinine (0.66-1.25) mg/dL Glucose (74-99) mg/dL POC Glucose (mg/dL) 129 H (75-99) mg/dL Plasma Lactic Acid French (0.7-2.0) mmol/L Calcium (8.4-10.2) mg/dL Phosphorus (2.5-4.5) mg/dL Creatine Kinase (55-170) U/L Microbiology - Last 24 Hours (Table) 06/21/18 23:36 Blood Culture - Preliminary Blood No Growth after 72 hours 06/22/18 15:14 Blood Culture Gram Stain - Final Blood Blood Culture - Final Klebsiella pneumoniae Assessment and Plan Plan: Assessment: 1. Acute kidney injury secondary to ATN secondary to hypotension as well as sepsis. Also component of rhabdomyolysis. Creatinine 3.54 today. 2. Septic shock secondary to Klebsiella bacteremia and UTI maintained on antibiotics. 3. Hypotension secondary to sepsis. Currently off vasopressors. 4. Severe metabolic acidosis secondary to acute kidney injury and lactic acidosis. Better. 5. Hypovolemic hyponatremia improved with IV hydration. 6. Chronic kidney disease stage III with baseline creatinine in the range of 1.1-1.3 secondary to nephrosclerosis. 7. Hypokalemia secondary to intracellular shifting from IV bicarb. Plan: I will decrease the bicarb drip to 60 mL an hour. Add normal saline at 60 mL an hour. Potassium being replaced. Repeat sodium level in the evening. Lasix 80 mg IV once today. Continue to monitor renal function and urine output closely. Assess on a day to day basis for the need for renal replacement therapy.
--- NOTE | 2018-06-25 13:30 | P.PN ---
Subjective Progress Note Date: 06/25/18 Principal diagnosis: Septic shock, hypotension, Klebsiella bacteremia, Klebsiella UTI, hyponatremia, leukocytosis, bipolar disorder, major depression, acute kidney injury on the top of chronic kidney disease, anemia, asthma. Dictation on the progress note date of service 06/25/[address] Hortencia Rdz [facility], Patient seen and evaluated today in the ICU to 63 bed 1. Reviewed his laboratories: White count 16 hemoglobin 8.1 platelet count 47 on . On admission WBC 15.4, hemoglobin 12, platelets 103. On admission his CK 2254 with the underlying rhabdomyolysis. Also history of present 10.180 first reading the second reading 0.152 seen by cardiology and found that his ejection fraction 45-50. TSH is normal 0.958 this is on the date of admission. Vital signs today temperature 98.2 pulse 61 per minute and regular his currently blood pressure is improved to 120/60 earlier was 100/62 and 96/67 with a mean around 74. Patient seen by Dr. Adan nephrology and he changes IV 2.9 normal saline and crit adjusted his bicarb as well. On examination patient is conscious, lost his appetite and is not eating. He doesn't have throat no thrush able to swallow no abdominal pain On exam HEENT negative, neck was supple chest was irrigated bilaterally and the recent chest x-ray indicated reviewed by Dr. Mendoza and patient on antibiotic. The heart currently compensated with regular sinus rhythm, he has underlying valvular heart disease with the ejection fraction 45%. Abdomen is soft positive bowel sounds extremities no edema and positive pulses moving 4 extremities no neurological deficit. Blood culture Klebsiella pneumonia Assessment rhabdomyolysis, hyponatremia, anemia, acute renal failure. Dr. Torres cardiology. [employer] Dr. Mendoza with assessment acute septic shock with hypotension secondary to lytic Klebsiella pneumonia urinary tract infection and bacteremia. 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 Benign essential hypertension, mild intermittent asthma, major depressive disorder, benign prostatic hypertrophy, stage III chronic kidney disease. Dr. Adan impression acute kidney injury secondary to ATN secondary to hypotension as well sepsis Creatinine 3.54, septic shock secondary to look Klebsiella bacteremia and UTI on antibiotic hypotension secondary to sepsis currently he is off the vasodepressor, severe metabolic acidosis due to acute kidney injury and elevated lactic acid. Hypovolemia hyponatremia on IV hydration., Chronic kidney disease stage III with baseline creatinine 1.1-1.4 due to her definite sclerosis. Hypokalemia secondary to enterococcus cellular shifting from the IV bicarbonate Plan: Patient in ICU will continue follow-up, still leukocytosis. And the will see if needs any changes on his antibiotic and the probably we will be consulting the infectious disease present consulted already. Objective - Vital Signs Vital signs: Vital Signs Temp 98.2 F 06/25/18 12:00 Pulse 61 06/25/18 12:00 Resp 18 06/25/18 12:00 BP 100/62 06/25/18 12:00 Pulse Ox 97 06/25/18 12:00 Intake & Output 06/24/18 06/25/18 06/25/18 18:59 06:59 18:59 Intake Total 3865.187 2178.875 980 Output Total 205 142 67 Balance 3660.187 2036.875 913 Weight 94.075 [place]: [place] [address] 980 AMPs sodium bicarbonate 150 Dextrose 5% in Water 1, 750 000 ml @ 60 mls/hr IV . [id number] [facility] with Sodium Bicarb (1 Meq/ml) 150 ml Rx#:[id number] Dextrose 5%-0.45% NaCl 1, 1450 1800 150 000 ml @ 150 mls/hr IV . Q6H40M [facility] Rx#:[id number] Meropenem 1 gm In Sodium 100 Chloride 0.9% 100 ml @ 200 mls/hr IVPB Q12H [facility] Rx#:[id number] Sodium Chloride 0.9% 1, 350 240 80 000 ml @ 20 mls/hr IV . Q24H [facility] Rx#:[id number] Intake, IV Titration 1495.187 88.875 Amount Norepinephrine 4 mg In 495.187 88.875 Sodium Chloride 0.9% 250 ml @ Titrate IV .Q0M [facility] Rx#:[id number] Sodium Chloride 0.9% 1, 1000 000 ml @ 999 mls/hr IV . Q1H1M ONE Rx#:[id number] Oral 320 50 Output: Urine 205 142 67 Other: Voiding Method Indwelling Catheter Indwelling Catheter Indwelling Catheter ABP, PAP, CO, CI - Last Documented Arterial Blood Pressure 100/61 - Labs CBC & Chem 7: 06/25/18 05:30 11/27/18 04:28 Labs: Abnormal Lab Results - Last 24 Hours (Table) 06/24/18 06/24/18 06/24/18 Range/Units 15:25 15:25 16:10 WBC (3.8-10.6) k/uL RBC (4.30-5.90) m/uL Hgb (13.0-17.5) gm/dL Hct (39.0-53.0) % Plt Count (150-450) k/uL Neutrophils # (1.3-7.7) k/uL Lymphocytes # (1.0-4.8) k/uL ABG Lactic Acid 6.9 H* (0.5-1.6) mmol/L Sodium 125 L (137-145) mmol/L Potassium (3.5-5.1) mmol/L Chloride 97 L (98-107) mmol/L Carbon Dioxide 15 L (22-30) mmol/L BUN 36 H (9-20) mg/dL Creatinine 3.27 H (0.66-1.25) mg/dL Glucose 122 H (74-99) mg/dL POC Glucose (mg/dL) (75-99) mg/dL Plasma Lactic Acid French 7.2 H* (0.7-2.0) mmol/L Calcium 6.5 L (8.4-10.2) mg/dL Phosphorus (2.5-4.5) mg/dL Creatine Kinase (55-170) U/L 06/24/18 06/24/18 06/24/18 Range/Units 18:08 20:28 20:56 WBC (3.8-10.6) k/uL RBC (4.30-5.90) m/uL Hgb (13.0-17.5) gm/dL Hct (39.0-53.0) % Plt Count (150-450) k/uL Neutrophils # (1.3-7.7) k/uL Lymphocytes # (1.0-4.8) k/uL ABG Lactic Acid (0.5-1.6) mmol/L Sodium 125 L (137-145) mmol/L Potassium (3.5-5.1) mmol/L Chloride (98-107) mmol/L Carbon Dioxide (22-30) mmol/L BUN (9-20) mg/dL Creatinine (0.66-1.25) mg/dL Glucose (74-99) mg/dL POC Glucose (mg/dL) 132 H 134 H (75-99) mg/dL Plasma Lactic Acid French (0.7-2.0) mmol/L Calcium (8.4-10.2) mg/dL Phosphorus (2.5-4.5) mg/dL Creatine Kinase (55-170) U/L 06/24/18 06/25/18 06/25/18 Range/Units 21:23 00:48 04:28 WBC (3.8-10.6) k/uL RBC (4.30-5.90) m/uL Hgb (13.0-17.5) gm/dL Hct (39.0-53.0) % Plt Count (150-450) k/uL Neutrophils # (1.3-7.7) k/uL Lymphocytes # (1.0-4.8) k/uL ABG Lactic Acid 5.6 H* (0.5-1.6) mmol/L Sodium 125 L 125 L (137-145) mmol/L Potassium 3.3 L (3.5-5.1) mmol/L Chloride 94 L (98-107) mmol/L Carbon Dioxide (22-30) mmol/L BUN 42 H (9-20) mg/dL Creatinine 3.54 H (0.66-1.25) mg/dL Glucose 131 H (74-99) mg/dL POC Glucose (mg/dL) (75-99) mg/dL Plasma Lactic Acid French (0.7-2.0) mmol/L Calcium 6.2 L* (8.4-10.2) mg/dL Phosphorus 2.4 L (2.5-4.5) mg/dL Creatine Kinase 1175 H* (55-170) U/L 06/25/18 06/25/18 06/25/18 Range/Units 04:28 05:30 06:41 WBC 16.0 H (3.8-10.6) k/uL RBC 2.44 L (4.30-5.90) m/uL Hgb 8.1 L D (13.0-17.5) gm/dL Hct 23.5 L (39.0-53.0) % Plt Count 47 L D (150-450) k/uL Neutrophils # 15.1 H (1.3-7.7) k/uL Lymphocytes # 0.4 L (1.0-4.8) k/uL ABG Lactic Acid 4.1 H* (0.5-1.6) mmol/L Sodium (137-145) mmol/L Potassium (3.5-5.1) mmol/L Chloride (98-107) mmol/L Carbon Dioxide (22-30) mmol/L BUN (9-20) mg/dL Creatinine (0.66-1.25) mg/dL Glucose (74-99) mg/dL POC Glucose (mg/dL) 144 H (75-99) mg/dL Plasma Lactic Acid French (0.7-2.0) mmol/L Calcium (8.4-10.2) mg/dL Phosphorus (2.5-4.5) mg/dL Creatine Kinase (55-170) U/L 06/25/18 Range/Units 11:37 WBC (3.8-10.6) k/uL RBC (4.30-5.90) m/uL Hgb (13.0-17.5) gm/dL Hct (39.0-53.0) % Plt Count (150-450) k/uL Neutrophils # (1.3-7.7) k/uL Lymphocytes # (1.0-4.8) k/uL ABG Lactic Acid (0.5-1.6) mmol/L Sodium (137-145) mmol/L Potassium (3.5-5.1) mmol/L Chloride (98-107) mmol/L Carbon Dioxide (22-30) mmol/L BUN (9-20) mg/dL Creatinine (0.66-1.25) mg/dL Glucose (74-99) mg/dL POC Glucose (mg/dL) 129 H (75-99) mg/dL Plasma Lactic Acid French (0.7-2.0) mmol/L Calcium (8.4-10.2) mg/dL Phosphorus (2.5-4.5) mg/dL Creatine Kinase (55-170) U/L Microbiology - Last 24 Hours (Table) 06/21/18 23:36 Blood Culture - Preliminary Blood No Growth after 72 hours 06/22/18 15:14 Blood Culture Gram Stain - Final Blood Blood Culture - Final Klebsiella pneumoniae
[2018-06-25] MEDS ORDERED: MEROPENEM 500 MG in SODIUM CHLORIDE 0.9% 50 ML IVPB SCH (14:00)
[2018-06-25 17:20] LABS: Glucose,Whole Blood 106 mg/dL (75-99)
[2018-06-25 17:30] LABS: Glucose,Whole Blood 95 mg/dL (75-99)
[2018-06-25 22:11] LABS: Glucose,Whole Blood 106 mg/dL (75-99)
--- NOTE | 2018-06-25 22:21 | P.CONS ---
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 He was found laying on the ground obtunded thrashing at times. EMS was called he was transported to hospital. There he was found evidence of significant hyponatremia as well as leukocytosis and altered mental status. There is evidence of a markedly elevated lactic acid and an elevated creatinine indicative of acute renal failure. The patient was admitted to intensive care unit has been receiving resuscitation. With evidence of a positive blood culture the infectious diseases consultation was requested. The patient is arousable and with significant stimulation is able to answer a few questions. He does have chronic urinary retention utilizes a straight catheterization process but does not use a fresh catheter every time. Review of Systems HEENT:Denies headache or acute visual change. Denies sinus or mouth discomforts. Denies neck stiffness or pain. Denies significant oral cavity pain. Denies difficulty on swallowing. Lungs: Denies significant shortness of breath, cough, sputum production, or hemoptysis. Cardiovascular: Denies significant shortness of breath, chest pain, chest wall pain, orthopnea, dyspnea on exertion, syncope Gastrointestinal:Denies nausea, vomiting, diarrhea, constipation, hematemesis, melena, hematochezia. No no significant change of bowel habit noticed. Musculoskeletal: Chronic joint pain Skin: Denies new rash or lesions. No new ulcers or wounds are related.. Neuro: Profoundly weak at admission slightly improved is arousable and able to answer some questions which apparently is improved from admission Psychiatric: He has a history of prior significant alcohol use stopped years ago , no other drug use does not commonly follow with his physicians Endocrine: Has had worsening fatigue and has had weight loss greater than 10 pounds over the last several months Past Medical History Past Medical History: Asthma, Hypertension Additional Past Medical History / Comment(s): Urinary blockage uses self cath, ganglian cyst in right knee History of Any Multi-Drug Resistant Organisms: None Reported Past Surgical History: Hernia Repair Additional Past Surgical History / Comment(s): hernia repair 03/2017, cyst removal in right knee Past Psychological History: Anxiety, Depression Additional Psychological History / Comment(s): 1 adult daughter which she has no contact with. No current alcohol or tobacco use. No international travel. Graduated [employer] school. 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 No experience. No animal exposures Smoking Status: Never smoker Past Alcohol Use History: None Reported Past Drug Use History: None Reported - Past Family History Father Family Medical History: Hypertension Mother Family Medical History: Hypertension Medications and Allergies Home Medications and Allergies Comment(s): Current Medications Acetaminophen (Tylenol Tab) 650 mg PO Q6HR PRN PRN Reason: Fever and/ or Pain Last Admin: 06/24/18 04:08 Dose: 650 mg Heparin Sodium (Porcine) (Heparin) 5,000 unit SQ Q8HR [facility] Last Admin: 06/25/18 16:56 Dose: 5,000 unit Sodium Bicarbonate 150 ml/ (Dextrose/Water) 1,150 mls @ 60 mls/hr IV .[id number] [facility] Last Admin: 06/25/18 16:55 Dose: 60 mls/hr Sodium Chloride (Saline 0.9%) 1,000 mls @ 60 mls/hr IV .[id number] [facility] Last Admin: 06/25/18 12:13 Dose: 60 mls/hr Ceftriaxone Sodium 1,000 mg/ (Sodium Chloride) 50 mls @ 100 mls/hr IVPB Q24H [facility] Last Admin: 06/25/18 16:55 Dose: 100 mls/hr Insulin Aspart (Novolog) 0 unit SQ ACHS [facility]; Protocol Last Admin: 06/25/18 22:04 Dose: Not Given Metoprolol Tartrate (Lopressor) 50 mg PO BID [facility] Last Admin: 06/25/18 08:25 Dose: Not Given Miscellaneous Information (Magnesium Per Protocol) 1 each MISCELLANE DAILY PRN ; Protocol PRN Reason: Per Protocol Miscellaneous Information (Phosphorus Per Protocol) 1 each MISCELLANE DAILY PRN ; Protocol PRN Reason: Per Protocol Naloxone HCl (Narcan) 0.2 mg IV Q2M PRN PRN Reason: Opioid Reversal Ondansetron HCl (Zofran) 4 mg IVP Q8HR PRN PRN Reason: Nausea And Vomiting Last Admin: 06/24/18 04:09 Dose: 4 mg Home Medications Medication Instructions Recorded Confirmed Type Atorvastatin Calcium [Lipitor] 20 mg PO HS 12/08/16 06/21/18 History hydrALAZINE HCL [Apresoline] 50 mg PO TID #90 tab 04/05/17 06/21/18 Rx Sennosides-Docusate Sodium 1 tab PO DAILY 04/21/17 06/21/18 History [Senokot-S] Loratadine [Claritin] 10 mg PO DAILY 08/21/17 06/21/18 History Montelukast [Singulair] 10 mg PO HS 08/21/17 06/21/18 History Polyethylene Glycol 3350 [Miralax] 17 gm PO DAILY PRN 08/21/17 06/21/18 History Spironolactone [Aldactone] 12.5 mg PO QAM 08/21/17 06/21/18 History Topiramate [Topamax] 50 mg PO BID 08/21/17 06/21/18 History Metoprolol Tartrate [Lopressor] 50 mg PO BID #60 tab 08/29/17 06/21/18 Rx Fluticasone Nasal [place] [Flonase 1 spray EA NOSTRIL BID 11/05/17 06/21/18 History Nasal [place]] amLODIPine [Norvasc] 10 mg PO HS #30 tab 11/09/17 06/21/18 Rx Irbesartan 300 mg PO DAILY 02/13/18 06/21/18 History Acetaminophen [Tylenol 8 Hour] 1,300 mg PO TID 06/05/18 06/21/18 History FLUoxetine HCL [PROzac] 20 mg PO DAILY 06/05/18 06/21/18 History Furosemide [Lasix] 20 mg PO DAILY 06/05/18 06/21/18 History Melatonin 6 mg PO HS 06/05/18 06/21/18 History Ondansetron [Zofran] 4 mg PO Q8H PRN 06/05/18 06/21/18 History busPIRone HCL 7.5 mg PO BID 06/05/18 06/21/18 History hydrOXYzine HCL [Atarax] 10 mg PO HS 06/05/18 06/21/18 History traZODone HCL [Desyrel] 100 mg PO HS 06/05/18 06/21/18 History Albuterol Nebulized [Ventolin 2.5 mg INHALATION RT-QID PRN nebu 06/07/18 Rx Nebulized] Allergies Allergy/AdvReac Type Severity Reaction Status Date / Time Penicillins Allergy Unknown Verified 06/21/18 19:18 Physical Exam Vitals: Vital Signs Temp Pulse Pulse Resp BP Pulse Ox 06/25/18 22:00 58 L 26 H 126/74 98 06/25/18 21:00 60 17 98 06/25/18 20:00 97.7 F 58 L 17 99 06/25/18 19:00 61 31 H 115/67 99 06/25/18 18:00 55 L 18 115/67 96 06/25/18 17:00 58 L 16 115/67 97 06/25/18 16:00 58 L 58 L 13 115/67 96 06/25/18 15:00 64 25 H 115/67 95 06/25/18 14:00 63 16 100/62 96 06/25/18 13:00 98.0 F 67 19 100/62 96 06/25/18 12:00 98.2 F 61 18 100/62 97 06/25/18 11:00 60 16 100/62 97 06/25/18 10:00 63 18 96/59 97 06/25/18 09:00 57 L 14 96/59 97 06/25/18 08:00 98.1 F 62 12 98/59 96 06/25/18 07:00 61 18 98 06/25/18 06:00 64 16 98 06/25/18 05:00 65 17 99 06/25/18 04:00 98.3 F 64 18 99 06/25/18 03:00 63 16 99 06/25/18 02:00 66 19 99 06/25/18 01:00 65 18 99 06/25/18 00:00 98.1 F 68 20 98 06/24/18 23:00 64 15 98 06/24/18 22:44 66 17 99 06/24/18 22:30 66 18 100 06/24/18 22:15 16 98 Intake and Output 06/25/18 06/25/18 06/25/18 06:59 14:59 22:59 Intake Total 1410 1280 920 Output Total 77 137 881 Balance 1333 1143 39 Intake: IV 1360 1220 760 Dextrose 5% in Water 1, 870 420 000 ml @ 60 mls/hr IV . [id number] [facility] with Sodium Bicarb (1 Meq/ml) 150 ml Rx#:[id number] Dextrose 5%-0.45% NaCl 1, 1200 150 000 ml @ 150 mls/hr IV . Q6H40M [facility] Rx#:[id number] Sodium Chloride 0.9% 1, 160 200 340 000 ml @ 20 mls/hr IV . Q24H [facility] Rx#:[id number] Intake, IV Titration 100 Amount cefTRIAXone 1,000 mg In 100 Sodium Chloride 0.9% 50 ml @ 100 mls/hr IVPB Q24H [facility] Rx#:[id number] Oral 50 60 60 Output: Urine 77 137 880 Stool 1 Other: Voiding Method Indwelling Catheter Indwelling Catheter Indwelling Catheter Weight 94.075 kg ABP, PAP, CO, CI - Last 8 Hours Arterial Blood Pressure 136/67 Arterial Blood Pressure 144/68 Arterial Blood Pressure 147/71 Arterial Blood Pressure 139/70 Arterial Blood Pressure 126/68 Arterial Blood Pressure 116/64 Arterial Blood Pressure 110/63 Arterial Blood Pressure 120/67 77-year-old male arousable and becomes more interactive with stimulation HEENT: Anicteric conjunctiva are pink and moist nasal mucosa grossly intact without significant lesions, there is no thrush. Dentition modestly poor Neck: The neck is supple without significant lymphadenopathy or thyromegaly. Lungs: Symmetrical air entry no bronchial sounds with dullness or egophony Heart: Regular rate and rhythm with an audible S1-S2, no S3 no S4. There is no significant murmur click or rub, PMI was nondisplaced. Abdomen: Positive bowel sounds soft and nontender without palpable masses or organomegaly. There was no guarding or rebound. Extremities: The upper extremities have excellent pulses they are symmetric, no significant petechiae or telangiectasia. No splinter hemorrhages were noted. The lower extremities are free from significant edema. The peripheral pulses were 2+ and symmetric. Neuro: Awake alert oriented to person and place. There are no acute new gross focal sensory motor deficits. Follows simple commands and moved upper and lower extremities Results CBC & Chem 7: 06/25/18 05:30 06/25/18 04:28 Labs: Abnormal Lab Results - Last 24 Hours (Table) 06/25/18 06/25/18 06/25/18 Range/Units 00:48 04:28 04:28 WBC (3.8-10.6) k/uL RBC (4.30-5.90) m/uL Hgb (13.0-17.5) gm/dL Hct (39.0-53.0) % Plt Count (150-450) k/uL Neutrophils # (1.3-7.7) k/uL Lymphocytes # (1.0-4.8) k/uL ABG Lactic Acid 4.1 H* (0.5-1.6) mmol/L Sodium 125 L 125 L (137-145) mmol/L Potassium 3.3 L (3.5-5.1) mmol/L Chloride 94 L (98-107) mmol/L BUN 42 H (9-20) mg/dL Creatinine 3.54 H (0.66-1.25) mg/dL Glucose 131 H (74-99) mg/dL POC Glucose (mg/dL) (75-99) mg/dL Calcium 6.2 L* (8.4-10.2) mg/dL Phosphorus 2.4 L (2.5-4.5) mg/dL Creatine Kinase 1175 H* (55-170) U/L 06/25/18 06/25/18 06/25/18 Range/Units 05:30 06:41 11:37 WBC 16.0 H (3.8-10.6) k/uL RBC 2.44 L (4.30-5.90) m/uL Hgb 8.1 L D (13.0-17.5) gm/dL Hct 23.5 L (39.0-53.0) % Plt Count 47 L D (150-450) k/uL Neutrophils # 15.1 H (1.3-7.7) k/uL Lymphocytes # 0.4 L (1.0-4.8) k/uL ABG Lactic Acid (0.5-1.6) mmol/L Sodium (137-145) mmol/L Potassium (3.5-5.1) mmol/L Chloride (98-107) mmol/L BUN (9-20) mg/dL Creatinine (0.66-1.25) mg/dL Glucose (74-99) mg/dL POC Glucose (mg/dL) 144 H 129 H (75-99) mg/dL Calcium (8.4-10.2) mg/dL Phosphorus (2.5-4.5) mg/dL Creatine Kinase (55-170) U/L 06/25/18 06/25/18 Range/Units 17:08 21:59 WBC (3.8-10.6) k/uL RBC (4.30-5.90) m/uL Hgb (13.0-17.5) gm/dL Hct (39.0-53.0) % Plt Count (150-450) k/uL Neutrophils # (1.3-7.7) k/uL Lymphocytes # (1.0-4.8) k/uL ABG Lactic Acid (0.5-1.6) mmol/L Sodium (137-145) mmol/L Potassium (3.5-5.1) mmol/L Chloride (98-107) mmol/L BUN (9-20) mg/dL Creatinine (0.66-1.25) mg/dL Glucose (74-99) mg/dL POC Glucose (mg/dL) 106 H 106 H (75-99) mg/dL Calcium (8.4-10.2) mg/dL Phosphorus (2.5-4.5) mg/dL Creatine Kinase (55-170) U/L Microbiology - Last 24 Hours (Table) 06/21/18 23:36 Blood Culture - Preliminary Blood No Growth after 72 hours 06/22/18 15:14 Blood Culture Gram Stain - Final Blood Blood Culture - Final Klebsiella pneumoniae Laboratory Results WBC 16.0 k/uL (3.8-10.6) H 06/25/18 05:30 RBC 2.44 m/uL (4.30-5.90) L 06/25/18 05:30 Hgb 8.1 gm/dL (13.0-17.5) L D 06/25/18 05:30 Hct 23.5 % (39.0-53.0) L 06/25/18 05:30 MCV 96.5 fL (80.0-100.0) 06/25/18 05:30 MCH 33.2 pg (25.0-35.0) 06/25/18 05:30 MCHC 34.4 g/dL (31.0-37.0) 06/25/18 05:30 RDW 14.2 % (11.5-15.5) 06/25/18 05:30 Plt Count 47 k/uL (150-450) L D 06/25/18 05:30 Neutrophils % 94 % 06/25/18 05:30 Neutrophils % (Manual) 69 % 06/24/18 04:50 Band Neutrophils % 18 % 06/24/18 04:50 Lymphocytes % 3 % 06/25/18 05:30 Lymphocytes % (Manual) 4 % 06/24/18 04:50 Monocytes % 2 % 06/25/18 05:30 Monocytes % (Manual) 9 % 06/24/18 04:50 Eosinophils % 0 % 06/25/18 05:30 Basophils % 0 % 06/25/18 05:30 Neutrophils # 15.1 k/uL (1.3-7.7) H 06/25/18 05:30 Neutrophils # (Manual) 22.70 k/uL (1.3-7.7) H 06/24/18 04:50 Lymphocytes # 0.4 k/uL (1.0-4.8) L 06/25/18 05:30 Lymphocytes # (Manual) 1.04 k/uL (1.0-4.8) 06/24/18 04:50 Monocytes # 0.4 k/uL (0-1.0) 06/25/18 05:30 Monocytes # (Manual) 2.35 k/uL (0-1.0) H 06/24/18 04:50 Eosinophils # 0.1 k/uL (0-0.7) 06/25/18 05:30 Basophils # 0.0 k/uL (0-0.2) 06/25/18 05:30 Nucleated RBCs 0 /100 WBC (0-0) 06/24/18 04:50 Manual Slide Review Performed 06/25/18 05:30 Toxic Vacuolation Present 06/24/18 04:50 Large Platelets Present 06/22/18 15:14 Poikilocytosis (manual Present 06/22/18 15:14 Macrocytosis Slight 06/24/18 04:50 Crenated Cell Present 06/24/18 04:50 PT 11.0 sec (9.0-12.0) 06/21/18 19:00 INR 1.1 (<1.2) 06/21/18 19:00 APTT 18.5 sec (22.0-30.0) L 06/21/18 19:00 Sample Site santosh 06/24/18 07:46 ABG pH 7.31 (7.35-7.45) L 06/24/18 07:46 ABG pCO2 23 mmHg (35-45) L 06/24/18 07:46 ABG pO2 243 mmHg (83-108) H 06/24/18 07:46 ABG HCO3 11 mmol/L (21-25) L 06/24/18 07:46 ABG Total CO2 12 mmol/L (19-24) L 06/24/18 07:46 ABG O2 Saturation 100.0 % (94-97) H 06/24/18 07:46 ABG Base Excess -15.0 mmol/L 06/24/18 07:46 Andrew Test Yes 06/24/18 07:46 ABG Lactic Acid 4.1 mmol/L (0.5-1.6) H* 06/25/18 04:28 VBG pH 7.36 (7.31-7.41) 06/21/18 20:20 VBG pCO2 32 mmHg (37-51) L 06/21/18 20:20 VBG HCO3 17 mmol/L (24-28) L 06/21/18 20:20 FiO2 80 % 06/24/18 07:46 Sodium 125 mmol/L (137-145) L 06/25/18 04:28 Potassium 3.3 mmol/L (3.5-5.1) L 06/25/18 04:28 Chloride 94 mmol/L (98-107) L 06/25/18 04:28 Carbon Dioxide 22 mmol/L (22-30) 06/25/18 04:28 Anion Gap 9 mmol/L 06/25/18 04:28 BUN 42 mg/dL (9-20) H 06/25/18 04:28 Creatinine 3.54 mg/dL (0.66-1.25) H 06/25/18 04:28 Est GFR (CKD-EPI)AfAm 18 (>60 ml/min/1.73 sqM) 06/25/18 04:28 Est GFR (CKD-EPI)NonAf 15 (>60 ml/min/1.73 sqM) 06/25/18 04:28 Glucose 131 mg/dL (74-99) H 06/25/18 04:28 POC Glucose (mg/dL) 106 mg/dL (75-99) H 06/25/18 21:59 POC Glu Digital Account Manager ID Joanna [place] 06/25/18 21:59 Osmolality 255 mosm/kg (280-301) L 06/22/18 17:40 Lactic Ac Sepsis Rflx Y 06/24/18 18:38 Plasma Lactic Acid [place] 7.2 mmol/L (0.7-2.0) H* 06/24/18 16:10 Uric Acid 8.2 mg/dL (3.5-8.5) 06/22/18 17:40 Calcium 6.2 mg/dL (8.4-10.2) L* 06/25/18 04:28 Phosphorus 2.4 mg/dL (2.5-4.5) L 06/25/18 04:28 Magnesium 1.7 mg/dL (1.6-2.3) 06/25/18 04:28 Total Bilirubin 0.8 mg/dL (0.2-1.3) 06/22/18 04:42 AST 65 U/L (17-59) H 06/22/18 04:42 ALT 37 U/L (21-72) 06/22/18 04:42 Alkaline Phosphatase 71 U/L (38-126) 06/22/18 04:42 Ammonia <9 umol/L (<30) 06/21/18 20:20 Creatine Kinase 1175 U/L (55-170) H* 06/25/18 04:28 Total Creatine Kinase 2254 U/L (55-170) H* 06/21/18 19:00 CK-MB (CK-2) 4.1 ng/mL (0.0-2.4) H 06/23/18 06:21 CK-MB (CK-2) Rel Index 06/21/18 19:00 Troponin I 0.152 ng/mL (0.000-0.034) H* 06/22/18 15:14 Total Protein 5.9 g/dL (6.3-8.2) L 06/22/18 04:42 Albumin 3.1 g/dL (3.5-5.0) L 06/22/18 04:42 TSH 0.958 mIU/L (0.465-4.680) 06/22/18 17:40 Urine Color Light Yellow 06/21/18 21:33 Urine Appearance Clear (Clear) 06/21/18 21:33 Urine pH 5.5 (5.0-8.0) 06/21/18 21:33 Ur Specific [place] 1.006 (1.001-1.035) 06/21/18 21:33 Urine Protein 1+ (Negative) H 06/21/18 21:33 Urine Glucose (UA) Negative (Negative) 06/21/18 21: Urine Ketones 2+ (Negative) H 06/21/18 21:33 Urine Blood Moderate (Negative) H 06/21/18 21:33 Urine Nitrite Positive (Negative) 06/21/18 21: Urine Bilirubin Negative (Negative) 06/21/18 21: Urine Urobilinogen <2.0 mg/dL (<2.0) 06/21/18 21:33 Ur Leukocyte Esterase Negative (Negative) 06/21/18 21:33 Urine RBC 1 /hpf (0-5) 06/21/18 21:33 Urine WBC 1 /hpf (0-5) 06/21/18 21:33 Ur Squamous Epith Cells <1 /hpf (0-4) 06/21/18 21:33 Calcium Oxalate Crystal Occasional /hpf (None) H 06/21/18 21:33 Urine Bacteria Few /hpf (None) H 06/21/18 21:33 Urine Mucus Rare /hpf (None) H 06/21/18 21:33 Urine Osmolality 190 mosm/kg (50-1400) 06/21/18 21:33 Ur Random Sodium 13 mmol/L 06/21/18 21:33 Ur Random Potassium 16.0 mmol/L 06/21/18 21:33 Urine Opiates Screen Not Detected (NotDetected) 06/21/18 21:33 Ur Oxycodone Screen Not Detected (NotDetected) 06/21/18 21:33 Urine Methadone Screen Not Detected (NotDetected) 06/21/18 21:33 Ur Propoxyphene Screen Not Detected (NotDetected) 06/21/18 21:33 Ur Barbiturates Screen Not Detected (NotDetected) 06/21/18 21:33 U Tricyclic Antidepress Not Detected (NotDetected) 06/21/18 21:33 Ur Phencyclidine Scrn Not Detected (NotDetected) 06/21/18 21:33 Ur Amphetamines Screen Not Detected (NotDetected) 06/21/18 21:33 U Methamphetamines Scrn Not Detected (NotDetected) 06/21/18 21:33 U Benzodiazepines Scrn Not Detected (NotDetected) 06/21/18 21:33 Urine Cocaine Screen Not Detected (NotDetected) 06/21/18 21:33 U Marijuana (THC) Screen Not Detected (NotDetected) 06/21/18 21:33 Microbiology 06/21/18 23:36 Blood Blood Culture - Preliminary No Growth after 72 hours 06/22/18 15:14 Blood Blood Culture Gram Stain - Final 06/22/18 15:14 Blood Blood Culture - Final Klebsiella pneumoniae 06/21/18 21:33 Urine,Catheterized Urine Culture - Final Klebsiella pneumoniae 06/22/18 15:14 Blood Blood Culture - Final Assessment and Plan (1) Gram negative sepsis Narrative/Plan: 77-year-old male presents to Hospital after being found by neighbors obtunded laying on the floor thrashing at times. At admission the patient evidence of sepsis and was brought to the intensive care unit. He has now been resuscitated but there is evidence of a positive urine culture with Klebsiella as his blood culture. With this the infectious diseases consultation was requested. His microbial therapy was altered to ceftriaxone for which the pathogen is highly susceptible. There is evidence of acute renal failure that appears to be multifactorial including partly to do with the rhabdomyolysis. Leukocytosis appears to be recommended to his current sepsis. He has anemia and thrombocytopenia possibly also on the basis of the sepsis. With treatment of the gram-negative sepsis with expected points to improve. Follow blood cultures requested to ensure the bacteremia is cleared. There is an elevated lactic acid of 6.9 improved 4.1. The patient does have bacteremia and sepsis but the elevated lactic acid appears to be in the basis of his acute renal failure and rhabdomyolysis. Current Visit: Yes Status: Acute Code(s): A41.50 - GRAM-NEGATIVE SEPSIS, UNSPECIFIED SNOMED Code(s): 864379696 (2) Urinary tract infection due to Klebsiella species Current Visit: Yes Status: Acute Code(s): N39.0 - URINARY TRACT INFECTION, SITE NOT SPECIFIED; B96.1 - KLEBSIELLA PNEUMONIAE THE CAUSE OF DISEASES CLASSD [id number] SNOMED Code(s): 428099549797550 (3) Rhabdomyolysis Current Visit: Yes Status: Acute Code(s): M62.82 - RHABDOMYOLYSIS SNOMED Code(s): 041713639 (4) Leukocytosis Current Visit: Yes Status: Acute Code(s): D72.829 - ELEVATED WHITE BLOOD CELL COUNT, UNSPECIFIED SNOMED Code(s): 162663993
[2018-06-26] MEDS ORDERED: Potassium Replacement Protocol 1 EACH MISC MISCELLANE PRN (00:26)
[2018-06-26] MEDS: HEPARIN SODIUM,PORCINE 5,000 UNIT/ML 1 ML VIAL SQ SCH ×3 (00:58→15:23)
[2018-06-26] MEDS ORDERED: POTASSIUM CHLORIDE ER 20 MEQ TAB.ER PO SCH (01:00)
[2018-06-26] MEDS: SODIUM CHLORIDE 0.9% 1,000 ML IV SCH ×2 (04:45→22:01)
[2018-06-26] MEDS: METOPROLOL TARTRATE 50 MG TAB PO SCH ×3 (04:47→20:00)
[2018-06-26 05:04] LABS: Magnesium 1.9 mg/dL (1.6-2.3); Phosphorus 1.8 mg/dL (2.5-4.5); Potassium 3.1 mmol/L (3.5-5.1)
[2018-06-26 05:11] LABS: Basophils % (A) 0 %; Eosinophils # (A) 0.1 k/uL (0-0.7); Eosinophils % (A) 0 %; HCT 28.3 % (39.0-53.0); HGB 10.1 gm/dL (13.0-17.5); Lymphocytes # (A) 0.6 k/uL (1.0-4.8); Lymphocytes % (A) 3 %; MCH 33.5 pg (25.0-35.0); MCHC 35.5 g/dL (31.0-37.0); MCV 94.3 fL (80.0-100.0); Mean Platelet Volume 12.4; Monocytes # (A) 0.8 k/uL (0-1.0); Monocytes % (A) 4 %; Neutrophils # (A) 20.1 k/uL (1.3-7.7); Neutrophils % (A) 92 %; RDW 14.1 % (11.5-15.5); WBC 21.7 k/uL (3.8-10.6)
[2018-06-26] MEDS ORDERED: MAGNESIUM SULFATE-D5W PMX 1 GM in DEXTROSE/WATER 1 100ML.BAG IVPB ONE (06:29)
[2018-06-26 06:42] LABS: Large Platelets Present; Toxic Granulation Present; Toxic Vacuolation Present
[2018-06-26 06:44] LABS: Poikilocytosis (M) Present
[2018-06-26 06:45] LABS: Platelet Count 56 k/uL (150-450)
[2018-06-26] MEDS: POTASSIUM CHLORIDE 20 MEQ in WATER FOR INJECTION 1 100ML.BAG IVPB SCH ×3 (07:18→12:27)
[2018-06-26] MEDS: INSULIN ASPART 100 UNIT/ML 1 ML 10 ML VIAL SQ SCH ×4 (07:24→20:11)
--- NOTE | 2018-06-26 07:27 | XR ---
EXAMINATION TYPE: XR chest 1V DATE OF EXAM: 06/26/2018 HISTORY: Shortness of breath. COMPARISON: 06/25/2018 TECHNIQUE: Single view of the chest is submitted. FINDINGS: Demonstrated are scattered senescent parenchymal change. Persistent patchy basilar infiltrates are noted with pulmonary venous congestion and cardiomegaly. Hilar and mediastinal structures are within normal limits. Degenerative changes are seen of the dorsal spine. IMPRESSION: 1. Persistent patchy basilar infiltrates are noted with pulmonary venous congestion and cardiomegaly .
[2018-06-26 07:36] LABS: Glucose,Whole Blood 130 mg/dL (75-99)
--- NOTE | 2018-06-26 09:16 | P.PN ---
Subjective Progress Note Date: 06/26/18 Principal diagnosis: Hyponatremia, sepsis, hypotension Progress note dated 06/25/2018 77-year-old male seen initially by my partner for the possibility of acute septic secondary to Klebsiella pneumoniae both in the urine and blood. The patient was initially on both Merrem and Levaquin. I believe we can stop the Merrem at this time. The patient also had episodes of hyponatremia, likely secondary to SIADH and history of seizure disorder also secondary to hyponatremia. In addition, the patient had acute rhabdomyolysis secondary to falls as well as a history of benign essential hypertension, asthma, major depression, BPH, chronic kidney disease, stage III and chronic urinary tract infections with self-catheterization. Yesterday, early in the morning, my partner came in and did a right femoral vein triple lumen catheter and left brachial art line placement. Patient's not requiring any supplemental oxygen today. His IV fluids are dextrose with 3 amps of sodium bicarbonate at 150 an hour and .9 IV at KVO. Norepinephrine has been turned off. This morning he was on both Levaquin and Merrem and I think we can stop the Merrem at this time. The patient has a bit and has a very flat affect. Does not feel like eating this morning. He certainly is much more stable today than he was yesterday. Progress note dated 06/26/2018 This is a 77-year-old female was initially seen by my partner for the possibility of acute sepsis secondary to Klebsiella pneumoniae both in the urine and blood. The patient was initially placed on both Merrem and Levaquin. The Merrem was stopped. The patient also was initially seen because of profound hyponatremia and was in the ICU initially because of 3% saline administration. The patient was thought to have SIADH. In addition, the patient had a seizure secondary to hyponatremia. The patient also apparently had developed acute rhabdomyolysis secondary to falling. He has a history of benign essential hypertension, asthma, major depression, BPH, chronic kidney disease, chronic urinary tract infections with self catheterizations. The patient developed profound hypotension on the floor and was transferred back to the ICU and my partner placed a art line and central line. Since he been seeing him here, the patient has stabilized. He currently is not receiving any supplemental oxygen. Is getting a dextrose IV with 3 Amps of sodium bicarbonate at 60 mL an hour and a saline IV at 60 mL an hour. He remains on Rocephin as an antibiotic. His blood and urine sampling is positive for Klebsiella pneumoniae. Chest x-ray shows evidence of cardiomegaly. The patient doesn't really have much of an appetite. He may be depressed. His affect is very flat. Overall though, his respiratory and hemodynamic status has improved. Objective - Vital Signs Vital signs: Vital Signs Temp 98.1 F 06/26/18 08:00 Pulse 67 06/26/18 08:00 Resp 20 06/26/18 08:00 BP 128/69 06/26/18 07:00 Pulse Ox 95 06/26/18 08:00 Intake & Output 06/25/18 06/26/18 06/26/18 18:59 06:59 18:59 Intake Total 1800 1440 440 Output Total 538 1507 500 Balance 1262 -67 -60 Weight 92.9 kg Intake: IV 1580 1440 240 Dextrose 5% in Water 1, 1050 720 120 000 ml @ 60 mls/hr IV . [id number] [facility] with Sodium Bicarb (1 Meq/ml) 150 ml Rx#:[id number] Dextrose 5%-0.45% NaCl 1, 150 000 ml @ 150 mls/hr IV . Q6H40M [facility] Rx#:[id number] Sodium Chloride 0.9% 1, 380 120 000 ml @ 20 mls/hr IV . Q24H [facility] Rx#:[id number] Sodium Chloride 0.9% 1, 600 120 000 ml @ 60 mls/hr IV . [id number] [facility] Rx#:[id number] Intake, IV Titration 100 200 Amount Magnesium Sulfate-D5w Pmx 100 1 gm In Dextrose/Water 1 100ml.bag @ 100 mls/hr IVPB ONCE ONE Rx#: [id number] Potassium Chloride 20 meq 100 In Water For Injection 1 100ml.bag @ 50 mls/hr IVPB Q2H [facility] Rx#: [id number] cefTRIAXone 1,000 mg In 100 Sodium Chloride 0.9% 50 ml @ 100 mls/hr IVPB Q24H [facility] Rx#:[id number] Oral 120 Output: Urine 537 1505 500 Stool 1 2 Other: Voiding Method Indwelling Catheter Indwelling Catheter ABP, PAP, CO, CI - Last Documented Arterial Blood Pressure 153/77 - Exam No acute distress, oriented 3. No supplemental oxygen noted. The patient does have a very flat affect. HEENT examination is grossly unremarkable. Mucous membranes are moist. No oral lesions. Neck supple. Full range of motion. No adenopathy thyromegaly or neck vein distention. Cardiovascular examination reveals regular rhythm rate. S1-S2 normal. No S3 or S4. No discernible murmur noted. Heart sounds are distant. Heart rate is 80 bpm. Lungs reveal clear breath sounds. Breath sounds are equal bilaterally. No adventitious lung sounds including wheezes rhonchi or crackles. Abdomen soft and bowel sounds are heard. No masses or tenderness. Extremities are intact. No cyanosis clubbing or edema. Skin is without rash or lesion. Neurologic examination is brief but nonfocal. - Labs CBC & Chem 7: 06/26/18 04:30 06/26/18 04:30 Labs: Abnormal Lab Results - Last 24 Hours (Table) 06/25/18 06/25/18 06/25/18 Range/Units 11:37 17:08 21:59 WBC (3.8-10.6) k/uL RBC (4.30-5.90) m/uL Hgb (13.0-17.5) gm/dL Hct (39.0-53.0) % Plt Count (150-450) k/uL Neutrophils # (1.3-7.7) k/uL Lymphocytes # (1.0-4.8) k/uL Sodium (137-145) mmol/L Potassium (3.5-5.1) mmol/L Chloride (98-107) mmol/L BUN (9-20) mg/dL Creatinine (0.66-1.25) mg/dL Glucose (74-99) mg/dL POC Glucose (mg/dL) 129 H 106 H 106 H (75-99) mg/dL Calcium (8.4-10.2) mg/dL Phosphorus (2.5-4.5) mg/dL 06/25/18 06/26/18 06/26/18 Range/Units 22:58 04:30 04:30 WBC 21.7 H (3.8-10.6) k/uL RBC 3.00 L (4.30-5.90) m/uL Hgb 10.1 L (13.0-17.5) gm/dL Hct 28.3 L (39.0-53.0) % Plt Count 56 L (150-450) k/uL Neutrophils # 20.1 H (1.3-7.7) k/uL Lymphocytes # 0.6 L (1.0-4.8) k/uL Sodium 127 L (137-145) mmol/L Potassium 3.1 L 3.1 L (3.5-5.1) mmol/L Chloride 92 L (98-107) mmol/L BUN 51 H (9-20) mg/dL Creatinine 3.65 H (0.66-1.25) mg/dL Glucose 109 H (74-99) mg/dL POC Glucose (mg/dL) (75-99) mg/dL Calcium 7.0 L (8.4-10.2) mg/dL Phosphorus 1.8 L (2.5-4.5) mg/dL 06/26/18 Range/Units 07:23 WBC (3.8-10.6) k/uL RBC (4.30-5.90) m/uL Hgb (13.0-17.5) gm/dL Hct (39.0-53.0) % Plt Count (150-450) k/uL Neutrophils # (1.3-7.7) k/uL Lymphocytes # (1.0-4.8) k/uL Sodium (137-145) mmol/L Potassium (3.5-5.1) mmol/L Chloride (98-107) mmol/L BUN (9-20) mg/dL Creatinine (0.66-1.25) mg/dL Glucose (74-99) mg/dL POC Glucose (mg/dL) 130 H (75-99) mg/dL Calcium (8.4-10.2) mg/dL Phosphorus (2.5-4.5) mg/dL Microbiology - Last 24 Hours (Table) 06/21/18 23:36 Blood Culture - Preliminary Blood No Growth after 96 hours Assessment and Plan Assessment: Assessment Acute septic shock with hypotension, secondary to Klebsiella pneumoniae urinary tract infection and bacteremia 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 Chest x-ray, labs and medications are all reviewed. Chest x-ray show some minimal atelectasis. White count is 16 ,000, hemoglobin 8.1, hematocrit 23.5 and platelet count 47,000. Sodium 125, potassium 3.3, chlorides 96 and carbon dioxide 22. BUN was 42 with a creatinine of 3.54. The creatine kinases come down to 1175. The rest of the labs are reviewed. We will continue to follow along with this patient and make additional recommendations were appropriate. From the critical care standpoint , the patient is much more stable. The patient's norepinephrine has been weaned off. Additional recommendations and suggestions are forthcoming. Again , medications labs and x-rays are all reviewed. Critical care time 34 minutes Plan dated 06/26/2018 The patient's chest x-ray shows evidence of cardiomegaly. The patient's blood is evaluated and his white count is 21.7 hemoglobin 10.1 hematocrit 28.3 and platelet count is 56,000. Sodium is improved to 127 with a potassium 3.1 chlorides 92 CO2 27 anion gap 8 BUN 51 and creatinine 3.65. The patient's chest x-ray labs and medications are reviewed. His been converted over to Rocephin by the infectious disease doctor for his Klebsiella pneumoniae urinary tract infection and bacteremia. The patient is a no code. Hemodynamically, the patient is stable. He has been weaned off his norepinephrine. His respiratory status remained stable. He's not receiving any supplemental oxygen. From my perspective, the patient could be discharged out to the floor. Additional recommendations and suggestions are forthcoming. Critical care time 35 minutes Time with Patient: Greater than 30
[2018-06-26] MEDS: ACETAMINOPHEN TAB 325 MG TAB PO PRN ×2 (09:42→22:01)
[2018-06-26] MEDS: POTASSIUM PHOSPHATE 10 MMOL in SODIUM CHLORIDE 0.9% 250 ML IV SCH ×2 (10:13→12:26)
--- NOTE | 2018-06-26 12:11 | P.PN ---
Subjective Patient is seen in follow for acute kidney injury on chronic kidney disease. Patient has chronic kidney disease stage III with baseline creatinine in the range of 1.1-1.3 secondary to nephrosclerosis. Patient also noted to be hyponatremic. Sodium level improved with IV fluids and is 127 this morning. Patient's noted to have blood and urine culture positive for Klebsiella. He is off Levophed. Urine output improved significantly. Denies any active chest pain or shortness of breath. Oral intake remains poor. Vital signs are stable. Currently off Levophed. General: The patient appeared well nourished and normally developed. HEENT: Head exam is unremarkable. Neck is without jugular venous distension. LUNGS: Breath sounds decreased. HEART: Rate and Rhythm are regular. First and second heart sounds normal. No murmurs, rubs or gallops. ABDOMEN: Abdominal exam reveals normal bowel sounds. Non-tender and non- distended. No evidence of peritonitis. EXTREMITITES: No clubbing, cyanosis, or edema. Objective - Vital Signs Vital signs: Vital Signs Temp 98.1 F 06/26/18 08:00 Pulse 62 06/26/18 11:00 Resp 22 06/26/18 11:00 BP 128/69 06/26/18 07:00 Pulse Ox 96 06/26/18 11:00 Intake & Output 06/25/18 06/26/18 06/26/18 18:59 06:59 18:59 Intake Total 1800 1440 1390 Output Total 538 1507 985 Balance 1262 -67 405 Weight 92.9 kg Intake: IV 1580 1440 600 Dextrose 5% in Water 1, 1050 720 300 000 ml @ 60 mls/hr IV . [id number] QUINTEN with Sodium Bicarb (1 Meq/ml) 150 ml Rx#:[id number] Dextrose 5%-0.45% NaCl 1, 150 000 ml @ 150 mls/hr IV . Q6H40M [facility] Rx#:[id number] Sodium Chloride 0.9% 1, 380 120 000 ml @ 20 mls/hr IV . Q24H [facility] Rx#:[id number] Sodium Chloride 0.9% 1, 600 300 000 ml @ 60 mls/hr IV . [id number] [facility]INT[facility] Rx#:[id number] Intake, IV Titration 100 550 Amount Magnesium Sulfate-D5w Pmx 100 1 gm In Dextrose/Water 1 100ml.bag @ 100 mls/hr IVPB ONCE ONE Rx#: [id number] Potassium Chloride 20 meq 200 In Water For Injection 1 100ml.bag @ 50 mls/hr IVPB Q2H [facility] Rx#: [id number] Potassium Phosphate 10 250 mmol In Sodium Chloride 0 .9% 250 ml @ 125 mls/hr IV Q2H QUINTEN Rx#:[id number] cefTRIAXone 1,000 mg In 100 Sodium Chloride 0.9% 50 ml @ 100 mls/hr IVPB Q24H QUINTEN Rx#:[id number] Oral 120 240 Output: Urine 537 1505 985 Stool 1 2 Other: Voiding Method Indwelling Catheter Indwelling Catheter ABP, PAP, CO, CI - Last Documented Arterial Blood Pressure 140/68 - Labs CBC & Chem 7: 06/26/18 04:30 06/26/18 04:30 Labs: Abnormal Lab Results - Last 24 Hours (Table) 06/25/18 06/25/18 06/25/18 Range/Units 17:08 21:59 22:58 WBC (3.8-10.6) k/uL RBC (4.30-5.90) m/uL Hgb (13.0-17.5) gm/dL Hct (39.0-53.0) % Plt Count (150-450) k/uL Neutrophils # (1.3-7.7) k/uL Lymphocytes # (1.0-4.8) k/uL Sodium (137-145) mmol/L Potassium 3.1 L (3.5-5.1) mmol/L Chloride (98-107) mmol/L BUN (9-20) mg/dL Creatinine (0.66-1.25) mg/dL Glucose (74-99) mg/dL POC Glucose (mg/dL) 106 H 106 H (75-99) mg/dL Calcium (8.4-10.2) mg/dL Phosphorus (2.5-4.5) mg/dL Vitamin D 25-Hydroxy (30.0-100.0) ng/mL 06/26/18 06/26/18 06/26/18 Range/Units 04:30 04:30 04:30 WBC 21.7 H (3.8-10.6) k/uL RBC 3.00 L (4.30-5.90) m/uL Hgb 10.1 L (13.0-17.5) gm/dL Hct 28.3 L (39.0-53.0) % Plt Count 56 L (150-450) k/uL Neutrophils # 20.1 H (1.3-7.7) k/uL Lymphocytes # 0.6 L (1.0-4.8) k/uL Sodium 127 L (137-145) mmol/L Potassium 3.1 L (3.5-5.1) mmol/L Chloride 92 L (98-107) mmol/L BUN 51 H (9-20) mg/dL Creatinine 3.65 H (0.66-1.25) mg/dL Glucose 109 H (74-99) mg/dL POC Glucose (mg/dL) (75-99) mg/dL Calcium 7.0 L (8.4-10.2) mg/dL Phosphorus 1.8 L (2.5-4.5) mg/dL Vitamin D 25-Hydroxy 20.0 L (30.0-100.0) ng/mL 06/26/18 Range/Units 07:23 WBC (3.8-10.6) k/uL RBC (4.30-5.90) m/uL Hgb (13.0-17.5) gm/dL Hct (39.0-53.0) % Plt Count (150-450) k/uL Neutrophils # (1.3-7.7) k/uL Lymphocytes # (1.0-4.8) k/uL Sodium (137-145) mmol/L Potassium (3.5-5.1) mmol/L Chloride (98-107) mmol/L BUN (9-20) mg/dL Creatinine (0.66-1.25) mg/dL Glucose (74-99) mg/dL POC Glucose (mg/dL) 130 H (75-99) mg/dL Calcium (8.4-10.2) mg/dL Phosphorus (2.5-4.5) mg/dL Vitamin D 25-Hydroxy (30.0-100.0) ng/mL Microbiology - Last 24 Hours (Table) 06/21/18 23:36 Blood Culture - Preliminary Blood No Growth after 96 hours Assessment and Plan Plan: Assessment: 1. Acute kidney injury secondary to ATN secondary to hypotension as well as sepsis. Also component of rhabdomyolysis. Creatinine a little lower side 3.65 today - patient did receive 80 mg of IV Lasix yesterday and had good response in urine output. 2. Septic shock secondary to Klebsiella bacteremia and UTI maintained on antibiotics. 3. Hypotension secondary to sepsis. Currently off vasopressors. 4. Severe metabolic acidosis secondary to acute kidney injury and lactic acidosis. Better. 5. Hypovolemic hyponatremia improved with IV hydration. 6. Chronic kidney disease stage III with baseline creatinine in the range of 1.1-1.3 secondary to nephrosclerosis. 7. Hypokalemia secondary to intracellular shifting from IV bicarb. 8. Hypophosphatemia from poor oral intake as well as intracellular shifting from IV bicarb. Plan: Discontinue bicarbonate drip. Normal saline at 75 mL an hour for maintenance fluids. Potassium and phosphorus being replaced. Hold off on diuretics today as urine output is excellent. Encouraged oral intake. Continue to monitor renal function and urine output closely. Assess on a day to day basis for the need for renal replacement therapy.
[2018-06-26 12:15] LABS: Glucose,Whole Blood 105 mg/dL (75-99)
[2018-06-26] MEDS: FLUoxetine HCL 20 MG CAP PO SCH (12:30)
[2018-06-26] MEDS: ERGOCALCIFEROL 50,000 UNIT CAP PO SCH (14:31)
--- NOTE | 2018-06-26 14:37 | P.PN ---
Subjective stable Objective - Vital Signs Vital signs: Vital Signs Temp 97.9 F 06/26/18 12:00 Pulse 56 L 06/26/18 13:00 Resp 14 06/26/18 13:00 BP 128/69 06/26/18 07:00 Pulse Ox 97 06/26/18 13:00 Intake & Output 06/25/18 06/26/18 06/26/18 18:59 06:59 18:59 Intake Total 1800 1440 1890 Output Total 538 1507 1210 Balance 1262 -67 680 Weight 92.9 kg Intake: IV 1580 1440 750 Dextrose 5% in Water 1, 1050 720 300 000 ml @ 60 mls/hr IV . [id number] QUINTEN with Sodium Bicarb (1 Meq/ml) 150 ml Rx#:[id number] Dextrose 5%-0.45% NaCl 1, 150 000 ml @ 150 mls/hr IV . Q6H40M [facility] Rx#:[id number] Sodium Chloride 0.9% 1, 380 120 000 ml @ 20 mls/hr IV . Q24H [facility] Rx#:[id number] Sodium Chloride 0.9% 1, 600 450 000 ml @ 75 mls/hr IV . [id number] [facility] Rx#:[id number] Intake, IV Titration 100 900 Amount Magnesium Sulfate-D5w Pmx 100 1 gm In Dextrose/Water 1 100ml.bag @ 100 mls/hr IVPB ONCE ONE Rx#: [id number] Potassium Chloride 20 meq 300 In Water For Injection 1 100ml.bag @ 50 mls/hr IVPB Q2H [facility] Rx#: [id number] Potassium Phosphate 10 500 mmol In Sodium Chloride 0 .9% 250 ml @ 125 mls/hr IV Q2H [facility] Rx#:[id number] cefTRIAXone 1,000 mg In 100 Sodium Chloride 0.9% 50 ml @ 100 mls/hr IVPB Q24H [facility] Rx#:[id number] Oral 120 240 Output: Urine 537 1505 1210 Stool 1 2 Other: Voiding Method Indwelling Catheter Indwelling Catheter ABP, PAP, CO, CI - Last Documented Arterial Blood Pressure 135/71 - Labs CBC & Chem 7: 06/26/18 04:30 06/26/18 04:30 Labs: Abnormal Lab Results - Last 24 Hours (Table) 06/25/18 06/25/18 06/25/18 Range/Units 17:08 21:59 22:58 WBC (3.8-10.6) k/uL RBC (4.30-5.90) m/uL Hgb (13.0-17.5) gm/dL Hct (39.0-53.0) % Plt Count (150-450) k/uL Neutrophils # (1.3-7.7) k/uL Lymphocytes # (1.0-4.8) k/uL Sodium (137-145) mmol/L Potassium 3.1 L (3.5-5.1) mmol/L Chloride (98-107) mmol/L BUN (9-20) mg/dL Creatinine (0.66-1.25) mg/dL Glucose (74-99) mg/dL POC Glucose (mg/dL) 106 H 106 H (75-99) mg/dL Calcium (8.4-10.2) mg/dL Phosphorus (2.5-4.5) mg/dL Vitamin D 25-Hydroxy (30.0-100.0) ng/mL 06/26/18 06/26/18 06/26/18 Range/Units 04:30 04:30 04:30 WBC 21.7 H (3.8-10.6) k/uL RBC 3.00 L (4.30-5.90) m/uL Hgb 10.1 L (13.0-17.5) gm/dL Hct 28.3 L (39.0-53.0) % Plt Count 56 L (150-450) k/uL Neutrophils # 20.1 H (1.3-7.7) k/uL Lymphocytes # 0.6 L (1.0-4.8) k/uL Sodium 127 L (137-145) mmol/L Potassium 3.1 L (3.5-5.1) mmol/L Chloride 92 L (98-107) mmol/L BUN 51 H (9-20) mg/dL Creatinine 3.65 H (0.66-1.25) mg/dL Glucose 109 H (74-99) mg/dL POC Glucose (mg/dL) (75-99) mg/dL Calcium 7.0 L (8.4-10.2) mg/dL Phosphorus 1.8 L (2.5-4.5) mg/dL Vitamin D 25-Hydroxy 20.0 L (30.0-100.0) ng/mL 06/26/18 06/26/18 Range/Units 07:23 12:03 WBC (3.8-10.6) k/uL RBC (4.30-5.90) m/uL Hgb (13.0-17.5) gm/dL Hct (39.0-53.0) % Plt Count (150-450) k/uL Neutrophils # (1.3-7.7) k/uL Lymphocytes # (1.0-4.8) k/uL Sodium (137-145) mmol/L Potassium (3.5-5.1) mmol/L Chloride (98-107) mmol/L BUN (9-20) mg/dL Creatinine (0.66-1.25) mg/dL Glucose (74-99) mg/dL POC Glucose (mg/dL) 130 H 105 H (75-99) mg/dL Calcium (8.4-10.2) mg/dL Phosphorus (2.5-4.5) mg/dL Vitamin D 25-Hydroxy (30.0-100.0) ng/mL Microbiology - Last 24 Hours (Table) 06/21/18 23:36 Blood Culture - Preliminary Blood No Growth after 96 hours
[2018-06-26] MEDS ORDERED: amLODIPine 5 MG TAB PO SCH ×2 (14:45→21:00)
[2018-06-26] MEDS: amLODIPine 5 MG TAB PO SCH ×2 (15:23→20:12)
--- NOTE | 2018-06-26 16:33 | PN ---
PROGRESS NOTE Currently NO CODE. His height is 6 feet. Weight 92.9 kg, BSA 2.15 m2. BMI 27.8 m2. ALLERGY: PENICILLIN. The patient is seen today, evaluated. He is awake, alert, conscious. VITAL SIGNS: Afebrile at 97.9, heart rate bradycardic with resuming of the beta [place]. Respiratory rate 14. Blood pressure initially in the morning was on average 129/66 to 138/72. However, at the time of the examination, the patient was found to have hypertension with blood pressure exceeding 160 systolic, and the nursing staff requested his old medication with the underlying history of hypertension. Otherwise, the patient is depressed and he is refusing to eat, even with the help of nursing staff and assistance. On physical exam, patient is conscious, alert. HEENT: Negative. NECK: Supple. CHEST: Decreased air entry on the lower bases. However, the upper lung area is aerated bilaterally. HEART: Regular sinus rhythm and the bradycardia; however, considered normal with 59 beats per minute. Telemetry is monitored in the ICU. ABDOMEN: Soft. Positive bowel sounds. EXTREMITIES: He has 2+ edema of the lower extremities with positive perfusion and extended to the leg. NEUROLOGICAL EXAMINATION: Negative. Currently gradually improved clinically. He is still in ICU and hypertension is not controlled well. Will start him on the amlodipine 5 mg at bedtime as well as 5 mg before lunch, withholding the medication if the blood pressure is less than 160 systolic. The patient was also found to have vitamin D insufficiency we are starting him on vitamin D2 50,000 one capsule a week. Meanwhile, the result of the 125 vitamin D level is not available yet. The patient has supplementation with the underlying phosphorus, magnesium and the potassium by Dr. Adan as well. We are gradually increasing his blood pressure medication if the blood pressure stays at the higher level above 160. ASSESSMENT: 1. Progression of the improvement. He has underlying hyponatremia, gradually improving. 2. Leukocytosis. 3. Basilar atelectasis versus pneumonia. 4. Underlying septic shock, gram-negative, with the associated infection with the urine and blood and bacteremia as well. 5. Hyperlipidemia. 6. Asthma with chronic obstructive pulmonary disease. 7. History of hypertension, hypertensive heart disease. 8. Depression with bipolar. PLAN: 1. Starting on amlodipine with parameters. 2. Will increase his medication fluoxetine (Prozac) to 40 mg once a day with the underlying exacerbation of depression. MMODL / IJN: [id number] /
[2018-06-26 16:57] LABS: Calcium 6.7 mg/dL (8.4-10.2)
[2018-06-26 17:22] LABS: Magnesium 1.9 mg/dL (1.6-2.3)
[2018-06-26 17:49] LABS: Glucose,Whole Blood 97 mg/dL (75-99)
[2018-06-26] MEDS: MONTELUKAST 10 MG TAB PO SCH (20:00)
[2018-06-26] MEDS: traZODone HCL 100 MG TAB PO SCH (20:01)
[2018-06-26] MEDS: hydrOXYzine HCL 10 MG TAB PO SCH (20:01)
[2018-06-26] MEDS: busPIRone HCl 5 MG TAB PO SCH (20:01)
[2018-06-26] MEDS: TOPIRAMATE 25 MG TAB PO SCH (20:01)
[2018-06-26 20:07] LABS: Glucose,Whole Blood 124 mg/dL (75-99)
[2018-06-26 20:51] LABS: Glucose,Whole Blood 115 mg/dL (75-99)
[2018-06-27] MEDS: HEPARIN SODIUM,PORCINE 5,000 UNIT/ML 1 ML VIAL SQ SCH ×2 (00:47→09:25)
[2018-06-27 04:33] LABS: Basophils % (A) 0 %; Eosinophils # (A) 0.2 k/uL (0-0.7); Eosinophils % (A) 1 %; HCT 27.3 % (39.0-53.0); HGB 9.2 gm/dL (13.0-17.5); Lymphocytes # (A) 1.1 k/uL (1.0-4.8); Lymphocytes % (A) 6 %; MCH 32.3 pg (25.0-35.0); MCHC 33.8 g/dL (31.0-37.0); MCV 95.6 fL (80.0-100.0); Mean Platelet Volume 11.3; Monocytes # (A) 0.8 k/uL (0-1.0); Monocytes % (A) 4 %; Neutrophils # (A) 17.7 k/uL (1.3-7.7); Neutrophils % (A) 88 %; RBC 2.86 m/uL (4.30-5.90); RDW 14.1 % (11.5-15.5); WBC 20.1 k/uL (3.8-10.6)
[2018-06-27 04:37] LABS: Platelet Count 45 k/uL (150-450)
[2018-06-27 04:48] LABS: Albumin 1.7 g/dL (3.5-5.0); Calcium 6.6 mg/dL (8.4-10.2); Magnesium 1.8 mg/dL (1.6-2.3); Phosphorus 2.4 mg/dL (2.5-4.5); Potassium 3.5 mmol/L (3.5-5.1); Total Protein 3.5 g/dL (6.3-8.2)
[2018-06-27] MEDS ORDERED: POTASSIUM CHLORIDE 20 MEQ in WATER FOR INJECTION 2 100ML.BAG IVPB STA (06:46)
[2018-06-27] MEDS: INSULIN ASPART 100 UNIT/ML 1 ML 10 ML VIAL SQ SCH ×4 (06:58→22:32)
[2018-06-27] MEDS ORDERED: MAGNESIUM SULFATE-D5W PMX 1 GM in DEXTROSE/WATER 1 100ML.BAG IVPB ONE (07:00)
[2018-06-27 07:09] LABS: Glucose,Whole Blood 77 mg/dL (75-99)
[2018-06-27] MEDS: POTASSIUM CHLORIDE 20 MEQ in WATER FOR INJECTION 1 100ML.BAG IVPB SCH ×2 (07:19→09:47)
--- NOTE | 2018-06-27 07:25 | XR ---
EXAMINATION TYPE: XR chest 1V DATE OF EXAM: 06/27/2018 CLINICAL HISTORY: Difficulty breathing progress study. TECHNIQUE: Single AP portable upright view of the chest is obtained. COMPARISON: Chest x-ray from one day earlier and older studies. FINDINGS: Osseous structures are demineralized. Low lung volumes with bibasilar opacity remains pres ent. Cardiac silhouette size is stable and upper limits of normal. There is S-shaped scoliotic curvat ure with multilevel spurring in the lower thoracic spine. IMPRESSION: Overall stable findings, low lung volumes with bibasilar infiltrate and/or atelectasis and suspected small left greater than right bilateral pleural effusions all redemonstrated.
[2018-06-27] MEDS: FLUoxetine HCL 20 MG CAP PO SCH (08:53)
[2018-06-27] MEDS: TOPIRAMATE 25 MG TAB PO SCH ×2 (08:54→22:44)
[2018-06-27] MEDS: busPIRone HCl 5 MG TAB PO SCH ×2 (08:54→22:43)
[2018-06-27] MEDS ORDERED: LEVOFLOXACIN 250 MG TAB PO SCH (09:00)
[2018-06-27] MEDS: METOPROLOL TARTRATE 50 MG TAB PO SCH ×2 (09:24→22:43)
--- NOTE | 2018-06-27 09:45 | P.PN ---
Subjective Patient is seen in follow for acute kidney injury on chronic kidney disease. Patient has chronic kidney disease stage III with baseline creatinine in the range of 1.1-1.3 secondary to nephrosclerosis. Patient also noted to be hyponatremic. Sodium level improved with IV fluids and is 128 this morning. Patient's noted to have blood and urine culture positive for Klebsiella. He is off Levophed. Urine output improved significantly. Denies any active chest pain or shortness of breath. Oral intake is starting to improve. Creatinine is down to 2.9 today. Vital signs are stable. Currently off Levophed. General: The patient appeared well nourished and normally developed. HEENT: Head exam is unremarkable. Neck is without jugular venous distension. LUNGS: Breath sounds decreased. HEART: Rate and Rhythm are regular. First and second heart sounds normal. No murmurs, rubs or gallops. ABDOMEN: Abdominal exam reveals normal bowel sounds. Non-tender and non- distended. No evidence of peritonitis. EXTREMITITES: No clubbing, cyanosis, or edema. Objective - Vital Signs Vital signs: Vital Signs Temp 98.2 F 06/27/18 08:00 Pulse 69 06/27/18 08:00 Resp 39 H 06/27/18 08:00 BP 97/58 06/27/18 06:00 Pulse Ox 95 06/27/18 08:00 Intake & Output 06/26/18 06/27/18 06/27/18 18:59 06:59 18:59 Intake Total 3075 1880 570 Output Total 1915 1405 300 Balance 1160 475 270 Weight 97.4 kg Intake: IV 1225 1400 450 Dextrose 5% in Water 1, 300 000 ml @ 60 mls/hr IV . [id number] [facility] with Sodium Bicarb (1 Meq/ml) 150 ml Rx#:[id number] Magnesium Sulfate-D5w Pmx 100 1 gm In Dextrose/Water 1 100ml.bag @ 100 mls/hr IVPB ONCE ONE Rx#: [id number] Meropenem 1 gm In Sodium 100 Chloride 0.9% 100 ml @ 200 mls/hr IVPB Q12H [facility] Rx#:[id number] Potassium Chloride 20 meq 100 In Water For Injection 1 100ml.bag @ 50 mls/hr IVPB ONCE ONE Rx#: [id number] Sodium Chloride 0.9% 1, 825 1400 150 000 ml @ 75 mls/hr IV . [id number] [facility] Rx#:[id number] cefTRIAXone 1,000 mg In 100 Sodium Chloride 0.9% 50 ml @ 100 mls/hr IVPB Q24H [facility] Rx#:[id number] Intake, IV Titration 900 Amount Magnesium Sulfate-D5w Pmx 100 1 gm In Dextrose/Water 1 100ml.bag @ 100 mls/hr IVPB ONCE ONE Rx#: [id number] Potassium Chloride 20 meq 300 In Water For Injection 1 100ml.bag @ 50 mls/hr IVPB Q2H [facility] Rx#: [id number] Potassium Phosphate 10 500 mmol In Sodium Chloride 0 .9% 250 ml @ 125 mls/hr IV Q2H [facility] Rx#:[id number] Oral 950 480 120 Output: Urine 1915 1405 300 Other: Voiding Method Indwelling Catheter Indwelling Catheter # Bowel Movements 1 ABP, PAP, CO, CI - Last Documented Arterial Blood Pressure 138/77 - Labs CBC & Chem 7: 06/27/18 04:21 06/27/18 04:21 Labs: Abnormal Lab Results - Last 24 Hours (Table) 06/26/18 06/26/18 06/26/18 Range/Units 04:30 12:03 15:40 WBC (3.8-10.6) k/uL RBC (4.30-5.90) m/uL Hgb (13.0-17.5) gm/dL Hct (39.0-53.0) % Plt Count (150-450) k/uL Neutrophils # (1.3-7.7) k/uL Sodium 127 L (137-145) mmol/L Chloride 93 L (98-107) mmol/L BUN 48 H (9-20) mg/dL Creatinine 3.25 H (0.66-1.25) mg/dL Glucose (74-99) mg/dL POC Glucose (mg/dL) 105 H (75-99) mg/dL Calcium 6.7 L (8.4-10.2) mg/dL Phosphorus (2.5-4.5) mg/dL AST (17-59) U/L ALT (21-72) U/L Alkaline Phosphatase (38-126) U/L Total Protein (6.3-8.2) g/dL Albumin (3.5-5.0) g/dL Vitamin D 25-Hydroxy 20.0 L (30.0-100.0) ng/mL 06/26/18 06/26/18 06/27/18 Range/Units 19:55 20:40 04:21 WBC 20.1 H (3.8-10.6) k/uL RBC 2.86 L (4.30-5.90) m/uL Hgb 9.2 L (13.0-17.5) gm/dL Hct 27.3 L (39.0-53.0) % Plt Count 45 L (150-450) k/uL Neutrophils # 17.7 H (1.3-7.7) k/uL Sodium (137-145) mmol/L Chloride (98-107) mmol/L BUN (9-20) mg/dL Creatinine (0.66-1.25) mg/dL Glucose (74-99) mg/dL POC Glucose (mg/dL) 124 H 115 H (75-99) mg/dL Calcium (8.4-10.2) mg/dL Phosphorus (2.5-4.5) mg/dL AST (17-59) U/L ALT (21-72) U/L Alkaline Phosphatase (38-126) U/L Total Protein (6.3-8.2) g/dL Albumin (3.5-5.0) g/dL Vitamin D 25-Hydroxy (30.0-100.0) ng/mL 06/27/18 Range/Units 04:21 WBC (3.8-10.6) k/uL RBC (4.30-5.90) m/uL Hgb (13.0-17.5) gm/dL Hct (39.0-53.0) % Plt Count (150-450) k/uL Neutrophils # (1.3-7.7) k/uL Sodium 128 L (137-145) mmol/L Chloride 94 L (98-107) mmol/L BUN 53 H (9-20) mg/dL Creatinine 2.90 H (0.66-1.25) mg/dL Glucose 102 H (74-99) mg/dL POC Glucose (mg/dL) (75-99) mg/dL Calcium 6.6 L (8.4-10.2) mg/dL Phosphorus 2.4 L (2.5-4.5) mg/dL AST 501 H (17-59) U/L ALT 1043 H (21-72) U/L Alkaline Phosphatase 272 H (38-126) U/L Total Protein 3.5 L (6.3-8.2) g/dL Albumin 1.7 L (3.5-5.0) g/dL Vitamin D 25-Hydroxy (30.0-100.0) ng/mL Microbiology - Last 24 Hours (Table) 06/26/18 01:20 Blood Culture - Preliminary Blood No Growth after 24 hours 06/21/18 23:36 Blood Culture - Preliminary Blood No Growth after 120 hours Assessment and Plan Plan: Assessment: 1. Acute kidney injury secondary to ATN secondary to hypotension as well as sepsis. Also component of rhabdomyolysis. Renal function improving with creatinine down to 2.9 today. 2. Septic shock secondary to Klebsiella bacteremia and UTI maintained on antibiotics. 3. Hypotension secondary to sepsis. Currently off vasopressors. 4. Severe metabolic acidosis secondary to acute kidney injury and lactic acidosis. Better. 5. Hypovolemic hyponatremia improved with IV hydration. 6. Chronic kidney disease stage III with baseline creatinine in the range of 1.1-1.3 secondary to nephrosclerosis. 7. Hypokalemia secondary to intracellular shifting from IV bicarb. Status post replacement. 8. Hypophosphatemia from poor oral intake as well as intracellular shifting from IV bicarb. Plan: Decreased normal saline to 50 mL an hour. Hep-Lock IV Fluids If Oral Intake Remains Good. Potassium and phosphorus being replaced. Hold off on diuretics as urine output is excellent. Encouraged oral intake. Continue to monitor renal function and urine output closely. Assess on a day to day basis for the need for renal replacement therapy.
[2018-06-27] MEDS: SODIUM CHLORIDE 0.9% 1,000 ML IV SCH (09:47)
--- NOTE | 2018-06-27 09:53 | P.PN ---
Subjective Progress Note Date: 06/27/18 This is a 77-year-old gentleman with history of chronic leg edema, chronic renal failure was admitted to the hospital with evidence of hyponatremia and also rhabdomyolysis. Patient also developed renal failure and his creatinine is going up. Patient is sleepy but arousable. Complaints of being short of breath. Denies any chest pain. A chest x-ray showed some right-sided atelectasis. No Sigmund JVD. Mild edema of the legs. His maintaining sinus rhythm. Patient is hypotensive and is on Levophed. From cardiac standpoint. We'll continue current medical therapy. His echocardiogram showed an ejection fraction of 45-50%. 06/25/2018: This 77-year-old gentleman is admitted with UTI and bacteremia. Patient also has evidence of rhabdomyolysis and acute renal failure. Patient seemed to be more alert. Denies any chest pain or shortness of breath. No evidence of JVD. Lungs appeared to be clear. Heart is regular. No evidence of any cardiac arrhythmias. We'll continue current medical therapy. We'll follow him as needed. 06/27/2018: This 77-year-old gentleman is admitted with UTI, bacteremia and the rhabdomyolysis. His renal function seemed to be gradually improving. He received Norvasc yesterday and became hypotensive. He is also in the bradycardic side. We'll going to hold the Norvasc. We'll make cut back the dose of the metoprolol if necessary. Otherwise patient seems to be stable. Increase activity as tolerated Objective - Vital Signs Vital signs: Vital Signs Temp 98.2 F 06/27/18 08:00 Pulse 60 06/27/18 09:00 Resp 15 06/27/18 09:00 BP 97/58 06/27/18 06:00 Pulse Ox 95 06/27/18 09:00 Intake & Output 06/26/18 06/27/18 06/27/18 18:59 06:59 18:59 Intake Total 3075 1880 1325 Output Total 1915 1405 400 Balance 1160 475 925 Weight 97.4 kg Intake: IV 1225 1400 525 Dextrose 5% in Water 1, 300 000 ml @ 60 mls/hr IV . [id number] [facility] with Sodium Bicarb (1 Meq/ml) 150 ml Rx#:[id number] Magnesium Sulfate-D5w Pmx 100 1 gm In Dextrose/Water 1 100ml.bag @ 100 mls/hr IVPB ONCE ONE Rx#: [id number] Meropenem 1 gm In Sodium 100 Chloride 0.9% 100 ml @ 200 mls/hr IVPB Q12H [facility] Rx#:[id number] Potassium Chloride 20 meq 100 In Water For Injection 1 100ml.bag @ 50 mls/hr IVPB ONCE ONE Rx#: [id number] Sodium Chloride 0.9% 1, 825 1400 225 000 ml @ 50 mls/hr IV . Q20H [facility] Rx#:[id number] cefTRIAXone 1,000 mg In 100 Sodium Chloride 0.9% 50 ml @ 100 mls/hr IVPB Q24H [facility] Rx#:[id number] Intake, IV Titration 900 200 Amount Magnesium Sulfate-D5w Pmx 100 1 gm In Dextrose/Water 1 100ml.bag @ 100 mls/hr IVPB ONCE ONE Rx#: [id number] Magnesium Sulfate-D5w Pmx 100 1 gm In Dextrose/Water 1 100ml.bag @ 100 mls/hr IVPB ONCE ONE Rx#: [id number] Potassium Chloride 20 meq 300 In Water For Injection 1 100ml.bag @ 50 mls/hr IVPB Q2H [facility] Rx#: [id number] Potassium Chloride 20 meq 100 In Water For Injection 1 100ml.bag @ 50 mls/hr IVPB Q2H [facility] Rx#: [id number] Potassium Phosphate 10 500 mmol In Sodium Chloride 0 .9% 250 ml @ 125 mls/hr IV Q2H [facility] Rx#:[id number] Oral 950 480 600 Output: Urine 1915 1405 400 Other: Voiding Method Indwelling Catheter Indwelling Catheter # Bowel Movements 1 1 ABP, PAP, CO, CI - Last Documented Arterial Blood Pressure 103/54 - Exam GENERAL EXAM: Patient is alert and oriented and doesn't appear to be in any acute distress, appears to be frail and sleepy HEENT: Normocephalic. Normal reaction of pupils, equal size, normal range of extraocular motion. No erythema or exudates in the throat. NECK: No masses, no nuchal rigidity. CHEST: No chest wall deformity. LUNGS: Equal air entry with no crackles or wheeze. HEART: S1 and S2 normal with no audible mumurs or gallops. Regular rhythm, femorals equal on both sides.. ABDOMEN: No hepatosplenomegaly, normal bowel sounds, no guarding or rigidity. SKIN: No rashes CENTRAL NERVOUS SYSTEM: No focal deficits. EXTREMITIES: Bilateral edema - Labs CBC & Chem 7: 06/27/18 04:21 06/27/18 04:21 Labs: Abnormal Lab Results - Last 24 Hours (Table) 06/26/18 06/26/18 06/26/18 Range/Units 04:30 12:03 15:40 WBC (3.8-10.6) k/uL RBC (4.30-5.90) m/uL Hgb (13.0-17.5) gm/dL Hct (39.0-53.0) % Plt Count (150-450) k/uL Neutrophils # (1.3-7.7) k/uL Sodium 127 L (137-145) mmol/L Chloride 93 L (98-107) mmol/L BUN 48 H (9-20) mg/dL Creatinine 3.25 H (0.66-1.25) mg/dL Glucose (74-99) mg/dL POC Glucose (mg/dL) 105 H (75-99) mg/dL Calcium 6.7 L (8.4-10.2) mg/dL Phosphorus (2.5-4.5) mg/dL AST (17-59) U/L ALT (21-72) U/L Alkaline Phosphatase (38-126) U/L Total Protein (6.3-8.2) g/dL Albumin (3.5-5.0) g/dL Vitamin D 25-Hydroxy 20.0 L (30.0-100.0) ng/mL 06/26/18 06/26/18 06/27/18 Range/Units 19:55 20:40 04:21 WBC 20.1 H (3.8-10.6) k/uL RBC 2.86 L (4.30-5.90) m/uL Hgb 9.2 L (13.0-17.5) gm/dL Hct 27.3 L (39.0-53.0) % Plt Count 45 L (150-450) k/uL Neutrophils # 17.7 H (1.3-7.7) k/uL Sodium (137-145) mmol/L Chloride (98-107) mmol/L BUN (9-20) mg/dL Creatinine (0.66-1.25) mg/dL Glucose (74-99) mg/dL POC Glucose (mg/dL) 124 H 115 H (75-99) mg/dL Calcium (8.4-10.2) mg/dL Phosphorus (2.5-4.5) mg/dL AST (17-59) U/L ALT (21-72) U/L Alkaline Phosphatase (38-126) U/L Total Protein (6.3-8.2) g/dL Albumin (3.5-5.0) g/dL Vitamin D 25-Hydroxy (30.0-100.0) ng/mL 06/27/18 Range/Units 04:21 WBC (3.8-10.6) k/uL RBC (4.30-5.90) m/uL Hgb (13.0-17.5) gm/dL Hct (39.0-53.0) % Plt Count (150-450) k/uL Neutrophils # (1.3-7.7) k/uL Sodium 128 L (137-145) mmol/L Chloride 94 L (98-107) mmol/L BUN 53 H (9-20) mg/dL Creatinine 2.90 H (0.66-1.25) mg/dL Glucose 102 H (74-99) mg/dL POC Glucose (mg/dL) (75-99) mg/dL Calcium 6.6 L (8.4-10.2) mg/dL Phosphorus 2.4 L (2.5-4.5) mg/dL AST 501 H (17-59) U/L ALT 1043 H (21-72) U/L Alkaline Phosphatase 272 H (38-126) U/L Total Protein 3.5 L (6.3-8.2) g/dL Albumin 1.7 L (3.5-5.0) g/dL Vitamin D 25-Hydroxy (30.0-100.0) ng/mL Microbiology - Last 24 Hours (Table) 06/26/18 01:20 Blood Culture - Preliminary Blood No Growth after 24 hours 06/21/18 23:36 Blood Culture - Preliminary Blood No Growth after 120 hours Assessment and Plan (1) Rhabdomyolysis Current Visit: Yes Status: Acute Code(s): M62.82 - RHABDOMYOLYSIS SNOMED Code(s): 924822733 (2) Hyponatremia Current Visit: Yes Status: Acute Code(s): E87.1 - HYPO-OSMOLALITY AND HYPONATREMIA SNOMED Code(s): 65985309 (3) Anemia Current Visit: No Status: Acute Code(s): D64.9 - ANEMIA, UNSPECIFIED SNOMED Code(s): 826040160 (4) Renal failure, acute Current Visit: Yes Status: Acute Code(s): N17.9 - ACUTE KIDNEY FAILURE, UNSPECIFIED SNOMED Code(s): 45587019 Plan: Hold Norvasc because of hypotension. May cut back the dose of the beta [place]. Increase the patient's activity. We'll follow
--- NOTE | 2018-06-27 10:30 | P.PN ---
Subjective Progress Note Date: 06/27/18 Principal diagnosis: Hyponatremia, sepsis, hypotension The patient is seen today in follow-up in the intensive care unit. He is currently awake and alert in no acute distress. He is now maintaining good O2 saturations in the 90s on room air. He has a 0.9 normal saline at 75 ML's per hour. Klebsiella pneumoniae was in both the blood and urine. He remains on ceftriaxone. Chest x-ray continues to show evidence of cardiomegaly and small effusions. White count 20.1. Hemoglobin 9.2. Platelet count 45,000. Sodium 128. Creatinine 2.90. AST 501, ALT 1043, alk phos 272. A CT of the abdomen did reveal prominent gallbladder possibly hepatic steatosis. Objective - Vital Signs Vital signs: Vital Signs Temp 98.2 F 06/27/18 08:00 Pulse 60 06/27/18 09:00 Resp 15 06/27/18 09:00 BP 97/58 06/27/18 06:00 Pulse Ox 95 06/27/18 09:00 Intake & Output 06/26/18 06/27/18 06/27/18 18:59 06:59 18:59 Intake Total 3075 1880 1500 Output Total 1915 1405 500 Balance 6511 392 5137 Weight 97.4 kg Intake: IV 1225 1400 600 Dextrose 5% in Water 1, 300 000 ml @ 60 mls/hr IV . [id number] [facility] with Sodium Bicarb (1 Meq/ml) 150 ml Rx#:[id number] Magnesium Sulfate-D5w Pmx 100 1 gm In Dextrose/Water 1 100ml.bag @ 100 mls/hr IVPB ONCE ONE Rx#: [id number] Meropenem 1 gm In Sodium 100 Chloride 0.9% 100 ml @ 200 mls/hr IVPB Q12H [facility] Rx#:[id number] Potassium Chloride 20 meq 100 In Water For Injection 1 100ml.bag @ 50 mls/hr IVPB ONCE ONE Rx#: [id number] Sodium Chloride 0.9% 1, 825 1400 300 000 ml @ 50 mls/hr IV . Q20H [facility] Rx#:[id number] cefTRIAXone 1,000 mg In 100 Sodium Chloride 0.9% 50 ml @ 100 mls/hr IVPB Q24H [facility] Rx#:[id number] Intake, IV Titration 900 300 Amount Magnesium Sulfate-D5w Pmx 100 1 gm In Dextrose/Water 1 100ml.bag @ 100 mls/hr IVPB ONCE ONE Rx#: [id number] Magnesium Sulfate-D5w Pmx 100 1 gm In Dextrose/Water 1 100ml.bag @ 100 mls/hr IVPB ONCE ONE Rx#: [id number] Potassium Chloride 20 meq 300 In Water For Injection 1 100ml.bag @ 50 mls/hr IVPB Q2H [facility] Rx#: [id number] Potassium Chloride 20 meq 200 In Water For Injection 1 100ml.bag @ 50 mls/hr IVPB Q2H [facility] Rx#: [id number] Potassium Phosphate 10 500 mmol In Sodium Chloride 0 .9% 250 ml @ 125 mls/hr IV Q2H [facility] Rx#:[id number] Oral 950 480 600 Output: Urine 1915 1405 500 Other: Voiding Method Indwelling Catheter Indwelling Catheter # Bowel Movements 1 1 ABP, PAP, CO, CI - Last Documented Arterial Blood Pressure 103/54 - Exam GENERAL EXAM: Alert, fairly comfortable in no apparent distress. HEAD: Normocephalic. EYES: Normal reaction of pupils, equal size. NOSE: Clear with pink turbinates. THROAT: No erythema or exudates. NECK: No masses, no JVD. CHEST: No chest wall deformity. LUNGS: Equal air entry with crackles in the posterior bases. CVS: S1 and S2 normal with no audible murmur, regular rhythm. ABDOMEN: No hepatosplenomegaly, normal bowel sounds, no guarding or rigidity. SPINE: No scoliosis or deformity SKIN: No rashes CENTRAL NERVOUS SYSTEM: No focal deficits, tone is normal in all 4 extremities. EXTREMITIES: There is no peripheral edema. No clubbing, no cyanosis. Peripheral pulses are intact. - Labs CBC & Chem 7: 06/27/18 04:21 06/27/18 04:21 Labs: Abnormal Lab Results - Last 24 Hours (Table) 06/26/18 06/26/18 06/26/18 Range/Units 04:30 12:03 15:40 WBC (3.8-10.6) k/uL RBC (4.30-5.90) m/uL Hgb (13.0-17.5) gm/dL Hct (39.0-53.0) % Plt Count (150-450) k/uL Neutrophils # (1.3-7.7) k/uL Sodium 127 L (137-145) mmol/L Chloride 93 L (98-107) mmol/L BUN 48 H (9-20) mg/dL Creatinine 3.25 H (0.66-1.25) mg/dL Glucose (74-99) mg/dL POC Glucose (mg/dL) 105 H (75-99) mg/dL Calcium 6.7 L (8.4-10.2) mg/dL Phosphorus (2.5-4.5) mg/dL AST (17-59) U/L ALT (21-72) U/L Alkaline Phosphatase (38-126) U/L Total Protein (6.3-8.2) g/dL Albumin (3.5-5.0) g/dL Vitamin D 25-Hydroxy 20.0 L (30.0-100.0) ng/mL 06/26/18 06/26/18 06/27/18 Range/Units 19:55 20:40 04:21 WBC 20.1 H (3.8-10.6) k/uL RBC 2.86 L (4.30-5.90) m/uL Hgb 9.2 L (13.0-17.5) gm/dL Hct 27.3 L (39.0-53.0) % Plt Count 45 L (150-450) k/uL Neutrophils # 17.7 H (1.3-7.7) k/uL Sodium (137-145) mmol/L Chloride (98-107) mmol/L BUN (9-20) mg/dL Creatinine (0.66-1.25) mg/dL Glucose (74-99) mg/dL POC Glucose (mg/dL) 124 H 115 H (75-99) mg/dL Calcium (8.4-10.2) mg/dL Phosphorus (2.5-4.5) mg/dL AST (17-59) U/L ALT (21-72) U/L Alkaline Phosphatase (38-126) U/L Total Protein (6.3-8.2) g/dL Albumin (3.5-5.0) g/dL Vitamin D 25-Hydroxy (30.0-100.0) ng/mL 06/27/18 Range/Units 04:21 WBC (3.8-10.6) k/uL RBC (4.30-5.90) m/uL Hgb (13.0-17.5) gm/dL Hct (39.0-53.0) % Plt Count (150-450) k/uL Neutrophils # (1.3-7.7) k/uL Sodium 128 L (137-145) mmol/L Chloride 94 L (98-107) mmol/L BUN 53 H (9-20) mg/dL Creatinine 2.90 H (0.66-1.25) mg/dL Glucose 102 H (74-99) mg/dL POC Glucose (mg/dL) (75-99) mg/dL Calcium 6.6 L (8.4-10.2) mg/dL Phosphorus 2.4 L (2.5-4.5) mg/dL AST 501 H (17-59) U/L ALT 1043 H (21-72) U/L Alkaline Phosphatase 272 H (38-126) U/L Total Protein 3.5 L (6.3-8.2) g/dL Albumin 1.7 L (3.5-5.0) g/dL Vitamin D 25-Hydroxy (30.0-100.0) ng/mL Microbiology - Last 24 Hours (Table) 06/26/18 01:20 Blood Culture - Preliminary Blood No Growth after 24 hours 06/21/18 23:36 Blood Culture - Preliminary Blood No Growth after 120 hours Assessment and Plan Assessment: Assessment Acute septic shock with hypotension, secondary to Klebsiella pneumoniae urinary tract infection and bacteremia 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 Plan: The patient was seen and evaluated by Dr. Mendoza. Chest x-ray and labs were reviewed. We'll go ahead and order ultrasound of the gallbladder. We'll continue ceftriaxone. He is stable to move out of the intensive care unit today. We'll continue to follow make further recommendations on his clinical status. I, the cosigning physician, performed a history & physical examination of the patient. Lungs sounds with crackles in the posterior bases. Maintaining good O2 saturations in the 90s on room air. I discussed the assessment and plan of care with my nurse practitioner, Virgie Matute. I attest to the above note as dictated by her.
[2018-06-27] MEDS: amLODIPine 5 MG TAB PO SCH ×2 (12:16→22:32)
[2018-06-27 12:18] LABS: Glucose,Whole Blood 102 mg/dL (75-99)
[2018-06-27] MEDS: ALBUTEROL NEBULIZED 2.5 MG/3 ML INHALATION PRN (12:24)
--- NOTE | 2018-06-27 14:51 | PN ---
PROGRESS NOTE DATE OF SERVICE: 06/27/2018 NO CODE STATUS. DATA: He has a 6 foot height, weight is 97.4 kg and, BSA 2.20 m2, BMI 29.1 kg/m2. ALLERGY TO PENICILLIN. Patient is a 77-year-old white male, has been admitted in my temporary absence by Dr. Reeves and subsequently he was continued care and I did start to see him since Sunday. He is in ICU and he had a Leggett catheter and the blood culture done on 06/22/2018 at 0514 hours found blood culture growing Klebsiella pneumonia and urine also showed Klebsiella pneumonia. Patient underwent septic shock and lactic acid elevation and hyponatremia as well and leukocytosis. He also treated from the gram-negative bacilli with the septic shock and he had multiple consultants, Critical Care, Pulmonary Dr. Yarbrough, Dr Mendoza and subsequently, he was initially admitted to the ICU, then transferred to the telemetry floor because of the tachycardia suspicious of atrial fibrillation. Subsequently seen by the Cardiology and found that he had sinus tachycardia. The patient that night, food adviser hour, he became hypotensive and transferred back to the ICU where found to be positive for blood and the urine Klebsiella pneumonia with the gram-negative sepsis. As patient during the hospitalization, he underwent the treatment and follow up with the Critical Care. 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 Adan. As patient progressed, he has with the time we did a CT scan of the abdomen and CT scan of the abdomen was done on 06/24 and at that time, they stated that the hepatic parenchyma is diffusely hypoattenuated in comparison with the spleen and most commonly hepatic steatosis. And no gross evidence of hepatic mass. No intra hepatic biliary duct dilatation and the gallbladder appeared to be elongated measuring approximately 9.2 cm and also found that probably some hyperplasia of the adrenal gland and right kidney is larger than the left kidney and the gallbladder, there is circumferential wall thickening and the Leggett catheter in place. The full data of the ultrasound is on the reading of the computer. However, the persistence of leukocytosis has initiated thoughts of could be that gallbladder disease and causing this increased resistance of leukocytosis in spite of the antibiotic treatment and at that time the patient prepared to have ultrasound of the gallbladder and probably may need subsequently a surgical consultation and at that time if we recommended, he has been seen in the past and operated upon by Dr. Gan as well as Dr. Hendrickson, his associate, and if the ultrasound was need for surgical intervention or need for future surgical intervention, consulting the surgeon who has been familiar with the patient. As patient seen today by Dr. Fatimah Garza, and he had the cable mock up assembler and his impression note changes with the rhabdomyolysis, hyponatremia and anemia, acute renal failure, and the plan hold today, indicating to hold the Norvasc, which we started yesterday for the hypertension and may cut back on the beta wellington dose. Apparently, there is some problem occurred with this medication. It is not my knowledge so far. However, as stated by Dr. Garza, the cable mock up assembler, the patient received Norvasc yesterday and become hypotensive and bradycardic and at this time, the Norvasc was held. Also we have today from Dr. Adan, the Nephrology has been seeing the patient and with the impression that the patient had history of acute kidney injury on the top of chronic kidney disease with the history of stage III in the past and he was hyponatremic and creatinine today is 2.9 which is down from in the past. His vital sign was dropped to 97/58 with a temperature 98.2, and pulse 69, and he had increased respiratory rate. His assessment as well is acute kidney injury secondary to ATN and hypotension and sepsis. Septic shock secondary to Klebsiella, bacteremia and UTI with Klebsiella, hypotension secondary to sepsis. Patient is currently off the pressor and he had a severe metabolic acidosis and hypovolemic, hyponatremic with IV hydration and he had nephrosclerosis, hypokalemia, still he supplemented with the underlying cause is sodium bicarb and hypophosphatemia and from the poor oral intake and today also the Pulmonary dictation by Virgie Matute, the nurse practitioner stated that his platelet count was 45 and a sodium 128 and creatinine 2.9 and AST elevated. AST of 501 and ALT 1043 with alk phos 272, and we have a prominent gallbladder and with the hepatic steatosis and the patient sent for ultrasound of the gallbladder on the order of Dr. Mendoza, who is rounding for the critical care on this week. Her impression at this time, elevated liver function test and enlarged gallbladder with the underlying cholecystitis and with possible cholelithiasis, regardless, and with the future plan surgical consultation if this is indicated for that and will be at that time consulting Dr. Gan or Dr. Hendrickson. On today's examination, he has also major depression disorder. He had underlying acute rhabdomyolysis and today's examination found that his vital signs indicating that his blood pressure 115/59, very sensitive to amlodipine and he dropped his blood pressure and that has been helped. His temperature 98.4, pulse 67, respiratory rate 16. LABORATORY: On today indicating white count 20.1 with the hemoglobin 9.2 and hematocrit 27.3, but the platelet count is 45, and the Critical Care held the heparin for DVT prophylaxis. His chemistry showed that his sodium has started to improve 128 and chloride 94, his BUN 53, creatinine 2.9, which is improvement. His potassium today after supplementation is 4. His calcium is 6.6 and phosphorus 2.4 and supplemented as well. His bilirubin still normal 1. However, the AST 501 and ALT is also 1043 and the alkaline phosphatase is 272, total protein is 3.5, and albumin 1.7, indicating moderate to severe protein calorie deficiency. PHYSICAL EXAM: Patient is conscious, alert, oriented. His HEENT was negative and no icterus. His neck was supple. The chest was clear to auscultation and percussion. However, he has decreased air entry on the bases. The heart was regular sinus rhythm. The abdomen is right upper quadrant severe tenderness with palpation and he is going to get ultrasound of the gallbladder. The extremities, he has edema and 2+ bilaterally with the hypo proteinemia, hypoalbuminemia and elevated liver function test as well. ASSESSMENT: 1. Hepatic steatosis and hepatitis and associated with could be alcoholic liver disease. 2. Gallbladder cholecystitis and questionable cholelithiasis and future plan for biliary dyskinesia and the right upper quadrant pain and nausea and vomiting and early satiety and unable to eat. 3. With the underlying chronic kidney disease is stage IV, currently is back for borderline stage IIIB and history of hyponatremia and leukocytosis and septic shock and sepsis and with the gram-negative organisms, Klebsiella pneumoniae in the urine and blood; however, can be also from other organ as well as gallbladder. He is still on the normotensive at this time after decreasing the medication and seen by the cable mock up assembler. Patient cleared to be transferred by the Critical Care to night monitor floor and resume laboratory subsequently and we will also check with Dr. Hendrickson and Dr. Gan to evaluate the patient for the acute abdomen. MMODL / IJN: [id number] /
--- NOTE | 2018-06-27 17:18 | US ---
EXAMINATION TYPE: US gallbladder DATE OF EXAM: 06/27/2018 COMPARISON: CT CLINICAL HISTORY: Elevated LFTs/Alk phos/abn CT. Epigastric pain with probe pressure and palpation. EXAM MEASUREMENTS: Liver Length: 12.2 cm Gallbladder Wall: 0.5 cm CBD: 0.3 cm Right Kidney: 11.3 x 5.9 x 5.9 cm Pancreas: hyperechoic; prominent duct at 0.4cm and is greater than normal measure 0.2cm Liver: pericholecystic fluid is noted inferiorly Gallbladder: sludge noted within enlarged gallbladder measured at 14.0cm (abnormal is greater than 1 0.0cm); pericholecystic fluid is seen; thickened wall seen. Evidence for sonographic Paredes's sign: yes CBD: wnl Right Kidney: No hydronephrosis or masses seen Right pleural effusion is noted. IMPRESSION: Moderately dilated gallbladder consistent with acute cholecystitis. No dilated ducts. Conde creatic duct upper limit of normal size.
[2018-06-27 17:40] LABS: Glucose,Whole Blood 92 mg/dL (75-99)
[2018-06-27 20:30] LABS: Glucose,Whole Blood 101 mg/dL (75-99)
[2018-06-27] MEDS: MONTELUKAST 10 MG TAB PO SCH (22:44)
[2018-06-27] MEDS: hydrOXYzine HCL 10 MG TAB PO SCH (22:44)
[2018-06-27] MEDS: traZODone HCL 100 MG TAB PO SCH (22:44)
--- NOTE | 2018-06-28 00:34 | P.PN ---
Subjective Progress Note Date: 06/27/18 77-year-old male who has multiple medical troubles including a known history of hyponatremia possibly SIADH was not seen by his neighbors for some time and consequently the apparently entered his apartment. He was found laying on the ground obtunded thrashing at times. EMS was called he was transported to hospital. There he was found evidence of significant hyponatremia as well as leukocytosis and altered mental status. There is evidence of a markedly elevated lactic acid and an elevated creatinine indicative of acute renal failure. The patient was admitted to intensive care unit has been receiving resuscitation. With evidence of a positive blood culture the infectious diseases consultation was requested. The patient is arousable and with significant stimulation is able to answer a few questions. He does have chronic urinary retention utilizes a straight catheterization process but does not use a fresh catheter every time. 06/27/2018 patient is more awake alert and interactive. Still feels cold. Is having some abdominal pain. Denies nausea or emesis. Appetite is poor. Objective - Vital Signs Vital signs: Vital Signs Temp 98.6 F 06/27/18 20:00 Pulse 66 06/28/18 00:00 Resp 16 06/28/18 00:00 BP 105/82 06/28/18 00:00 Pulse Ox 94 L 06/28/18 00:00 Intake & Output 06/27/18 06/27/18 06/28/18 06:59 18:59 06:59 Intake Total 1880 2255 200 Output Total 1405 1482 400 Balance 475 773 -200 Weight 97.4 kg Intake: IV 1400 1025 200 Magnesium Sulfate-D5w Pmx 100 1 gm In Dextrose/Water 1 100ml.bag @ 100 mls/hr IVPB ONCE ONE Rx#: [id number] Meropenem 1 gm In Sodium 100 Chloride 0.9% 100 ml @ 200 mls/hr IVPB Q12H [facility] Rx#:[id number] Potassium Chloride 20 meq 100 In Water For Injection 1 100ml.bag @ 50 mls/hr IVPB ONCE ONE Rx#: [id number] Sodium Chloride 0.9% 1, 1400 725 200 000 ml @ 50 mls/hr IV . Q20H [facility] Rx#:[id number] Intake, IV Titration 400 Amount Magnesium Sulfate-D5w Pmx 100 1 gm In Dextrose/Water 1 100ml.bag @ 100 mls/hr IVPB ONCE ONE Rx#: [id number] Potassium Chloride 20 meq 200 In Water For Injection 1 100ml.bag @ 50 mls/hr IVPB Q2H [facility] Rx#: [id number] cefTRIAXone 1,000 mg In 100 Sodium Chloride 0.9% 50 ml @ 100 mls/hr IVPB Q24H [facility] Rx#:[id number] Oral 480 830 Output: Urine 1405 1480 400 Stool 2 Other: Voiding Method Indwelling Catheter Indwelling Catheter Indwelling Catheter # Bowel Movements 1 ABP, PAP, CO, CI - Last Documented Arterial Blood Pressure 122/58 - Exam 77-year-old male arousable and becomes more interactive with stimulation HEENT: Anicteric conjunctiva are pink and moist nasal mucosa grossly intact without significant lesions, there is no thrush. Dentition modestly poor Neck: The neck is supple without significant lymphadenopathy or thyromegaly. Lungs: Symmetrical air entry no bronchial sounds with dullness or egophony Heart: Regular rate and rhythm with an audible S1-S2, no S3 no S4. There is no significant murmur click or rub, PMI was nondisplaced. Abdomen: Positive bowel sounds soft and now has some tenderness especially in the right upper quadrant without palpable masses or organomegaly. There was no guarding or rebound. Extremities: The upper extremities have excellent pulses they are symmetric, no significant petechiae or telangiectasia. No splinter hemorrhages were noted. The lower extremities are free from significant edema. The peripheral pulses were 2+ and symmetric. Neuro: Awake alert oriented to person place and time There are no acute new gross focal sensory motor deficits. Follows simple commands and moved upper and lower extremities - Labs CBC & Chem 7: 06/27/18 04:21 06/27/18 12:48 Labs: Abnormal Lab Results - Last 24 Hours (Table) 06/27/18 06/27/18 06/27/18 Range/Units 04:21 04:21 12:02 WBC 20.1 H (3.8-10.6) k/uL RBC 2.86 L (4.30-5.90) m/uL Hgb 9.2 L (13.0-17.5) gm/dL Hct 27.3 L (39.0-53.0) % Plt Count 45 L (150-450) k/uL Neutrophils # 17.7 H (1.3-7.7) k/uL Sodium 128 L (137-145) mmol/L Chloride 94 L (98-107) mmol/L BUN 53 H (9-20) mg/dL Creatinine 2.90 H (0.66-1.25) mg/dL Glucose 102 H (74-99) mg/dL POC Glucose (mg/dL) 102 H (75-99) mg/dL Calcium 6.6 L (8.4-10.2) mg/dL Phosphorus 2.4 L (2.5-4.5) mg/dL AST 501 H (17-59) U/L ALT 1043 H (21-72) U/L Alkaline Phosphatase 272 H (38-126) U/L Total Protein 3.5 L (6.3-8.2) g/dL Albumin 1.7 L (3.5-5.0) g/dL 06/27/18 Range/Units 20:19 WBC (3.8-10.6) k/uL RBC (4.30-5.90) m/uL Hgb (13.0-17.5) gm/dL Hct (39.0-53.0) % Plt Count (150-450) k/uL Neutrophils # (1.3-7.7) k/uL Sodium (137-145) mmol/L Chloride (98-107) mmol/L BUN (9-20) mg/dL Creatinine (0.66-1.25) mg/dL Glucose (74-99) mg/dL POC Glucose (mg/dL) 101 H (75-99) mg/dL Calcium (8.4-10.2) mg/dL Phosphorus (2.5-4.5) mg/dL AST (17-59) U/L ALT (21-72) U/L Alkaline Phosphatase (38-126) U/L Total Protein (6.3-8.2) g/dL Albumin (3.5-5.0) g/dL Microbiology - Last 24 Hours (Table) 06/26/18 01:20 Blood Culture - Preliminary Blood No Growth after 24 hours 06/21/18 23:36 Blood Culture - Preliminary Blood No Growth after 120 hours Laboratory Results WBC 20.1 k/uL (3.8-10.6) H 06/27/18 04:21 RBC 2.86 m/uL (4.30-5.90) L 06/27/18 04:21 Hgb 9.2 gm/dL (13.0-17.5) L 06/27/18 04:21 Hct 27.3 % (39.0-53.0) L 06/27/18 04:21 MCV 95.6 fL (80.0-100.0) 06/27/18 04:21 MCH 32.3 pg (25.0-35.0) 06/27/18 04:21 MCHC 33.8 g/dL (31.0-37.0) 06/27/18 04:21 RDW 14.1 % (11.5-15.5) 06/27/18 04:21 Plt Count 45 k/uL (150-450) L 06/27/18 04:21 Neutrophils % 88 % 06/27/18 04:21 Neutrophils % (Manual) 69 % 06/24/18 04:50 Band Neutrophils % 18 % 06/24/18 04:50 Lymphocytes % 6 % 06/27/18 04:21 Lymphocytes % (Manual) 4 % 06/24/18 04:50 Monocytes % 4 % 06/27/18 04:21 Monocytes % (Manual) 9 % 06/24/18 04:50 Eosinophils % 1 % 06/27/18 04:21 Basophils % 0 % 06/27/18 04:21 Neutrophils # 17.7 k/uL (1.3-7.7) H 06/27/18 04:21 Neutrophils # (Manual) 22.70 k/uL (1.3-7.7) H 06/24/18 04:50 Lymphocytes # 1.1 k/uL (1.0-4.8) 06/27/18 04:21 Lymphocytes # (Manual) 1.04 k/uL (1.0-4.8) 06/24/18 04:50 Monocytes # 0.8 k/uL (0-1.0) 06/27/18 04:21 Monocytes # (Manual) 2.35 k/uL (0-1.0) H 06/24/18 04:50 Eosinophils # 0.2 k/uL (0-0.7) 06/27/18 04:21 Basophils # 0.0 k/uL (0-0.2) 06/27/18 04:21 Nucleated RBCs 0 /100 WBC (0-0) 06/24/18 04:50 Manual Slide Review Performed 06/26/18 04:30 Toxic Granulation Present 06/26/18 04:30 Toxic Vacuolation Present 06/26/18 04:30 Large Platelets Present 06/26/18 04:30 Poikilocytosis (manual Present 06/26/18 04:30 Macrocytosis Slight 06/24/18 04:50 Crenated Cell Present 06/24/18 04:50 PT 11.0 sec (9.0-12.0) 06/21/18 19:00 INR 1.1 (<1.2) 06/21/18 19:00 APTT 18.5 sec (22.0-30.0) L 06/21/18 19:00 Sample Site santosh 06/24/18 07:46 ABG pH 7.31 (7.35-7.45) L 06/24/18 07:46 ABG pCO2 23 mmHg (35-45) L 06/24/18 07:46 ABG pO2 243 mmHg (83-108) H 06/24/18 07:46 ABG HCO3 11 mmol/L (21-25) L 06/24/18 07:46 ABG Total CO2 12 mmol/L (19-24) L 06/24/18 07:46 ABG O2 Saturation 100.0 % (94-97) H 06/24/18 07:46 ABG Base Excess -15.0 mmol/L 06/24/18 07:46 Andrew Test Yes 06/24/18 07:46 ABG Lactic Acid 4.1 mmol/L (0.5-1.6) H* 06/25/18 04:28 VBG pH 7.36 (7.31-7.41) 06/21/18 20:20 VBG pCO2 32 mmHg (37-51) L 06/21/18 20:20 VBG HCO3 17 mmol/L (24-28) L 06/21/18 20:20 FiO2 80 % 06/24/18 07:46 Sodium 128 mmol/L (137-145) L 06/27/18 04:21 Potassium 4.0 mmol/L (3.5-5.1) 06/27/18 12:48 Chloride 94 mmol/L (98-107) L 06/27/18 04:21 Carbon Dioxide 27 mmol/L (22-30) 06/27/18 04:21 Anion Gap 7 mmol/L 06/27/18 04:21 BUN 53 mg/dL (9-20) H 06/27/18 04:21 Creatinine 2.90 mg/dL (0.66-1.25) H 06/27/18 04:21 Est GFR (CKD-EPI)AfAm 23 (>60 ml/min/1.73 sqM) 06/27/18 04:21 Est GFR (CKD-EPI)NonAf 20 (>60 ml/min/1.73 sqM) 06/27/18 04:21 Glucose 102 mg/dL (74-99) H 06/27/18 04:21 POC Glucose (mg/dL) 101 mg/dL (75-99) H 06/27/18 20:19 POC Glu Ice Cream Maker ID Birgit Ames 06/27/18 20:19 Osmolality 255 mosm/kg (280-301) L 06/22/18 17:40 Lactic Ac Sepsis Rflx Y 06/24/18 18:38 Plasma Lactic Acid French 7.2 mmol/L (0.7-2.0) H* 06/24/18 16:10 Uric Acid 8.2 mg/dL (3.5-8.5) 06/22/18 17:40 Calcium 6.6 mg/dL (8.4-10.2) L 06/27/18 04:21 Phosphorus 2.4 mg/dL (2.5-4.5) L 06/27/18 04:21 Magnesium 1.8 mg/dL (1.6-2.3) 06/27/18 04:21 Total Bilirubin 1.0 mg/dL (0.2-1.3) 06/27/18 04:21 AST 501 U/L (17-59) H 06/27/18 04:21 ALT 1043 U/L (21-72) H 06/27/18 04:21 Alkaline Phosphatase 272 U/L (38-126) H 06/27/18 04:21 Ammonia <9 umol/L (<30) 06/21/18 20:20 Creatine Kinase 1175 U/L (55-170) H* 06/25/18 04:28 Total Creatine Kinase 2254 U/L (55-170) H* 06/21/18 19:00 CK-MB (CK-2) 4.1 ng/mL (0.0-2.4) H 06/23/18 06:21 CK-MB (CK-2) Rel Index 06/21/18 19:00 Troponin I 0.152 ng/mL (0.000-0.034) H* 06/22/18 15:14 Total Protein 3.5 g/dL (6.3-8.2) L 06/27/18 04:21 Albumin 1.7 g/dL (3.5-5.0) L 06/27/18 04:21 Vitamin D 25-Hydroxy 20.0 ng/mL (30.0-100.0) L 06/26/18 04:30 Vit D 1,25-Dihydroxy 20 pg/mL (20 - 79) 06/26/18 04:30 TSH 0.958 mIU/L (0.465-4.680) 06/22/18 17:40 Urine Color Light Yellow 06/21/18 21:33 Urine Appearance Clear (Clear) 06/21/18 21: Urine pH 5.5 (5.0-8.0) 06/21/18 21:33 Ur Specific [place] 1.006 (1.001-1.035) 06/21/18 21: Urine Protein 1+ (Negative) H 06/21/18 21: Urine Glucose (UA) Negative (Negative) 06/21/18 21: Urine Ketones 2+ (Negative) H 06/21/18 21: Urine Blood Moderate (Negative) H 06/21/18 21: Urine Nitrite Positive (Negative) 06/21/18 21: Urine Bilirubin Negative (Negative) 06/21/18 21: Urine Urobilinogen <2.0 mg/dL (<2.0) 06/21/18 21: Ur Leukocyte Esterase Negative (Negative) 06/21/18 21: Urine RBC 1 /hpf (0-5) 06/21/18 21:33 Urine WBC 1 /hpf (0-5) 06/21/18 21:33 Ur Squamous Epith Cells <1 /hpf (0-4) 06/21/18 21: Calcium Oxalate Crystal Occasional /hpf (None) H 06/21/18 21:33 Urine Bacteria Few /hpf (None) H 06/21/18 21:33 Urine Mucus Rare /hpf (None) H 06/21/18 21:33 Urine Osmolality 190 mosm/kg (50-1400) 06/21/18 21:33 Ur Random Sodium 13 mmol/L 06/21/18 21:33 Ur Random Potassium 16.0 mmol/L 06/21/18 21:33 Urine Opiates Screen Not Detected (NotDetected) 06/21/18 21:33 Ur Oxycodone Screen Not Detected (NotDetected) 06/21/18 21:33 Urine Methadone Screen Not Detected (NotDetected) 06/21/18 21:33 Ur Propoxyphene Screen Not Detected (NotDetected) 06/21/18 21:33 Ur Barbiturates Screen Not Detected (NotDetected) 06/21/18 21:33 U Tricyclic Antidepress Not Detected (NotDetected) 06/21/18 21:33 Ur Phencyclidine Scrn Not Detected (NotDetected) 06/21/18 21:33 Ur Amphetamines Screen Not Detected (NotDetected) 06/21/18 21:33 U Methamphetamines Scrn Not Detected (NotDetected) 06/21/18 21:33 U Benzodiazepines Scrn Not Detected (NotDetected) 06/21/18 21:33 Urine Cocaine Screen Not Detected (NotDetected) 06/21/18 21:33 U Marijuana (THC) Screen Not Detected (NotDetected) 06/21/18 21:33 Microbiology 06/26/18 01:20 Blood Blood Culture - Preliminary No Growth after 24 hours 06/21/18 23:36 Blood Blood Culture - Preliminary No Growth after 120 hours 06/22/18 15:14 Blood Blood Culture Gram Stain - Final 06/22/18 15:14 Blood Blood Culture - Final Klebsiella pneumoniae 06/21/18 21:33 Urine,Catheterized Urine Culture - Final Klebsiella pneumoniae 06/22/18 15:14 Blood Blood Culture - Final Assessment and Plan (1) Gram negative sepsis Narrative/Plan: 77-year-old male presents to Hospital after being found by neighbors obtunded laying on the floor thrashing at times. At admission the patient evidence of sepsis and was brought to the intensive care unit. He has now been resuscitated but there is evidence of a positive urine culture with Klebsiella as his blood culture. With this the infectious diseases consultation was requested. His microbial therapy was altered to ceftriaxone for which the pathogen is highly susceptible. There is evidence of acute renal failure that appears to be multifactorial including partly to do with the rhabdomyolysis. Leukocytosis appears to be recommended to his current sepsis. He has anemia and thrombocytopenia possibly also on the basis of the sepsis. With treatment of the gram-negative sepsis with expected points to improve. Follow blood cultures requested to ensure the bacteremia is cleared. There is an elevated lactic acid of 6.9 improved 4.1. The patient does have bacteremia and sepsis but the elevated lactic acid appears to be in the basis of his acute renal failure and rhabdomyolysis. 06/27/2018 77-year-old male is now feeling somewhat better. Mentation is improved. Responding well to antibiotic therapy for his bacteremic urinary tract infection with klebsiella. Antibiotic skin continue the patient is developed abdominal pain. Evaluation reveals evidence of acute cholecystitis. This is likely an acute event on the basis of his underlying acute illness. Will be seen by surgery and potentially will be going for a surgical intervention tomorrow. This is discussed with the nurses and made nothing by mouth at midnight pending the surgical intervention. Continue current antibiotic therapy for now. Fever has improved. Current Visit: Yes Status: Acute Code(s): A41.50 - GRAM-NEGATIVE SEPSIS, UNSPECIFIED SNOMED Code(s): 719338546 (2) Urinary tract infection due to Klebsiella species Current Visit: Yes Status: Acute Code(s): N39.0 - URINARY TRACT INFECTION, SITE NOT SPECIFIED; B96.1 - KLEBSIELLA PNEUMONIAE THE CA[facility]ES [facility] SNOMED Code(s): 516424891064162 (3) Rhabdomyolysis Current Visit: Yes Status: Acute Code(s): M62.82 - RHABDOMYOLYSIS SNOMED Code(s): 223006575 (4) Leukocytosis Current Visit: Yes Status: Acute Code(s): D72.829 - ELEVATED WHITE BLOOD CELL COUNT, UNSPECIFIED SNOMED Code(s): 067710469
[2018-06-28 05:44] LABS: Basophils # (A) 0.1 k/uL (0-0.2); Basophils % (A) 1 %; Eosinophils # (A) 0.2 k/uL (0-0.7); Eosinophils % (A) 1 %; HCT 26.4 % (39.0-53.0); HGB 8.9 gm/dL (13.0-17.5); Lymphocytes # (A) 0.9 k/uL (1.0-4.8); Lymphocytes % (A) 6 %; MCH 32.8 pg (25.0-35.0); MCHC 33.7 g/dL (31.0-37.0); MCV 97.4 fL (80.0-100.0); Mean Platelet Volume 11.6; Monocytes # (A) 0.7 k/uL (0-1.0); Monocytes % (A) 4 %; Neutrophils # (A) 14.3 k/uL (1.3-7.7); Neutrophils % (A) 87 %; RBC 2.71 m/uL (4.30-5.90); RDW 14.5 % (11.5-15.5); WBC 16.5 k/uL (3.8-10.6)
[2018-06-28 06:02] LABS: Calcium 6.8 mg/dL (8.4-10.2); Magnesium 1.9 mg/dL (1.6-2.3); Phosphorus 2.2 mg/dL (2.5-4.5); Potassium 3.6 mmol/L (3.5-5.1)
[2018-06-28 06:10] LABS: Platelet Count 46 k/uL (150-450)
[2018-06-28] MEDS: INSULIN ASPART 100 UNIT/ML 1 ML 10 ML VIAL SQ SCH ×4 (06:16→20:58)
--- NOTE | 2018-06-28 07:23 | XR ---
EXAMINATION TYPE: XR chest 1V DATE OF EXAM: 06/28/2018 HISTORY: Shortness of breath. COMPARISON: 06/27/2018 TECHNIQUE: Single view of the chest is submitted. FINDINGS: Demonstrated are scattered senescent parenchymal change. Increasing basilar infiltrates and/or atelectasis as well as pleural effusions. Increasing pulmonary venous congestion. The heart is stable. Hilar and mediastinal structures are within normal limits. Degenerative changes are seen of the dorsal spine. IMPRESSION: 1. Increasing basilar infiltrates and/or atelectasis as well as pleural effusions. Increasing pulmon sharmaine venous congestion.
--- NOTE | 2018-06-28 07:24 | P.PN ---
Subjective Patient is seen in follow for acute kidney injury on chronic kidney disease. Patient has chronic kidney disease stage III with baseline creatinine in the range of 1.1-1.3 secondary to nephrosclerosis. Patient also noted to be hyponatremic. Sodium level up to 130 this morning. Patient's noted to have blood and urine culture positive for Klebsiella. He is off Levophed. Remains nonoliguric. Denies any active chest pain or shortness of breath. Oral intake is starting to improve. Creatinine is down to 2.36 today. Vital signs are stable. Currently off Levophed. General: The patient appeared well nourished and normally developed. HEENT: Head exam is unremarkable. Neck is without jugular venous distension. LUNGS: Breath sounds decreased. HEART: Rate and Rhythm are regular. First and second heart sounds normal. No murmurs, rubs or gallops. ABDOMEN: Abdominal exam reveals normal bowel sounds. Non-tender and non- distended. No evidence of peritonitis. EXTREMITITES: No clubbing, cyanosis, or edema. Objective - Vital Signs Vital signs: Vital Signs Temp 98.8 F 06/28/18 06:00 Pulse 58 L 06/28/18 06:00 Resp 14 06/28/18 06:00 BP 105/73 06/28/18 06:00 Pulse Ox 93 L 06/28/18 06:00 Intake & Output 06/27/18 06/28/18 06/28/18 18:59 06:59 18:59 Intake Total 2255 440 Output Total 1482 1130 Balance 773 -690 Weight 97.5 kg Intake: IV 1025 440 Magnesium Sulfate-D5w Pmx 100 1 gm In Dextrose/Water 1 100ml.bag @ 100 mls/hr IVPB ONCE ONE Rx#: [id number] Meropenem 1 gm In Sodium 100 Chloride 0.9% 100 ml @ 200 mls/hr IVPB Q12H [facility] Rx#:[id number] Potassium Chloride 20 meq 100 In Water For Injection 1 100ml.bag @ 50 mls/hr IVPB ONCE ONE Rx#: [id number] Sodium Chloride 0.9% 1, 725 440 000 ml @ 50 mls/hr IV . Q20H [facility] Rx#:[id number] Intake, IV Titration 400 Amount Magnesium Sulfate-D5w Pmx 100 1 gm In Dextrose/Water 1 100ml.bag @ 100 mls/hr IVPB ONCE ONE Rx#: [id number] Potassium Chloride 20 meq 200 In Water For Injection 1 100ml.bag @ 50 mls/hr IVPB Q2H [facility] Rx#: [id number] cefTRIAXone 1,000 mg In 100 Sodium Chloride 0.9% 50 ml @ 100 mls/hr IVPB Q24H [facility] Rx#:[id number] Oral 830 Output: Urine 1480 1130 Stool 2 Other: Voiding Method Indwelling Catheter Indwelling Catheter # Bowel Movements 1 ABP, PAP, CO, CI - Last Documented Arterial Blood Pressure 122/58 - Labs CBC & Chem 7: 06/28/18 05:26 06/28/18 05:26 Labs: Abnormal Lab Results - Last 24 Hours (Table) 06/27/18 06/27/18 06/28/18 Range/Units 12:02 20:19 05:26 WBC 16.5 H (3.8-10.6) k/uL RBC 2.71 L (4.30-5.90) m/uL Hgb 8.9 L (13.0-17.5) gm/dL Hct 26.4 L (39.0-53.0) % Plt Count 46 L (150-450) k/uL Neutrophils # 14.3 H (1.3-7.7) k/uL Lymphocytes # 0.9 L (1.0-4.8) k/uL Sodium (137-145) mmol/L Chloride (98-107) mmol/L BUN (9-20) mg/dL Creatinine (0.66-1.25) mg/dL Glucose (74-99) mg/dL POC Glucose (mg/dL) 102 H 101 H (75-99) mg/dL Calcium (8.4-10.2) mg/dL Phosphorus (2.5-4.5) mg/dL 06/28/18 Range/Units 05:26 WBC (3.8-10.6) k/uL RBC (4.30-5.90) m/uL Hgb (13.0-17.5) gm/dL Hct (39.0-53.0) % Plt Count (150-450) k/uL Neutrophils # (1.3-7.7) k/uL Lymphocytes # (1.0-4.8) k/uL Sodium 130 L (137-145) mmol/L Chloride 97 L (98-107) mmol/L BUN 52 H (9-20) mg/dL Creatinine 2.36 H (0.66-1.25) mg/dL Glucose 108 H (74-99) mg/dL POC Glucose (mg/dL) (75-99) mg/dL Calcium 6.8 L (8.4-10.2) mg/dL Phosphorus 2.2 L (2.5-4.5) mg/dL Microbiology - Last 24 Hours (Table) 06/26/18 01:20 Blood Culture - Preliminary Blood No Growth after 48 hours 06/21/18 23:36 Blood Culture - Final Blood No Growth after 144 hours Assessment and Plan Plan: Assessment: 1. Acute kidney injury secondary to ATN secondary to hypotension as well as sepsis. Also component of rhabdomyolysis. Renal function improving with creatinine down to 2.36 today. 2. Septic shock secondary to Klebsiella bacteremia and UTI maintained on antibiotics. 3. Hypotension secondary to sepsis. Currently off vasopressors. 4. Severe metabolic acidosis secondary to acute kidney injury and lactic acidosis. Better. 5. Hypovolemic hyponatremia improved with IV hydration. 6. Chronic kidney disease stage III with baseline creatinine in the range of 1.1-1.3 secondary to nephrosclerosis. 7. Hypokalemia secondary to intracellular shifting from IV bicarb. Status post replacement. 8. Hypophosphatemia from poor oral intake as well as intracellular shifting from IV bicarb. Plan: Remains off all IV fluids. Oral intake is improved. Potassium and phosphorus being replaced. Hold off on diuretics as urine output is excellent. Encouraged oral intake. Continue to monitor renal function and urine output closely. DC Leggett catheter and monitor serial postvoid residuals for retention.
[2018-06-28] MEDS: POTASSIUM CHLORIDE ER 20 MEQ TAB.ER PO SCH ×2 (07:37→09:04)
--- NOTE | 2018-06-28 08:08 | P.PN ---
Subjective Progress Note Date: 06/28/18 This is a 77-year-old gentleman with history of chronic leg edema, chronic renal failure was admitted to the hospital with evidence of hyponatremia and also rhabdomyolysis. Patient also developed renal failure and his creatinine is going up. Patient is sleepy but arousable. Complaints of being short of breath. Denies any chest pain. A chest x-ray showed some right-sided atelectasis. No Sigmund JVD. Mild edema of the legs. His maintaining sinus rhythm. Patient is hypotensive and is on Levophed. From cardiac standpoint. We'll continue current medical therapy. His echocardiogram showed an ejection fraction of 45-50%. 06/25/2018: This 77-year-old gentleman is admitted with UTI and bacteremia. Patient also has evidence of rhabdomyolysis and acute renal failure. Patient seemed to be more alert. Denies any chest pain or shortness of breath. No evidence of JVD. Lungs appeared to be clear. Heart is regular. No evidence of any cardiac arrhythmias. We'll continue current medical therapy. We'll follow him as needed. 06/27/2018: This 77-year-old gentleman is admitted with UTI, bacteremia and the rhabdomyolysis. His renal function seemed to be gradually improving. He received Norvasc yesterday and became hypotensive. He is also in the bradycardic side. We'll going to hold the Norvasc. We'll make cut back the dose of the metoprolol if necessary. Otherwise patient seems to be stable. Increase activity as tolerated. 06/28/2018:. Patient seemed to be a clinically stable. Patient heart rate is in the 60s. Blood pressure is more stable. Renal function is stabilized. Overall patient condition is stable. We'll be seeing him on when necessary basis Objective - Vital Signs Vital signs: Vital Signs Temp 98.8 F 06/28/18 06:00 Pulse 58 L 06/28/18 06:00 Resp 14 06/28/18 06:00 BP 105/73 06/28/18 06:00 Pulse Ox 93 L 06/28/18 06:00 Intake & Output 06/27/18 06/28/18 06/28/18 18:59 06:59 18:59 Intake Total 2255 440 Output Total 1482 1130 Balance 773 -690 Weight 97.5 kg Intake: IV 1025 440 Magnesium Sulfate-D5w Pmx 100 1 gm In Dextrose/Water 1 100ml.bag @ 100 mls/hr IVPB ONCE ONE Rx#: [id number] Meropenem 1 gm In Sodium 100 Chloride 0.9% 100 ml @ 200 mls/hr IVPB Q12H [facility] Rx#:[id number] Potassium Chloride 20 meq 100 In Water For Injection 1 100ml.bag @ 50 mls/hr IVPB ONCE ONE Rx#: [id number] Sodium Chloride 0.9% 1, 725 440 000 ml @ 50 mls/hr IV . Q20H [facility] Rx#:[id number] Intake, IV Titration 400 Amount Magnesium Sulfate-D5w Pmx 100 1 gm In Dextrose/Water 1 100ml.bag @ 100 mls/hr IVPB ONCE ONE Rx#: [id number] Potassium Chloride 20 meq 200 In Water For Injection 1 100ml.bag @ 50 mls/hr IVPB Q2H [facility] Rx#: [id number] cefTRIAXone 1,000 mg In 100 Sodium Chloride 0.9% 50 ml @ 100 mls/hr IVPB Q24H [facility] Rx#:[id number] Oral 830 Output: Urine 1480 1130 Stool 2 Other: Voiding Method Indwelling Catheter Indwelling Catheter # Bowel Movements 1 ABP, PAP, CO, CI - Last Documented Arterial Blood Pressure 122/58 - Exam GENERAL EXAM: Patient is alert and oriented and doesn't appear to be in any acute distress, appears to be frail and sleepy HEENT: Normocephalic. Normal reaction of pupils, equal size, normal range of extraocular motion. No erythema or exudates in the throat. NECK: No masses, no nuchal rigidity. CHEST: No chest wall deformity. LUNGS: Equal air entry with no crackles or wheeze. HEART: S1 and S2 normal with no audible mumurs or gallops. Regular rhythm, femorals equal on both sides.. ABDOMEN: No hepatosplenomegaly, normal bowel sounds, no guarding or rigidity. SKIN: No rashes CENTRAL NERVOUS SYSTEM: No focal deficits. EXTREMITIES: Bilateral edema - Labs CBC & Chem 7: 06/28/18 05:26 06/28/18 05:26 Labs: Abnormal Lab Results - Last 24 Hours (Table) 06/27/18 06/27/18 06/28/18 Range/Units 12:02 20:19 05:26 WBC 16.5 H (3.8-10.6) k/uL RBC 2.71 L (4.30-5.90) m/uL Hgb 8.9 L (13.0-17.5) gm/dL Hct 26.4 L (39.0-53.0) % Plt Count 46 L (150-450) k/uL Neutrophils # 14.3 H (1.3-7.7) k/uL Lymphocytes # 0.9 L (1.0-4.8) k/uL Sodium (137-145) mmol/L Chloride (98-107) mmol/L BUN (9-20) mg/dL Creatinine (0.66-1.25) mg/dL Glucose (74-99) mg/dL POC Glucose (mg/dL) 102 H 101 H (75-99) mg/dL Calcium (8.4-10.2) mg/dL Phosphorus (2.5-4.5) mg/dL 06/28/18 Range/Units 05:26 WBC (3.8-10.6) k/uL RBC (4.30-5.90) m/uL Hgb (13.0-17.5) gm/dL Hct (39.0-53.0) % Plt Count (150-450) k/uL Neutrophils # (1.3-7.7) k/uL Lymphocytes # (1.0-4.8) k/uL Sodium 130 L (137-145) mmol/L Chloride 97 L (98-107) mmol/L BUN 52 H (9-20) mg/dL Creatinine 2.36 H (0.66-1.25) mg/dL Glucose 108 H (74-99) mg/dL POC Glucose (mg/dL) (75-99) mg/dL Calcium 6.8 L (8.4-10.2) mg/dL Phosphorus 2.2 L (2.5-4.5) mg/dL Microbiology - Last 24 Hours (Table) 06/26/18 01:20 Blood Culture - Preliminary Blood No Growth after 48 hours 06/21/18 23:36 Blood Culture - Final Blood No Growth after 144 hours Assessment and Plan (1) Rhabdomyolysis Current Visit: Yes Status: Acute Code(s): M62.82 - RHABDOMYOLYSIS SNOMED Code(s): 942882018 (2) Hyponatremia Current Visit: Yes Status: Acute Code(s): E87.1 - HYPO-OSMOLALITY AND HYPONATREMIA SNOMED Code(s): 91018444 (3) Anemia Current Visit: No Status: Acute Code(s): D64.9 - ANEMIA, UNSPECIFIED SNOMED Code(s): 444179622 (4) Renal failure, acute Current Visit: Yes Status: Acute Code(s): N17.9 - ACUTE KIDNEY FAILURE, UNSPECIFIED SNOMED Code(s): 20121900 Plan: Continue current medical therapy. We'll be seeing him on when necessary basis
[2018-06-28] MEDS: busPIRone HCl 5 MG TAB PO SCH ×2 (09:02→21:00)
[2018-06-28] MEDS: TOPIRAMATE 25 MG TAB PO SCH ×2 (09:03→21:00)
[2018-06-28] MEDS: FLUoxetine HCL 20 MG CAP PO SCH (09:05)
[2018-06-28] MEDS: DOCUSATE 100 MG CAP PO SCH ×2 (09:05→20:59)
[2018-06-28] MEDS: METOPROLOL TARTRATE 50 MG TAB PO SCH ×2 (09:06→20:59)
[2018-06-28] MEDS: POTASSIUM PHOSPHATE 10 MMOL in SODIUM CHLORIDE 0.9% 100 ML IV SCH ×2 (09:16→11:44)
--- NOTE | 2018-06-28 09:38 | PN ---
PROGRESS NOTE DATE OF SERVICE: 06/28/2018 This is a 77-year-old male admitted back on June 21. He is seen again in the ICU. He currently is awake and alert. He is not having any acute distress. He is receiving no supplemental oxygen. His IV is showing saline at 10 mL an hour. The patient was complaining of some abdominal pain. We did an ultrasound which showed acute cholecystitis. He was seen by Dr. Lester the surgeon, but she was planning to do more conservative management. The patient also has a history of Klebsiella pneumoniae both in the blood and urine. For that, he remains on ceftriaxone. His chest x-ray shows a bit of fluid overload. Mr. Tejeda is a DNR. The patient has no major complaints today. He does have some right upper quadrant discomfort. Denies any shortness of breath or difficulty breathing. We did talk about moving the patient out to the general medical floor. Currently, his vital signs include a temperature 98.9, heart rate 60, respiratory rate 16, blood pressure 112/64, mean 80, room air saturation 96%. Appears in no acute distress. Not having any respiratory difficulty including use of accessory muscles or audible wheezing. HEENT examination is grossly unremarkable. Mucous membranes are moist. No oral lesions. Neck is supple. Full range of motion. No adenopathy, thyromegaly or neck vein distention. Cardiovascular examination reveals a regular rhythm and rate. S1, S2 normal. No S3, S4. No murmur. Lungs reveal a few scattered crackles. No wheezes or rhonchi. Breath sounds equal. Minimal prolongation on forced maneuver. Abdomen is soft. Bowel sounds are heard. Some mild tenderness on palpation right upper quadrant. Extremities are intact. No cyanosis, clubbing, or edema. Skin without rash. Neurologic examination is brief but nonfocal. LABS: Labs are reviewed. White count 16.5, hemoglobin 8.9, hematocrit 26.4, platelet count 46,000. These labs are consistent with anemia and thrombocytopenia. Sodium 130, potassium 3.6, chloride 97, CO2 of 27, anion gap is normal at 6, BUN 52, creatinine 2.36. The rest of the labs look okay. Microbiologic studies show Klebsiella pneumoniae in the blood on June 22 and Klebsiella pneumoniae in the urine on June 21. Chest x-ray shows evidence of mild bilateral effusions. There is some mild venous congestion. The gallbladder ultrasound as mentioned above shows evidence of acute cholecystitis. ASSESSMENT: 1. Acute septic shock with hypotension, secondary to Klebsiella pneumoniae urinary tract infection and bacteremia, resolved. 2. History of recurrent urinary tract infection with self catheterization of the bladder. 3. 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 4. Seizure disorder, likely related to profound hyponatremia. 5. Acute rhabdomyolysis, secondary to falling. 6. History of benign essential hypertension. 7. Mild intermittent asthma, nonactive at this time. 8. Major depression. 9. History of benign prostatic hypertrophy. 10.Stage 3 chronic kidney disease. 11.Acute cholecystitis. PLAN: The patient could be transferred out to the general medical floor. The patient is receiving a saline IV and no supplemental oxygen. Surgery has seen the patient. They are recommending more conservative management. The patient continues on ceftriaxone for the Klebsiella urinary tract infection and bacteremia. The ultrasound was reviewed and shared with the patient. Prognosis is guarded. No additional recommendations are made. CRITICAL CARE TIME: 33 minutes. ANITAL / MEGANN: [id number] /
[2018-06-28 11:29] LABS: Albumin 1.8 g/dL (3.5-5.0); Bilirubin, Delta 0.5 mg/dL (0.0-0.2); Bilirubin,Unconjugated 0.4 mg/dL (0.0-1.1); Total Bilirubin 0.9 mg/dL (0.2-1.3); Total Protein 3.8 g/dL (6.3-8.2)
[2018-06-28 11:37] LABS: INR 1.2 (<1.2); Prothrombin Time 11.4 sec (9.0-12.0)
[2018-06-28 11:38] LABS: Partial Thromboplastin Time 24.6 sec (22.0-30.0)
[2018-06-28 11:49] VITALS: BMI 29.1
[2018-06-28 12:03] LABS: Glucose,Whole Blood 114 mg/dL (75-99)
[2018-06-28] MEDS: amLODIPine 5 MG TAB PO SCH (12:06)
--- NOTE | 2018-06-28 13:13 | P.PN ---
Subjective Progress Note Date: 06/28/18 Principal diagnosis: Activity the diagnosis of acute cholecystitis could be increased or persistent leukocytosis and nonresolution of his sepsis or the service of the procedure pneumonia. Consultation with Dr. Ko has been obtained she did see him and talk to me with the possible surgical intervention. As his leukocytosis has been pretty resistant. Constipation and is due to no intake and encouraged to 4 intake and he had underlying protein calorie deficiency moderate OB corticated with the patient able to eat again. There is a dictation on progress note on 06/28/2018. Patient had today PT and INR and INR 1.2 with a pro time 11.4 and PTT 24.6 his blood sugar 114. Also on : laboratory indicating his sodium correction 140 potassium 3.6 chloride 97 carbon dioxide 27 and his BUN is 52 creatinine is gradually improving 2.36 he still in chronic kidney disease stage III and he had edema of the lower extremities with the hydration as he was also dehydrated he had very calcium 6.8 and with a hypocalcemia secondary to vitamin D and the patient supplemented with vitamin D2 50,000 one capsule a week he has underlying abnormal liver enzyme with the AST 170 a LT 627 and alk phos 289 which is associated with his gallbladder disease. His total protein is 3.8 and albumin 1.8 with the underlying protein calorie deficiency moderate Today his vital signs stable with temperature 98.3 and pulse 64 with respiratory rate 14 blood pressure 107/61 and has been around 112/64 with a mean blood pressure 76 pulse ox was 96. Patient is conscious alert. Examination: Conscious alert and sleepy vital sign stable HEENT negative neck was supple no JVD no thyromegaly no lymphadenopathy trachea midline. Chest was clear to auscultation and percussion and the heart was regular sinus rhythm with the heart rate is 64 bpm sinus and the abdomen his right upper quadrant tenderness with positive McBurney and with the ultrasound indicating sludge as well as inflammation and. Chronic inflammation as well. Discussed with Dr. Lester we will be planning for taken to the operating room and take the cholecystectomy with the abnormal liver enzyme and abnormal ultrasound and abnormal computed tomography scan. Extremities he has edema of the lower extremities with a history in the past and edema. Last chest x-ray was done on 06/28/2015 and indicating increasing basilar infiltrate or atelectasis as well as pleural effusion and increasing the pulmonary venous congestion was ordered by Dr. Almendarez. Line ultrasound of the gallbladder was indicating hyperechoic pancreas gallbladder sludge noted within the large enlarged gallbladder measuring 14 cm which is greater than 10 added to. Cholecystic fluid seen and thickened wall and there is sonographic Paredes sign was present. Also found that he had no hydronephrosis and right pleural effusion noted with the total impression moderately "dilated gallbladder consistent with acute cholecystitis and no dilated Dr. pancreatic duct upper normal limits in size. The echocardiogram was done earlier in the course of patient gram-negative sepsis with shock at that time found to have ejection fraction 45-50% sinus rhythm and right ventricular mildly enlarged of aortic regurgitation mild aortic stenosis and the peak and mean across the valve indicating aortic valve peak 20.6 and mean 8.4 to. He has mild to moderate mitral regurgitation and moderate tricuspid regurgitation mild to moderate pulmonary hypertension. No pulmonary regurgitation. Assessment: Patient progressively improving clinically. With the acute cholecystitis and persistent leukocytosis and recent culture was negative of the blood Future plan laparoscopic cholecystitis however patient have previous surgery by Dr. estrada and Dr. Hendrickson for hernia repair may cause some adhesion's. I'll be seeing the patient tomorrow and I will be sign out to Dr. Dangelo bolivar on-call this weekend and he will be Seeing the patient until my return from time and that will be on and the next week. Objective - Vital Signs Vital signs: Vital Signs Temp 98.3 F 06/28/18 12:00 Pulse 64 06/28/18 12:00 Resp 14 06/28/18 12:00 BP 107/61 06/28/18 12:00 Pulse Ox 96 06/28/18 12:00 Intake & Output 06/27/18 06/28/18 06/28/18 18:59 06:59 18:59 Intake Total 2255 440 Output Total 1482 1130 Balance 773 -690 Weight 97.5 kg 97.5 kg Intake: IV 1025 440 Magnesium Sulfate-D5w Pmx 100 1 gm In Dextrose/Water 1 100ml.bag @ 100 mls/hr IVPB ONCE ONE Rx#: [id number] Meropenem 1 gm In Sodium 100 Chloride 0.9% 100 ml @ 200 mls/hr IVPB Q12H [facility] Rx#:[id number] Potassium Chloride 20 meq 100 In Water For Injection 1 100ml.bag @ 50 mls/hr IVPB ONCE ONE Rx#: [id number] Sodium Chloride 0.9% 1, 725 440 000 ml @ 50 mls/hr IV . Q20H [facility] Rx#:[id number] Intake, IV Titration 400 Amount Magnesium Sulfate-D5w Pmx 100 1 gm In Dextrose/Water 1 100ml.bag @ 100 mls/hr IVPB ONCE ONE Rx#: [id number] Potassium Chloride 20 meq 200 In Water For Injection 1 100ml.bag @ 50 mls/hr IVPB Q2H [facility] Rx#: [id number] cefTRIAXone 1,000 mg In 100 Sodium Chloride 0.9% 50 ml @ 100 mls/hr IVPB Q24H [facility] Rx#:[id number] Oral 830 Output: Urine 1480 1130 Stool 2 Other: Voiding Method Indwelling Catheter Indwelling Catheter Indwelling Catheter # Bowel Movements 1 ABP, PAP, CO, CI - Last Documented Arterial Blood Pressure 122/58 - Labs CBC & Chem 7: 06/28/18 05:26 06/28/18 05:26 Labs: Abnormal Lab Results - Last 24 Hours (Table) 06/27/18 06/28/18 06/28/18 Range/Units 20:19 05:26 05:26 WBC 16.5 H (3.8-10.6) k/uL RBC 2.71 L (4.30-5.90) m/uL Hgb 8.9 L (13.0-17.5) gm/dL Hct 26.4 L (39.0-53.0) % Plt Count 46 L (150-450) k/uL Neutrophils # 14.3 H (1.3-7.7) k/uL Lymphocytes # 0.9 L (1.0-4.8) k/uL INR (<1.2) Sodium 130 L (137-145) mmol/L Chloride 97 L (98-107) mmol/L BUN 52 H (9-20) mg/dL Creatinine 2.36 H (0.66-1.25) mg/dL Glucose 108 H (74-99) mg/dL POC Glucose (mg/dL) 101 H (75-99) mg/dL Calcium 6.8 L (8.4-10.2) mg/dL Phosphorus 2.2 L (2.5-4.5) mg/dL Delta Bilirubin (0.0-0.2) mg/dL AST (17-59) U/L ALT (21-72) U/L Alkaline Phosphatase (38-126) U/L Total Protein (6.3-8.2) g/dL Albumin (3.5-5.0) g/dL 06/28/18 06/28/18 06/28/18 Range/Units 11:00 11:00 11:51 WBC (3.8-10.6) k/uL RBC (4.30-5.90) m/uL Hgb (13.0-17.5) gm/dL Hct (39.0-53.0) % Plt Count (150-450) k/uL Neutrophils # (1.3-7.7) k/uL Lymphocytes # (1.0-4.8) k/uL INR 1.2 H (<1.2) Sodium (137-145) mmol/L Chloride (98-107) mmol/L BUN (9-20) mg/dL Creatinine (0.66-1.25) mg/dL Glucose (74-99) mg/dL POC Glucose (mg/dL) 114 H (75-99) mg/dL Calcium (8.4-10.2) mg/dL Phosphorus (2.5-4.5) mg/dL Delta Bilirubin 0.5 H (0.0-0.2) mg/dL AST 170 H (17-59) U/L ALT 627 H (21-72) U/L Alkaline Phosphatase 289 H (38-126) U/L Total Protein 3.8 L (6.3-8.2) g/dL Albumin 1.8 L (3.5-5.0) g/dL Microbiology - Last 24 Hours (Table) 06/26/18 01:20 Blood Culture - Preliminary Blood No Growth after 48 hours 06/21/18 23:36 Blood Culture - Final Blood No Growth after 144 hours
--- NOTE | 2018-06-28 15:42 | P.GSCN ---
History of Present Illness Consult date: 06/28/18 Reason for Consult: Acute cholecystitis History of present illness: The patient is a 86-year-old man who was found to be down at home and brought into the ER with rhabdomyolysis and sepsis. He was initially found to have urinary tract infection however wasn't improving as well as expected so additional workup was done including CAT scan and ultrasound. Ultrasound showed acute cholecystitis. The patient's not a real good historian. His evidently had some abdominal pain for the last few weeks. This morning when I saw him he just finished his breakfast. He had not had any nausea or vomiting. He does have the persistent pain in his abdomen. No previous gallbladder attacks in the past. Review of Systems All systems: negative Past Medical History Past Medical History: Asthma, Hypertension Additional Past Medical History / Comment(s): Urinary blockage uses self cath, ganglian cyst in right knee History of Any Multi-Drug Resistant Organisms: None Reported Past Surgical History: Hernia Repair Additional Past Surgical History / Comment(s): hernia repair 03/2017, cyst removal in right knee Past Psychological History: Anxiety, Depression Additional Psychological History / Comment(s): 1 adult daughter which she has no contact with. No current alcohol or tobacco use. No international travel. Graduated [employer] law school. 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 No experience. No animal exposures Smoking Status: Never smoker Past Alcohol Use History: None Reported Past Drug Use History: None Reported - Past Family History Father Family Medical History: Hypertension Mother Family Medical History: Hypertension Medications and Allergies Home Medications Medication Instructions Recorded Confirmed Type Atorvastatin Calcium [Lipitor] 20 mg PO HS 12/08/16 06/21/18 History hydrALAZINE HCL [Apresoline] 50 mg PO TID #90 tab 04/05/17 06/21/18 Rx Sennosides-Docusate Sodium 1 tab PO DAILY 04/21/17 06/21/18 History [Senokot-S] Loratadine [Claritin] 10 mg PO DAILY 08/21/17 06/21/18 History Montelukast [Singulair] 10 mg PO HS 08/21/17 06/21/18 History Polyethylene Glycol 3350 [Miralax] 17 gm PO DAILY PRN 08/21/17 06/21/18 History Spironolactone [Aldactone] 12.5 mg PO QAM 08/21/17 06/21/18 History Topiramate [Topamax] 50 mg PO BID 08/21/17 06/21/18 History Metoprolol Tartrate [Lopressor] 50 mg PO BID #60 tab 08/29/17 06/21/18 Rx Fluticasone Nasal [place] [Flonase 1 spray EA NOSTRIL BID 11/05/17 06/21/18 History Nasal [place]] amLODIPine [Norvasc] 10 mg PO HS #30 tab 11/09/17 06/21/18 Rx Irbesartan 300 mg PO DAILY 02/13/18 06/21/18 History Acetaminophen [Tylenol 8 Hour] 1,300 mg PO TID 06/05/18 06/21/18 History FLUoxetine HCL [PROzac] 20 mg PO DAILY 06/05/18 06/21/18 History Furosemide [Lasix] 20 mg PO DAILY 06/05/18 06/21/18 History Melatonin 6 mg PO HS 06/05/18 06/21/18 History Ondansetron [Zofran] 4 mg PO Q8H PRN 06/05/18 06/21/18 History busPIRone HCL 7.5 mg PO BID 06/05/18 06/21/18 History hydrOXYzine HCL [Atarax] 10 mg PO HS 06/05/18 06/21/18 History traZODone HCL [Desyrel] 100 mg PO HS 06/05/18 06/21/18 History Albuterol Nebulized [Ventolin 2.5 mg INHALATION RT-QID PRN nebu 06/07/18 Rx Nebulized] Allergies Allergy/AdvReac Type Severity Reaction Status Date / Time Penicillins Allergy Unknown Verified 06/21/18 19:18 Surgical - Exam Osteopathic Statement: *. No significant issues noted on an osteopathic structural exam other than those noted in the History and Physical/Consult. Vital Signs Temp Pulse Resp BP Pulse Ox 98.0 F 79 16 130/81 100 06/21/18 18:20 06/21/18 18:20 06/21/18 18:20 06/21/18 18:20 06/21/18 18:20 - General well developed, no distress - Eyes normal ocular movement - Neck trachea midline - Cardiovascular Rhythm: regular - Abdomen Abdomen: soft, tender (Epigastric and right upper quadrant), surgical scars Results - Labs 06/28/18 05:26 06/28/18 05:26 Abnormal Lab Results - Last 24 Hours (Table) 06/27/18 06/28/18 06/28/18 Range/Units 20:19 05:26 05:26 WBC 16.5 H (3.8-10.6) k/uL RBC 2.71 L (4.30-5.90) m/uL Hgb 8.9 L (13.0-17.5) gm/dL Hct 26.4 L (39.0-53.0) % Plt Count 46 L (150-450) k/uL Neutrophils # 14.3 H (1.3-7.7) k/uL Lymphocytes # 0.9 L (1.0-4.8) k/uL INR (<1.2) Sodium (137-145) mmol/L Chloride (98-107) mmol/L BUN (9-20) mg/dL Creatinine (0.66-1.25) mg/dL Glucose (74-99) mg/dL POC Glucose (mg/dL) 101 H (75-99) mg/dL Calcium (8.4-10.2) mg/dL Phosphorus (2.5-4.5) mg/dL Delta Bilirubin (0.0-0.2) mg/dL AST (17-59) U/L ALT (21-72) U/L Alkaline Phosphatase (38-126) U/L Total Protein (6.3-8.2) g/dL Albumin (3.5-5.0) g/dL Prealbumin <5.0 L (18.0-42.0) mg/dL 06/28/18 06/28/18 06/28/18 Range/Units 05:26 11:00 11:00 WBC (3.8-10.6) k/uL RBC (4.30-5.90) m/uL Hgb (13.0-17.5) gm/dL Hct (39.0-53.0) % Plt Count (150-450) k/uL Neutrophils # (1.3-7.7) k/uL Lymphocytes # (1.0-4.8) k/uL INR 1.2 H (<1.2) Sodium 130 L (137-145) mmol/L Chloride 97 L (98-107) mmol/L BUN 52 H (9-20) mg/dL Creatinine 2.36 H (0.66-1.25) mg/dL Glucose 108 H (74-99) mg/dL POC Glucose (mg/dL) (75-99) mg/dL Calcium 6.8 L (8.4-10.2) mg/dL Phosphorus 2.2 L (2.5-4.5) mg/dL Delta Bilirubin 0.5 H (0.0-0.2) mg/dL AST 170 H (17-59) U/L ALT 627 H (21-72) U/L Alkaline Phosphatase 289 H (38-126) U/L Total Protein 3.8 L (6.3-8.2) g/dL Albumin 1.8 L (3.5-5.0) g/dL Prealbumin (18.0-42.0) mg/dL 06/28/18 Range/Units 11:51 WBC (3.8-10.6) k/uL RBC (4.30-5.90) m/uL Hgb (13.0-17.5) gm/dL Hct (39.0-53.0) % Plt Count (150-450) k/uL Neutrophils # (1.3-7.7) k/uL Lymphocytes # (1.0-4.8) k/uL INR (<1.2) Sodium (137-145) mmol/L Chloride (98-107) mmol/L BUN (9-20) mg/dL Creatinine (0.66-1.25) mg/dL Glucose (74-99) mg/dL POC Glucose (mg/dL) 114 H (75-99) mg/dL Calcium (8.4-10.2) mg/dL Phosphorus (2.5-4.5) mg/dL Delta Bilirubin (0.0-0.2) mg/dL AST (17-59) U/L ALT (21-72) U/L Alkaline Phosphatase (38-126) U/L Total Protein (6.3-8.2) g/dL Albumin (3.5-5.0) g/dL Prealbumin (18.0-42.0) mg/dL Microbiology - Last 24 Hours (Table) 11/28/18 01:20 Blood Culture - Preliminary Blood No Growth after 48 hours 06/21/18 23:36 Blood Culture - Final Blood No Growth after 144 hours Diabetes panel 06/28/18 06/28/18 Range/Units 05:26 11:00 Sodium 130 L (137-145) mmol/L Potassium 3.6 (3.5-5.1) mmol/L Chloride 97 L (98-107) mmol/L Carbon Dioxide 27 (22-30) mmol/L BUN 52 H (9-20) mg/dL Creatinine 2.36 H (0.66-1.25) mg/dL Glucose 108 H (74-99) mg/dL Calcium 6.8 L (8.4-10.2) mg/dL AST 170 H (17-59) U/L ALT 627 H (21-72) U/L Alkaline Phosphatase 289 H (38-126) U/L Total Protein 3.8 L (6.3-8.2) g/dL Albumin 1.8 L (3.5-5.0) g/dL Calcium panel 06/28/18 06/28/18 Range/Units 05:26 11:00 Calcium 6.8 L (8.4-10.2) mg/dL Phosphorus 2.2 L (2.5-4.5) mg/dL Albumin 1.8 L (3.5-5.0) g/dL Pituitary panel 06/28/18 Range/Units 05:26 Sodium 130 L (137-145) mmol/L Potassium 3.6 (3.5-5.1) mmol/L Chloride 97 L (98-107) mmol/L Carbon Dioxide 27 (22-30) mmol/L BUN 52 H (9-20) mg/dL Creatinine 2.36 H (0.66-1.25) mg/dL Glucose 108 H (74-99) mg/dL Calcium 6.8 L (8.4-10.2) mg/dL Adrenal panel 06/28/18 06/28/18 Range/Units 05:26 11:00 Sodium 130 L (137-145) mmol/L Potassium 3.6 (3.5-5.1) mmol/L Chloride 97 L (98-107) mmol/L Carbon Dioxide 27 (22-30) mmol/L BUN 52 H (9-20) mg/dL Creatinine 2.36 H (0.66-1.25) mg/dL Glucose 108 H (74-99) mg/dL Calcium 6.8 L (8.4-10.2) mg/dL Total Bilirubin 0.9 (0.2-1.3) mg/dL AST 170 H (17-59) U/L ALT 627 H (21-72) U/L Alkaline Phosphatase 289 H (38-126) U/L Total Protein 3.8 L (6.3-8.2) g/dL Albumin 1.8 L (3.5-5.0) g/dL - Imaging CT scan - abdomen: report reviewed US - abdomen: report reviewed Assessment and Plan (1) Acute cholecystitis Current Visit: Yes Status: Acute Code(s): K81.0 - ACUTE CHOLECYSTITIS SNOMED Code(s): 84992537 (2) Gram negative sepsis Current Visit: Yes Status: Acute Code(s): A41.50 - GRAM-NEGATIVE SEPSIS, UNSPECIFIED SNOMED Code(s): 913302886 (3) Renal failure, acute Current Visit: Yes Status: Acute Code(s): N17.9 - ACUTE KIDNEY FAILURE, UNSPECIFIED SNOMED Code(s): 92528736 (4) Rhabdomyolysis Current Visit: Yes Status: Acute Code(s): M62.82 - RHABDOMYOLYSIS SNOMED Code(s): 084574065 (5) Urinary tract infection due to Klebsiella species Current Visit: Yes Status: Acute Code(s): N39.0 - URINARY TRACT INFECTION, SITE NOT SPECIFIED; B96.1 - KLEBSIELLA PNEUMONIAE THE CAUSE OF DISEASES CLASSD [facility] SNOMED Code(s): 697543935275416 Plan: The case was discussed with Dr. Vides via phone. The patient's currently hemodynamically stabilized for surgery. Recommendation is for laparoscopic cholecystectomy although the need for open cholecystectomy is fairly high due to his previous mid abdominal hernia surgery with mesh. The procedure, risks and complications were discussed with the patient. Questions were encouraged and answered. We'll arrange this for tomorrow.
[2018-06-28 17:19] LABS: Glucose,Whole Blood 109 mg/dL (75-99)
[2018-06-28] MEDS: traZODone HCL 100 MG TAB PO SCH (21:00)
[2018-06-28] MEDS: MONTELUKAST 10 MG TAB PO SCH (21:00)
[2018-06-28 21:05] LABS: Glucose,Whole Blood 111 mg/dL (75-99)
[2018-06-29] MEDS: INSULIN ASPART 100 UNIT/ML 1 ML 10 ML VIAL SQ SCH ×4 (07:30→20:27)
[2018-06-29] MEDS: TOPIRAMATE 25 MG TAB PO SCH ×2 (07:30→23:00)
[2018-06-29] MEDS: METOPROLOL TARTRATE 50 MG TAB PO SCH ×2 (07:30→22:03)
[2018-06-29] MEDS: DOCUSATE 100 MG CAP PO SCH ×2 (07:30→21:47)
[2018-06-29] MEDS: FLUoxetine HCL 10 MG CAP PO SCH (07:30)
[2018-06-29] MEDS: busPIRone HCl 5 MG TAB PO SCH ×2 (07:30→21:47)
[2018-06-29 07:33] LABS: Glucose,Whole Blood 93 mg/dL (75-99)
[2018-06-29 08:40] LABS: Basophils # (A) 0.1 k/uL (0-0.2); Basophils % (A) 1 %; Eosinophils # (A) 0.3 k/uL (0-0.7); Eosinophils % (A) 2 %; HCT 28.3 % (39.0-53.0); HGB 9.1 gm/dL (13.0-17.5); Lymphocytes # (A) 1.2 k/uL (1.0-4.8); Lymphocytes % (A) 8 %; MCH 31.7 pg (25.0-35.0); MCHC 32.3 g/dL (31.0-37.0); MCV 98.1 fL (80.0-100.0); Macrocytosis Slight; Mean Platelet Volume 13.3; Monocytes # (A) 0.8 k/uL (0-1.0); Monocytes % (A) 5 %; Neutrophils # (A) 13.4 k/uL (1.3-7.7); Neutrophils % (A) 83 %; RBC 2.89 m/uL (4.30-5.90); RDW 15.3 % (11.5-15.5); WBC 16.2 k/uL (3.8-10.6)
[2018-06-29 08:42] LABS: Platelet Count 59 k/uL (150-450)
--- NOTE | 2018-06-29 10:09 | P.PN ---
Progress Note - Text Progress Note Date: 06/29/18 The patients platelet count is 59,000 this morning. Platelets are available.
[2018-06-29] MEDS ORDERED: IV FLUID CONTINUATION 1,000 ML IV ONE ×2 (10:25)
[2018-06-29] MEDS ORDERED: PROPOFOL 10 MG/ML 20 ML VIAL IV ONE (10:34)
[2018-06-29] MEDS ORDERED: ePHEDrine SULFATE/0.9% NACL/PF 50 MG/5 ML SYRINGE IV ONE (10:34)
[2018-06-29] MEDS ORDERED: MIDAZOLAM 2 MG/2 ML VIAL ONE (10:34)
[2018-06-29] MEDS ORDERED: fentaNYL (PF) 50 MCG/ML 2 ML AMP ONE (10:34)
[2018-06-29] MEDS ORDERED: LIDOCAINE 1% INJ 10MG/ML (20 ML MDV) ONE (10:34)
[2018-06-29] MEDS ORDERED: ROCURONIUM BROMIDE 10 MG/ML 10 ML VIAL IV ONE (10:34)
[2018-06-29] MEDS ORDERED: BUPIVACAIN-EPI 0.25%-1:200,000 30 ML VIAL SQ ONE ×2 (10:55)
[2018-06-29 11:43] LABS: Calcium 7.3 mg/dL (8.4-10.2); Magnesium 1.8 mg/dL (1.6-2.3); Phosphorus 2.7 mg/dL (2.5-4.5); Potassium 4.8 mmol/L (3.5-5.1)
[2018-06-29] MEDS ORDERED: HYDROmorphone 1 MG/ML 1 ML SYRINGE IVP PRN (12:19)
--- NOTE | 2018-06-29 12:19 | P.OP ---
Date of Procedure: 06/29/18 Preoperative Diagnosis: Acute cholecystitis, thrombocytopenia Postoperative Diagnosis: Acute gangrenous cholecystitis, thrombocytopenia Procedure(s) Performed: Laparoscopic cholecystectomy Anesthesia: VÍCTOR Surgeon: Romina Lester Estimated Blood Loss (ml): 350 Pathology: other (gall bladder) Condition: stable Disposition: PACU Indications for Procedure: The patient had presented to the hospital with rhabdomyolysis and sepsis. Initially it was felt he had a urinary tract infection. As his mentation improved he was complaining of abdominal pain. Computed tomography scan and Ultrasound showed evidence of acute cholecystitis Description of Procedure: The patient was taken the operative suite where he is prepped and draped in the usual sterile manner under a general endotracheal anesthetic. Due to previous abdominal surgeries a incision was made to the right of the umbilicus. Anterior fascia was incised. The muscle was split. The posterior fascia and peritoneum were incised. A finger sweep was carried out. A balloon trocar was then inserted. Pneumoperitoneum was established with CO2 gas. He had bleeding enlarged gallbladder with a lot of adhesions of the omentum. There was also adhesions in the midline and upper abdomen due to previous surgery. Additional trochars were placed. The adhesions were taken down with harmonic scissors. The omentum was dissected free off of the gallbladder using harmonic scissors. The gallbladder was lifted anteriorly using a fan retractor. It was densely adherent to the duodenum and omentum posteriorly. During dissection there was evidence of gangrenous changes and contained perforation. The gallbladder decompressed of its bile. As much as possible that was all irrigated and aspirated. Gallbladder was then tediously able to be dissected free from the surrounding structures. At that point the cystic duct was fairly easy to identify. The fatty tissue and lymph node were necrotic. The usual course of the common bile duct was identified. The cystic artery and cystic duct were triply clipped and cut. An additional 0 PDS loop was left on the cystic duct stump. The gallbladder is then dissected free from the liver bed using cautery. It was somewhat oozy due to the acute cholecystitis. Due to the pre- existing thrombocytopenia decision was made to go ahead and transfuse platelets. The liver bed was irrigated and bleeding points were controlled with electrocautery. A piece of hemostatic Snow was then placed onto the liver bed. The gallbladder was placed into the specimen retrieval bag. A drain was placed and brought out through a right lateral trocar site. The drain was allowed to and subhepatic space. At that point everything appeared fairly hemostatic. The excess irrigant was suctioned out. The pneumoperitoneum was released. The trochars were removed. The skin and fascia at the umbilical port site had to be extended to allow for the removal of the gallbladder. The fascia at the umbilical port site was closed with 0 Vicryl. The skin was closed with joshua. Sterile dressings were applied. He tolerated the procedure without difficulty and was taken recovery room in satisfactory condition. According to or personnel, all counts were correct.
[2018-06-29 13:23] LABS: Glucose,Whole Blood 103 mg/dL (75-99)
[2018-06-29 13:30] LABS: Basophils # (A) 0.1 k/uL (0-0.2); Basophils % (A) 1 %; Eosinophils # (A) 0.3 k/uL (0-0.7); Eosinophils % (A) 1 %; HCT 30.4 % (39.0-53.0); HGB 9.4 gm/dL (13.0-17.5); Lymphocytes # (A) 0.9 k/uL (1.0-4.8); Lymphocytes % (A) 4 %; MCH 31.5 pg (25.0-35.0); MCHC 30.9 g/dL (31.0-37.0); MCV 102.1 fL (80.0-100.0); Macrocytosis Slight; Mean Platelet Volume 9.9; Monocytes # (A) 0.6 k/uL (0-1.0); Monocytes % (A) 3 %; Neutrophils # (A) 19.9 k/uL (1.3-7.7); Neutrophils % (A) 90 %; RBC 2.98 m/uL (4.30-5.90); RDW 15.3 % (11.5-15.5); WBC 22.2 k/uL (3.8-10.6)
[2018-06-29] MEDS: PANTOPRAZOLE 40 MG/10 ML VIAL IV SCH (14:23)
[2018-06-29 14:51] LABS: Poikilocytosis (M) Present; Toxic Granulation Present
[2018-06-29 14:53] LABS: Platelet Count 117 k/uL (150-450)
--- NOTE | 2018-06-29 15:44 | P.PN ---
Subjective Progress Note Date: 06/29/18 Progress note date of service 06/29/[address] Peewee M.D. [facility] Patient was taken to the operative room and down with the preoperative diagnosis acute cholecystitis and thrombocytopenia, Postoperative diagnosis acute gangrenous cholecystitis and thrombocytopenia. Date of service 06/29/2018 and was procedure laparoscopic cholecystectomy with a general anesthesia and the blood loss 3 50 mL. Surgery done by Dr. Lester the surgeon. Patient initially presented for off the bed, found to have rhabdomyolysis followed by septic shock and hypotension associated with a urinary tract infection found to be Klebsiella pneumonia bacteremia and in the urine as well. Patient was started in the ICU followed by monitoring coordinator floor where he found that become hypotensive and sinus tachycardia, was suspicious of atrial fibrillation, patient seen by Dr. Caldwell and his diagnosis sinus tachycardia and patient returned back to the ICU for continuing care with the septic shock gram-negative. Patient also had acute kidney injury associated with the top of chronic kidney disease stage III which she admitted to urinate. Kidney function to stage IV, nephrology consultation and followed by Dr. Paniagua and Dr. Adan with the electrolyte imbalance. His persistent of leukocytosis indicating that there is something else going on and a computed tomography scan of the abdomen was ordered and found that he had is indicated large gallbladder and clinically he was right upper quadrant tenderness and subsequently Virgie rae, pulmonary nurse practitioner did order the ultrasound of the gallbladder and that was clarified the resistance of leukocytosis with the acute cholecystitis admitted to the clinical examination subsequently consultation with Dr. Lester the surgeon and was clear presence of the acute cholecystitis and I am suspicious that the. Klebsiella pneumonia could be associated with the gallbladder as well as the surgery done found that the gallbladder is gangrenous. Patient in the operative room and the recovery and subsequently he will be transferred to the surgical bed and 479. Today his white count 16.2 and hemoglobin 9.1 and his platelet count 59. INR 1.2 Patient was afebrile 97.1 his heart rate 59 and the pulse rate without the monitor is 65 respiratory rate 16 and blood pressure 127/80 pulse 95. Patient continued on the antibiotic. Patient received platelet prior to the surgery 1 bag. Which transfused at 11:49 AM on today 06/29/2018. No apparent complication associated with the surgery and a hemoglobin was 9.1. Blood pressure was surgery may drop as recorded 89/54 however resuscitated by the anesthesia in the operative room and recovery room. Patient will be seen after released from operative room and the recovery room. Patient seen after returning from recovery after the laparoscopic cholecystectomy which found to be gangrenous gallbladder and the thrombocytopenia patient received 1 units of platelet. His recovered well with vital signs stable postoperative. However during the surgery he had episodes of hypotension and he is monitored blood pressures subsequently on the floor in the 1:30 to 140 systolic. They did on the other on CBC with differential on 1314 hrs. and found that his white count is went up to 22.2 and hemoglobin is 9.4 and MCV 102 and the platelet count 117 which is improved after the platelet transfusion. Blood sugar has been controlled 103 and his today his calcium 7.3 phosphorus 2.7 magnesium 1.8 his BUN is 50 creatinine 2.05. His estimated glomerular filtration rate is improved to 35 with the chronic kidney disease stage III On the examination: Patient able to wake up but the post operative anesthesia and he is still sleepy braising normally. Chest was clear to auscultation percussion no wheezes or rhonchi's. Heart regular sinus rhythm. He had a systolic murmur over aortic stenosis and he had history of mitral stenosis by the echocardiogram, patient compensated cardiac- alvarado. Abdomen was with the extensive dressing postop for laparoscopic cholecystectomy and he had a drainage Milner, and he also had the Leggett catheter in place with the monitoring intake and output. Extremities: Pulses is intact. An extensive edema of the lower extremities with pitting in nature probably with hydration. 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 May need improvement on his albumin and protein when association of Lasix however patient today he had just the surgical intervention which is on on 06/29/2018. I did communicate with [facility] ventura in regard of Mr. Tejeda as well as Dr. Dangelo Beatty who will be following the patient on these weekend and the during the next week until my return to work on Sunday next week. I did also consult the management team for assisted subsequently for rehabilitation. And if the patient needs to be discharged prior to my return. Dr. Beatty will do that for me as he following the patient. Objective - Vital Signs Vital signs: Vital Signs Temp 97.1 F L 06/29/18 12:22 Pulse 59 L 06/29/18 12:22 Resp 16 06/29/18 12:22 BP 89/54 06/29/18 12:22 Pulse Ox 93 L 06/29/18 12:22 Intake & Output 06/28/18 06/29/18 06/29/18 18:59 06:59 18:59 Intake Total 50 1011 Output Total 1300 1260 1250 Balance -1250 -1260 -239 Weight 97.5 kg Intake: IV 50 700 cefTRIAXone 1,000 mg In 50 Sodium Chloride 0.9% 50 ml @ 100 mls/hr IVPB Q24H [facility] Rx#:[id number] Blood Product 311 Platelet Irr Pheresis 311 Acda Unit [id number] Output: Urine 1300 1260 900 Estimated Blood Loss 350 Other: Voiding Method Indwelling Catheter Indwelling Catheter Indwelling Catheter # Voids 0 ABP, PAP, CO, CI - Last Documented Arterial Blood Pressure 122/58 - Labs CBC & Chem 7: 06/29/18 13:00 06/29/18 09:40 Labs: Abnormal Lab Results - Last 24 Hours (Table) 06/28/18 06/28/18 06/28/18 Range/Units 05:26 17:07 20:53 WBC (3.8-10.6) k/uL RBC (4.30-5.90) m/uL Hgb (13.0-17.5) gm/dL Hct (39.0-53.0) % Plt Count (150-450) k/uL Neutrophils # (1.3-7.7) k/uL Sodium (137-145) mmol/L BUN (9-20) mg/dL Creatinine (0.66-1.25) mg/dL POC Glucose (mg/dL) 109 H 111 H (75-99) mg/dL Calcium (8.4-10.2) mg/dL Prealbumin <5.0 L (18.0-42.0) mg/dL 06/29/18 06/29/18 Range/Units 08:00 09:40 WBC 16.2 H (3.8-10.6) k/uL RBC 2.89 L (4.30-5.90) m/uL Hgb 9.1 L (13.0-17.5) gm/dL Hct 28.3 L (39.0-53.0) % Plt Count 59 L (150-450) k/uL Neutrophils # 13.4 H (1.3-7.7) k/uL Sodium 135 L (137-145) mmol/L BUN 50 H (9-20) mg/dL Creatinine 2.05 H (0.66-1.25) mg/dL POC Glucose (mg/dL) (75-99) mg/dL Calcium 7.3 L (8.4-10.2) mg/dL Prealbumin (18.0-42.0) mg/dL Microbiology - Last 24 Hours (Table) 06/26/18 01:20 Blood Culture - Preliminary Blood No Growth after 72 hours
[2018-06-29 17:07] LABS: Glucose,Whole Blood 102 mg/dL (75-99)
[2018-06-29] MEDS: HYDROcodone/APAP 5-325MG 1 EACH TAB PO PRN (18:05)
[2018-06-29 19:50] LABS: Glucose,Whole Blood 105 mg/dL (75-99)
[2018-06-29] MEDS: MAGNESIUM SULFATE-D5W PMX 1 GM in DEXTROSE/WATER 1 100ML.BAG IVPB SCH ×2 (20:33→21:47)
[2018-06-29] MEDS: traZODone HCL 100 MG TAB PO SCH (21:47)
[2018-06-29] MEDS: MONTELUKAST 10 MG TAB PO SCH (21:47)
[2018-06-29 22:59] LABS: HCT 25.5 % (39.0-53.0); HGB 8.6 gm/dL (13.0-17.5); MCH 33.1 pg (25.0-35.0); MCHC 33.7 g/dL (31.0-37.0); MCV 98.4 fL (80.0-100.0); Macrocytosis Slight; Mean Platelet Volume 10.6; RBC 2.59 m/uL (4.30-5.90); RDW 15.2 % (11.5-15.5); WBC 16.7 k/uL (3.8-10.6)
[2018-06-29 23:25] LABS: Platelet Count 87 k/uL (150-450)
--- NOTE | 2018-06-30 00:18 | P.PN ---
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 He was found laying on the ground obtunded thrashing at times. EMS was called he was transported to hospital. There he was found evidence of significant hyponatremia as well as leukocytosis and altered mental status. There is evidence of a markedly elevated lactic acid and an elevated creatinine indicative of acute renal failure. The patient was admitted to intensive care unit has been receiving resuscitation. With evidence of a positive blood culture the infectious diseases consultation was requested. The patient is arousable and with significant stimulation is able to answer a few questions. He does have chronic urinary retention utilizes a straight catheterization process but does not use a fresh catheter every time. 06/27/2018 patient is more awake alert and interactive. Still feels cold. Is having some abdominal pain. Denies nausea or emesis. Appetite is poor. 06/29/2018 patient is moved out of intensive care unit. His evidence of gram- negative sepsis but seems to be improving. He is eating with help the nursing staff. Still feels very poorly. He has had a laparoscopic cholecystectomy. Objective - Vital Signs Vital signs: Vital Signs Temp 97.6 F 06/29/18 23:56 Pulse 98 06/29/18 23:56 Resp 18 06/29/18 23:56 BP 126/76 06/29/18 23:56 Pulse Ox 100 06/29/18 16:00 Intake & Output 06/29/18 06/29/18 06/30/18 06:59 18:59 06:59 Intake Total 1011 160 Output Total 1260 1310 40 Balance -1260 -299 120 Intake: IV 700 60 Sodium Chloride 0.9% 1, 60 000 ml @ 50 mls/hr IV . Q20H QUINTEN Rx#:[id number] Intake, IV Titration 100 Amount Magnesium Sulfate-D5w Pmx 100 1 gm In Dextrose/Water 1 100ml.bag @ 100 mls/hr IVPB Q1H QUINTEN Rx#: [id number] Blood Product 311 Platelet Irr Pheresis 311 Acda Unit [id number] Output: Drainage 60 40 Lower Abdomen 60 40 Urine 1260 900 Estimated Blood Loss 350 Other: Voiding Method Indwelling Catheter Indwelling Catheter Indwelling Catheter ABP, PAP, CO, CI - Last Documented Arterial Blood Pressure 122/58 - Exam 77-year-old male arousable and becomes more interactive with stimulation HEENT: Anicteric conjunctiva are pink and moist nasal mucosa grossly intact without significant lesions, there is no thrush. Dentition modestly poor Neck: The neck is supple without significant lymphadenopathy or thyromegaly. Lungs: Symmetrical air entry no bronchial sounds with dullness or egophony Heart: Regular rate and rhythm with an audible S1-S2, no S3 no S4. There is no significant murmur click or rub, PMI was nondisplaced. Abdomen: Positive bowel sounds soft and now has some tenderness especially in the right upper quadrant without palpable masses or organomegaly. There was no guarding or rebound. Extremities: The upper extremities have excellent pulses they are symmetric, no significant petechiae or telangiectasia. No splinter hemorrhages were noted. The lower extremities are free from significant edema. The peripheral pulses were 2+ and symmetric. Neuro: Awake alert oriented to person place and time There are no acute new gross focal sensory motor deficits. Follows simple commands and moved upper and lower extremities - Labs CBC & Chem 7: 06/29/18 22:32 06/29/18 09:40 Labs: Abnormal Lab Results - Last 24 Hours (Table) 06/29/18 06/29/18 06/29/18 Range/Units 08:00 09:40 13:00 WBC 16.2 H 22.2 H (3.8-10.6) k/uL RBC 2.89 L 2.98 L (4.30-5.90) m/uL Hgb 9.1 L 9.4 L (13.0-17.5) gm/dL Hct 28.3 L 30.4 L (39.0-53.0) % MCV 102.1 H (80.0-100.0) fL MCHC 30.9 L (31.0-37.0) g/dL Plt Count 59 L 117 L D (150-450) k/uL Neutrophils # 13.4 H 19.9 H (1.3-7.7) k/uL Lymphocytes # 0.9 L (1.0-4.8) k/uL Sodium 135 L (137-145) mmol/L BUN 50 H (9-20) mg/dL Creatinine 2.05 H (0.66-1.25) mg/dL POC Glucose (mg/dL) (75-99) mg/dL Calcium 7.3 L (8.4-10.2) mg/dL 06/29/18 06/29/18 06/29/18 Range/Units 13:10 16:55 19:48 WBC (3.8-10.6) k/uL RBC (4.30-5.90) m/uL Hgb (13.0-17.5) gm/dL Hct (39.0-53.0) % MCV (80.0-100.0) fL MCHC (31.0-37.0) g/dL Plt Count (150-450) k/uL Neutrophils # (1.3-7.7) k/uL Lymphocytes # (1.0-4.8) k/uL Sodium (137-145) mmol/L BUN (9-20) mg/dL Creatinine (0.66-1.25) mg/dL POC Glucose (mg/dL) 103 H 102 H 105 H (75-99) mg/dL Calcium (8.4-10.2) mg/dL 06/29/18 Range/Units 22:32 WBC 16.7 H (3.8-10.6) k/uL RBC 2.59 L (4.30-5.90) m/uL Hgb 8.6 L (13.0-17.5) gm/dL Hct 25.5 L (39.0-53.0) % MCV (80.0-100.0) fL MCHC (31.0-37.0) g/dL Plt Count 87 L (150-450) k/uL Neutrophils # (1.3-7.7) k/uL Lymphocytes # (1.0-4.8) k/uL Sodium (137-145) mmol/L BUN (9-20) mg/dL Creatinine (0.66-1.25) mg/dL POC Glucose (mg/dL) (75-99) mg/dL Calcium (8.4-10.2) mg/dL Microbiology - Last 24 Hours (Table) 06/26/18 01:20 Blood Culture - Preliminary Blood No Growth after 72 hours Laboratory Results WBC 16.7 k/uL (3.8-10.6) H 06/29/18 22:32 RBC 2.59 m/uL (4.30-5.90) L 06/29/18 22:32 Hgb 8.6 gm/dL (13.0-17.5) L 06/29/18 22:32 Hct 25.5 % (39.0-53.0) L 06/29/18 22:32 MCV 98.4 fL (80.0-100.0) 06/29/18 22:32 MCH 33.1 pg (25.0-35.0) 06/29/18 22:32 MCHC 33.7 g/dL (31.0-37.0) 06/29/18 22:32 RDW 15.2 % (11.5-15.5) 06/29/18 22:32 Plt Count 87 k/uL (150-450) L 06/29/18 22:32 Neutrophils % 90 % 06/29/18 13:00 Neutrophils % (Manual) 69 % 06/24/18 04:50 Band Neutrophils % 18 % 06/24/18 04:50 Lymphocytes % 4 % 06/29/18 13:00 Lymphocytes % (Manual) 4 % 06/24/18 04:50 Monocytes % 3 % 06/29/18 13:00 Monocytes % (Manual) 9 % 06/24/18 04:50 Eosinophils % 1 % 06/29/18 13:00 Basophils % 1 % 06/29/18 13:00 Neutrophils # 19.9 k/uL (1.3-7.7) H 06/29/18 13:00 Neutrophils # (Manual) 22.70 k/uL (1.3-7.7) H 06/24/18 04:50 Lymphocytes # 0.9 k/uL (1.0-4.8) L 06/29/18 13:00 Lymphocytes # (Manual) 1.04 k/uL (1.0-4.8) 06/24/18 04:50 Monocytes # 0.6 k/uL (0-1.0) 06/29/18 13:00 Monocytes # (Manual) 2.35 k/uL (0-1.0) H 06/24/18 04:50 Eosinophils # 0.3 k/uL (0-0.7) 06/29/18 13:00 Basophils # 0.1 k/uL (0-0.2) 06/29/18 13:00 Nucleated RBCs 0 /100 WBC (0-0) 06/24/18 04:50 Manual Slide Review Performed 06/26/18 04:30 Toxic Granulation Present 06/29/18 13:00 Toxic Vacuolation Present 06/26/18 04:30 Large Platelets Present 06/26/18 04:30 Poikilocytosis (manual Present 06/29/18 13:00 Macrocytosis Slight 06/29/18 22:32 Crenated Cell Present 06/24/18 04:50 PT 11.4 sec (9.0-12.0) 06/28/18 11:00 INR 1.2 (<1.2) H 06/28/18 11:00 APTT 24.6 sec (22.0-30.0) 06/28/18 11:00 Sample Site santosh 06/24/18 07:46 ABG pH 7.31 (7.35-7.45) L 06/24/18 07:46 ABG pCO2 23 mmHg (35-45) L 06/24/18 07:46 ABG pO2 243 mmHg (83-108) H 06/24/18 07:46 ABG HCO3 11 mmol/L (21-25) L 06/24/18 07:46 ABG Total CO2 12 mmol/L (19-24) L 06/24/18 07:46 ABG O2 Saturation 100.0 % (94-97) H 06/24/18 07:46 ABG Base Excess -15.0 mmol/L 06/24/18 07:46 Andrew Test Yes 06/24/18 07:46 ABG Lactic Acid 4.1 mmol/L (0.5-1.6) H* 06/25/18 04:28 VBG pH 7.36 (7.31-7.41) 06/21/18 20:20 VBG pCO2 32 mmHg (37-51) L 06/21/18 20:20 VBG HCO3 17 mmol/L (24-28) L 06/21/18 20:20 FiO2 80 % 06/24/18 07:46 Sodium 135 mmol/L (137-145) L 06/29/18 09:40 Potassium 4.8 mmol/L (3.5-5.1) 06/29/18 09:40 Chloride 104 mmol/L (98-107) 06/29/18 09:40 Carbon Dioxide 27 mmol/L (22-30) 06/29/18 09:40 Anion Gap 4 mmol/L 06/29/18 09:40 BUN 50 mg/dL (9-20) H 06/29/18 09:40 Creatinine 2.05 mg/dL (0.66-1.25) H 06/29/18 09:40 Est GFR (CKD-EPI)AfAm 35 (>60 ml/min/1.73 sqM) 06/29/18 09:40 Est GFR (CKD-EPI)NonAf 30 (>60 ml/min/1.73 sqM) 06/29/18 09:40 Glucose 83 mg/dL (74-99) 06/29/18 09:40 POC Glucose (mg/dL) 105 mg/dL (75-99) H 06/29/18 19:48 POC Glu Bonderizer Operator Raymon Moya 06/29/18 19:48 Osmolality 255 mosm/kg (280-301) L 06/22/18 17:40 Lactic Ac Sepsis Rflx Y 06/24/18 18:38 Plasma Lactic Acid French 7.2 mmol/L (0.7-2.0) H* 06/24/18 16:10 Uric Acid 8.2 mg/dL (3.5-8.5) 06/22/18 17:40 Calcium 7.3 mg/dL (8.4-10.2) L 06/29/18 09:40 Phosphorus 2.7 mg/dL (2.5-4.5) 06/29/18 09:40 Magnesium 1.8 mg/dL (1.6-2.3) 06/29/18 09:40 Total Bilirubin 0.9 mg/dL (0.2-1.3) 06/28/18 11:00 Conjugated Bilirubin 0.0 mg/dL (0.0-0.3) 06/28/18 11:00 Unconjugated Bilirubin 0.4 mg/dL (0.0-1.1) 06/28/18 11:00 Delta Bilirubin 0.5 mg/dL (0.0-0.2) H 06/28/18 11:00 AST 170 U/L (17-59) H 06/28/18 11:00 ALT 627 U/L (21-72) H 06/28/18 11:00 Alkaline Phosphatase 289 U/L (38-126) H 06/28/18 11:00 Ammonia <9 umol/L (<30) 06/21/18 20:20 Creatine Kinase 62 U/L (55-170) 06/28/18 11:00 Total Creatine Kinase 2254 U/L (55-170) H* 06/21/18 19:00 CK-MB (CK-2) 4.1 ng/mL (0.0-2.4) H 06/23/18 06:21 CK-MB (CK-2) Rel Index 06/21/18 19:00 Troponin I 0.152 ng/mL (0.000-0.034) H* 06/22/18 15:14 Total Protein 3.8 g/dL (6.3-8.2) L 06/28/18 11:00 Albumin 1.8 g/dL (3.5-5.0) L 06/28/18 11:00 Prealbumin <5.0 mg/dL (18.0-42.0) L 06/28/18 05:26 Vitamin D 25-Hydroxy 20.0 ng/mL (30.0-100.0) L 06/26/18 04:30 Vit D 1,25-Dihydroxy 20 pg/mL (20 - 79) 06/26/18 04:30 TSH 0.958 mIU/L (0.465-4.680) 06/22/18 17:40 Urine Color Light Yellow 06/21/18 21:33 Urine Appearance Clear (Clear) 06/21/18 21: Urine pH 5.5 (5.0-8.0) 06/21/18 21:33 Ur Specific [place] 1.006 (1.001-1.035) 06/21/18 21: Urine Protein 1+ (Negative) H 06/21/18 21: Urine Glucose (UA) Negative (Negative) 06/21/18 21: Urine Ketones 2+ (Negative) H 06/21/18 21: Urine Blood Moderate (Negative) H 06/21/18 21: Urine Nitrite Positive (Negative) 06/21/18 21: Urine Bilirubin Negative (Negative) 06/21/18 21:33 Urine Urobilinogen <2.0 mg/dL (<2.0) 06/21/18 21:33 Ur Leukocyte Esterase Negative (Negative) 06/21/18 21:33 Urine RBC 1 /hpf (0-5) 06/21/18 21:33 Urine WBC 1 /hpf (0-5) 06/21/18 21:33 Ur Squamous Epith Cells <1 /hpf (0-4) 06/21/18 21:33 Calcium Oxalate Crystal Occasional /hpf (None) H 06/21/18 21:33 Urine Bacteria Few /hpf (None) H 06/21/18 21:33 Urine Mucus Rare /hpf (None) H 06/21/18 21:33 Urine Osmolality 190 mosm/kg (50-1400) 06/21/18 21:33 Ur Random Sodium 13 mmol/L 06/21/18 21:33 Ur Random Potassium 16.0 mmol/L 06/21/18 21:33 Urine Opiates Screen Not Detected (NotDetected) 06/21/18 21:33 Ur Oxycodone Screen Not Detected (NotDetected) 06/21/18 21:33 Urine Methadone Screen Not Detected (NotDetected) 06/21/18 21:33 Ur Propoxyphene Screen Not Detected (NotDetected) 06/21/18 21:33 Ur Barbiturates Screen Not Detected (NotDetected) 06/21/18 21:33 U Tricyclic Antidepress Not Detected (NotDetected) 06/21/18 21:33 Ur Phencyclidine Scrn Not Detected (NotDetected) 06/21/18 21:33 Ur Amphetamines Screen Not Detected (NotDetected) 06/21/18 21:33 U Methamphetamines Scrn Not Detected (NotDetected) 06/21/18 21:33 U Benzodiazepines Scrn Not Detected (NotDetected) 06/21/18 21:33 Urine Cocaine Screen Not Detected (NotDetected) 06/21/18 21:33 U Marijuana (THC) Screen Not Detected (NotDetected) 06/21/18 21:33 Blood Type O Positive 06/29/18 08:00 Blood Type Confirm O Positive 06/29/18 09:06 Blood Type Recheck CABO Indicated 06/29/18 08:00 Antibody Screen NEGATIVE 06/29/18 08:00 Transfuse Platelets 06/29/18 06/29/18 09:49 Spec Expiration Date 07/02/2018 - 2300 06/29/18 08:00 Microbiology 06/26/18 01:20 Blood Blood Culture - Preliminary No Growth after 72 hours 06/21/18 23:36 Blood Blood Culture - Final No Growth after 144 hours 06/22/18 15:14 Blood Blood Culture Gram Stain - Final 06/22/18 15:14 Blood Blood Culture - Final Klebsiella pneumoniae 06/21/18 21:33 Urine,Catheterized Urine Culture - Final Klebsiella pneumoniae 06/22/18 15:14 Blood Blood Culture - Final Assessment and Plan (1) Gram negative sepsis Narrative/Plan: 77-year-old male presents to Hospital after being found by neighbors obtunded laying on the floor thrashing at times. At admission the patient evidence of sepsis and was brought to the intensive care unit. He has now been resuscitated but there is evidence of a positive urine culture with Klebsiella as his blood culture. With this the infectious diseases consultation was requested. His microbial therapy was altered to ceftriaxone for which the pathogen is highly susceptible. There is evidence of acute renal failure that appears to be multifactorial including partly to do with the rhabdomyolysis. Leukocytosis appears to be recommended to his current sepsis. He has anemia and thrombocytopenia possibly also on the basis of the sepsis. With treatment of the gram-negative sepsis with expected points to improve. Follow blood cultures requested to ensure the bacteremia is cleared. There is an elevated lactic acid of 6.9 improved 4.1. The patient does have bacteremia and sepsis but the elevated lactic acid appears to be in the basis of his acute renal failure and rhabdomyolysis. 06/27/2018 77-year-old male is now feeling somewhat better. Mentation is improved. Responding well to antibiotic therapy for his bacteremic urinary tract infection with klebsiella. Antibiotic skin continue the patient is developed abdominal pain. Evaluation reveals evidence of acute cholecystitis. This is likely an acute event on the basis of his underlying acute illness. Will be seen by surgery and potentially will be going for a surgical intervention tomorrow. This is discussed with the nurses and made nothing by mouth at midnight pending the surgical intervention. Continue current antibiotic therapy for now. Fever has improved. 06/29/2018 patient is status post laparoscopic cholecystectomy seems to be improving. Is eating some dinner with the assistance of the staff. If he improves will transition to an extended care facility for rehab. The Klebsiella that is isolated susceptible to quinolones and likely will transition to oral therapy when his gastrointestinal tract has normalized to complete his course of therapy for his gram-negative sepsis. Current Visit: Yes Status: Acute Code(s): A41.50 - GRAM-NEGATIVE SEPSIS, UNSPECIFIED SNOMED Code(s): 034489163 (2) Urinary tract infection due to Klebsiella species Current Visit: Yes Status: Acute Code(s): N39.0 - URINARY TRACT INFECTION, SITE NOT SPECIFIED; B96.1 - KLEBSIELLA PNEUMONIAE THE CAUSE OF DISEASES CLASSD [facility] SNOMED Code(s): 223144025705671 (3) Rhabdomyolysis Current Visit: Yes Status: Acute Code(s): M62.82 - RHABDOMYOLYSIS SNOMED Code(s): 202445316 (4) Leukocytosis Current Visit: Yes Status: Acute Code(s): D72.829 - ELEVATED WHITE BLOOD CELL COUNT, UNSPECIFIED SNOMED Code(s): 713716821
[2018-06-30] MEDS: HYDROcodone/APAP 5-325MG 1 EACH TAB PO PRN ×3 (03:05→20:55)
[2018-06-30 06:59] LABS: Glucose,Whole Blood 98 mg/dL (75-99)
[2018-06-30] MEDS: INSULIN ASPART 100 UNIT/ML 1 ML 10 ML VIAL SQ SCH ×4 (07:03→20:28)
[2018-06-30 08:24] LABS: Basophils # (A) 0.1 k/uL (0-0.2); Basophils % (A) 0 %; Eosinophils # (A) 0.2 k/uL (0-0.7); Eosinophils % (A) 1 %; HGB 8.9 gm/dL (13.0-17.5); Lymphocytes # (A) 1.1 k/uL (1.0-4.8); Lymphocytes % (A) 7 %; MCH 32.8 pg (25.0-35.0); MCHC 33.1 g/dL (31.0-37.0); MCV 99.1 fL (80.0-100.0); Macrocytosis Slight; Mean Platelet Volume 11.4; Monocytes # (A) 0.7 k/uL (0-1.0); Monocytes % (A) 4 %; Neutrophils # (A) 14.4 k/uL (1.3-7.7); Neutrophils % (A) 86 %; RBC 2.72 m/uL (4.30-5.90); RDW 15.4 % (11.5-15.5); WBC 16.7 k/uL (3.8-10.6)
[2018-06-30 08:26] LABS: Platelet Count 89 k/uL (150-450)
[2018-06-30] MEDS: METOPROLOL TARTRATE 50 MG TAB PO SCH ×2 (08:33→20:55)
[2018-06-30] MEDS: busPIRone HCl 5 MG TAB PO SCH ×2 (08:37→20:56)
[2018-06-30] MEDS: PANTOPRAZOLE 40 MG/10 ML VIAL IV SCH (08:37)
[2018-06-30] MEDS: DOCUSATE 100 MG CAP PO SCH ×2 (08:37→20:55)
[2018-06-30] MEDS: TOPIRAMATE 25 MG TAB PO SCH ×2 (08:38→20:55)
[2018-06-30] MEDS: FLUoxetine HCL 10 MG CAP PO SCH (08:38)
[2018-06-30 08:53] LABS: Calcium 7.6 mg/dL (8.4-10.2); Phosphorus 3.7 mg/dL (2.5-4.5)
[2018-06-30 08:58] LABS: Magnesium 2.2 mg/dL (1.6-2.3); Potassium 5.4 mmol/L (3.5-5.1)
--- NOTE | 2018-06-30 12:15 | P.PN ---
Subjective Progress Note Date: 06/30/18 Principal diagnosis: Status post laparoscopic cholecystectomy for acute gangrenous cholecystitis The patient's postoperative day 1 laparoscopic cholecystectomy. He had gangrenous cholecystitis. He is feeling okay today. Tired. Not much of an appetite. Denies nausea or vomiting. Objective - Vital Signs Vital signs: Vital Signs Temp 97.7 F 06/30/18 07:00 Pulse 63 06/30/18 07:00 Resp 16 06/30/18 07:00 BP 108/62 06/30/18 07:00 Pulse Ox 93 L 06/30/18 07:00 Intake & Output 06/29/18 06/30/18 06/30/18 18:59 06:59 18:59 Intake Total 1011 260 Output Total 1310 1290 Balance -299 -1030 Intake: IV 700 160 Sodium Chloride 0.9% 1, 160 000 ml @ 50 mls/hr IV . Q20H QUINTEN Rx#:[id number] Intake, IV Titration 100 Amount Magnesium Sulfate-D5w Pmx 100 1 gm In Dextrose/Water 1 100ml.bag @ 100 mls/hr IVPB Q1H QUINTEN Rx#: [id number] Blood Product 311 Platelet Irr Pheresis 311 Acda Unit [id number] Output: Drainage 60 40 Lower Abdomen 60 40 Urine 900 1250 Estimated Blood Loss 350 Other: Voiding Method Indwelling Catheter Indwelling Catheter ABP, PAP, CO, CI - Last Documented Arterial Blood Pressure 122/58 - Constitutional General appearance: Present: cooperative, no acute distress - Respiratory Respiratory: bilateral: CTA, diminished (Minimally at the bases) - Gastrointestinal General gastrointestinal: Present: decreased bowel sounds, soft Localized gastrointestinal: surgical scar: diffuse (Dressings are intact clean and dry. The SONU is serosanguineous.) - Labs CBC & Chem 7: 06/30/18 06:51 06/30/18 06:51 Labs: Abnormal Lab Results - Last 24 Hours (Table) 06/29/18 06/29/18 06/29/18 Range/Units 13:00 13:10 16:55 WBC 22.2 H (3.8-10.6) k/uL RBC 2.98 L (4.30-5.90) m/uL Hgb 9.4 L (13.0-17.5) gm/dL Hct 30.4 L (39.0-53.0) % MCV 102.1 H (80.0-100.0) fL MCHC 30.9 L (31.0-37.0) g/dL Plt Count 117 L D (150-450) k/uL Neutrophils # 19.9 H (1.3-7.7) k/uL Lymphocytes # 0.9 L (1.0-4.8) k/uL Sodium (137-145) mmol/L Potassium (3.5-5.1) mmol/L BUN (9-20) mg/dL Creatinine (0.66-1.25) mg/dL POC Glucose (mg/dL) 103 H 102 H (75-99) mg/dL Calcium (8.4-10.2) mg/dL 06/29/18 06/29/18 06/30/18 Range/Units 19:48 22:32 06:51 WBC 16.7 H (3.8-10.6) k/uL RBC 2.59 L (4.30-5.90) m/uL Hgb 8.6 L (13.0-17.5) gm/dL Hct 25.5 L (39.0-53.0) % MCV (80.0-100.0) fL MCHC (31.0-37.0) g/dL Plt Count 87 L (150-450) k/uL Neutrophils # (1.3-7.7) k/uL Lymphocytes # (1.0-4.8) k/uL Sodium 136 L (137-145) mmol/L Potassium 5.4 H (3.5-5.1) mmol/L BUN 46 H (9-20) mg/dL Creatinine 1.64 H (0.66-1.25) mg/dL POC Glucose (mg/dL) 105 H (75-99) mg/dL Calcium 7.6 L (8.4-10.2) mg/dL 06/30/18 Range/Units 06:51 WBC 16.7 H (3.8-10.6) k/uL RBC 2.72 L (4.30-5.90) m/uL Hgb 8.9 L (13.0-17.5) gm/dL Hct 27.0 L (39.0-53.0) % MCV (80.0-100.0) fL MCHC (31.0-37.0) g/dL Plt Count 89 L (150-450) k/uL Neutrophils # 14.4 H (1.3-7.7) k/uL Lymphocytes # (1.0-4.8) k/uL Sodium (137-145) mmol/L Potassium (3.5-5.1) mmol/L BUN (9-20) mg/dL Creatinine (0.66-1.25) mg/dL POC Glucose (mg/dL) (75-99) mg/dL Calcium (8.4-10.2) mg/dL Microbiology - Last 24 Hours (Table) 06/26/18 01:20 Blood Culture - Preliminary Blood No Growth after 96 hours Assessment and Plan (1) Acute cholecystitis Current Visit: Yes Status: Acute Code(s): K81.0 - ACUTE CHOLECYSTITIS SNOMED Code(s): 08549553 (2) Gram negative sepsis Current Visit: Yes Status: Acute Code(s): A41.50 - GRAM-NEGATIVE SEPSIS, UNSPECIFIED SNOMED Code(s): 848556681 (3) Renal failure, acute Current Visit: Yes Status: Acute Code(s): N17.9 - ACUTE KIDNEY FAILURE, UNSPECIFIED SNOMED Code(s): 42329699 (4) Rhabdomyolysis Current Visit: Yes Status: Acute Code(s): M62.82 - RHABDOMYOLYSIS SNOMED Code(s): 400046264 (5) Urinary tract infection due to Klebsiella species Current Visit: Yes Status: Acute Code(s): N39.0 - URINARY TRACT INFECTION, SITE NOT SPECIFIED; B96.1 - KLEBSIELLA PNEUMONIAE THE CAUSE OF DISEASES CLASSD [facility] SNOMED Code(s): 746146230009120 Plan: The patient is doing well clinically. Recommend continuing IV antibiotics. His platelet count is stable with no signs of ongoing bleeding. We'll monitor SONU. Progressing slowly.
--- NOTE | 2018-06-30 12:33 | P.PN ---
Subjective Progress Note Date: 06/30/18 Principal diagnosis: Patient is seen in follow for acute kidney injury on chronic kidney disease. His acute kidney injury is deemed to be from hypotension and sepsis, his blood cultures grew Klebsiella pneumoniae on 06/22/2018. This is an element of rhabdomyolysis but the CK is not significantly elevated enough to cause any myoglobinurin ATN He underwent laparoscopic cholecystectomy yesterday 06/29/2018 and was therefore not seen as he was in the OR. This morning he looks very depressed and down and barely answers any questions. He denies any complaints. He ate small amounts last night as well as this morning. He has a SONU drain coming out of his abdomen which is draining serosanguineous small amount of liquid. Past history Patient has chronic kidney disease stage III with baseline creatinine in the range of 1.1-1.3 secondary to nephrosclerosis. Objective - Vital Signs Vital signs: Vital Signs Temp 97.7 F 06/30/18 07:00 Pulse 63 06/30/18 07:00 Resp 16 06/30/18 07:00 BP 108/62 06/30/18 07:00 Pulse Ox 93 L 06/30/18 07:00 Intake & Output 06/29/18 06/30/18 06/30/18 18:59 06:59 18:59 Intake Total 1011 260 Output Total 1310 1290 Balance -299 -1030 Intake: IV 700 160 Sodium Chloride 0.9% 1, 160 000 ml @ 50 mls/hr IV . Q20H QUINTEN Rx#:[id number] Intake, IV Titration 100 Amount Magnesium Sulfate-D5w Pmx 100 1 gm In Dextrose/Water 1 100ml.bag @ 100 mls/hr IVPB Q1H QUINTEN Rx#: [id number] Blood Product 311 Platelet Irr Pheresis 311 Acda Unit [id number] Output: Drainage 60 40 Lower Abdomen 60 40 Urine 900 1250 Estimated Blood Loss 350 Other: Voiding Method Indwelling Catheter Indwelling Catheter ABP, PAP, CO, CI - Last Documented Arterial Blood Pressure 122/58 On examination depressed-looking male, HEENT exam no JVP neck is supple no facial asymmetry Lungs are clear to auscultation but poor air entry patient was performed and weak and needed 2 people to hold him up. Heart sounds are unremarkable for any murmur rub gallop Abdomen soft nontender JVP drains coming from the recent laparoscopic cholecystectomy. Serosanguineous liquid about 10-20 mL in the SONU drainage Extremity exam was 2+ edema Neurologically awake alert but very difficult to communicate with hardly speaks area and profoundly weak. - Labs CBC & Chem 7: 06/30/18 06:51 06/30/18 06:51 Labs: Abnormal Lab Results - Last 24 Hours (Table) 06/29/18 06/29/18 06/29/18 Range/Units 13:00 13:10 16:55 WBC 22.2 H (3.8-10.6) k/uL RBC 2.98 L (4.30-5.90) m/uL Hgb 9.4 L (13.0-17.5) gm/dL Hct 30.4 L (39.0-53.0) % MCV 102.1 H (80.0-100.0) fL MCHC 30.9 L (31.0-37.0) g/dL Plt Count 117 L D (150-450) k/uL Neutrophils # 19.9 H (1.3-7.7) k/uL Lymphocytes # 0.9 L (1.0-4.8) k/uL Sodium (137-145) mmol/L Potassium (3.5-5.1) mmol/L BUN (9-20) mg/dL Creatinine (0.66-1.25) mg/dL POC Glucose (mg/dL) 103 H 102 H (75-99) mg/dL Calcium (8.4-10.2) mg/dL 06/29/18 06/29/18 06/30/18 Range/Units 19:48 22:32 06:51 WBC 16.7 H (3.8-10.6) k/uL RBC 2.59 L (4.30-5.90) m/uL Hgb 8.6 L (13.0-17.5) gm/dL Hct 25.5 L (39.0-53.0) % MCV (80.0-100.0) fL MCHC (31.0-37.0) g/dL Plt Count 87 L (150-450) k/uL Neutrophils # (1.3-7.7) k/uL Lymphocytes # (1.0-4.8) k/uL Sodium 136 L (137-145) mmol/L Potassium 5.4 H (3.5-5.1) mmol/L BUN 46 H (9-20) mg/dL Creatinine 1.64 H (0.66-1.25) mg/dL POC Glucose (mg/dL) 105 H (75-99) mg/dL Calcium 7.6 L (8.4-10.2) mg/dL 06/30/18 Range/Units 06:51 WBC 16.7 H (3.8-10.6) k/uL RBC 2.72 L (4.30-5.90) m/uL Hgb 8.9 L (13.0-17.5) gm/dL Hct 27.0 L (39.0-53.0) % MCV (80.0-100.0) fL MCHC (31.0-37.0) g/dL Plt Count 89 L (150-450) k/uL Neutrophils # 14.4 H (1.3-7.7) k/uL Lymphocytes # (1.0-4.8) k/uL Sodium (137-145) mmol/L Potassium (3.5-5.1) mmol/L BUN (9-20) mg/dL Creatinine (0.66-1.25) mg/dL POC Glucose (mg/dL) (75-99) mg/dL Calcium (8.4-10.2) mg/dL Microbiology - Last 24 Hours (Table) 06/26/18 01:20 Blood Culture - Preliminary Blood No Growth after 96 hours Assessment and Plan Assessment: Impression 1. Acute kidney injury secondary to sepsis with Klebsiella bacteremia. Creatinine improved from a peak of 3.65 on 06/26/2018 and 1.64 this morning. Urine output is excellent. 2. Moderate edema. 3. Chronic kidney disease stage III secondary to nephrosclerosis Baseline creatinine 1.2 dated 11/09/2017, nephrosclerosis 4. Status post laparoscopic cholecystectomy 06/29/2018, 5. Pneumonia Urine Tract Infection and Bacteremia. 6. Mild Hyperkalemia Secondary to Acute Kidney Injury. Recommendations. 1. Continue antibiotics and hold off any IV fluids right now. 2. Monitor labs including potassium renal function. 3. Showed adequate protein intake. 4. If he is stable we might use small dose of Lasix 20 mg by mouth in a day or 2
[2018-06-30 13:16] LABS: Glucose,Whole Blood 97 mg/dL (75-99)
[2018-06-30 17:16] LABS: Glucose,Whole Blood 109 mg/dL (75-99)
--- NOTE | 2018-06-30 19:07 | PN ---
PROGRESS NOTE DATE OF SERVICE: 06/30/2018 This is a 77-year-old gentleman who is a patient of Dr. Vides. I am seeing the patient today for Dr. Vides who is out of town and I am covering him this weekend. This patient was found by the neighbors lying at his home on the floor, very confused, obtunded and lethargic and the patient was brought to the emergency room, he was found to be in sepsis and he blood cultures found to be positive for Klebsiella pneumonia and the patient was initially admitted to ICU and he was started on IV antibiotics, Rocephin and apparently the organisms were sensitive to Rocephin and he was also seen by infectious disease. He was then also found to have acute on chronic kidney disease and also found to have acute cholecystitis and Dr. Lester did a laparoscopic cholecystectomy and he was found to have a gangrenous cholecystitis and currently he is receiving IV antibiotics and he was also seen by a clinician oncology in consultation and coil strapper in consultation and also he was seen by Dr. Lester who did the surgery. Dr. Cruz also is following the patient and the patient is also found to have urinary tract infection and pneumonia and Dr. Cruz is continuing to follow the patient and he is getting Rocephin IV. His CBC today shows a WBC count of 16.7 and hemoglobin 8.9, platelet count 89,000. Sodium 136, potassium 5.4, creatinine 1.64, and glucose 78. Clinically, patient seems to be improving and his condition is getting stable. He is afebrile but there is still lethargic and a he is responding to questions very slowly. Blood pressure 126/70. Vital signs are stable. Heart is in sinus rhythm. Lungs reveal a few scattered rales and rhonchi. He had a SONU drain which drains serosanguineous fluid. Overall prognosis is guarded. We will continue current treatments and his prognosis continues to be guarded. MMODL / IJN: [id number] /
[2018-06-30 20:27] LABS: Glucose,Whole Blood 127 mg/dL (75-99)
[2018-06-30] MEDS: MONTELUKAST 10 MG TAB PO SCH (20:55)
[2018-06-30] MEDS: traZODone HCL 100 MG TAB PO SCH (20:55)
[2018-07-01 07:51] LABS: Glucose,Whole Blood 93 mg/dL (75-99)
[2018-07-01] MEDS: ALBUTEROL NEBULIZED 2.5 MG/3 ML INHALATION PRN (07:59)
[2018-07-01] MEDS: INSULIN ASPART 100 UNIT/ML 1 ML 10 ML VIAL SQ SCH ×3 (08:55→17:58)
[2018-07-01] MEDS: METOPROLOL TARTRATE 50 MG TAB PO SCH ×2 (09:00→21:32)
[2018-07-01] MEDS: DOCUSATE 100 MG CAP PO SCH ×2 (09:00→21:32)
[2018-07-01] MEDS: busPIRone HCl 5 MG TAB PO SCH ×2 (09:00→21:31)
[2018-07-01] MEDS: TOPIRAMATE 25 MG TAB PO SCH ×2 (09:01→21:31)
[2018-07-01] MEDS: FLUoxetine HCL 10 MG CAP PO SCH (09:01)
[2018-07-01] MEDS: PANTOPRAZOLE 40 MG/10 ML VIAL IV SCH (09:06)
--- NOTE | 2018-07-01 09:20 | CDI ---
Last Revision, June 2017 Documentation Clarification Form Date: 07/01/2018 9:07:53 AM From: Zoë Grimm [facility], CCDS Admit Date: 06/21/2018 9:28:00 PM Patient Name: Anthony Tejeda Visit Number: [id number] Discharge Date: ATTENTION: The Clinical Documentation Specialists (CDI) and [facility] Coding Staff appreciate your assistance in clarifying documentation. Please respond to the clarification below the line at the bottom and electronically sign. The CDI & [facility] Coding staff will review the response and follow-up if needed. Please note: Queries are made part of the Legal Health Record. If you have any questions, please contact the author of this message via ITS. Salvador Fritz MD or Dangelo Kirby MD: A diagnosis of anemia lacks specificity to accurately reflect your patients severity of condition and clarification is needed. Anemia has been documented throughout the stay. Per the infectious disease notes , anemia & thrombocytopenia possibly also on the basis of the sepsis. History/Risk Factors: Hyponatremia, possible NSAID use in past; Hypertenisve heart & CKD stage III and BPH. Clinical indicators: Presented with altered mental status, hyponatremic and rhabdomyolysis. Also diagnosed with gram negative Sepsis from UTI. Hemoglobin: 14.0 - 8.1 (06/25) - 8.9 (12.2) Hematocrit: 39.9 - 23.5 (06/25) - 27.0 (06/30) Treatment: IV fluid boluses, IV MagSulfate, IV Levaquin, IV Meropenem, IV Zosyn , IV Lasix, IV Kcl. 06/29 Lap Nelia for Acute gangrenous cholecystitis. In order to capture the severity of condition, please clarify the type of anemia and etiology if known: Acute blood loss anemia Acute on chronic blood loss anemia Chronic blood loss anemia Iron deficiency anemia Hemolytic anemia Drug induced anemia Nutritional anemia Anemia of chronic kidney disease Unable to determine Other, please specify MTDD
--- NOTE | 2018-07-01 10:31 | P.PN ---
Subjective Progress Note Date: 07/01/18 Principal diagnosis: Status post laparoscopic cholecystectomy for acute gangrenous cholecystitis The patient seen on rounds. He has a very flat affect. Denies pain. Is not eating well, he says he has no appetite when asked. According to nursing he has not been out of bed. Objective - Vital Signs Vital signs: Vital Signs Temp 98.6 F 07/01/18 07:00 Pulse 76 07/01/18 08:11 Resp 16 07/01/18 07:00 BP 113/72 07/01/18 07:00 Pulse Ox 94 L 07/01/18 07:00 Intake & Output 06/30/18 07/01/18 07/01/18 18:59 06:59 18:59 Intake Total 300 330 Output Total 100 90 Balance 200 240 Intake: IV 60 330 Sodium Chloride 0.9% 1, 330 000 ml @ 50 mls/hr IV . Q20H QUINTEN Rx#:[id number] cefTRIAXone 1,000 mg In 60 Sodium Chloride 0.9% 50 ml @ 100 mls/hr IVPB Q24H QUINTEN Rx#:[id number] Oral 240 Output: Drainage 100 90 Lower Abdomen 100 90 Other: Voiding Method Indwelling Catheter Indwelling Catheter ABP, PAP, CO, CI - Last Documented Arterial Blood Pressure 122/58 - Constitutional General appearance: Present: cooperative, no acute distress - Respiratory Respiratory: bilateral: diminished, negative: wheezing - Gastrointestinal General gastrointestinal: Present: normal bowel sounds, soft Localized gastrointestinal: surgical scar: diffuse (Incisions are intact clean and dry with a little ecchymosis. SONU is serosanguineous) - Labs CBC & Chem 7: 06/30/18 06:51 06/30/18 06:51 Labs: Abnormal Lab Results - Last 24 Hours (Table) 06/30/18 06/30/18 Range/Units 17:05 20:16 POC Glucose (mg/dL) 109 H 127 H (75-99) mg/dL Microbiology - Last 24 Hours (Table) 06/26/18 01:20 Blood Culture - Preliminary Blood No Growth after 120 hours Assessment and Plan (1) Acute cholecystitis Current Visit: Yes Status: Acute Code(s): K81.0 - ACUTE CHOLECYSTITIS SNOMED Code(s): 13803051 (2) Gram negative sepsis Current Visit: Yes Status: Acute Code(s): A41.50 - GRAM-NEGATIVE SEPSIS, UNSPECIFIED SNOMED Code(s): 299900213 (3) Renal failure, acute Current Visit: Yes Status: Acute Code(s): N17.9 - ACUTE KIDNEY FAILURE, UNSPECIFIED SNOMED Code(s): 39001495 (4) Rhabdomyolysis Current Visit: Yes Status: Acute Code(s): M62.82 - RHABDOMYOLYSIS SNOMED Code(s): 305680876 (5) Urinary tract infection due to Klebsiella species Current Visit: Yes Status: Acute Code(s): N39.0 - URINARY TRACT INFECTION, SITE NOT SPECIFIED; B96.1 - KLEBSIELLA PNEUMONIAE THE CAUSE OF DISEASES CLASSD [facility] SNOMED Code(s): 951614063960221 Plan: The surgical sites look good. The SONU is serosanguineous. I'll monitor for at least another day to make sure he doesn't develop a bile leak. Encourage diet and activity. PT and OT have been consulted. Progressing slowly.
[2018-07-01 11:15] LABS: Glucose,Whole Blood 92 mg/dL (75-99)
--- NOTE | 2018-07-01 12:32 | PN ---
PROGRESS NOTE DATE OF SERVICE: 07/01/2018 This is a 77-year-old white male who was is patient of Dr. Vides's and I am seeing this patient for Dr. Vides who is out of town and I am covering him during his absence. This patient was brought to the emergency room as he was found to be confused and obtunded and lethargic and was lying on the floor in his house and in the ER, he was found to be in sepsis and his blood cultures were positive for Klebsiella pneumoniae and this was sensitive to Rocephin and he has been started on IV antibiotics and he is receiving Rocephin and the patient was also seen by Dr. Cruz in consultation and he is also following the patient. Patient also was found to have a urinary tract infection and he was admitted initially to ICU. He was seen by Dr. Mendoza and Dr. Yarbrough in consultation and they were following the patient for ICU management and he also had acute on chronic kidney disease and he was persistently having leukocytosis and Dr. Vides did an ultrasound of the gallbladder and this showed acute cholecystitis and the patient had a laparoscopic cholecystectomy by Dr. Lester and was found to have gangrenous cholecystitis. The patient is recovering from surgery without any complications and his vital signs are stable. The patient apparently has severe major mental depression and patient was seen by psychiatrist in consultation and patient is currently on Prozac 50 mg p.o. daily and also on BuSpar 7.5 mg p.o. b.i.d. Patient is tolerating his diet orally without any problems and his vital signs are stable. Patient is still very depressed and responds to questions very slowly. The patient has been living alone and Social Service is looking into transferring to a assisted rehab unit when discharged. Overall prognosis is guarded. MMODL / IJN: [id number] /
[2018-07-01] MEDS: HYDROcodone/APAP 5-325MG 1 EACH TAB PO PRN ×2 (14:47→19:57)
[2018-07-01 15:55] LABS: Calcium 7.8 mg/dL (8.4-10.2)
[2018-07-01 16:26] LABS: Glucose,Whole Blood 97 mg/dL (75-99)
--- NOTE | 2018-07-01 19:08 | PN ---
PROGRESS NOTE Patient is seen for followup for acute kidney injury and hyponatremia. Serum sodium has improved staying at 136. Serum potassium was mildly elevated yesterday and creatinine was 1.6, which is down from 2.0 the day before. PHYSICAL EXAMINATION: This morning, patient is comfortable. He denies any significant complaints. Blood pressure this morning was 113/72, heart rate is 72 per minute. Patient is afebrile. Examination of the heart S1, S2. Examination lungs bilateral breath sounds are heard. Abdomen is soft, nontender. Exam of lower extremities shows no significant edema. EX[employer]SIOR [employer]ER exam grossly intact. LAB: Labs are not available from today. Yesterday, sodium was 136, potassium 5.4, creatinine 1.64. ASSESSMENT: 1. Acute kidney injury secondary to sepsis with Klebsiella bacteremia and ATN currently nonoliguric with improving renal function. Serum creatinine is down to 1.6 from 3.65 initially good urine output. 2. Chronic kidney disease stage 3 secondary to nephrosclerosis. Baseline creatinine about 1.2 mg/dL. 3. Status post laparoscopic cholecystectomy. 4. Pneumonia and urinary tract infection with Klebsiella pneumonia bacteremia as well. Currently improving, maintained on ceftriaxone. 5. Diabetes maintained on insulin coverage. 6. Mild hyperkalemia associated with acute kidney injury. PLAN: Check labs today. Continue to maintain good oral intake. MMODL / IJN: [id number] /
[2018-07-01 20:40] LABS: Glucose,Whole Blood 109 mg/dL (75-99)
[2018-07-01] MEDS: traZODone HCL 100 MG TAB PO SCH (21:32)
[2018-07-01] MEDS: MONTELUKAST 10 MG TAB PO SCH (21:32)
[2018-07-02] MEDS: INSULIN ASPART 100 UNIT/ML 1 ML 10 ML VIAL SQ SCH ×5 (01:54→22:58)
[2018-07-02] MEDS: HYDROcodone/APAP 5-325MG 1 EACH TAB PO PRN ×3 (05:48→23:34)
[2018-07-02 07:04] LABS: Glucose,Whole Blood 99 mg/dL (75-99)
--- NOTE | 2018-07-02 09:47 | P.PN ---
Subjective Progress Note Date: 07/02/18 Principal diagnosis: Status post laparoscopic cholecystectomy for acute gangrenous cholecystitis The patient is seen on rounds. His affect is very flat. It appears he is very depressed. He responds only minimally to questioning. Objective - Vital Signs Vital signs: Vital Signs Temp 99.1 F 07/01/18 23:00 Pulse 70 07/02/18 03:27 Resp 18 07/02/18 03:27 BP 125/77 07/01/18 23:00 Pulse Ox 96 07/02/18 08:22 Intake & Output 07/01/18 07/02/18 07/02/18 18:59 06:59 18:59 Output Total 1655 1061 Balance -1655 -1061 Output: Drainage 55 60 Lower Abdomen 55 60 Urine 1600 1000 Stool 1 Other: Voiding Method Indwelling Catheter Indwelling Catheter ABP, PAP, CO, CI - Last Documented Arterial Blood Pressure 122/58 - Constitutional General appearance: Present: cooperative, no acute distress - Gastrointestinal Gastrointestinal Comment(s): SONU is serosanguineous. Incisions without cellulitis, some bruising General gastrointestinal: Present: normal bowel sounds, soft - Labs CBC & Chem 7: 06/30/18 06:51 07/01/18 15:05 Labs: Abnormal Lab Results - Last 24 Hours (Table) 07/01/18 07/01/18 Range/Units 15:05 20:39 Sodium 132 L (137-145) mmol/L BUN 38 H (9-20) mg/dL Creatinine 1.55 H (0.66-1.25) mg/dL POC Glucose (mg/dL) 109 H (75-99) mg/dL Calcium 7.8 L (8.4-10.2) mg/dL Microbiology - Last 24 Hours (Table) 06/26/18 01:20 Blood Culture - Final Blood No Growth after 144 hours Assessment and Plan (1) Acute cholecystitis Current Visit: Yes Status: Acute Code(s): K81.0 - ACUTE CHOLECYSTITIS SNOMED Code(s): 68548702 (2) Gram negative sepsis Current Visit: Yes Status: Acute Code(s): A41.50 - GRAM-NEGATIVE SEPSIS, UNSPECIFIED SNOMED Code(s): 949975651 (3) Renal failure, acute Current Visit: Yes Status: Acute Code(s): N17.9 - ACUTE KIDNEY FAILURE, UNSPECIFIED SNOMED Code(s): 11659926 (4) Rhabdomyolysis Current Visit: Yes Status: Acute Code(s): M62.82 - RHABDOMYOLYSIS SNOMED Code(s): 783349502 (5) Urinary tract infection due to Klebsiella species Current Visit: Yes Status: Acute Code(s): N39.0 - URINARY TRACT INFECTION, SITE NOT SPECIFIED; B96.1 - KLEBSIELLA PNEUMONIAE THE CAUSE OF DISEASES CLASSD [facility] SNOMED Code(s): 916569611841286 Plan: Surgically stable. He hasn't been out of bed. I don't see any indication he was out of bed with physical therapy yesterday. He appears severely depressed. We' ll have the SONU drain removed. Ask psychiatry to reevaluate him. Surgically stable.
[2018-07-02] MEDS: FLUoxetine HCL 10 MG CAP PO SCH (10:02)
[2018-07-02] MEDS: METOPROLOL TARTRATE 50 MG TAB PO SCH ×2 (10:02→23:33)
[2018-07-02] MEDS: PANTOPRAZOLE 40 MG/10 ML VIAL IV SCH (10:02)
[2018-07-02] MEDS: DOCUSATE 100 MG CAP PO SCH ×2 (10:02→23:33)
[2018-07-02] MEDS: busPIRone HCl 5 MG TAB PO SCH ×2 (10:03→23:32)
[2018-07-02] MEDS: TOPIRAMATE 25 MG TAB PO SCH ×2 (10:03→23:34)
--- NOTE | 2018-07-02 13:49 | P.PN ---
Subjective Progress Note Date: 07/02/18 Principal diagnosis: depression and dementia I have pain which makes my depression worse. Objective - Vital Signs Vital signs: Vital Signs Temp 98.2 F 07/02/18 07:00 Pulse 67 07/02/18 08:00 Resp 16 07/02/18 08:00 BP 127/77 07/02/18 07:00 Pulse Ox 96 07/02/18 08:22 Intake & Output 07/01/18 07/02/18 07/02/18 18:59 06:59 18:59 Output Total 1655 1061 30 Balance -1655 -1061 -30 Output: Drainage 55 60 30 Lower Abdomen 55 60 30 Urine 1600 1000 Stool 1 Other: Voiding Method Indwelling Catheter Indwelling Catheter Indwelling Catheter ABP, PAP, CO, CI - Last Documented Arterial Blood Pressure 122/58 - Labs CBC & Chem 7: 06/30/18 06:51 07/01/18 15:05 Labs: Abnormal Lab Results - Last 24 Hours (Table) 07/01/18 07/01/18 Range/Units 15:05 20:39 Sodium 132 L (137-145) mmol/L BUN 38 H (9-20) mg/dL Creatinine 1.55 H (0.66-1.25) mg/dL POC Glucose (mg/dL) 109 H (75-99) mg/dL Calcium 7.8 L (8.4-10.2) mg/dL Microbiology - Last 24 Hours (Table) 06/26/18 01:20 Blood Culture - Final Blood No Growth after 144 hours Assessment and Plan Assessment: The patient is a 77-year-old gentleman who apparently is a patient of Dr. Vides. Patient is apparently brought to the hospital by EMS. Apparently neighbors had found him writhing on the floor at his apartment. And apparently EMS found that his vital signs were stable and he was responding to stimulation but otherwise was not responding. He was found to be markedly hyponatremic. Patient still unable to give history. Past medical history Apparently patient does have a history of hyponatremia. Question of SIADH has been entertained in the past. He has also had a history of major depression and bipolar. Apparently this year he was hospitalized on the psychiatric unit. Chronic kidney disease stage III BPH History of asthma History of hypertension and hypertensive heart disease Parent history of lymphedema of the lower extremities. Home Medications Medication Instructions Recorded Confirmed Type Atorvastatin Calcium [Lipitor] 20 mg PO HS 12/08/16 06/21/18 History hydrALAZINE HCL [Apresoline] 50 mg PO TID #90 tab 04/05/17 06/21/18 Rx Sennosides-Docusate Sodium 1 tab PO DAILY 04/21/17 06/21/18 History [Senokot-S] Loratadine [Claritin] 10 mg PO DAILY 08/21/17 06/21/18 History Montelukast [Singulair] 10 mg PO HS 08/21/17 06/21/18 History Polyethylene Glycol 3350 [Miralax] 17 gm PO DAILY PRN 08/21/17 06/21/18 History Spironolactone [Aldactone] 12.5 mg PO QAM 08/21/17 06/21/18 History Topiramate [Topamax] 50 mg PO BID 08/21/17 06/21/18 History Metoprolol Tartrate [Lopressor] 50 mg PO BID #60 tab 08/29/17 06/21/18 Rx Fluticasone Nasal [place] [Flonase 1 spray EA NOSTRIL BID 11/05/17 06/21/18 History Nasal [place]] amLODIPine [Norvasc] 10 mg PO HS #30 tab 11/09/17 06/21/18 Rx Irbesartan 300 mg PO DAILY 02/13/18 06/21/18 History Acetaminophen [Tylenol 8 Hour] 1,300 mg PO TID 06/05/18 06/21/18 History FLUoxetine HCL [PROzac] 20 mg PO DAILY 06/05/18 06/21/18 History Furosemide [Lasix] 20 mg PO DAILY 06/05/18 06/21/18 History Melatonin 6 mg PO HS 06/05/18 06/21/18 History Ondansetron [Zofran] 4 mg PO Q8H PRN 06/05/18 06/21/18 History busPIRone HCL 7.5 mg PO BID 06/05/18 06/21/18 History hydrOXYzine HCL [Atarax] 10 mg PO HS 06/05/18 06/21/18 History traZODone HCL [Desyrel] 100 mg PO HS 06/05/18 06/21/18 History Albuterol Nebulized [Ventolin 2.5 mg INHALATION RT-QID PRN nebu 06/07/18 Rx Nebulized] Last psych admission: History of Present Illness: Patient states that he sees Dr. Bowers as an outpatient and last saw him in December but did not keep his appointment in January stating that he didn't feel like going. He states that he has been compliant with all of his medications. Patient states that he became more depressed recently because he lost his last friend, someone he knew from [employer]. Patient is unable to identify any other precipitant to the change in his mood and states that he did not keep his appointment with his primary care physician in January either because he didn't feel like going. Patient states that perhaps the meds are not working as well as they had been, he states that he had suicidal thoughts to cut his wrist and presented to the emergency room. He states that he is feeling hopeless and has been sleeping and eating well at home. He states he has been going to [employer]. Patient could identify no other precipitant to his recent increase in depressive symptoms. Patient did not endorse any symptoms of psychosis, jovanny or OCD. Patient states his anxiety Patie has been fairly well controlled with the use of Ativan at did not report any acute increase in his anxiety symptoms. nt was last here in the inpatient unit in October 2017. Patient currently is taking Remeron 45 mg at bedtime, Sinequan 20 mg at bedtime and Ativan 0.5 mg twice a day as needed patient states that he takes it most days. Past Psychiatric History: Patient has a history of multiple psychiatric admissions in the past all for depression which he states has been present for most of his adult life. Patient states that he's been tried on multiple combinations of medications over the years and had ECT in the remote past. Patient's last admission was here in October 2017. patient has a history of 1 prior suicide attempt Past Medical/Surgical History: patient has a history of asthma, hypertension and hyperlipidemia, migraine headaches and is status post hernia repair Social History: Patient was born and raised in [place], his parents are both . He has 2 sisters who are alive and he states he has no contact with them. 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 He states that he was once and and has one child with whom he has no contact. Patient lives in an apartment with no assistance and continues to drive his own car. He reported no abuse history. 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 He denied any other drug use history and states that he does not use tobacco products. Legal History: patient denies Mental Status Examination - General Appearance: [This is a 77-year-old male who was minimally able to participate in part of the mental status wherebt he stsaes he has pain in his stomach, knows place but not date. Impressions 1. Major depressive disorder recurrent, generalized anxiety disorder, alcohol use disorder in sustained remission 2. Borderline and narcissistic personality disorder traits 3. Dementia Psychiatric recommendations: dc prozac and add Wellbutrin 150 mg qam and Provigil 50 mg po qam both the medications will increase mood and motivation Thank you for the consult Geovani Maurer D.O. PhD (1) Depression Current Visit: No Status: Acute Code(s): F32.9 - MAJOR DEPRESSIVE DISORDER, SINGLE EPISODE, UNSPECIFIED SNOMED Code(s): 06789803 Time with Patient: Less than 30
--- NOTE | 2018-07-02 21:03 | PN ---
PROGRESS NOTE Patient is seen for followup for acute kidney injury. Renal function has been slowly improving. Patient denies any significant complaints. EXAMINATION: This morning blood pressure was 126/72, heart rate 64 per minute patient is afebrile. Examination of the heart S1, S2. Examination of lungs bilateral breath sounds are heard. Abdomen is soft, nontender. Examination of lower extremity shows no significant edema. LABS: Show sodium 132, potassium 5.0. Serum creatinine down to 1.5 mg/dL. ASSESSMENT: 1. Acute kidney injury, currently improved. Etiology is sepsis and bacteremia. The patient has good urine output. 2. Chronic kidney disease stage 3 secondary to nephrosclerosis. 3. Status post laparoscopic cholecystectomy. 4. Pneumonia and urinary tract infection with Klebsiella pneumonia bacteremia. 5. Mild hyperkalemia associated with acute kidney injury, currently improved. PLAN: Check labs tomorrow. There were no labs done today. The labs were from yesterday. Continue to encourage increased oral intake. Continue antibiotics as per ID. MMODL / IJN: [id number] /
[2018-07-02 21:21] LABS: Glucose,Whole Blood 88 mg/dL (75-99)
--- NOTE | 2018-07-02 23:30 | PN ---
PROGRESS NOTE DATE OF SERVICE: 07/02/2018. HISTORY: This is a 77-year-old white male who was brought to the emergency room as he was found lying on the floor in his home with confusion and obtunded. In the emergency room he was found to gram-negative sepsis. His blood cultures showed Klebsiella pneumonia. He was found to have pneumonia and urinary tract infection. He was admitted to the hospital for further evaluation and treatment. Initially, he was in the ICU and Dr. Mendoza saw the patient for ICU management and also for his pulmonary problems. He was also seen by [facility] and he was found to have urinary tract infection and acute on chronic kidney disease with acute tubular necrosis. He was also seen by director of strategic alliances and the director of strategic alliances is also following him. He was further evaluated as he had persistent leukocytosis. His attending physician, Dr. Vides, did an ultrasound of the gallbladder and this showed acute cholecystitis. Dr. Henao did a laparoscopy cholecystectomy and this showed gangrenous cholecystitis. The patient is currently receiving IV antibiotics. He is receiving Rocephin but he is sensitive to Rocephin. The patient is clinically improving but he is extremely depressed. He has a history of major depression in the past. He was seen by the psychiatric and the patient is currently on Prozac and BuSpar. The patient is clinically improving, but he is extremely depressed and very slow in responding. Dr. Lester who did the surgery is also following the patient and she feels that surgically he is stable and improving. His vital signs are stable. He has no acute cardiorespiratory problems. However, because of the major depression, we will have the psychiatrist see the patient again for re- evaluation. Overall prognosis is guarded. MMODL / IJN: [id number] /
[2018-07-02] MEDS: MONTELUKAST 10 MG TAB PO SCH (23:34)
[2018-07-02] MEDS: traZODone HCL 100 MG TAB PO SCH (23:34)
[2018-07-03 07:45] LABS: Glucose,Whole Blood 85 mg/dL (75-99)
[2018-07-03] MEDS: HYDROcodone/APAP 5-325MG 1 EACH TAB PO PRN ×3 (08:23→20:02)
[2018-07-03] MEDS: PANTOPRAZOLE 40 MG/10 ML VIAL IV SCH (08:23)
[2018-07-03] MEDS: busPIRone HCl 5 MG TAB PO SCH ×2 (08:23→19:54)
[2018-07-03] MEDS: DOCUSATE 100 MG CAP PO SCH ×2 (08:24→19:55)
[2018-07-03] MEDS: buPROPion SR 150 MG TABLET.ER PO SCH (08:24)
[2018-07-03] MEDS: METOPROLOL TARTRATE 50 MG TAB PO SCH ×2 (08:24→19:55)
[2018-07-03] MEDS: TOPIRAMATE 25 MG TAB PO SCH ×2 (08:24→19:56)
[2018-07-03] MEDS: INSULIN ASPART 100 UNIT/ML 1 ML 10 ML VIAL SQ SCH ×4 (08:25→20:00)
--- NOTE | 2018-07-03 08:35 | CDI ---
Last Revision, June 2017 Documentation Clarification Form Date: 07/03/2018 8:15:52 AM From: Zoë GrimmBRIDGETTE, CCDS Admit Date: 06/21/2018 9:28:00 PM Patient Name: Anthony Tejeda Visit Number: [id number] Discharge Date: ATTENTION: The Clinical Documentation Specialists (CDI) and [facility] Coding Staff appreciate your assistance in clarifying documentation. Please respond to the clarification below the line at the bottom and electronically sign. The CDI & [facility] Coding staff will review the response and follow-up if needed. Please note: Queries are made part of the Legal Health Record. If you have any questions, please contact the author of this message via ITS. Kylie Kim MD: Per the 07/02 nephrology progress note, the following is documented: "Diabetes maintained on insulin coverage." History/Risk Factors: Recurrent hyponatremia, Hypertensive CKD stage III, Hypertensive heart disease and major depression. 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 Also found to be septic due to gram negative blood cultures & UTI due to Klebsiella species. On 06/24, diagnosed with acute cholecystitis & had a laparoscopic cholecystectomy on 06/29. LAB: Blood glucose: 06/21 113. Low 62 on 06/23. High 493 on 06/24. Currently 88. Treatment: Initially admitted to ICU, IV fluid replacement & low Na. Diabetes panel ordered by surgeon on 06/28. One unit Insulin given on 06/25. In order to capture the severity of Illness and necessary documentation specificity, please clarify: DM Type 1 DM Type 2 DM due to underlying condition, specify: Drug Induced, please specify drug, if known: Other, please specify Unable to Determine Please specify if condition was present on admission: Yes or No Please document any body system complications or specific manifestations related to the diabetes: Hypoglycemia Hyperglycemia Other condition type 2 DM MTDD
[2018-07-03 09:09] LABS: Albumin 1.8 g/dL (3.5-5.0); Basophils % (A) 0 %; Calcium 7.8 mg/dL (8.4-10.2); Eosinophils # (A) 0.1 k/uL (0-0.7); Eosinophils % (A) 1 %; HCT 25.3 % (39.0-53.0); HGB 8.1 gm/dL (13.0-17.5); Hypochromasia Slight; Lymphocytes # (A) 0.9 k/uL (1.0-4.8); Lymphocytes % (A) 9 %; MCH 33.2 pg (25.0-35.0); Macrocytosis Moderate; Mean Platelet Volume 12.4; Monocytes # (A) 0.4 k/uL (0-1.0); Monocytes % (A) 4 %; Neutrophils # (A) 8.4 k/uL (1.3-7.7); Neutrophils % (A) 84 %; Platelet Count 133 k/uL (150-450); Potassium 4.5 mmol/L (3.5-5.1); RBC 2.43 m/uL (4.30-5.90); RDW 15.7 % (11.5-15.5); Total Bilirubin 0.6 mg/dL (0.2-1.3); Total Protein 4.5 g/dL (6.3-8.2); WBC 9.9 k/uL (3.8-10.6)
--- NOTE | 2018-07-03 12:00 | P.PN ---
Subjective Progress Note Date: 07/03/18 Principal diagnosis: Status post laparoscopic cholecystectomy for acute gangrenous cholecystitis the patient is seen on rounds. More alert today. Was able to feed himself. He had not been eating well the past few days. He was seen by psychiatry and his medications were adjusted. Objective - Vital Signs Vital signs: Vital Signs Temp 98.3 F 07/03/18 07:00 Pulse 61 07/03/18 07:00 Resp 16 07/03/18 00:41 BP 129/66 07/03/18 07:00 Pulse Ox 96 07/03/18 07:00 Intake & Output 07/02/18 07/03/18 07/03/18 18:59 06:59 18:59 Intake Total 105 400 Output Total 830 Balance -725 400 Intake: IV 105 400 Sodium Chloride 0.9% 1, 105 400 000 ml @ 50 mls/hr IV . Q20H [facility] Rx#:[id number] Output: Drainage 30 Lower Abdomen 30 Urine 800 Other: Voiding Method Indwelling Catheter Indwelling Catheter ABP, PAP, CO, CI - Last Documented Arterial Blood Pressure 122/58 - Constitutional Constitutional Comment(s): he will nod appropriately today. General appearance: Present: cooperative, no acute distress - Gastrointestinal General gastrointestinal: Present: normal bowel sounds, soft Localized gastrointestinal: surgical scar: diffuse (small amount of serous drainage at the SONU site. The other incisions are healing well) - Labs CBC & Chem 7: 07/03/18 06:50 07/03/18 06:50 Labs: Abnormal Lab Results - Last 24 Hours (Table) 07/03/18 07/03/18 Range/Units 06:50 06:50 RBC 2.43 L (4.30-5.90) m/uL Hgb 8.1 L (13.0-17.5) gm/dL Hct 25.3 L (39.0-53.0) % MCV 104.0 H (80.0-100.0) fL RDW 15.7 H (11.5-15.5) % Plt Count 133 L (150-450) k/uL Neutrophils # 8.4 H (1.3-7.7) k/uL Lymphocytes # 0.9 L (1.0-4.8) k/uL Sodium 134 L (137-145) mmol/L Chloride 108 H (98-107) mmol/L Carbon Dioxide 21 L (22-30) mmol/L BUN 31 H (9-20) mg/dL Creatinine 1.32 H (0.66-1.25) mg/dL Glucose 72 L (74-99) mg/dL Calcium 7.8 L (8.4-10.2) mg/dL ALT 146 H (21-72) U/L Alkaline Phosphatase 197 H (38-126) U/L Total Protein 4.5 L (6.3-8.2) g/dL Albumin 1.8 L (3.5-5.0) g/dL Assessment and Plan (1) Acute cholecystitis Current Visit: Yes Status: Acute Code(s): K81.0 - ACUTE CHOLECYSTITIS SNOMED Code(s): 34338322 (2) Gram negative sepsis Current Visit: Yes Status: Acute Code(s): A41.50 - GRAM-NEGATIVE SEPSIS, UNSPECIFIED SNOMED Code(s): 049454143 (3) Renal failure, acute Current Visit: Yes Status: Acute Code(s): N17.9 - ACUTE KIDNEY FAILURE, UNSPECIFIED SNOMED Code(s): 57620381 (4) Rhabdomyolysis Current Visit: Yes Status: Acute Code(s): M62.82 - RHABDOMYOLYSIS SNOMED Code(s): 354259603 (5) Urinary tract infection due to Klebsiella species Current Visit: Yes Status: Acute Code(s): N39.0 - URINARY TRACT INFECTION, SITE NOT SPECIFIED; B96.1 - KLEBSIELLA PNEUMONIAE THE CAUSE OF DISEASES CLASSD [facility] SNOMED Code(s): 895263662963378 Plan: surgically stable for discharge. Low-fat diet. Follow-up in 2 weeks.
[2018-07-03] MEDS: MODAFINIL 100 MG TAB PO SCH (12:07)
[2018-07-03] MEDS: ERGOCALCIFEROL 50,000 UNIT CAP PO SCH (12:07)
[2018-07-03 12:16] LABS: Glucose,Whole Blood 152 mg/dL (75-99)
--- NOTE | 2018-07-03 14:12 | PN ---
PROGRESS NOTE DATE OF SERVICE: 07/03/2018 This is a 77-year-old white male who was admitted with altered mental status and was found to have gram negative sepsis and the patient also had pneumonia and urinary tract infection. Patient was seen by Dr. Cruz in consultation and patient has been receiving IV Rocephin and patient also developed acute gangrenous cholecystitis and he had a laparoscopic cholecystectomy by Dr. Lester. Patient also known to have longstanding history of major mental depression and the patient was seen by Psych. MMODL / IJN: [id number] /
--- NOTE | 2018-07-03 14:28 | PN ---
PROGRESS NOTE DATE OF SERVICE: 07/03/2018 This is a 77-year-old white male who was admitted to the hospital with gram-negative sepsis and he presented to the ER with altered mental status and mental confusion and apparently he was found to be lying on the floor in his home. He was seen by neighbors and he was brought to the ER. In the ER, he was also found to have pneumonia, urinary tract infection and sepsis and the blood cultures were positive for Klebsiella pneumonia. The patient was seen by Dr. Cruz in consultation and he was started on IV Rocephin and apparently the organisms were sensitive to the Rocephin. Patient was also seen by Dr. Mendoza in consultation for ICU management. Dr. Vides is the primary physician, did an ultrasound of the gallbladder as he was having abdominal pain and persistent leukocytosis and this showed acute cholecystitis and he had a laparoscopic cholecystectomy with Dr. Lester and this was found to be gangrenous acute cholecystitis postoperatively and patient is recovering without any significant complications. His vital signs are stable. There is no acute cardiorespiratory problems, but the patient is extremely depressed, and is poorly responding to the questions and he was seen by a psychiatrist and this psychiatrist placed him Wellbutrin and Provigil and prior to this patient was on Prozac and this was discontinued. Hopefully, the patient will improve from his mental depression and patient is stable and also he is getting physical therapy, but patient is still not able to move around without any help. The Leak Detector is trying to make arrangements for him to be transferred to a rehab unit in the half-way when he is discharged and currently the patient is apparently not ready to be discharged and he is still severely depressed. Will continue current medications and monitor his mental status for the response to the new medications. Prognosis guarded. MMODL / IJN: [id number] /
[2018-07-03 17:35] LABS: Glucose,Whole Blood 108 mg/dL (75-99)
[2018-07-03] MEDS: MONTELUKAST 10 MG TAB PO SCH (19:55)
[2018-07-03] MEDS: traZODone HCL 100 MG TAB PO SCH (19:55)
[2018-07-03 20:20] LABS: Glucose,Whole Blood 119 mg/dL (75-99)
--- NOTE | 2018-07-03 20:58 | PN ---
PROGRESS NOTE Patient is seen for followup for acute kidney injury. Renal function has improved and creatinine is down to 1.3 from peak of 3.6 mg/dL. Patient continues to have good urine output. He has an indwelling Leggett catheter. Currently he is not on any IV fluids. Oral intake is fair. On examination, blood pressure this morning was 129/66, heart rate 60 per minute. EXAMINATION OF THE HEART: S1, S2. EXAMINATION OF LUNGS: Bilateral breath sounds are heard. ABDOMEN: Soft, non-tender. Examination of lower extremities shows no significant edema. Patient is moving all 4 extremities. Labs show sodium 134, potassium 4.5, BUN 31, serum creatinine 1.32, albumin 1.8, hemoglobin 8.1 g/dL. ASSESSMENT: 1. Acute kidney injury, currently improving. Etiology was ATN from sepsis bacteremia. 2. Chronic kidney disease, NKF stage III, secondary to nephrosclerosis. 3. Urinary tract infection with Klebsiella pneumoniae. 4. Bacteremia with Klebsiella pneumoniae. 5. Pneumonia. 6. Status post laparoscopic cholecystectomy. PLAN: Maintain good oral intake. Continue antibiotics. Repeat labs periodically. MMODL / IJN: [id number] /
[2018-07-04] MEDS: HYDROcodone/APAP 5-325MG 1 EACH TAB PO PRN ×4 (00:35→21:02)
[2018-07-04 07:17] LABS: Glucose,Whole Blood 87 mg/dL (75-99)
[2018-07-04] MEDS: INSULIN ASPART 100 UNIT/ML 1 ML 10 ML VIAL SQ SCH ×4 (07:28→22:06)
[2018-07-04] MEDS: METOPROLOL TARTRATE 50 MG TAB PO SCH ×2 (08:36→21:01)
[2018-07-04] MEDS: DOCUSATE 100 MG CAP PO SCH ×2 (08:36→21:01)
[2018-07-04] MEDS: MODAFINIL 100 MG TAB PO SCH (08:36)
[2018-07-04] MEDS: busPIRone HCl 5 MG TAB PO SCH ×2 (08:37→21:01)
[2018-07-04] MEDS: PANTOPRAZOLE 40 MG/10 ML VIAL IV SCH (08:37)
[2018-07-04] MEDS: TOPIRAMATE 25 MG TAB PO SCH ×2 (08:37→21:01)
[2018-07-04] MEDS: buPROPion SR 150 MG TABLET.ER PO SCH (08:37)
[2018-07-04 11:35] LABS: Glucose,Whole Blood 103 mg/dL (75-99)
--- NOTE | 2018-07-04 13:56 | P.PN ---
Subjective Patient is seen in follow for acute kidney injury on chronic kidney disease. Patient has chronic kidney disease stage III with baseline creatinine in the range of 1.1-1.3 secondary to nephrosclerosis. Patient also noted to be hyponatremic. Sodium level better at 134 this morning. Patient's noted to have blood and urine culture positive for Klebsiella. Remains nonoliguric. Denies any active chest pain or shortness of breath. Oral intake is good. Creatinine is down to 1.32 today. Vital signs are stable. Currently off Levophed. General: The patient appeared well nourished and normally developed. HEENT: Head exam is unremarkable. Neck is without jugular venous distension. LUNGS: Breath sounds decreased. HEART: Rate and Rhythm are regular. First and second heart sounds normal. No murmurs, rubs or gallops. ABDOMEN: Abdominal exam reveals normal bowel sounds. Non-tender and non- distended. No evidence of peritonitis. EXTREMITITES: Trace edema. Objective - Vital Signs Vital signs: Vital Signs Temp 98.5 F 07/04/18 07:00 Pulse 60 07/04/18 08:00 Resp 16 07/04/18 08:00 BP 133/73 07/04/18 07:00 Pulse Ox 97 07/04/18 07:00 Intake & Output 07/03/18 07/04/18 07/04/18 18:59 06:59 18:59 Intake Total 200 560 Output Total 1 1000 1 Balance 199 -440 -1 Weight 97.5 kg Intake: IV 200 560 Sodium Chloride 0.9% 1, 200 560 000 ml @ 50 mls/hr IV . Q20H [facility] Rx#:[id number] Output: Urine 1000 Stool 1 1 Other: Voiding Method Indwelling Catheter Indwelling Catheter Indwelling Catheter ABP, PAP, CO, CI - Last Documented Arterial Blood Pressure 122/58 - Labs CBC & Chem 7: 07/03/18 06:50 07/03/18 06:50 Labs: Abnormal Lab Results - Last 24 Hours (Table) 07/03/18 07/03/18 07/04/18 Range/Units 17:21 19:59 11:18 POC Glucose (mg/dL) 108 H 119 H 103 H (75-99) mg/dL Assessment and Plan Plan: Assessment: 1. Acute kidney injury secondary to ATN secondary to hypotension as well as sepsis. Renal function improving with creatinine down to 1.32 today. 2. Septic shock secondary to Klebsiella bacteremia and UTI maintained on antibiotics. 3. Hypotension secondary to sepsis. Resolved. 4. Severe metabolic acidosis secondary to acute kidney injury and lactic acidosis. Better. 5. Hyponatremia secondary to acute kidney injury. Better. 6. Chronic kidney disease stage III with baseline creatinine in the range of 1.1-1.3 secondary to nephrosclerosis. Plan: Remains off all IV fluids. Oral intake is improved. Encouraged oral intake. No changes from nephrology standpoint today.
[2018-07-04 17:11] LABS: Glucose,Whole Blood 120 mg/dL (75-99)
[2018-07-04] MEDS: MONTELUKAST 10 MG TAB PO SCH (21:01)
[2018-07-04 21:02] LABS: Glucose,Whole Blood 111 mg/dL (75-99)
[2018-07-04] MEDS: traZODone HCL 100 MG TAB PO SCH (21:02)
--- NOTE | 2018-07-04 23:32 | PN ---
PROGRESS NOTE DATE OF SERVICE: 07/04/2018 This is a 77-year-old white male who was brought to the emergency room, as he was found by neighbors to be lying on the floor in his home, and he was very confused and poorly responsive. He was brought to the ER and he was found to have multiple problems. He was found to have pneumonia with gram-negative sepsis and rhabdomyolysis, acute on chronic renal disease, and he was admitted to the hospital for further evaluation and treatment. He was admitted to ICU and Dr. Mendoza saw the patient for ICU management. The patient was also seen by a couples therapist in consultation and Dr. Cruz in consultation from Infectious Disease. He was also seen by [facility] in consultation. He was started on IV antibiotics and he has been receiving Rocephin IV. He was having persistent leukocytosis and Dr. Vides, who is his primary care physician, ordered an ultrasound of the gallbladder, as he was also having some abdominal pain. This showed acute cholecystitis and the patient had his laparoscopic cholecystectomy by Dr. Lester. This was found to be gangrenous acute cholecystitis. Postoperatively the patient was recovering complications from the surgical point, but patient was extremely lethargic and nonresponsive. Patient was found to have severe mental depression. The patient has a history of severe mental depression in the past. He was seen by psychiatrist in consultation and he was initially placed on Prozac. Postoperatively patient was recovering clinically without significant complications, but the patient continued to be extremely lethargic and poorly responsive. Patient was seen by a psychiatrist again for re-evaluation and he placed him on Provigil and Wellbutrin. The patient seems to be slightly improved today. He is little more awake, but he is not able to move around, ambulate. The patient is currently receiving physical therapy. Surgically he seems to be doing okay, and Dr. Lester thinks that whenever he is medically stable, he can be discharged and Dr. Lester will see him in a couple of weeks for postoperative checkup. However, the patient is still extremely sleepy, and it is very hard to make him respond to questions, even though he has improved to some extent since he was started on the new psychiatric medications. The patient has been living alone. Section Repairer is making arrangements for him to be transferred to a senior care rehab unit when discharged. His overall intake is improving. He still needs help to move around and get up from bed. He needs physical therapy assistance. The overall prognosis is guarded. We will continue current medications and also the physical therapy. Section Repairer is currently making arrangements for him to be transferred to a rehab unit in a senior care. When his physical condition becomes stable, arrangements are being made to transfer him to an [id number] with physical therapy and occupational therapy. He will be discharged home. Overall prognosis is guarded. His primary care physician, Dr. Vides, will be back to work tomorrow and he will start seeing him starting tomorrow. MMODL / IJN: [id number] /
[2018-07-05] MEDS: ACETAMINOPHEN TAB 325 MG TAB PO PRN (00:26)
[2018-07-05 07:44] LABS: Glucose,Whole Blood 85 mg/dL (75-99)
[2018-07-05 09:56] LABS: Calcium 8.1 mg/dL (8.4-10.2); Potassium 4.6 mmol/L (3.5-5.1)
[2018-07-05] MEDS: HYDROcodone/APAP 5-325MG 1 EACH TAB PO PRN ×2 (10:09→15:09)
[2018-07-05] MEDS: PANTOPRAZOLE 40 MG/10 ML VIAL IV SCH (10:09)
[2018-07-05] MEDS: busPIRone HCl 5 MG TAB PO SCH (10:10)
[2018-07-05] MEDS: MODAFINIL 100 MG TAB PO SCH (10:10)
[2018-07-05] MEDS: METOPROLOL TARTRATE 50 MG TAB PO SCH (10:10)
[2018-07-05] MEDS: INSULIN ASPART 100 UNIT/ML 1 ML 10 ML VIAL SQ SCH ×2 (10:11→15:07)
[2018-07-05] MEDS: TOPIRAMATE 25 MG TAB PO SCH (10:11)
[2018-07-05] MEDS: buPROPion SR 150 MG TABLET.ER PO SCH (10:11)
[2018-07-05] MEDS: DOCUSATE 100 MG CAP PO SCH (10:11)
[2018-07-05 12:21] LABS: Glucose,Whole Blood 92 mg/dL (75-99)
--- NOTE | 2018-07-05 13:47 | P.DS ---
Providers Date of admission: 06/21/18 21:28 Expected date of discharge: 07/05/18 Attending physician: Salvador Vides Consults: 06/22/18 00:36 Consult Physician Stat Consulting Provider: Mel Yarbrough Consult Reason/Comments: ICU management, hyponatremia Do you want consulting provider notified?: Already Contacted 06/22/18 04:59 Consult Physician Routine Consulting Provider: Salvador Vides Consult Reason/Comments: Primary Do you want consulting provider notified?: Already Contacted 06/22/18 08:40 Consult Physician Routine Consulting Provider: Kylie Paniagua Consult Reason/Comments: low sodium Do you want consulting provider notified?: Yes 06/22/18 15:38 Consult Physician Stat Consulting Provider: Oscar Chou Consult Reason/Comments: A-Fib RVR Do you want consulting provider notified?: Yes 06/23/18 10:22 Consult Physician Routine Consulting Provider: Geovani Maurer Consult Reason/Comments: depression Do you want consulting provider notified?: Yes 06/23/18 23:02 Consult Physician Stat Consulting Provider: Mel Yarbrough Consult Reason/Comments: ICU management Do you want consulting provider notified?: Yes 06/25/18 13:31 Consult Physician Urgent Consulting Provider: Rogerio Cruz Consult Reason/Comments: Sepsis, septic shock, persistent leukocytosis Do you want consulting provider notified?: Yes 06/27/18 13:43 Consult Physician Urgent Consulting Provider: Chauncey Gan Consult Reason/Comments: acute cholecystitis, right upper quadrant pain, persistent leukocytosis. Do you want consulting provider notified?: Yes Primary care physician: Stated None - Discharge Diagnosis(es) (1) Status post laparoscopic cholecystectomy This is dictation on discharge summary to the [facility] on today's service 07/05/2018. Patient condition stable. With the diagnosis #1 acute gram-negative sepsis with positive blood culture and positive urine analysis for Klebsiella pneumonia. #2 acute cholecystitis with a surgical consult. Status post laparoscopic cholecystectomy found to be gangrenous cholecystitis was removed by Dr. Alfonso. Number #3 acute major depressive disorder with the bipolar seen by Dr. Maurer and adjusted the medication. #4 patient should be seen by psychiatry in the medical [place] [facility]. #5 underlying edema of the arms and legs with overhydration and gradually will be resolved. #6 history of lymph edema bilaterally. #7 rhabdomyolys #8 acute kidney injury associated with chronic kidney disease stage III managed by nephrology. #9 tachycardia with the thoughts of of the cardiology and patient followed at that time and refuted the idea of atrial fibrillation. #10 electrolyte imbalance. #11 moderate to severe protein calorie deficiency. #12 severe hyponatremia and gradual improvement through the hospital course. With the history of SIADH, psychotic medication, dehydration. Hospital course: Patient admitted initially to the ICU where he was none responsive and the subsequently patient was seen by nephrology cardiology and the ICU critical care physicians and treated with IV antibiotic and consultation with the infectious disease Dr. Rogerio morales as well as Dr. Almendarez and as well as Dr. Adan nephrology. As patient gradual improvement however resistant of the leukocytosis I did order CAT scan of the abdomen, found to have large gallbladder and subsequently ultrasound was ordered by the peak nurse practitioner of Dr. Erickson Garvin found that he had pericolic fluid and Jenny and at that time he is symptomatic of severe pain in the right upper quadrant consultation with Dr. Trevon jane and the with the abnormal liver enzyme patient scheduled the next day for laparoscopic cholecystectomy and found that he had gangrenous gallbladder with some adhesion. Postoperative patient has ambulant course with the pain in the abdomen and the leukocytes elevation continue the antibiotic and adjusted by the infectious disease. Patient did well and that we have [facility] referral to [facility] where he was transferring until he is actively improved with the rehabilitation. During the course patient had acute episode of depression and he did not want to eat and he did not have any effort to participate in the activity subsequently seen again by the psychiatry who placed him on M)DAFINIL PROVIGIL 50 mg qd On the physical examination Patient is conscious alert oriented he is eating now is comfortable is no pain in the abdomen and on the examination HEENT was negative neck was supple and the chest was clear to auscultation and percussion on the heart was regular sinus rhythm the abdomen was soft the Yamil surgery and the extremities no normal pulses however he has edema bilaterally and also in the upper extremities edema with the low protein and albumin. On the day of discharge his sodium has improved Sodium 135 and potassium 4.6 chloride 109 carbon dioxide 20 BUN 31 and a creatinine improved to 1.47 basal His estimated glomerular filtration rate for non- his 45. Blood sugar is normal 98 and down his CBG blood sugar is 92 on discharge. His microbiology culture on 1124 blood cultures showed Klebsiella pneumonia, on 1123 urine culture showed Klebsiella pneumonia with the underlying acute gram- negative sepsis Patient stable general condition for discharge to medical [facility]. Patient need psychiatric evaluation and follow-up in the medical [facility]. Current Visit: Yes Status: Acute Patient Condition at Discharge: Fair Plan - Discharge Summary New Discharge Prescriptions: New Levofloxacin [Levaquin] 500 mg PO DAILY #14 tab HYDROcodone/APAP 5-325MG [Woody 5-325] 2 each PO Q6HR PRN 3 Days #24 tab PRN Reason: Moderate To Severe Pain Continue Atorvastatin Calcium [Lipitor] 20 mg PO HS hydrALAZINE HCL [Apresoline] 50 mg PO TID #90 tab Loratadine [Claritin] 10 mg PO DAILY Topiramate [Topamax] 50 mg PO BID Spironolactone [Aldactone] 12.5 mg PO QAM Metoprolol Tartrate [Lopressor] 50 mg PO BID #60 tab amLODIPine [Norvasc] 10 mg PO HS #30 tab Irbesartan 300 mg PO DAILY Acetaminophen [Tylenol 8 Hour] 1,300 mg PO TID busPIRone HCL 7.5 mg PO BID FLUoxetine HCL [PROzac] 20 mg PO DAILY traZODone HCL [Desyrel] 100 mg PO HS Albuterol Nebulized [Ventolin Nebulized] 2.5 mg INHALATION RT-QID PRN nebu PRN Reason: Shortness Of Breath No Action Sennosides-Docusate Sodium [Senokot-S] 1 tab PO DAILY Polyethylene Glycol 3350 [Miralax] 17 gm PO DAILY PRN PRN Reason: Constipation Montelukast [Singulair] 10 mg PO HS Fluticasone Nasal [place] [Flonase Nasal [place]] 1 spray EA NOSTRIL BID hydrOXYzine HCL [Atarax] 10 mg PO HS Melatonin 6 mg PO HS Ondansetron [Zofran] 4 mg PO Q8H PRN PRN Reason: Nausea Furosemide [Lasix] 20 mg PO DAILY Discharge Medication List Atorvastatin Calcium [Lipitor] 20 mg PO HS 12/08/16 [History] hydrALAZINE HCL [Apresoline] 50 mg PO TID #90 tab 04/05/17 [Rx] Sennosides-Docusate Sodium [Senokot-S] 1 tab PO DAILY 04/21/17 [History] Loratadine [Claritin] 10 mg PO DAILY 08/21/17 [History] Montelukast [Singulair] 10 mg PO HS 08/21/17 [History] Polyethylene Glycol 3350 [Miralax] 17 gm PO DAILY PRN 08/21/17 [History] Spironolactone [Aldactone] 12.5 mg PO QAM 08/21/17 [History] Topiramate [Topamax] 50 mg PO BID 08/21/17 [History] Metoprolol Tartrate [Lopressor] 50 mg PO BID #60 tab 08/29/17 [Rx] Fluticasone Nasal [place] [Flonase Nasal [place]] 1 spray EA NOSTRIL BID 11/05/17 [ History] amLODIPine [Norvasc] 10 mg PO HS #30 tab 11/09/17 [Rx] Irbesartan 300 mg PO DAILY 02/13/18 [History] Acetaminophen [Tylenol 8 Hour] 1,300 mg PO TID 06/05/18 [History] FLUoxetine HCL [PROzac] 20 mg PO DAILY 06/05/18 [History] Furosemide [Lasix] 20 mg PO DAILY 06/05/18 [History] Melatonin 6 mg PO HS 06/05/18 [History] Ondansetron [Zofran] 4 mg PO Q8H PRN 06/05/18 [History] busPIRone HCL 7.5 mg PO BID 06/05/18 [History] hydrOXYzine HCL [Atarax] 10 mg PO HS 06/05/18 [History] traZODone HCL [Desyrel] 100 mg PO HS 06/05/18 [History] Albuterol Nebulized [Ventolin Nebulized] 2.5 mg INHALATION RT-QID PRN nebu 04/16 [Rx] Levofloxacin [Levaquin] 500 mg PO DAILY #14 tab 07/01/18 [Rx] HYDROcodone/APAP 5-325MG [Woody 5-325] 2 each PO Q6HR PRN 3 Days #24 tab [Rx] Follow up Appointment(s)/Referral(s): None,Stated [Primary Care Provider] - 1-2 days Discharge Disposition: TRANSFER TO SNF/ECF
[2018-07-05 15:16] VITALS: BP 139/79; PULSE 62; RESP 16; TEMP 97.6
--- NOTE | 2018-07-05 16:42 | PN ---
PROGRESS NOTE Patient is seen for followup for acute kidney injury. Renal function has improved significantly. Patient is currently lying in bed. He states he does not want to eat secondary to pain. He had been maintained on IV fluids, which are now discontinued. Serum creatinine has settled at about 1.3 to 1.4 mg/dL. Patient has an indwelling Leggett catheter and has had good urine output. On examination, blood pressure this morning was 144/78, heart rate 61 per minute. Patient is afebrile. EXAMINATION OF THE HEART: S1, S2. EXAMINATION OF LUNGS: Bilateral breath sounds are heard. ABDOMEN: Soft, non-tender. Examination of lower extremities shows no significant edema. [employer] LIFT COMPRESSER exam is grossly intact. Labs show sodium 135, potassium 4.6, chloride 109. CO2 is 20, BUN 31, serum creatinine 1.47. ASSESSMENT: 1. Acute kidney injury, acute tubular necrosis, currently improved. Renal function is stable. Patient has an indwelling Leggett catheter. 2. Urinary tract infection with Klebsiella pneumoniae and bacteremia. 3. Status post laparoscopic cholecystectomy. 4. Chronic kidney disease secondary to nephrosclerosis, NKF stage III. PLAN: Patient is stable for discharge from nephrology standpoint. Follow up as outpatient in about 2 to 3 weeks. Maintain adequate oral intake. Avoid NSAIDs. MMODL / IJN: [id number] /
--- NOTE | 2018-07-05 21:13 | P.PN ---
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 He was found laying on the ground obtunded thrashing at times. EMS was called he was transported to hospital. There he was found evidence of significant hyponatremia as well as leukocytosis and altered mental status. There is evidence of a markedly elevated lactic acid and an elevated creatinine indicative of acute renal failure. The patient was admitted to intensive care unit has been receiving resuscitation. With evidence of a positive blood culture the infectious diseases consultation was requested. The patient is arousable and with significant stimulation is able to answer a few questions. He does have chronic urinary retention utilizes a straight catheterization process but does not use a fresh catheter every time. 06/27/2018 patient is more awake alert and interactive. Still feels cold. Is having some abdominal pain. Denies nausea or emesis. Appetite is poor. 06/29/2018 patient is moved out of intensive care unit. His evidence of gram- negative sepsis but seems to be improving. He is eating with help the nursing staff. Still feels very poorly. He has had a laparoscopic cholecystectomy. 07/05/2018 patient is had some further improvement. Recurring after his laparoscopic cholecystectomy. Appetites improving. Going to extended care to receive physical therapy and ongoing medications for his severe depression. Objective - Vital Signs Vital signs: Vital Signs Temp 97.6 F 07/05/18 14:50 Pulse 62 07/05/18 14:50 Resp 16 07/05/18 14:50 BP 139/79 07/05/18 14:50 Pulse Ox 98 07/05/18 14:50 Intake & Output 07/05/18 07/05/18 07/06/18 06:59 18:59 06:59 Intake Total 1200 Output Total 801 1451 Balance -816 -764 Intake: IV 0 Sodium Chloride 0.9% 1, 0 000 ml @ 50 mls/hr IV . Q20H [facility] Rx#:[id number] Oral 1200 Output: Urine 800 1450 Stool 1 1 Other: Voiding Method Indwelling Catheter Indwelling Catheter # Bowel Movements 1 ABP, PAP, CO, CI - Last Documented Arterial Blood Pressure 122/58 - Exam 77-year-old male arousable and becomes more interactive with stimulation HEENT: Anicteric conjunctiva are pink and moist nasal mucosa grossly intact without significant lesions, there is no thrush. Dentition modestly poor Neck: The neck is supple without significant lymphadenopathy or thyromegaly. Lungs: Symmetrical air entry no bronchial sounds with dullness or egophony Heart: Regular rate and rhythm with an audible S1-S2, no S3 no S4. There is no significant murmur click or rub, PMI was nondisplaced. Abdomen: Positive bowel sounds soft and now has some tenderness especially in the right upper quadrant without palpable masses or organomegaly. There was no guarding or rebound. Extremities: The upper extremities have excellent pulses they are symmetric, no significant petechiae or telangiectasia. No splinter hemorrhages were noted. The lower extremities are free from significant edema. The peripheral pulses were 2+ and symmetric. Neuro: Awake alert oriented to person place and time There are no acute new gross focal sensory motor deficits. Follows simple commands and moved upper and lower extremities - Labs CBC & Chem 7: 07/03/18 06:50 07/05/18 09:23 Labs: Abnormal Lab Results - Last 24 Hours (Table) 07/05/18 Range/Units 09:23 Sodium 135 L (137-145) mmol/L Chloride 109 H (98-107) mmol/L Carbon Dioxide 20 L (22-30) mmol/L BUN 31 H (9-20) mg/dL Creatinine 1.47 H (0.66-1.25) mg/dL Calcium 8.1 L (8.4-10.2) mg/dL Laboratory Results WBC 9.9 k/uL (3.8-10.6) 07/03/18 06:50 RBC 2.43 m/uL (4.30-5.90) L 07/03/18 06:50 Hgb 8.1 gm/dL (13.0-17.5) L 07/03/18 06:50 Hct 25.3 % (39.0-53.0) L 07/03/18 06:50 MCV 104.0 fL (80.0-100.0) H 07/03/18 06:50 MCH 33.2 pg (25.0-35.0) 07/03/18 06:50 MCHC 32.0 g/dL (31.0-37.0) 07/03/18 06:50 RDW 15.7 % (11.5-15.5) H 07/03/18 06:50 Plt Count 133 k/uL (150-450) L 07/03/18 06:50 Neutrophils % 84 % 07/03/18 06:50 Neutrophils % (Manual) 69 % 06/24/18 04:50 Band Neutrophils % 18 % 06/24/18 04:50 Lymphocytes % 9 % 07/03/18 06:50 Lymphocytes % (Manual) 4 % 06/24/18 04:50 Monocytes % 4 % 07/03/18 06:50 Monocytes % (Manual) 9 % 06/24/18 04:50 Eosinophils % 1 % 07/03/18 06:50 Basophils % 0 % 07/03/18 06:50 Neutrophils # 8.4 k/uL (1.3-7.7) H 07/03/18 06:50 Neutrophils # (Manual) 22.70 k/uL (1.3-7.7) H 06/24/18 04:50 Lymphocytes # 0.9 k/uL (1.0-4.8) L 07/03/18 06:50 Lymphocytes # (Manual) 1.04 k/uL (1.0-4.8) 06/24/18 04:50 Monocytes # 0.4 k/uL (0-1.0) 07/03/18 06:50 Monocytes # (Manual) 2.35 k/uL (0-1.0) H 06/24/18 04:50 Eosinophils # 0.1 k/uL (0-0.7) 07/03/18 06:50 Basophils # 0.0 k/uL (0-0.2) 07/03/18 06:50 Nucleated RBCs 0 /100 WBC (0-0) 06/24/18 04:50 Manual Slide Review Performed 06/26/18 04:30 Toxic Granulation Present 06/29/18 13:00 Toxic Vacuolation Present 06/26/18 04:30 Large Platelets Present 06/26/18 04:30 Hypochromasia Slight 07/03/18 06:50 Poikilocytosis (manual Present 06/29/18 13:00 Macrocytosis Moderate 07/03/18 06:50 Crenated Cell Present 06/24/18 04:50 PT 11.4 sec (9.0-12.0) 06/28/18 11:00 INR 1.2 (<1.2) H 06/28/18 11:00 APTT 24.6 sec (22.0-30.0) 06/28/18 11:00 Sample Site santosh 06/24/18 07:46 ABG pH 7.31 (7.35-7.45) L 06/24/18 07:46 ABG pCO2 23 mmHg (35-45) L 06/24/18 07:46 ABG pO2 243 mmHg (83-108) H 06/24/18 07:46 ABG HCO3 11 mmol/L (21-25) L 06/24/18 07:46 ABG Total CO2 12 mmol/L (19-24) L 06/24/18 07:46 ABG O2 Saturation 100.0 % (94-97) H 06/24/18 07:46 ABG Base Excess -15.0 mmol/L 06/24/18 07:46 Andrew Test Yes 06/24/18 07:46 ABG Lactic Acid 4.1 mmol/L (0.5-1.6) H* 06/25/18 04:28 VBG pH 7.36 (7.31-7.41) 06/21/18 20:20 VBG pCO2 32 mmHg (37-51) L 06/21/18 20:20 VBG HCO3 17 mmol/L (24-28) L 06/21/18 20:20 FiO2 80 % 06/24/18 07:46 Sodium 135 mmol/L (137-145) L 07/05/18 09:23 Potassium 4.6 mmol/L (3.5-5.1) 07/05/18 09:23 Chloride 109 mmol/L (98-107) H 07/05/18 09:23 Carbon Dioxide 20 mmol/L (22-30) L 07/05/18 09:23 Anion Gap 6 mmol/L 07/05/18 09:23 BUN 31 mg/dL (9-20) H 07/05/18 09:23 Creatinine 1.47 mg/dL (0.66-1.25) H 07/05/18 09:23 Est GFR (CKD-EPI)AfAm 52 (>60 ml/min/1.73 sqM) 07/05/18 09:23 Est GFR (CKD-EPI)NonAf 45 (>60 ml/min/1.73 sqM) 07/05/18 09:23 Glucose 98 mg/dL (74-99) 07/05/18 09:23 POC Glucose (mg/dL) 92 mg/dL (75-99) 07/05/18 12:07 POC Glu Cut To Length Operator Zoë Rajput 07/05/18 12:07 Osmolality 255 mosm/kg (280-301) L 06/22/18 17:40 Lactic Ac Sepsis Rflx Y 06/24/18 18:38 Plasma Lactic Acid French 7.2 mmol/L (0.7-2.0) H* 06/24/18 16:10 Uric Acid 8.2 mg/dL (3.5-8.5) 06/22/18 17:40 Calcium 8.1 mg/dL (8.4-10.2) L 07/05/18 09:23 Phosphorus 3.7 mg/dL (2.5-4.5) 06/30/18 06:51 Magnesium 2.2 mg/dL (1.6-2.3) 06/30/18 06:51 Total Bilirubin 0.6 mg/dL (0.2-1.3) 07/03/18 06:50 Conjugated Bilirubin 0.0 mg/dL (0.0-0.3) 06/28/18 11:00 Unconjugated Bilirubin 0.4 mg/dL (0.0-1.1) 06/28/18 11:00 Delta Bilirubin 0.5 mg/dL (0.0-0.2) H 06/28/18 11:00 AST 35 U/L (17-59) 07/03/18 06:50 ALT 146 U/L (21-72) H 07/03/18 06:50 Alkaline Phosphatase 197 U/L (38-126) H 07/03/18 06:50 Ammonia <9 umol/L (<30) 06/21/18 20:20 Creatine Kinase 62 U/L (55-170) 06/28/18 11:00 Total Creatine Kinase 2254 U/L (55-170) H* 06/21/18 19:00 CK-MB (CK-2) 4.1 ng/mL (0.0-2.4) H 06/23/18 06:21 CK-MB (CK-2) Rel Index 06/21/18 19:00 Troponin I 0.152 ng/mL (0.000-0.034) H* 06/22/18 15:14 Total Protein 4.5 g/dL (6.3-8.2) L 07/03/18 06:50 Albumin 1.8 g/dL (3.5-5.0) L 07/03/18 06:50 Prealbumin <5.0 mg/dL (18.0-42.0) L 06/28/18 05:26 Vitamin D 25-Hydroxy 20.0 ng/mL (30.0-100.0) L 06/26/18 04:30 Vit D 1,25-Dihydroxy 20 pg/mL (20 - 79) 06/26/18 04:30 TSH 0.958 mIU/L (0.465-4.680) 06/22/18 17:40 Urine Color Light Yellow 06/21/18 21:33 Urine Appearance Clear (Clear) 06/21/18 21: Urine pH 5.5 (5.0-8.0) 06/21/18 21:33 Ur Specific [place] 1.006 (1.001-1.035) 06/21/18 21: Urine Protein 1+ (Negative) H 06/21/18 21: Urine Glucose (UA) Negative (Negative) 06/21/18 21: Urine Ketones 2+ (Negative) H 06/21/18 21:33 Urine Blood Moderate (Negative) H 06/21/18 21:33 Urine Nitrite Positive (Negative) 06/21/18 21: Urine Bilirubin Negative (Negative) 06/21/18 21: Urine Urobilinogen <2.0 mg/dL (<2.0) 06/21/18 21:33 Ur Leukocyte Esterase Negative (Negative) 06/21/18 21: Urine RBC 1 /hpf (0-5) 06/21/18 21:33 Urine WBC 1 /hpf (0-5) 06/21/18 21:33 Ur Squamous Epith Cells <1 /hpf (0-4) 06/21/18 21:33 Calcium Oxalate Crystal Occasional /hpf (None) H 06/21/18 21:33 Urine Bacteria Few /hpf (None) H 06/21/18 21:33 Urine Mucus Rare /hpf (None) H 06/21/18 21:33 Urine Osmolality 190 mosm/kg (50-1400) 06/21/18 21:33 Ur Random Sodium 13 mmol/L 06/21/18 21:33 Ur Random Potassium 16.0 mmol/L 06/21/18 21:33 Urine Opiates Screen Not Detected (NotDetected) 06/21/18 21:33 Ur Oxycodone Screen Not Detected (NotDetected) 06/21/18 21:33 Urine Methadone Screen Not Detected (NotDetected) 06/21/18 21:33 Ur Propoxyphene Screen Not Detected (NotDetected) 06/21/18 21:33 Ur Barbiturates Screen Not Detected (NotDetected) 06/21/18 21:33 U Tricyclic Antidepress Not Detected (NotDetected) 06/21/18 21:33 Ur Phencyclidine Scrn Not Detected (NotDetected) 06/21/18 21:33 Ur Amphetamines Screen Not Detected (NotDetected) 06/21/18 21:33 U Methamphetamines Scrn Not Detected (NotDetected) 06/21/18 21:33 U Benzodiazepines Scrn Not Detected (NotDetected) 06/21/18 21:33 Urine Cocaine Screen Not Detected (NotDetected) 06/21/18 21:33 U Marijuana (THC) Screen Not Detected (NotDetected) 06/21/18 21:33 Blood Type O Positive 06/29/18 08:00 Blood Type Confirm O Positive 06/29/18 09:06 Blood Type Recheck CABO Indicated 06/29/18 08:00 Antibody Screen NEGATIVE 06/29/18 08:00 Transfuse Platelets 06/29/18 06/29/18 09:49 Spec Expiration Date 07/02/2018 - 2300 06/29/18 08:00 Microbiology 06/26/18 01:20 Blood Blood Culture - Final No Growth after 144 hours 06/21/18 23:36 Blood Blood Culture - Final No Growth after 144 hours 06/22/18 15:14 Blood Blood Culture Gram Stain - Final 06/22/18 15:14 Blood Blood Culture - Final Klebsiella pneumoniae 06/21/18 21:33 Urine,Catheterized Urine Culture - Final Klebsiella pneumoniae 06/22/18 15:14 Blood Blood Culture - Final Assessment and Plan (1) Gram negative sepsis Narrative/Plan: 77-year-old male presents to Hospital after being found by neighbors obtunded laying on the floor thrashing at times. At admission the patient evidence of sepsis and was brought to the intensive care unit. He has now been resuscitated but there is evidence of a positive urine culture with Klebsiella as his blood culture. With this the infectious diseases consultation was requested. His microbial therapy was altered to ceftriaxone for which the pathogen is highly susceptible. There is evidence of acute renal failure that appears to be multifactorial including partly to do with the rhabdomyolysis. Leukocytosis appears to be recommended to his current sepsis. He has anemia and thrombocytopenia possibly also on the basis of the sepsis. With treatment of the gram-negative sepsis with expected points to improve. Follow blood cultures requested to ensure the bacteremia is cleared. There is an elevated lactic acid of 6.9 improved 4.1. The patient does have bacteremia and sepsis but the elevated lactic acid appears to be in the basis of his acute renal failure and rhabdomyolysis. 06/27/2018 77-year-old male is now feeling somewhat better. Mentation is improved. Responding well to antibiotic therapy for his bacteremic urinary tract infection with klebsiella. Antibiotic skin continue the patient is developed abdominal pain. Evaluation reveals evidence of acute cholecystitis. This is likely an acute event on the basis of his underlying acute illness. Will be seen by surgery and potentially will be going for a surgical intervention tomorrow. This is discussed with the nurses and made nothing by mouth at midnight pending the surgical intervention. Continue current antibiotic therapy for now. Fever has improved. 06/29/2018 patient is status post laparoscopic cholecystectomy seems to be improving. Is eating some dinner with the assistance of the staff. If he improves will transition to an extended care facility for rehab. The Klebsiella that is isolated susceptible to quinolones and likely will transition to oral therapy when his gastrointestinal tract has normalized to complete his course of therapy for his gram-negative sepsis. 09/05/2017 patient is had some further improvement He is stable enough for transfer to [facility] physical therapy and treatment of his depression, to complete 2 weeks of Levaquin therapy for his Klebsiellia sepsis. Status: Acute Code(s): A41.50 - GRAM-NEGATIVE SEPSIS, UNSPECIFIED SNOMED Code(s): 853619308 (2) Urinary tract infection due to Klebsiella species Status: Acute Code(s): N39.0 - URINARY TRACT INFECTION, SITE NOT SPECIFIED; B96.1 - KLEBSIELLA PNEUMONIAE THE CAUSE OF DISEASES CLASSD [id number] SNOMED Code(s): 628474402662175 (3) Rhabdomyolysis Status: Acute Code(s): M62.82 - RHABDOMYOLYSIS SNOMED Code(s): 361844146 (4) Leukocytosis Status: Acute Code(s): D72.829 - ELEVATED WHITE BLOOD CELL COUNT, UNSPECIFIED SNOMED Code(s): 738958711
== END 2018-07-05 17:13 | DRG 987 ==
LOC: EC 18:12 → 2SICU 21:28 → 4MS4W 06-22 09:59 → 3SCARD 06-22 15:38 → 2SICU 06-24 00:25 → 4SSUR 06-29 03:33
PROVIDERS: ADMIT Internal Medicine; ATTEND Internal Medicine
PROC: 04HL33Z Insertion of Infusion Device into Left Femoral Artery, Percutaneous Approach (ICD-10-PCS; 2018-06-24)
PROC: 06HM33Z Insertion of Infusion Device into Right Femoral Vein, Percutaneous Approach (ICD-10-PCS; 2018-06-24)
PROC: 0FT44ZZ Resection of Gallbladder, Percutaneous Endoscopic Approach (ICD-10-PCS; 2018-06-29)
PROC: 30230R1 Transfusion of Nonautologous Platelets into Peripheral Vein, Open Approach (ICD-10-PCS; principal; 2018-06-29 09:30)
DX: T83.518A Infection and inflammatory reaction due to other urinary catheter, initial encounter (principal); A41.59 Other Gram-negative sepsis; G93.41 Metabolic encephalopathy; J15.0 Pneumonia due to Klebsiella pneumoniae; N17.0 Acute kidney failure with tubular necrosis; R65.21 Severe sepsis with septic shock; E22.2 Syndrome of inappropriate secretion of antidiuretic hormone; E87.2 Acidosis; F33.2 Major depressive disorder, recurrent severe without psychotic features; G40.89 Other seizures; J44.0 Chronic obstructive pulmonary disease with (acute) lower respiratory infection; J98.11 Atelectasis; K81.0 Acute cholecystitis; M62.82 Rhabdomyolysis; N18.4 Chronic kidney disease, stage 4 (severe); N39.0 Urinary tract infection, site not specified; E44.0 Moderate protein-calorie malnutrition; D64.9 Anemia, unspecified; D69.6 Thrombocytopenia, unspecified; E78.5 Hyperlipidemia, unspecified; K82.A1 Gangrene of gallbladder in cholecystitis; E83.39 Other disorders of phosphorus metabolism; E83.51 Hypocalcemia; E86.0 Dehydration; E86.1 Hypovolemia; E87.5 Hyperkalemia; E87.6 Hypokalemia; E87.70 Fluid overload, unspecified; F41.1 Generalized anxiety disorder; F60.81 Narcissistic personality disorder; I08.3 Combined rheumatic disorders of mitral, aortic and tricuspid valves; I13.10 Hypertensive heart and chronic kidney disease without heart failure, with stage 1 through stage 4 chronic kidney disease, or unspecified chronic kidney disease; I25.5 Ischemic cardiomyopathy; I27.20 Pulmonary hypertension, unspecified; I89.0 Lymphedema, not elsewhere classified; J45.20 Mild intermittent asthma, uncomplicated; K59.00 Constipation, unspecified; K76.0 Fatty (change of) liver, not elsewhere classified; N40.0 Benign prostatic hyperplasia without lower urinary tract symptoms; G43.909 Migraine, unspecified, not intractable, without status migrainosus; R33.9 Retention of urine, unspecified; F60.3 Borderline personality disorder; T50.2X5A Adverse effect of carbonic-anhydrase inhibitors, benzothiadiazides and other diuretics, initial encounter; T43.215A Adverse effect of selective serotonin and norepinephrine reuptake inhibitors, initial encounter; T43.225A Adverse effect of selective serotonin reuptake inhibitors, initial encounter; Z68.29 Body mass index [BMI] 29.0-29.9, adult; Z66 Do not resuscitate; Z87.440 Personal history of urinary (tract) infections; Z88.0 Allergy status to penicillin; Z79.899 Other long term (current) drug therapy; Z91.5 Personal history of self-harm; Z82.49 Family history of ischemic heart disease and other diseases of the circulatory system; W19.XXXA Unspecified fall, initial encounter; Y92.009 Unspecified place in unspecified non-institutional (private) residence as the place of occurrence of the external cause; Y84.6 Urinary catheterization as the cause of abnormal reaction of the patient, or of later complication, without mention of misadventure at the time of the procedure
CPT/HCPCS: 36415; 36600; 51702; 70450; 71045; 72125; 74176; 76705; 80048; 80053; 80076; 80306; 81001; 82140; 82306; 82550; 82553; 82652; 82803; 82805; 83605; 83735; 83930; 83935; 84100; 84132; 84133; 84134; 84295; 84300; 84443; 84484; 84550; 85025; 85027; 85610; 85730; 86850; 86900; 86901; 87040; 87077; 87086; 87186; 88304; 93005; 93306; 94640; 94760; 96360; 96361; 96374; 99285